=== PATIENT | female | born 1950 | race Caucasian/White ===

== ENCOUNTER 2018-01-28 10:39 | Inpatient (IN) | payer MEDICARE, MEDICAID ==
--- NOTE | 2018-01-28 11:20 | ED ---
Psych HPI - General Chief Complaint: Psychiatric Symptoms Stated Complaint: mental health Time Seen by Provider: 01/28/18 10:51 Source: patient, RN notes reviewed Mode of arrival: ambulatory Limitations: no limitations - History of Present Illness Initial Comments: 67-year-old female presents emergency department with family for psychiatric evaluation. Patient was seen at [facility] last night for some her symptoms. Patient is bipolar, schizoaffective. Patient has seen people, talking to people. Patient is having erratic behavior, uncontrolled fever at home. Family states that she had a change in her medication she used to be on injectable and states that they cannot handle her behavior anymore. Patient has been petition. Patient denies being suicidal or homicidal. Patient states she has no complaints. - Related Data Home Medications Medication Instructions Recorded Confirmed Aspirin EC [Ecotrin Low Dose] 81 mg PO DAILY 01/06/18 01/28/18 Lisinopril [Zestril] 20 mg PO DAILY 01/06/18 01/28/18 Multivitamins, Thera [Multivitamin 1 tab PO DAILY 01/06/18 01/28/18 (formulary)] Benztropine Mesylate [Cogentin] 1 mg PO BID 01/28/18 01/28/18 Temazepam [Restoril] 30 mg PO HS 01/28/18 01/28/18 Previous Rx's Medication Instructions Recorded Benztropine Mesylate [Cogentin] 0.5 mg PO BID #28 tab 01/16/18 Paliperidone IM [Invega Sustenna] 156 mg IM ONCE #1 syr 01/16/18 Paliperidone [Invega] 6 mg PO HS #7 tab.er.24 01/16/18 traZODone HCL 150 mg PO HS #14 tablet 01/16/18 Allergies Allergy/AdvReac Type Severity Reaction Status Date / Time quetiapine fumarate Allergy Unknown Verified 01/28/18 11:24 [From Seroquel] Sulfa (Sulfonamide Allergy Unknown Verified 01/28/18 11:24 Antibiotics) Review of Systems ROS Statement: Those systems with pertinent positive or pertinent negative responses have been documented in the HPI. ROS Other: All systems not noted in ROS Statement are negative. 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 Past Anesthesia/Blood Transfusion Reactions: No Reported Reaction Past Psychological History: Bipolar, Schizophrenia Smoking Status: Current every day smoker Past Alcohol Use History: None Reported Past Drug Use History: None Reported - Past Family History Brother(s) Additional Family Medical History / Comment(s): Patient states she has 5 brothers with no major medical problems. Sister(s) Additional Family Medical History / Comment(s): Patient states she has 7 sisters with no major medical problems. Brother(s) Son(s) Additional Family Medical History / Comment(s): Patient has 2 sons and 1 daughter with no major medical problems. Mother Family Medical History: Cancer, Hypertension Additional Family Medical History / Comment(s): Mother at age 89 from stomach problems Father Family Medical History: CVA/TIA, Hypertension Additional Family Medical History / Comment(s): Father at age 59 from peripheral vascular disease. General Exam Limitations: no limitations General appearance: alert, in no apparent distress Head exam: Present: atraumatic, normocephalic, normal inspection Eye exam: Present: normal appearance, PERRL, EOMI. Absent: scleral icterus, conjunctival injection, periorbital swelling ENT exam: Present: normal exam, normal oropharynx, mucous membranes moist, TM's normal bilaterally, normal external ear exam Neck exam: Present: normal inspection, full ROM. Absent: tenderness, meningismus, lymphadenopathy Respiratory exam: Present: normal lung sounds bilaterally. Absent: respiratory distress, wheezes, rales, rhonchi, stridor Cardiovascular Exam: Present: regular rate, normal rhythm, normal heart sounds. Absent: systolic murmur, diastolic murmur, rubs, gallop, clicks Neurological exam: Present: alert, oriented X3, CN II-XII intact Psychiatric exam: Present: manic, other (Flight of ideas, talking to people that are not in the room) Skin exam: Present: warm, dry, intact, normal color. Absent: rash Course Vital Signs 01/28/18 10:45 Temperature 98.0 F Pulse Rate 102 H Respiratory 20 Rate Blood Pressure 129/76 O2 Sat by Pulse 98 Oximetry Medical Decision Making - Lab Data Result diagrams: 01/28/18 12:02 02/28/18 12:02 Lab Results 01/28/18 01/28/18 01/28/18 Range/Units 12:02 12:02 14:55 WBC 6.0 (3.8-10.6) k/uL RBC 3.96 (3.80-5.40) m/uL Hgb 12.1 (11.4-16.0) gm/dL Hct 36.4 (34.0-46.0) % MCV 92.0 (80.0-100.0) fL MCH 30.6 (25.0-35.0) pg MCHC 33.2 (31.0-37.0) g/dL RDW 13.0 (11.5-15.5) % Plt Count 239 (150-450) k/uL Neutrophils % 71 % Lymphocytes % 21 % Monocytes % 5 % Eosinophils % 2 % Basophils % 1 % Neutrophils # 4.2 (1.3-7.7) k/uL Lymphocytes # 1.2 (1.0-4.8) k/uL Monocytes # 0.3 (0-1.0) k/uL Eosinophils # 0.1 (0-0.7) k/uL Basophils # 0.0 (0-0.2) k/uL Sodium 138 (137-145) mmol/L Potassium 4.4 (3.5-5.1) mmol/L Chloride 103 (98-107) mmol/L Carbon Dioxide 25 (22-30) mmol/L Anion Gap 10 mmol/L BUN 12 (7-17) mg/dL Creatinine 0.56 (0.52-1.04) mg/dL Est GFR (MDRD) Af Amer >60 (>60 ml/min/1.73 sqM) Est GFR (MDRD) Non-Af >60 (>60 ml/min/1.73 sqM) Glucose 94 (74-99) mg/dL Calcium 9.3 (8.4-10.2) mg/dL Total Bilirubin 0.3 (0.2-1.3) mg/dL AST 19 (14-36) U/L ALT 31 (9-52) U/L Alkaline Phosphatase 72 (38-126) U/L Total Protein 6.2 L (6.3-8.2) g/dL Albumin 3.6 (3.5-5.0) g/dL Urine Color Light Yellow Urine Appearance Clear (Clear) Urine pH 6.5 (5.0-8.0) Ur Specific [place] 1.006 (1.001-1.035) Urine Protein Negative (Negative) Urine Glucose (UA) Negative (Negative) Urine Ketones Negative (Negative) Urine Blood Negative (Negative) Urine Nitrite Negative (Negative) Urine Bilirubin Negative (Negative) Urine Urobilinogen <2.0 (<2.0) mg/dL Ur Leukocyte Esterase Trace H (Negative) Urine RBC 1 (0-5) /hpf Urine WBC 1 (0-5) /hpf Ur Squamous Epith Cells 7 H (0-4) /hpf Urine Bacteria Rare H (None) /hpf Urine Opiates Screen (NotDetected) Ur Oxycodone Screen (NotDetected) Urine Methadone Screen (NotDetected) Ur Propoxyphene Screen (NotDetected) Ur Barbiturates Screen (NotDetected) U Tricyclic Antidepress (NotDetected) Ur Phencyclidine Scrn (NotDetected) Ur Amphetamines Screen (NotDetected) U Methamphetamines Scrn (NotDetected) U Benzodiazepines Scrn (NotDetected) Urine Cocaine Screen (NotDetected) U Marijuana (THC) Screen (NotDetected) 01/28/18 Range/Units 14:55 WBC (3.8-10.6) k/uL RBC (3.80-5.40) m/uL Hgb (11.4-16.0) gm/dL Hct (34.0-46.0) % MCV (80.0-100.0) fL MCH (25.0-35.0) pg MCHC (31.0-37.0) g/dL RDW (11.5-15.5) % Plt Count (150-450) k/uL Neutrophils % % Lymphocytes % % Monocytes % % Eosinophils % % Basophils % % Neutrophils # (1.3-7.7) k/uL Lymphocytes # (1.0-4.8) k/uL Monocytes # (0-1.0) k/uL Eosinophils # (0-0.7) k/uL Basophils # (0-0.2) k/uL Sodium (137-145) mmol/L Potassium (3.5-5.1) mmol/L Chloride (98-107) mmol/L Carbon Dioxide (22-30) mmol/L Anion Gap mmol/L BUN (7-17) mg/dL Creatinine (0.52-1.04) mg/dL Est GFR (MDRD) Af Amer (>60 ml/min/1.73 sqM) Est GFR (MDRD) Non-Af (>60 ml/min/1.73 sqM) Glucose (74-99) mg/dL Calcium (8.4-10.2) mg/dL Total Bilirubin (0.2-1.3) mg/dL AST (14-36) U/L ALT (9-52) U/L Alkaline Phosphatase (38-126) U/L Total Protein (6.3-8.2) g/dL Albumin (3.5-5.0) g/dL Urine Color Urine Appearance (Clear) Urine pH (5.0-8.0) Ur Specific [place] (1.001-1.035) Urine Protein (Negative) Urine Glucose (UA) (Negative) Urine Ketones (Negative) Urine Blood (Negative) Urine Nitrite (Negative) Urine Bilirubin (Negative) Urine Urobilinogen (<2.0) mg/dL Ur Leukocyte Esterase (Negative) Urine RBC (0-5) /hpf Urine WBC (0-5) /hpf Ur Squamous Epith Cells (0-4) /hpf Urine Bacteria (None) /hpf Urine Opiates Screen Not Detected (NotDetected) Ur Oxycodone Screen Not Detected (NotDetected) Urine Methadone Screen Not Detected (NotDetected) Ur Propoxyphene Screen Not Detected (NotDetected) Ur Barbiturates Screen Not Detected (NotDetected) U Tricyclic Antidepress Not Detected (NotDetected) Ur Phencyclidine Scrn Not Detected (NotDetected) Ur Amphetamines Screen Not Detected (NotDetected) U Methamphetamines Scrn Not Detected (NotDetected) U Benzodiazepines Scrn Detected H (NotDetected) Urine Cocaine Screen Not Detected (NotDetected) U Marijuana (THC) Screen Not Detected (NotDetected) Disposition Clinical Impression: Bipolar disorder Disposition: ADMITTED IP TO THIS [facility] Condition: Stable Referrals: Germán Armenta MD [Primary Care Provider] - 1-2 days
[2018-01-28 12:14] LABS: Basophils % (A) 1 %; Eosinophils # (A) 0.1 k/uL (0-0.7); Eosinophils % (A) 2 %; HCT 36.4 % (34.0-46.0); HGB 12.1 gm/dL (11.4-16.0); Lymphocytes # (A) 1.2 k/uL (1.0-4.8); Lymphocytes % (A) 21 %; MCH 30.6 pg (25.0-35.0); MCHC 33.2 g/dL (31.0-37.0); Mean Platelet Volume 7.5; Monocytes # (A) 0.3 k/uL (0-1.0); Monocytes % (A) 5 %; Neutrophils # (A) 4.2 k/uL (1.3-7.7); Neutrophils % (A) 71 %; Platelet Count 239 k/uL (150-450); RBC 3.96 m/uL (3.80-5.40)
[2018-01-28 12:19] LABS: Albumin 3.6 g/dL (3.5-5.0); Chloride 103 mmol/L (98-107); Glucose 94 mg/dL (74-99); Total Protein 6.2 g/dL (6.3-8.2)
[2018-01-28 12:20] LABS: ALT 31 U/L (9-52); AST 19 U/L (14-36); Alkaline Phosphatase 72 U/L (38-126); Anion Gap 10 mmol/L; Blood Urea Nitrogen 12 mg/dL (7-17); Calcium 9.3 mg/dL (8.4-10.2); Carbon Dioxide 25 mmol/L (22-30); Potassium 4.4 mmol/L (3.5-5.1); Sodium 138 mmol/L (137-145); Total Bilirubin 0.3 mg/dL (0.2-1.3)
[2018-01-28] MEDS ORDERED: LORazepam 2 MG/ML INJ IM STA (13:32)
[2018-01-28 15:19] LABS: Appearance,Urine Clear (Clear); Bacteria,Urine Rare /hpf; Bilirubin,Urine Negative (Negative); Blood,Urine Negative (Negative); Color,Urine Light Yellow; Glucose,Urine (UA) Negative (Negative); Ketones,Urine Negative (Negative); Leukocyte Esterase,Urine Trace (Negative); Nitrite,Urine Negative (Negative); PH, Urine 6.5 (5.0-8.0); Protein,Urine Negative (Negative); RBC,Urine 1 /hpf (0-5); Specific Gravity,Urine 1.006 (1.001-1.035); Squamous Epithelial Cell,Urine 7 /hpf (0-4); Urobilinogen,Urine <2.0 mg/dL (<2.0); WBC,Urine 1 /hpf (0-5)
[2018-01-28 15:25] LABS: Amphetamine Screen,Urine Not Detected (NotDetected); Barbiturate Screen,Urine Not Detected (NotDetected); Benzodiazepines Screen,Urine Detected (NotDetected); Cocaine Screen,Urine Not Detected (NotDetected); Methadone Screen, Urine Not Detected (NotDetected); Opiate Screen,Urine Not Detected (NotDetected); Oxycodone Screen, Urine Not Detected (NotDetected); Phencyclidine Screen,Urine Not Detected (NotDetected); Tricyclic Antidepressant,Urine Not Detected (NotDetected); Urn Cannabinoid Scrn Not Detected (NotDetected)
[2018-01-28] MEDS ORDERED: ACETAMINOPHEN TAB 325 MG TAB PO PRN (18:28)
[2018-01-28] MEDS ORDERED: MAGNESIUM HYDROXIDE 2,400 MG/10 ML CUP PO PRN (18:28)
[2018-01-28] MEDS ORDERED: MAG HYDROX/AL HYDROX/SIMETH 30 ML CUP PO PRN (18:28)
[2018-01-28] MEDS: BENZTROPINE MESYLATE 0.5 MG TAB PO SCH (20:38)
[2018-01-28] MEDS: traZODone HCL 50 MG TAB PO SCH (20:39)
--- NOTE | 2018-01-29 01:14 | P.MDCNMH ---
History of Present Illness H&P Date: 01/29/18 Chief Complaint: Medical management 67-year-old female with past medical history of hypertension and asthma presented due to reported erratic behavior auditory and visual hallucinations. Patient denies these complaints reports that she had it for a with her family members. However she denies any depression, suicidal or homicidal ideation. And at this point she denies any physical complaints. She is very pleasant and cooperative with the interview. Patient expresses eagerness and going home Review of Systems Constitutional: Patient denies fever, denies chills, denies night sweating, denies significant weight changes Eyes: Patient denies visual changes, denies eye pain ENT: Patient denies ear pain, denies rhinorrhea, denies sore throat Cardiovascular: Patient denies chest pain, denies exertional dyspnea, denies peripheral leg edema, denies orthopnea, denies paroxysmal nocturnal dyspnea Respiratory:Patient denies cough, denies wheezing, denies shortness of breath Gastrointestinal: Patient denies diarrhea, denies constipation, denies nausea , denies vomiting, denies abdominal pain Genitourinary: Patient denies dysuria, denies hematuria, denies changes in urinary habits, denies genital lesions Musculoskeletal: Patient denies muscle pain, denies joint pain Psychiatric: Patient denies changes in mood or memory, denies suicidal ideation, denies anxiety Endocrine: Patient denies heat intolerance, denies cold intolerance, denies excessive thirst, denies polyuria Neurological: Patient denies focal neurologic deficits, denies weakness, denies numbness, denies tingling Hem/Lymphatic: Patient denies bleeding tendency, denies bruising, denies swollen lymph glands Allergic/Immun: Patient denies recent allergic reactions Skin: Patient denies rashes, denies pruritis, denies ulcers Past Medical History Past Medical History: Asthma, GERD/Reflux, Hypertension History of Any Multi-Drug Resistant Organisms: None Reported Past Surgical History: Section, Orthopedic Surgery Additional Past Surgical History / Comment(s): amputated toes on right ft. Past Anesthesia/Blood Transfusion Reactions: No Reported Reaction Past Psychological History: Bipolar, Schizophrenia Smoking Status: Current every day smoker Past Alcohol Use History: None Reported Past Drug Use History: None Reported - Past Family History Brother(s) Additional Family Medical History / Comment(s): Patient states she has 5 brothers with no major medical problems. Sister(s) Additional Family Medical History / Comment(s): Patient states she has 7 sisters with no major medical problems. Brother(s) Son(s) Additional Family Medical History / Comment(s): Patient has 2 sons and 1 daughter with no major medical problems. Mother Family Medical History: Cancer, Hypertension Additional Family Medical History / Comment(s): Mother at age 89 from stomach problems Father Family Medical History: CVA/TIA, Hypertension Additional Family Medical History / Comment(s): Father at age 59 from peripheral vascular disease. Medications and Allergies Home Medications Medication Instructions Recorded Confirmed Type Aspirin EC [Ecotrin Low Dose] 81 mg PO DAILY 01/06/18 01/28/18 History Lisinopril [Zestril] 20 mg PO DAILY 01/06/18 01/28/18 History Multivitamins, Thera [Multivitamin 1 tab PO DAILY 01/06/18 01/28/18 History (formulary)] Benztropine Mesylate [Cogentin] 0.5 mg PO BID #28 tab 01/16/18 01/28/18 Rx Paliperidone IM [Invega Sustenna] 156 mg IM ONCE #1 syr 01/16/18 01/28/18 Rx Paliperidone [Invega] 6 mg PO HS #7 tab.er.24 01/16/18 01/28/18 Rx traZODone HCL 150 mg PO HS #14 tablet 01/16/18 01/28/18 Rx Benztropine Mesylate [Cogentin] 1 mg PO BID 01/28/18 01/28/18 History Temazepam [Restoril] 30 mg PO HS 01/28/18 01/28/18 History Allergies Allergy/AdvReac Type Severity Reaction Status Date / Time quetiapine fumarate Allergy Unknown Verified 01/28/18 11:24 [From Seroquel] Sulfa (Sulfonamide Allergy Unknown Verified 01/28/18 11:24 Antibiotics) Physical Exam Vitals: Vital Signs Temp Pulse Pulse Resp BP BP Pulse Ox 01/28/18 18:19 99.4 F 81 16 113/81 01/28/18 10:45 98.0 F 102 H 20 129/76 98 Intake and Output 01/28/18 01/28/18 01/29/18 14:59 22:59 06:59 Other: Weight 68.039 kg Patient Weight 01/29/18 06:59 Weight 68.039 kg Constitutional: No acute distress, conversant, pleasant Eyes: Anicteric sclerae, moist conjunctiva, no lid-lag Pupils equal round reactive to light ENMT: NC/AT Oropharynx clear, no erythema, exudates Neck: Supple, FROM, no masses, or JVD No carotid bruits No thyromegaly Lungs: Clear to auscultation Clear to percussion Normal respiratory effort, no accessory muscle use Cardiovascular: Heart regular in rate and rhythm, No murmurs, gallops, or rubs No peripheral edema Abdominal: Soft Nontender, no guarding, rebound or rigidity Abdomen moving with respiration Normoactive bowel sounds No hepatomegaly, No splenomegaly No palpable mass No abdominal wall hernia noted Skin: Normal temperature, tone, texture, turgor No induration No subcutaneous nodules No rash, lesions No ulcers Extremities: No digital cyanosis No clubbing Pedal pulses intact and symmetrical Radial pulses intact and symmetrical No calf tenderness Psychiatric: Alert and oriented to person, place and time Appropriate affect fair judgment Neuro Muscles Strength 5/5 in all 4 extremities Sensation to light touch grossly present throughout No focal sensory deficits Lymphatics: no palpable cervical or supraclavicular , or inguinal lymph nodes Cranial Nerve Examination - Cranial Nerves Cranial Nerve II- Optic: Intact Cranial Nerve III- Oculomotor: Intact Cranial Nerve IV- Trochlear: Intact Cranial Nerve V- Trigeminal: Intact Cranial Nerve - Abducens: Intact Cranial Nerve VII- Facial: Intact Cranial Nerve VIII- Auditory: Intact Cranial Nerve IX- Glossopharyngeal: Intact Cranial Nerve X- Vagus: Intact Cranial Nerve XI- Accessory: Intact Cranial Nerve XII- Hypoglossal: Intact Results CBC & Chem 7: 01/28/18 12:02 01/28/18 12:02 Labs: Abnormal Lab Results - Last 24 Hours (Table) 01/28/18 01/28/18 01/28/18 Range/Units 12:02 14:55 14:55 Total Protein 6.2 L (6.3-8.2) g/dL Ur Leukocyte Esterase Trace H (Negative) Ur Squamous Epith Cells 7 H (0-4) /hpf Urine Bacteria Rare H (None) /hpf U Benzodiazepines Scrn Detected H (NotDetected) Assessment and Plan (1) Acute psychosis Narrative/Plan: Management per psych Current Visit: Yes Status: Acute Code(s): F23 - BRIEF PSYCHOTIC DISORDER SNOMED Code(s): 14860240 (2) Bipolar disorder Current Visit: Yes Status: Acute Code(s): F31.9 - BIPOLAR DISORDER, UNSPECIFIED SNOMED Code(s): 92969231 (3) Hypertension Narrative/Plan: Controlled off medications Current Visit: No Status: Acute Code(s): I10 - ESSENTIAL (PRIMARY) HYPERTENSION SNOMED Code(s): 26771708 (4) DVT prophylaxis Narrative/Plan: Low risk and ambulatory Current Visit: Yes Status: Acute Code(s): GCY6939 - SNOMED Code(s): 738883791 Plan: Thank you for allowing us to participate in the care of this patient. We will follow peripherally. Do not hesitate to contact us with questions. Someone can be reached from the [facility] hospitalist group at all hours of the day at [phone].
[2018-01-29] MEDS: ASPIRIN 81 MG PO SCH (08:30)
[2018-01-29] MEDS: BENZTROPINE MESYLATE 0.5 MG TAB PO SCH ×2 (08:31→20:44)
[2018-01-29] MEDS: LORazepam 1 MG TAB PO PRN (08:31)
[2018-01-29 08:40] LABS: Cholesterol 162 mg/dL (<200); HDL Cholesterol 54 mg/dL (40-60); LDL Cholesterol,Calculated 90 mg/dL (0-99); Triglycerides 88 mg/dL (<150)
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
[2018-01-29 16:52] LABS: Hemoglobin A1C 5.6 % (4.0-6.0)
[2018-01-29] MEDS: traZODone HCL 50 MG TAB PO SCH (20:44)
[2018-01-30] MEDS: BENZTROPINE MESYLATE 0.5 MG TAB PO SCH (08:01)
[2018-01-30] MEDS: lamoTRIgine 25 MG TAB PO SCH (08:02)
[2018-01-30] MEDS: ASPIRIN 81 MG PO SCH (08:02)
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
[2018-01-30] MEDS: traZODone HCL 50 MG TAB PO SCH (20:25)
[2018-01-31] MEDS: LORazepam 1 MG TAB PO PRN (06:08)
[2018-01-31] MEDS: BENZTROPINE MESYLATE 0.5 MG TAB PO SCH (08:35)
[2018-01-31] MEDS: ASPIRIN 81 MG PO SCH (08:35)
[2018-01-31] MEDS: lamoTRIgine 25 MG TAB PO SCH (08:35)
--- NOTE | 2018-01-31 13:36 | P.PN ---
Progress Note - Text Progress Note Date: 01/31/18 Interval History: Patient is a 67-year-old female who was seen today and reports that she slept 5-1/2 hours last night. Patient continues to have pressured speech and complain about her today it was about his hearing aids and how much she had to pay for them, she continued to go on about her daughter and the grandson is visiting. Patient then went on to complain about side effects from Lamictal of having a "ballooned head". Patient remains irritable, easily upset. Mental Status: Appearance/Attitude: Patient is appropriately dressed, looking drowsy, makes good eye contact and is cooperative Behavior: Patient does not display any psychomotor agitation or retardation. Speech/Language: Patient's speech is pressured, normal volume and rhythm and she is coherent Thought Process: Patient becomes tangential complaining about her , her daughter, side effects of medication that her sister had Thought Content: patient denies auditory or visual hallucinations, no delusions or paranoid ideation were elicited. Patient slept for 5-1/2 hours last night but continues to look drowsy during the day. Patient remains irritable, complaining about her daughter and . Suicidal/Homicidal Ideation: Patient denies any current suicidal or homicidal ideation Sensorium/Cognition: Patient is alert and oriented to person, place, and time and recent and remote memory are grossly intact Mood/Affect: Patient's mood remains labile and irritable and her affect is appropriate to her mood. Insight/Judgment: [Patient's insight and judgment are limited Assessment: Patient continues to have pressured speech, is tangential and anxious and complains about her , daughter and becomes easily agitated and irritable when discussing them. Patient slept for 5-1/2 hours last night and attend some group and activities. Patient reports no side effects from the medication and states she is eating well. Patient is attending some groups and activities Plan: patient has received the initial loading dose of Invega Sustenna last dose given on January 20. Patient remains pressured and irritable and will add Invega 3 mg at bedtime, patient continues on Lamictal 25 mg and we'll continue to titrate this. Patient continues to present with manic symptoms, pressured speech and irritability and requires hospitalization to further stabilize her mood. We'll use the additional oral in [place] to further stabilize her mood while the Lamictal is being titrated as the Invega injectable has not controlled her mood completely.
[2018-01-31] MEDS: PALIPERIDONE 3 MG TAB.ER.24 PO SCH (20:57)
[2018-01-31] MEDS: traZODone HCL 50 MG TAB PO SCH (20:58)
[2018-02-01] MEDS: BENZTROPINE MESYLATE 0.5 MG TAB PO SCH (08:40)
[2018-02-01] MEDS: ASPIRIN 81 MG PO SCH (08:40)
[2018-02-01] MEDS: lamoTRIgine 25 MG TAB PO SCH (08:41)
--- NOTE | 2018-02-01 12:39 | P.PN ---
Progress Note - Text Progress Note Date: 02/01/18 Interval History: Patient is a 67-year-old female who is being seen today and patient continues to have pressured speech and flight of ideas. Patient is less irritable today and states that she is not feeling as irritable. She states that she slept for about 4 hours last night and then awakened. Patient is requesting to be discharged stating that she feels she is perfectly fine and has always talked a lot. Mental Status: Appearance/Attitude: Patient is appropriately dressed, makes eye contact and is cooperative Behavior: Patient does not exhibit any psychomotor agitation or retardation. Speech/Language: Patient's speech is pressured, normal volume and she is coherent Thought Process: Patient exhibits flight of ideas, jumping from one topic to another about her sisters, but a swimming pool and requires redirection Thought Content: Patient denies auditory and visual hallucinations and no delusions or paranoid ideation were elicited. Patient continues to have racing thoughts, is not sleeping more than 4 hours a night. Suicidal/Homicidal Ideation: Patient denies any suicidal or homicidal ideation at this time Sensorium/Cognition: Patient is alert and oriented to person, place, and time and her recent and remote memory are grossly intact Mood/Affect: Patient's mood remains labile, her affect appropriate to her mood Insight/Judgment: Patient's insight and judgment are fair Assessment: Patient continues to exhibit pressured speech and flight of ideas and is less irritable today than she was yesterday. Patient states that she is ready to go home because she is always talked fast and this much. Patient reported no side effects from her medications and states that she attend some groups and activities. No reported side effects from the medication and none were elicited on exam Plan: Patient will continue on Invega 3 mg at bedtime in addition to her having already received long-acting Invega, and continue on Lamictal 25 mg a day. Patient continues to require hospitalization to stabilize her mood.
[2018-02-01] MEDS: traZODone HCL 50 MG TAB PO SCH (21:00)
[2018-02-01] MEDS: PALIPERIDONE 3 MG TAB.ER.24 PO SCH (21:00)
[2018-02-01] MEDS: LORazepam 1 MG TAB PO PRN (21:02)
[2018-02-02] MEDS: ASPIRIN 81 MG PO SCH (08:58)
[2018-02-02] MEDS: lamoTRIgine 25 MG TAB PO SCH (08:58)
[2018-02-02] MEDS: BENZTROPINE MESYLATE 0.5 MG TAB PO SCH (08:58)
--- NOTE | 2018-02-02 11:41 | P.PN ---
Progress Note - Text Progress Note Date: 02/02/18 Interval History: Patient is a 67-year-old female who was seen today and she reports that she did sleep well last evening. Patient is less irritable but continues to exhibit pressured speech and will begin to discuss issues from the past regarding her siblings, her parents and issues with her . Patient said to me that when she is speaking with her sister and her sister reported that she was talking too fast. Patient denied any suicidal thoughts and did not agree that she was speaking too fast stating this is the way she always speaks. Patient had no complaints of side effects from the medication and has been eating well. Mental Status: Appearance/Attitude: Patient is appropriately dressed, makes eye contact and is cooperative Behavior: Patient does not exhibit any psychomotor agitation or retardation and she is not irritable Speech/Language: Patient's speech is pressured, normal volume and rhythm and she is coherent Thought Process: Patient has flight of ideas, jumping from topic to topic mostly regarding her family, her Thought Content: Patient denies auditory or visual hallucinations and no paranoid or delusional ideation is elicited. Patient states that she is not having racing thoughts and that her sister reported she was speaking too fast the patient states this is the way she always speaks. Patient slept for 6-7 hours last night and has been eating well. Patient mostly complains about issues from the past with relationships with her sister, her parents were current difficulties with her , mostly related to things costing too much. Suicidal/Homicidal Ideation: Patient denied any current suicidal or homicidal ideation Sensorium/Cognition: Patient is alert and oriented to person, place, and time and her recent remote memory are grossly intact. Mood/Affect: Patient's mood is less irritable and her affect remains blunted Insight/Judgment: Patient's insight and judgment are fair Assessment: Patient has been taking her medication without difficulty, continues to exhibit pressured speech with flight of ideas regarding issues from her family and . Patient states that she is always spoken fast and states that her sister recently on the phone complained about this. Patient is able to attend some groups for brief periods of time. Patient is sleeping and is not exhibiting any confused behavior. She is less irritable than she was on admission. She reports no side effects from the medication. Plan: patient will continue on Invega 3 mg at bedtime, Lamictal 25 mg daily and her next long-acting Invega injection is due on February 17. Patient continues to require hospitalization due to her continued manic symptoms.
[2018-02-02] MEDS: LORazepam 0.5 MG TAB PO PRN ×2 (12:33→21:59)
[2018-02-02] MEDS: PALIPERIDONE 3 MG TAB.ER.24 PO SCH (21:57)
[2018-02-02] MEDS: traZODone HCL 50 MG TAB PO SCH (21:57)
[2018-02-03] MEDS: BENZTROPINE MESYLATE 0.5 MG TAB PO SCH (08:23)
[2018-02-03] MEDS: lamoTRIgine 25 MG TAB PO SCH (08:23)
[2018-02-03] MEDS: ASPIRIN 81 MG PO SCH (08:23)
[2018-02-03] MEDS: LORazepam 0.5 MG TAB PO PRN (10:27)
--- NOTE | 2018-02-03 13:57 | P.PN ---
Progress Note - Text Progress Note Date: 02/03/18 Interval History: Patient is a 67-year-old female who was seen today, patient was agitated and upset last night due to not being able to contact her and she states to me today that she thought he was lost. She slept only 2 a half hours last night. She states that she's did sleep after that. Patient continues to ruminate and go over and over incidents from the past, her reasons for not being able to take certain medications. At times today the patient's affect was slightly silly. Patient states that she is ready to go home Mental Status: Appearance/Attitude: Patient is appropriately dressed, makes eye contact and is cooperative Behavior: Patient does not exhibit any psychomotor retardation or agitation, last night she did begin to yell and become agitated when she could not use the phone because she thought her was lost Speech/Language: Patient's speech remains pressured, normal volume and rhythm and she is coherent Thought Process: Patient exhibits flight of ideas, going over incidents from the past, talking about her sister, talking about various events in the past Thought Content: Patient denies auditory or visual hallucinations and no delusions or paranoid ideation or elicited. Patient continues to not sleep well , she is eating well. She has periods of time where she became agitated last evening when she couldn't use the phone. Patient complains that she needs to be at home to take care of the finances because her is not able to do estimates. Suicidal/Homicidal Ideation: Patient denies any current suicidal or homicidal ideation Sensorium/Cognition: Patient is alert and oriented to person, place, and time and her recent and remote memory are grossly intact. Mood/Affect: Patient's mood remains labile, she was acting silly in the office and then began crying about my discussion regarding Depakote, her affect is appropriate to her mood Insight/Judgment: Patient's insight and judgment are limited Assessment: Patient is continued to exhibit manic behavior, especially pressured speech and flight of ideas she continues to not sleep well at night. Patient attends groups occasionally and is only able to tolerate them for brief periods of time. Patient and I discussed her medications and she refused adamantly Depakote although the patient was taking this in the past it is unclear why it was discontinued. Patient has never been on lithium in the past and I reluctant to begin this due to its narrow therapeutic window. Patient has episodes of agitation and yelling, her mood remains labile Plan: Patient will continue on Invega 3 mg at bedtime, trazodone 50 mg at bedtime and I will discontinue her Lamictal and begin Trileptal 150 mg twice a day as a mood stabilizer, patient and I discussed this and she is unsure of whether she has been on this in the past or not. Patient is due for her maintenance injection of Invega long-acting on February 17. Patient continues to require hospitalization to further stabilize her mood.
[2018-02-03] MEDS: PALIPERIDONE 3 MG TAB.ER.24 PO SCH (20:19)
[2018-02-03] MEDS: OXcarbazepine 150 MG TAB PO SCH (20:20)
[2018-02-03] MEDS: traZODone HCL 50 MG TAB PO SCH (20:20)
[2018-02-04] MEDS: LORazepam 0.5 MG TAB PO PRN ×2 (06:12→21:00)
[2018-02-04] MEDS: BENZTROPINE MESYLATE 0.5 MG TAB PO SCH (08:40)
[2018-02-04] MEDS: lamoTRIgine 25 MG TAB PO SCH (08:41)
[2018-02-04] MEDS: OXcarbazepine 150 MG TAB PO SCH ×2 (08:41→20:58)
[2018-02-04] MEDS: ASPIRIN 81 MG PO SCH (08:41)
--- NOTE | 2018-02-04 12:18 | P.PN ---
Progress Note - Text Progress Note Date: 02/04/18 Interval History: Patient is a 67-year-old female who was seen today, patient initially was cooperative during the interview but as the interview progressed she became increasingly irritable, pressured speech and stating that she wants to be discharged. Patient stated that someone came to her house for mental health and told her that she needed to go back to the hospital and she got angry and told him to leave the house. When trying to discuss this with the patient she became increasingly angry and left the office stating that she doesn 't want to be ordered around and feels ready to go back home. Mental Status: Appearance/Attitude: Patient is appropriately dressed, makes good eye contact and is superficially cooperative Behavior: Patient does not exhibit any psychomotor retardation but became increasingly agitated during the interview stating that she was ready to leave, didn't like that mental health told her to come back to the hospital and got up and exited the interview room Speech/Language: Patient's speech is pressured, of normal volume and rhythm and she is coherent Thought Process: Patient continues to exhibit flight of ideas, needing redirection to return to the topic Thought Content: Patient denies auditory or visual hallucinations and no delusions or paranoid ideation were elicited. Patient states that she did not sleep well last night and requests that she be discharged home on Ativan. Patient remains irritable, demanding to leave the hospital and needing redirection to stay on topic. Patient is eating fairly well she says. Suicidal/Homicidal Ideation: Patient denies current suicidal or homicidal ideation Sensorium/Cognition: Patient is alert and oriented to person, place, and time and her recent and remote memory are grossly intact Mood/Affect: Patient's mood remains irritable and manic and her affect is appropriate to her mood Insight/Judgment: Patient's insight and judgment are impaired Assessment: Patient remains manic, easily irritated and she demands to be released and states she is doing well. Her speech remains pressured with flight of ideas, stating that she got upset at home [facility], because her will let her do things and then request Ativan to go home with so that she can sleep. Patient reports that she did not sleep well last night. Patient reports no side effects from the medication and does attend some groups and activities. Plan: Patient will continue on Invega 3 mg at bedtime, Trileptal 150 mg twice a day and her Acting Invega injection is due on February 17. Patient also continues on trazodone 50 mg at bedtime and will decrease her Cogentin further and discontinue as the patient has no evidence of extrapyramidal symptoms. Patient continues to require hospitalization to further stabilize her mood.
[2018-02-04] MEDS: traZODone HCL 50 MG TAB PO SCH (20:58)
[2018-02-04] MEDS: PALIPERIDONE 3 MG TAB.ER.24 PO SCH (20:58)
[2018-02-05] MEDS: ASPIRIN 81 MG PO SCH (08:06)
[2018-02-05] MEDS: OXcarbazepine 150 MG TAB PO SCH (08:06)
--- NOTE | 2018-02-05 13:24 | P.PN ---
Progress Note - Text Progress Note Date: 02/05/18 Interval History: Patient is a 67-year-old female who was seen today who reported that she slept well last evening. Patient states that she is ready for discharge and stated that she wanted to be discharged so that she could find work because she and her are strapped for money she then went on to state that she could go back to school. 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 Patient reported no side effects from the medication. When I asked the patient why her Depakote at been discontinued she again became quite agitated and irritable stating that she wouldn't take it again and left the interview room Mental Status: Appearance/Attitude: Patient is appropriately dressed, walks with a shuffling gait and is cooperative Behavior: Patient does not display any psychomotor agitation or retardation. Speech/Language: Patient's speech is pressured with patient rambling on about finances, her work history, patient's speech is of normal volume and she is coherent Thought Process: patient exhibits flight of ideas, she is tangential and today was focused on money and her need to return to work Thought Content: patient denies any auditory or visual hallucinations and no paranoid or delusional ideation was elicited. Patient slept for greater than 5- 1/2 hours last night and states that her appetite is good. She reports no side effects from the medication. Suicidal/Homicidal Ideation: patient denies any current suicidal or homicidal ideation Sensorium/Cognition: patient is alert and oriented to person, place, and time and her recent and remote memory are grossly intact Mood/Affect: patient's mood remains irritable and her affect is appropriate to her mood Insight/Judgment: patient's insight and judgment are limited Assessment: patient continues to present with pressured speech today ruminating about going back to work because they don't have any money, her past work experience. Patient needs redirection to respond to questions. Patient was asked again about why her Depakote was discontinued in the past and again she became quite irritable stating that she never take it again but could not tell me why he stopped. Patient did sleep well last evening. Patient continues to spend long periods of time on the phone with her . Per social work when he spoke with her today he reported that the patient was back to her baseline. Patient reports no side effects from the medication. Patient stated that she had back pain from Depakote and that is why she stopped the medication. Plan: Patient will continue on Invega 3 mg at bedtime and will increase Trileptal to 300 mg twice a day to further stabilize her mood. Patient continues to present with manic symptoms of pressured speech, irritability. Patient continues to require hospitalization to further stabilize her mood and prevent rehospitalization.
[2018-02-05] MEDS: OXcarbazepine 300 MG TAB PO SCH (20:00)
[2018-02-05] MEDS: PALIPERIDONE 3 MG TAB.ER.24 PO SCH (20:00)
[2018-02-05] MEDS: traZODone HCL 50 MG TAB PO SCH (20:00)
[2018-02-06] MEDS: LORazepam 0.5 MG TAB PO PRN ×3 (00:09→12:42)
[2018-02-06] MEDS: ASPIRIN 81 MG PO SCH ×3 (09:21→12:43)
[2018-02-06] MEDS: OXcarbazepine 300 MG TAB PO SCH ×4 (09:21→20:37)
--- NOTE | 2018-02-06 13:14 | P.PN ---
Progress Note - Text Progress Note Date: 02/06/18 Interval History: Patient is a 67-year-old female who was seen today, she remains irritable, complaining that she does not want to return to [facility] and see Dr. Shaikh. She states that she wants to be discharged , doesn't want to take her medications because she doesn't need them. Patient was irritable earlier in the day on the telephone and could not tell me why. Patient reports that she wants to go to school to prevent a grandson from being bullied who is autistic, she reports that she doesn't need the Trileptal. Mental Status: Appearance/Attitude: Patient is dressed in appropriate clothing, walks with a shuffling gait makes intermittent eye contact and is superficially cooperative Behavior: Patient does not display psychomotor agitation or retardation. The patient is easily irritated when discussing her hospital stay Speech/Language: Patient's speech is pressured, of normal volume and she is coherent Thought Process: Patient is tangential, today complaining about the court order for treatment, not wanting to return to [facility], a grandson who is autistic being bullied in school Thought Content: Patient denies auditory or visual hallucinations and no delusions or paranoid ideation were elicited. Patient sleeps about 4-5 hours a night and her appetite is good. Patient states that she wants to leave the hospital, that she is ready to leave that she does not want to see Dr. Shaikh again that she is being held prisoner here Suicidal/Homicidal Ideation: Patient denies current suicidal or homicidal ideation. Sensorium/Cognition: Patient is alert and oriented to person, place, time and her recent remote memory are grossly intact Mood/Affect: Patient's mood remains labile and irritable and her affect is appropriate to her mood Insight/Judgment: Patient's insight and judgment are impaired Assessment: Patient requests to be discharged stating she is doing well, does not want to follow up at [facility] and feels she is being held prisoner here. When I try to discuss with her that she is on a court order for treatment she becomes increasingly irritable and agitated and states that she is being held captive, we'll move out of the [facility], get her own apartment. Patient was agitated earlier today while she was on the telephone with someone. Patient's been sleeping about 5 hours a night and her speech remains pressured. Patient is attending some groups and activities but is unable to stay for long periods of time. Staff report some confusion this morning when she was in groups. Plan: Patient will continue on Trileptal 300 mg twice a day, Invega 3 mg at bedtime and her next injection of Invega long-acting is due on February 17. I will discontinue the patient's trazodone as I do not know if this is adding to her irritability, agitation and reported some confusion this morning. We'll continue the Ativan 0.5 mg by mouth when necessary for agitation. Will obtain a sodium level secondary to being on Trileptal. Continue to titrate the Trileptal dose should the patient's sodium be within normal limits. Patient continues to require hospitalization to further stabilize her mood.
[2018-02-06] MEDS: PALIPERIDONE 3 MG TAB.ER.24 PO SCH (20:37)
[2018-02-07] MEDS: LORazepam 0.5 MG TAB PO PRN (05:23)
[2018-02-07] MEDS: OXcarbazepine 300 MG TAB PO SCH ×2 (09:12→20:58)
[2018-02-07] MEDS: ASPIRIN 81 MG PO SCH (09:12)
[2018-02-07 09:44] LABS: Anion Gap 8 mmol/L; Blood Urea Nitrogen 14 mg/dL (7-17); Calcium 8.9 mg/dL (8.4-10.2); Carbon Dioxide 28 mmol/L (22-30); Chloride 96 mmol/L (98-107); Glucose 124 mg/dL (74-99); Potassium 4.1 mmol/L (3.5-5.1); Sodium 132 mmol/L (137-145)
--- NOTE | 2018-02-07 15:22 | P.PN ---
Progress Note - Text Interval history: The patient is found in group she follows me to an interview room. In groups the patient was observed reading a paper seated alone. She states that she is looking forward to being discharged. She does not feel she requires continued hospitalization. Her medications were reviewed. Her recent sodium level came back at 132. This could be secondary to the Trileptal. We will reorder a sodium level for tomorrow morning. Mental status exam: The patient is seated calmly in her chair she stressor own clothing. Eye contact is intermittent. Speech is spontaneous she does demonstrate circumstantial and tangential thinking. She demonstrates limited insight and asked to be discharged. She demonstrates no irritability during our interaction this morning. She was directable. She is reporting no suicidal or homicidal ideation. She is endorsing no auditory or visual hallucinations or specific delusions. She would likely underreport symptoms to try to facilitate a discharge however. She demonstrates no abnormal involuntary movements. She demonstrates no verbal or physical aggressiveness. Plan: The patient will continue on her current psychotropic medications. We will repeat the sodium level. Reality orientation will be provided when possible. We will continue to monitor her for safety.
[2018-02-07] MEDS: PALIPERIDONE 3 MG TAB.ER.24 PO SCH (20:58)
[2018-02-08 06:48] VITALS: RESP 16
[2018-02-08] MEDS: ASPIRIN 81 MG PO SCH (08:56)
[2018-02-08] MEDS: OXcarbazepine 300 MG TAB PO SCH ×2 (08:56→20:17)
[2018-02-08] MEDS: LORazepam 0.5 MG TAB PO PRN ×2 (08:57→21:16)
--- NOTE | 2018-02-08 11:12 | P.PN ---
Progress Note - Text Interval history: The patient is found in the hallway she follows me to an interview room. She reports her and his friend visited last evening. It's difficult to ascertain what they talked about as she becomes tangential in describing that visit. Her sodium level was repeated which came back at 133 this is mild improvement from the last reading of 132. We discussed this lab result and she states she does have a history of her sodium being low in the past. She states her doctor his previously told her to use more salt. We discussed that the Trileptal could lower sodium. She feels that she is doing better with her current medication. She reports sleeping 6 hours staff recorded 5. She states she's been participating in meals. So far over the course of the weekend she has demonstrated no agitated behavior and she's been directable. Mental status exam: The patient is alert she's cooperative she seated calmly in the chair. Grooming is appropriate she is dressed in her own clothing. Eye contact is adequate. She does have spontaneous speech that is nonpressured. Thought process does not remain linear. She is able to provide some direct answers but with spontaneous speech she can demonstrate tangential thinking. She demonstrates no verbal or physical aggressiveness she demonstrates no abnormal involuntary movements. Insight and judgment limited however she does appear to be slowly improving. She is reporting no suicidal or homicidal ideation. She is endorsing no auditory or visual hallucinations or any specific delusions. She will at times describes some thoughts that may be paranoid in nature. Plan: The patient will continue on her current medications as they seem to be providing clinical benefit. Continue monitoring sodium level. She endorses a history of hyponatremia and states she's been directed to consume more sodium with her meals. We will consider reducing the Trileptal. We will monitor for safety and encourage her participation in the milieu. Vital signs reviewed.
[2018-02-08] MEDS: PALIPERIDONE 3 MG TAB.ER.24 PO SCH (20:17)
[2018-02-09] MEDS: ASPIRIN 81 MG PO SCH (08:15)
[2018-02-09] MEDS: OXcarbazepine 300 MG TAB PO SCH ×2 (08:15→20:18)
[2018-02-09 11:28] VITALS: BMI 25.7
--- NOTE | 2018-02-09 12:26 | P.PN ---
Progress Note - Text Progress Note Date: 02/09/18 Interval History: Patient is a 67-year-old female who was seen today and she reports that she slept better last evening, states that her thoughts are not racing as much. Patient stated that she feels more rested and states she is ready to return home. Mental Status: Appearance/Attitude: Patient is appropriately dressed, makes good eye contact and was cooperative. Behavior: Patient does not display any psychomotor agitation or retardation and is much less irritable. Speech/Language: Patient's speech is less pressured, of normal volume and she is coherent Thought Process: Patient exhibits less racing thoughts, remains tangential, no loose associations or flight of ideas Thought Content: patient denies any auditory or visual hallucinations and no delusions or paranoid ideation were elicited. Patient states that she slept 8 hours last night and reports that she is sleeping much better. She states that her thoughts are not racing as they were in the past. Patient states that she is eating well and wants to return home. Suicidal/Homicidal Ideation: Patient denies any current suicidal or homicidal ideation. Sensorium/Cognition: Patient is alert and oriented to person, place, and time and her recent and remote memory are grossly intact. Mood/Affect: Patient's mood is less irritable and her affect is slightly blunted ] Insight/Judgment: Patient's insight and judgment are fair Assessment: patient is much less irritable today, her speech is much less pressured although she remains tangential. Patient states that she is sleeping better and is ready to return home to assist her with things and around the house. Patient states that she is not having any side effects from the medication, however the patient's sodium was 132 in repeated 133 and she states that she has had difficulties in the past with a low sodium level. Patient reports that she is eating well, and reported that she has been attending some groups. Plan: patient will continue on Trileptal 3 mg twice a day, Invega 3 mg at bedtime as well as the Invega long-acting injectable do on February 17. I will repeat the patient's electrolytes tomorrow and assess whether Trileptal needs to be decreased or discontinued, patient has shown good response to the medication with a decrease in her pressured speech and irritability. Should patient sodium remained stable will consider discharge tomorrow as patient has shown improvement on the medication. She is no longer on Cogentin or trazodone.
[2018-02-09] MEDS: LORazepam 0.5 MG TAB PO PRN ×2 (13:45→21:56)
[2018-02-09] MEDS: PALIPERIDONE 3 MG TAB.ER.24 PO SCH (20:18)
[2018-02-10 06:53] VITALS: BP 126/65; PULSE 100; TEMP 97.5
[2018-02-10] MEDS: OXcarbazepine 300 MG TAB PO SCH (08:25)
[2018-02-10] MEDS: ASPIRIN 81 MG PO SCH (08:25)
[2018-02-10 09:50] LABS: Anion Gap 9 mmol/L; Blood Urea Nitrogen 16 mg/dL (7-17); Calcium 9.4 mg/dL (8.4-10.2); Carbon Dioxide 29 mmol/L (22-30); Chloride 96 mmol/L (98-107); Glucose 104 mg/dL (74-99); Potassium 4.3 mmol/L (3.5-5.1); Sodium 134 mmol/L (137-145)
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
== END 2018-02-10 13:23 | disposition home or self-care (01) | DRG 885 ==
LOC: EC 10:39 → 3MHU 17:17
PROVIDERS: ADMIT Psychiatry & Neurology Psychiatry; ATTEND Psychiatry & Neurology Psychiatry
DX: F31.9 Bipolar disorder, unspecified (principal); F20.9 Schizophrenia, unspecified; F17.200 Nicotine dependence, unspecified, uncomplicated; I10 Essential (primary) hypertension; J45.909 Unspecified asthma, uncomplicated; K21.9 Gastro-esophageal reflux disease without esophagitis; Z82.49 Family history of ischemic heart disease and other diseases of the circulatory system; Z88.2 Allergy status to sulfonamides; Z79.899 Other long term (current) drug therapy
CPT/HCPCS: 36415; 80048; 80053; 80061; 80306; 81001; 82075; 83036; 84295; 85025; 96372; 99285

== ENCOUNTER 2020-02-13 07:03 | Inpatient (IN) | payer MEDICARE, MEDICAID ==
[2020-02-13] MEDS ORDERED: SODIUM CHLORIDE 0.9% 500 ML 500 ML IV ONE (07:36)
--- NOTE | 2020-02-13 07:45 | ED ---
General Adult HPI - General Chief complaint: Psychiatric Symptoms Stated complaint: mental health Time Seen by Provider: 02/13/20 07:05 Source: family, RN notes reviewed, old records reviewed Mode of arrival: ambulatory Limitations: altered mental status - History of Present Illness Initial comments: This is a 69-year-old female presents to the emergency department with her . states she has some psychiatric problems but doesn't know ex actly what. states she switched her medications back to her old meds on her own about 2 weeks ago and after that she became more more psychotic yelling and screaming not making sense and it got to the point today that he wanted to bring her antibiotic evaluated to get her back on her old meds and get are stable. Patient is unable to give us any history. states there is no physical complaints today. Patient states she's been no fevers chills or cough. There's been no difficulty breathing there's been no vomiting or diarrhea and she has had no episodes pain that she has exhibited. According to the there's been no trauma. states this is how she gets anytime she is not taking her medications. He has seen this multiple times. - Related Data Home Medications Medication Instructions Recorded Confirmed Fluticasone Nasal Lee [Flonase 2 spr EA NOSTRIL DAILY 02/13/20 02/13/20 Nasal Lee] Lisinopril [Zestril] 20 mg PO DAILY 02/13/20 02/13/20 Metoprolol Tartrate [Lopressor] 25 mg PO BID 02/13/20 02/13/20 Naproxen 500 mg PO BID 02/13/20 02/13/20 [place]-3 Acid Ethyl Esters [Lovaza] 1 gm PO BID 02/13/20 02/13/20 Thioridazine HCl [Mellaril] 100 mg PO QID 02/13/20 02/13/20 cloZAPine [Clozaril] 50 mg PO HS 02/13/20 02/13/20 clonazePAM [KlonoPIN] 1 mg PO HS 02/13/20 02/14/20 clonazePAM [KlonoPIN] 1 mg PO DAILY@1200 PRN 02/14/20 02/14/20 Allergies Allergy/AdvReac Type Severity Reaction Status Date / Time quetiapine fumarate Allergy Unknown Verified 02/13/20 10:45 [From Seroquel] Sulfa (Sulfonamide Allergy Unknown Verified 02/13/20 10:45 Antibiotics) Review of Systems ROS Statement: Those systems with pertinent positive or pertinent negative responses have been documented in the HPI. ROS Other: All systems not noted in ROS Statement are negative. 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 Past Anesthesia/Blood Transfusion Reactions: No Reported Reaction Past Psychological History: Bipolar, Schizophrenia Smoking Status: Current every day smoker - Past Family History Brother(s) Additional Family Medical History / Comment(s): Patient states she has 5 brothers with no major medical problems. Sister(s) Additional Family Medical History / Comment(s): Patient states she has 7 sisters with no major medical problems. Brother(s) Son(s) Additional Family Medical History / Comment(s): Patient has 2 sons and 1 daughter with no major medical problems. Mother Family Medical History: Cancer, Hypertension Additional Family Medical History / Comment(s): Mother at age 89 from stomach problems Father Family Medical History: CVA/TIA, Hypertension Additional Family Medical History / Comment(s): Father at age 59 from peripheral vascular disease. General Exam - General Exam Comments Initial Comments: GENERAL: Patient is well-developed and well-nourished. Patient is nontoxic and well- hydrated and is in no acute distress. ENT: Neck is soft and supple. No significant lymphadenopathy is noted. Oropharynx is clear. Moist mucous membranes. Neck has full range of motion without eliciting any pain. EYES: The sclera were anicteric and conjunctiva were pink and moist. Extraocular movements were intact and pupils were equal round and reactive to light. Eyelids were unremarkable. PULMONARY: Unlabored respirations. Good breath sounds bilaterally. No audible rales rhonchi or wheezing was noted. CARDIOVASCULAR: There is a regular rate and rhythm without any murmurs gallops or rubs. ABDOMEN: Soft and nontender with normal bowel sounds. SKIN: Skin is clear with no lesions or rashes and otherwise unremarkable. NEUROLOGIC: Patient is alert and oriented cannot assess orientation. Cranial nerves II through XII are grossly intact. Motor and sensory are also intact. Normal speech, volume and content. Symmetrical smile. MUSCULOSKELETAL: Normal extremities with adequate strength and full range of motion. LYMPHATICS: No significant lymphadenopathy is noted PSYCHIATRIC: Patient is yelling and having multiple outbursts. She is not making any sense she does not answer questions and occasionally she'll say inappropriate things. Limitations: no limitations Course Vital Signs 02/13/20 02/13/20 02/13/20 07:08 12:30 13:52 Temperature 98.1 F Pulse Rate 95 71 Respiratory 20 16 16 Rate Blood Pressure 142/96 136/87 O2 Sat by Pulse 97 98 Oximetry 02/13/20 02/13/20 14:51 16:42 Temperature 97.6 F Pulse Rate 85 Respiratory 16 16 Rate Blood Pressure 148/80 O2 Sat by Pulse 99 Oximetry Procedures - Restraint - Face to Face Restraint Occurrence 1 Patient's Immediate Situation: Endangers self safety, Endangers others' safety Patient's Reaction to the Intervention: Uncooperative, Belligerent, Bizarre, Combative Need to Continue or Terminate Restraint or Seclusion: Continue Face to Face Eval of Restraint Date: 02/13/20 Face to Face Eval of Restraint Time: 15:46 Medical Decision Making - Medical Decision Making EKG shows normal sinus rhythm at 87 bpm DC interval is on a 46 QRS is 80 QT interval 34 QTC is 462. Patient's EKG shows no ST segment elevation or depression. Patient's x-ray showed possible infiltrates however patient has no symptoms of pneumonia. Patient has no white count no fever no cough. Patient says no difficulty breathing. Patient also does not appear to have any congestive heart failure her lungs are clear her BNP is normal. I filled out a clinical search after the psychiatric nurse from [facility] filled out a petition. Patient will be admitted - Lab Data Result diagrams: 02/13/20 08:10 02/13/20 08:10 Lab Results 02/13/20 02/13/20 02/13/20 Range/Units 08:10 08:10 08:10 WBC 9.3 (3.8-10.6) k/uL RBC 4.58 (3.80-5.40) m/uL Hgb 13.9 (11.4-16.0) gm/dL Hct 43.2 (34.0-46.0) % MCV 94.4 (80.0-100.0) fL MCH 30.3 (25.0-35.0) pg MCHC 32.1 (31.0-37.0) g/dL RDW 13.1 (11.5-15.5) % Plt Count 191 (150-450) k/uL Neutrophils % 79 % Lymphocytes % 13 % Monocytes % 4 % Eosinophils % 2 % Basophils % 1 % Neutrophils # 7.3 (1.3-7.7) k/uL Lymphocytes # 1.2 (1.0-4.8) k/uL Monocytes # 0.4 (0-1.0) k/uL Eosinophils # 0.2 (0-0.7) k/uL Basophils # 0.1 (0-0.2) k/uL PT 9.6 (9.0-12.0) sec INR 0.9 (<1.2) APTT 21.7 L (22.0-30.0) sec Sodium 141 (137-145) mmol/L Potassium 4.3 (3.5-5.1) mmol/L Chloride 107 (98-107) mmol/L Carbon Dioxide 24 (22-30) mmol/L Anion Gap 10 mmol/L BUN 42 H (7-17) mg/dL Creatinine 0.77 (0.52-1.04) mg/dL Est GFR (CKD-EPI)AfAm >90 (>60 ml/min/1.73 sqM) Est GFR (CKD-EPI)NonAf 80 (>60 ml/min/1.73 sqM) Glucose 91 (74-99) mg/dL POC Glucose (mg/dL) (75-99) mg/dL POC Glu Reservoir Engineering Manager ID Calcium 9.8 (8.4-10.2) mg/dL Total Bilirubin 0.4 (0.2-1.3) mg/dL AST 28 (14-36) U/L ALT 15 (4-34) U/L Alkaline Phosphatase 65 (38-126) U/L Ammonia (<30) umol/L Troponin I (0.000-0.034) ng/mL NT-Pro-B Natriuret Pep pg/mL Total Protein 7.2 (6.3-8.2) g/dL Albumin 4.6 (3.5-5.0) g/dL Urine Color Urine Appearance (Clear) Urine pH (5.0-8.0) Ur Specific [place] (1.001-1.035) Urine Protein (Negative) Urine Glucose (UA) (Negative) Urine Ketones (Negative) Urine Blood (Negative) Urine Nitrite (Negative) Urine Bilirubin (Negative) Urine Urobilinogen (<2.0) mg/dL Ur Leukocyte Esterase (Negative) Urine Opiates Screen (NotDetected) Ur Oxycodone Screen (NotDetected) Urine Methadone Screen (NotDetected) Ur Propoxyphene Screen (NotDetected) Ur Barbiturates Screen (NotDetected) U Tricyclic Antidepress (NotDetected) Ur Phencyclidine Scrn (NotDetected) Ur Amphetamines Screen (NotDetected) U Methamphetamines Scrn (NotDetected) U Benzodiazepines Scrn (NotDetected) Urine Cocaine Screen (NotDetected) U Marijuana (THC) Screen (NotDetected) 02/13/20 02/13/20 02/13/20 Range/Units 08:10 08:10 08:10 WBC (3.8-10.6) k/uL RBC (3.80-5.40) m/uL Hgb (11.4-16.0) gm/dL Hct (34.0-46.0) % MCV (80.0-100.0) fL MCH (25.0-35.0) pg MCHC (31.0-37.0) g/dL RDW (11.5-15.5) % Plt Count (150-450) k/uL Neutrophils % % Lymphocytes % % Monocytes % % Eosinophils % % Basophils % % Neutrophils # (1.3-7.7) k/uL Lymphocytes # (1.0-4.8) k/uL Monocytes # (0-1.0) k/uL Eosinophils # (0-0.7) k/uL Basophils # (0-0.2) k/uL PT (9.0-12.0) sec INR (<1.2) APTT (22.0-30.0) sec Sodium (137-145) mmol/L Potassium (3.5-5.1) mmol/L Chloride (98-107) mmol/L Carbon Dioxide (22-30) mmol/L Anion Gap mmol/L BUN (7-17) mg/dL Creatinine (0.52-1.04) mg/dL Est GFR (CKD-EPI)AfAm (>60 ml/min/1.73 sqM) Est GFR (CKD-EPI)NonAf (>60 ml/min/1.73 sqM) Glucose (74-99) mg/dL POC Glucose (mg/dL) (75-99) mg/dL POC Glu Reservoir Engineering Manager ID Calcium (8.4-10.2) mg/dL Total Bilirubin (0.2-1.3) mg/dL AST (14-36) U/L ALT (4-34) U/L Alkaline Phosphatase (38-126) U/L Ammonia <9 (<30) umol/L Troponin I <0.012 (0.000-0.034) ng/mL NT-Pro-B Natriuret Pep 123 pg/mL Total Protein (6.3-8.2) g/dL Albumin (3.5-5.0) g/dL Urine Color Urine Appearance (Clear) Urine pH (5.0-8.0) Ur Specific [place] (1.001-1.035) Urine Protein (Negative) Urine Glucose (UA) (Negative) Urine Ketones (Negative) Urine Blood (Negative) Urine Nitrite (Negative) Urine Bilirubin (Negative) Urine Urobilinogen (<2.0) mg/dL Ur Leukocyte Esterase (Negative) Urine Opiates Screen (NotDetected) Ur Oxycodone Screen (NotDetected) Urine Methadone Screen (NotDetected) Ur Propoxyphene Screen (NotDetected) Ur Barbiturates Screen (NotDetected) U Tricyclic Antidepress (NotDetected) Ur Phencyclidine Scrn (NotDetected) Ur Amphetamines Screen (NotDetected) U Methamphetamines Scrn (NotDetected) U Benzodiazepines Scrn (NotDetected) Urine Cocaine Screen (NotDetected) U Marijuana (THC) Screen (NotDetected) 02/13/20 02/13/20 Range/Units 08:23 14:45 WBC (3.8-10.6) k/uL RBC (3.80-5.40) m/uL Hgb (11.4-16.0) gm/dL Hct (34.0-46.0) % MCV (80.0-100.0) fL MCH (25.0-35.0) pg MCHC (31.0-37.0) g/dL RDW (11.5-15.5) % Plt Count (150-450) k/uL Neutrophils % % Lymphocytes % % Monocytes % % Eosinophils % % Basophils % % Neutrophils # (1.3-7.7) k/uL Lymphocytes # (1.0-4.8) k/uL Monocytes # (0-1.0) k/uL Eosinophils # (0-0.7) k/uL Basophils # (0-0.2) k/uL PT (9.0-12.0) sec INR (<1.2) APTT (22.0-30.0) sec Sodium (137-145) mmol/L Potassium (3.5-5.1) mmol/L Chloride (98-107) mmol/L Carbon Dioxide (22-30) mmol/L Anion Gap mmol/L BUN (7-17) mg/dL Creatinine (0.52-1.04) mg/dL Est GFR (CKD-EPI)AfAm (>60 ml/min/1.73 sqM) Est GFR (CKD-EPI)NonAf (>60 ml/min/1.73 sqM) Glucose (74-99) mg/dL POC Glucose (mg/dL) 100 H (75-99) mg/dL POC Glu Reservoir Engineering Manager ID Marilou Mercer Calcium (8.4-10.2) mg/dL Total Bilirubin (0.2-1.3) mg/dL AST (14-36) U/L ALT (4-34) U/L Alkaline Phosphatase (38-126) U/L Ammonia (<30) umol/L Troponin I (0.000-0.034) ng/mL NT-Pro-B Natriuret Pep pg/mL Total Protein (6.3-8.2) g/dL Albumin (3.5-5.0) g/dL Urine Color Yellow Urine Appearance Clear (Clear) Urine pH 5.5 (5.0-8.0) Ur Specific [place] 1.022 (1.001-1.035) Urine Protein Negative (Negative) Urine Glucose (UA) Negative (Negative) Urine Ketones 1+ H (Negative) Urine Blood Negative (Negative) Urine Nitrite Negative (Negative) Urine Bilirubin Negative (Negative) Urine Urobilinogen <2.0 (<2.0) mg/dL Ur Leukocyte Esterase Negative (Negative) Urine Opiates Screen Detected H (NotDetected) Ur Oxycodone Screen Not Detected (NotDetected) Urine Methadone Screen Not Detected (NotDetected) Ur Propoxyphene Screen Not Detected (NotDetected) Ur Barbiturates Screen Not Detected (NotDetected) U Tricyclic Antidepress Not Detected (NotDetected) Ur Phencyclidine Scrn Not Detected (NotDetected) Ur Amphetamines Screen Not Detected (NotDetected) U Methamphetamines Scrn Not Detected (NotDetected) U Benzodiazepines Scrn Detected H (NotDetected) Urine Cocaine Screen Not Detected (NotDetected) U Marijuana (THC) Screen Not Detected (NotDetected) Disposition Clinical Impression: Acute psychosis Disposition: ADMITTED IP TO THIS HOSP Time of Disposition: 10:35
[2020-02-13 08:26] LABS: Glucose,Whole Blood 100 mg/dL (75-99)
--- NOTE | 2020-02-13 08:29 | XR ---
EXAMINATION TYPE: XR chest 1V DATE OF EXAM: 02/13/2020 COMPARISON: NONE HISTORY: Altered mental status TECHNIQUE: Single frontal view of the chest is obtained. FINDINGS: Bilateral infiltrate and pleural effusion. No pneumothorax. Heart size mildly prominent. A therosclerotic change aorta. Arthropathy of the shoulders. IMPRESSION: Bilateral infiltrate and pleural effusion correlate for pneumonia otherwise consider CHF
[2020-02-13 08:31] LABS: Basophils # (A) 0.1 k/uL (0-0.2); Basophils % (A) 1 %; Eosinophils # (A) 0.2 k/uL (0-0.7); Eosinophils % (A) 2 %; HCT 43.2 % (34.0-46.0); HGB 13.9 gm/dL (11.4-16.0); Lymphocytes # (A) 1.2 k/uL (1.0-4.8); Lymphocytes % (A) 13 %; MCH 30.3 pg (25.0-35.0); MCHC 32.1 g/dL (31.0-37.0); MCV 94.4 fL (80.0-100.0); Mean Platelet Volume 8.1; Monocytes # (A) 0.4 k/uL (0-1.0); Monocytes % (A) 4 %; Neutrophils # (A) 7.3 k/uL (1.3-7.7); Neutrophils % (A) 79 %; Platelet Count 191 k/uL (150-450); RBC 4.58 m/uL (3.80-5.40); RDW 13.1 % (11.5-15.5); WBC 9.3 k/uL (3.8-10.6)
[2020-02-13 08:39] LABS: ALT 15 U/L (4-34); AST 28 U/L (14-36); African American GFR (CKD) >90 (>60 ml/min/1.73 sqM); Albumin 4.6 g/dL (3.5-5.0); Alkaline Phosphatase 65 U/L (38-126); Anion Gap 10 mmol/L; Blood Urea Nitrogen 42 mg/dL (7-17); Calcium 9.8 mg/dL (8.4-10.2); Carbon Dioxide 24 mmol/L (22-30); Chloride 107 mmol/L (98-107); Glucose 91 mg/dL (74-99); Non-African American GFR(CKD) 80 (>60 ml/min/1.73 sqM); Potassium 4.3 mmol/L (3.5-5.1); Sodium 141 mmol/L (137-145); Total Bilirubin 0.4 mg/dL (0.2-1.3); Total Protein 7.2 g/dL (6.3-8.2)
[2020-02-13 08:49] LABS: INR 0.9 (<1.2); Prothrombin Time 9.6 sec (9.0-12.0)
[2020-02-13 09:08] LABS: Partial Thromboplastin Time 21.7 sec (22.0-30.0)
[2020-02-13] MEDS ORDERED: SODIUM CHLORIDE 0.9% 1,000 ML IV ONE (09:23)
[2020-02-13] MEDS ORDERED: LORazepam 2 MG/ML INJ IV STA (10:30)
[2020-02-13] MEDS ORDERED: ZIPRASIDONE 20 MG VIAL IM STA (10:39)
[2020-02-13 15:03] LABS: Appearance,Urine Clear (Clear); Bilirubin,Urine Negative (Negative); Blood,Urine Negative (Negative); Color,Urine Yellow; Glucose,Urine (UA) Negative (Negative); Ketones,Urine 1+ (Negative); Leukocyte Esterase,Urine Negative (Negative); Nitrite,Urine Negative (Negative); PH, Urine 5.5 (5.0-8.0); Protein,Urine Negative (Negative); Specific Gravity,Urine 1.022 (1.001-1.035); Urobilinogen,Urine <2.0 mg/dL (<2.0)
[2020-02-13] MEDS ORDERED: LORazepam 2 MG/ML INJ IM STA (15:03)
[2020-02-13 15:16] LABS: Amphetamine Screen,Urine Not Detected (NotDetected); Barbiturate Screen,Urine Not Detected (NotDetected); Benzodiazepines Screen,Urine Detected (NotDetected); Cocaine Screen,Urine Not Detected (NotDetected); Methadone Screen, Urine Not Detected (NotDetected); Opiate Screen,Urine Detected (NotDetected); Oxycodone Screen, Urine Not Detected (NotDetected); Phencyclidine Screen,Urine Not Detected (NotDetected); Tricyclic Antidepressant,Urine Not Detected (NotDetected); Urn Cannabinoid Scrn Not Detected (NotDetected)
[2020-02-13] MEDS ORDERED: diphenhydrAMINE 50 MG/ML 1 ML VIAL IVP STA (16:12)
[2020-02-13] MEDS ORDERED: ALBUTEROL INHALER 60 PUFF/8 GM INHALER INHALATION PRN (17:01)
[2020-02-13] MEDS: HALOPERIDOL LACTATE 5 MG/ML 1 ML VIAL IM PRN ×2 (17:34→23:44)
[2020-02-13] MEDS: METOPROLOL TARTRATE 25 MG TAB PO SCH ×2 (19:44→20:26)
[2020-02-13] MEDS: clonazePAM 0.5 MG TAB PO SCH ×2 (19:45→20:26)
[2020-02-13] MEDS: cloZAPine 25 MG TAB PO SCH ×3 (19:45→22:01)
[2020-02-13] MEDS ORDERED: NON FORMULARY DRUG (Omega-3 Acid Ethyl Esters [Lovaza] 1 GM) PO SCH (21:00)
[2020-02-13] MEDS: NAPROXEN 250 MG TAB PO PRN (21:02)
--- NOTE | 2020-02-14 00:21 | P.PN ---
Progress Note - Text Progress Note Date: 02/13/20 patient was inappropriate to be evaluated at this time. she was screaming and yelling in the hallways. we will reassess in the morning
[2020-02-14] MEDS ORDERED: OLANZapine 10 MG VIAL IM STA (04:02)
--- NOTE | 2020-02-14 04:35 | P.MHFACE ---
Face to Face Restrain/Seclus - Evaluation Patient's Immediate Situation: Endangers others' safety, Violent behavior Patient's Reaction to the Intervention: Angry, Hostile, Belligerent, Bizarre, Suspicious, Restless Patient's Medical & Behavioral Condition: Awake, Alert, Anxious, Agitated, Paranoid, Visual hallucinations Need to Continue or Terminate Restraint or Seclusion: Continue
--- NOTE | 2020-02-14 08:17 | P.MHFACE ---
Face to Face Restrain/Seclus - Evaluation Patient's Immediate Situation: Endangers self safety, Endangers others' safety, Violent behavior Patient's Reaction to the Intervention: Angry, Fearful, Anxious, Bizarre Patient's Medical & Behavioral Condition: Awake, Alert, Confused, Manic Need to Continue or Terminate Restraint or Seclusion: Continue
[2020-02-14] MEDS: LISINOPRIL 20 MG TAB PO SCH (09:55)
[2020-02-14] MEDS: clonazePAM 0.5 MG TAB PO SCH ×2 (09:55→22:04)
[2020-02-14] MEDS: METOPROLOL TARTRATE 25 MG TAB PO SCH ×2 (09:55→22:04)
[2020-02-14] MEDS: NICOTINE 21MG/24HR PATCH TRANSDERM SCH (09:56)
[2020-02-14] MEDS: HALOPERIDOL LACTATE 5 MG/ML 1 ML VIAL IM PRN ×2 (09:56→16:10)
[2020-02-14] MEDS: FLUTICASONE 50MCG/SPRAY NASAL 16GM EA NOSTRIL SCH (09:56)
--- NOTE | 2020-02-14 13:44 | P.HP ---
Psychiatric H&P - . H&P Date: 02/14/20 History & Physical: IDENTIFYING DATA: She is a 69-year-old female who has history of severe and persistent mental illness. She was admitted to the psychiatric unit involuntarily. A nurse from the emergency department and completed the p etition that read "the patient is labile; she laughs and then cries, talking to herself; fragmented, tangential, disorganized, delusional, disoriented, hyperverbal and manic." HISTORY OF PRESENT ILLNESS: Patient was in 4-point restraint when I arrived on the unit. She was screaming and did not respond to questions. She was not struggling against restraints. I was unable to obtain a coherent history. I spoke to her who is also the legal guardian. He stated she was doing well when she was taking clozapine as prescribed by the psychiatrist at [facility]. However, she began to refuse the blood draws and the psychiatrist was forced to discontinue the clozapine. "The doctor" prescribed Mellaril and titrated dose to 400 mg per day in divided doses. Her stated that her condition declined and the psychiatrist restarted clozapine sometime before this admission. She stated that she was talkative but directable. She was restless. He stated that she made allegations that he was having an affair (he noted that she makes these allegations whenever she becomes unwell). I spoke with Dr. Shaikh her psychiatrist at [facility]. He stated that she is probably the most ill patient that he has encountered in his career. She has failed trials of multiple psychotropic medications. She did "extremely well" on clozapine. He started clozapine in March 2019 and her response was "better than he expected". She was taking 50 mg in the morning and 200 mg at night. However she decompensated 1 month ago when she began to refuse the blood draws. Her took her to a local physician who restarted her on the Mellaril. (She had a distant history of a response to Mellaril). Last week, her called the ACT team extremely distressed. Dr. Shaikh stated that her tolerates her aberrant behavior except in the most extreme. He attempted to put her back on clozapine but he does not believe that she restarted the medication. PAST PSYCHIATRIC HISTORY: She's had multiple psychiatric hospitalizations. Her last admission to this unit was in January 2018 and she was discharged with diagnoses of bipolar disorder type I currently manic. Her psychotropic medications at discharge including Trileptal, oral Invega and Invega Sustenna. PAST MEDICAL HISTORY: According to the medical record she has history of asthma, GERD and hypertension ALLERGIES: Quetiapine, sulfa SUBSTANCE USE HISTORY: According to her , she has no history of substance use problems. FAMILY PSYCHIATRIC/SUBSTANCE USE HISTORY: Per the medical record her sister has a history of a psychotic disorder LEGAL HISTORY: She has no history of legal problems. Her has a legal guardian. SOCIAL HISTORY: According to record, she was with her and daughter in [facility]. She is unemployed and receives Social Security disability. MENTAL STATUS EXAM: She presented as a disheveled elderly woman who was in 4- point restraints. She was screaming and yelling. She made eye contact but did not answer questions. Her speech was incoherent. Her thinking was disorganized. STRENGTHS: Supportive family, engagement with [facility] mental health services, relatively good health, stable housing, stable income WEAKNESSES: Chronic and severe mental illness IMPRESSION: She is a 69-year-old female who has a history of chronic and severe mental illness diagnosed as a schizoaffective disorder or bipolar disorder. She presented to unit involuntarily admitted disorganized and manic state. She was agitated and aggressive and required intramuscular medication in 4-point restraint. She should be treated on an inpatient basis with combination of psychopharmacology and multimodal therapy. PRINCIPLE DIAGNOSIS: Bipolar disorder manic severe with psychotic symptoms, poor compliance with outpatient treatment, tobacco use RECOMMENDATION: Admit to the psychiatric unit. Safety precautions. Consult medicine for initial physical exam and medical history. rock worker completed initial psychosocial assessment and coordinate discharge and aftercare. Obtain medical records from [facility]. Continue clozapine 50 mg at bedtime and titrated according to clinical response and tolerance. Weekly CBC with differential. Continue Haldol 6 mg IM every 6 hours when neces mary ann for agitation and/or regression. Continue Klonopin 0.5 mg by mouth twice a day and IM benzodiazepines since it may increase confusion. Nicotine replacement. Continue Ventolin 2 puffs 4 times a day when necessary for shortness of breath, Zestril 20 mg daily for hypertension and Lopressor 25 mg by mouth twice a day for hypertension. Evaluate clinical status response to treatment daily basis. Encourage participation in therapeutic groups and activities as tolerated. Allergies Allergy/AdvReac Type Severity Reaction Status Date / Time quetiapine fumarate Allergy Unknown Verified 02/13/20 10:45 [From Seroquel] Sulfa (Sulfonamide Allergy Unknown Verified 02/13/20 10:45 Antibiotics) Vital Signs Temp 97.9 F 02/14/20 03:53 Pulse 107 H 02/14/20 10:08 Resp 16 02/14/20 10:08 BP 164/80 02/14/20 10:08 Pulse Ox 98 02/14/20 03:53 Intake & Output 02/13/20 02/14/20 02/14/20 18:59 06:59 18:59 Intake Total 1500 Balance 1500 Weight 72.3 kg Intake: Amount of Fluid Infused ( 1500 ml) Laboratory Last Values WBC 9.3 k/uL (3.8-10.6) 02/13/20 08:10 RBC 4.58 m/uL (3.80-5.40) 02/13/20 08:10 Hgb 13.9 gm/dL (11.4-16.0) 02/13/20 08:10 Hct 43.2 % (34.0-46.0) 02/13/20 08:10 MCV 94.4 fL (80.0-100.0) 02/13/20 08:10 MCH 30.3 pg (25.0-35.0) 02/13/20 08:10 MCHC 32.1 g/dL (31.0-37.0) 02/13/20 08:10 RDW 13.1 % (11.5-15.5) 02/13/20 08:10 Plt Count 191 k/uL (150-450) 02/13/20 08:10 Neutrophils % 79 % 02/13/20 08:10 Lymphocytes % 13 % 02/13/20 08:10 Monocytes % 4 % 02/13/20 08:10 Eosinophils % 2 % 02/13/20 08:10 Basophils % 1 % 02/13/20 08:10 Neutrophils # 7.3 k/uL (1.3-7.7) 02/13/20 08:10 Lymphocytes # 1.2 k/uL (1.0-4.8) 02/13/20 08:10 Monocytes # 0.4 k/uL (0-1.0) 02/13/20 08:10 Eosinophils # 0.2 k/uL (0-0.7) 02/13/20 08:10 Basophils # 0.1 k/uL (0-0.2) 02/13/20 08:10 PT 9.6 sec (9.0-12.0) 02/13/20 08:10 INR 0.9 (<1.2) 02/13/20 08:10 APTT 21.7 sec (22.0-30.0) L 02/13/20 08:10 Sodium 141 mmol/L (137-145) 02/13/20 08:10 Potassium 4.3 mmol/L (3.5-5.1) 02/13/20 08:10 Chloride 107 mmol/L (98-107) 02/13/20 08:10 Carbon Dioxide 24 mmol/L (22-30) 02/13/20 08:10 Anion Gap 10 mmol/L 02/13/20 08:10 BUN 42 mg/dL (7-17) H 02/13/20 08:10 Creatinine 0.77 mg/dL (0.52-1.04) 02/13/20 08:10 Est GFR (CKD-EPI)AfAm >90 (>60 ml/min/1.73 sqM) 02/13/20 08:10 Est GFR (CKD-EPI)NonAf 80 (>60 ml/min/1.73 sqM) 02/13/20 08:10 Glucose 91 mg/dL (74-99) 02/13/20 08:10 POC Glucose (mg/dL) 100 mg/dL (75-99) H 02/13/20 08:23 POC Glu Drilling Rig Operator ID Marilou Mercer 02/13/20 08:23 Calcium 9.8 mg/dL (8.4-10.2) 02/13/20 08:10 Total Bilirubin 0.4 mg/dL (0.2-1.3) 02/13/20 08:10 AST 28 U/L (14-36) 02/13/20 08:10 ALT 15 U/L (4-34) 02/13/20 08:10 Alkaline Phosphatase 65 U/L (38-126) 02/13/20 08:10 Ammonia <9 umol/L (<30) 02/13/20 08:10 Troponin I <0.012 ng/mL (0.000-0.034) 02/13/20 08:10 NT-Pro-B Natriuret Pep 123 pg/mL 02/13/20 08:10 Total Protein 7.2 g/dL (6.3-8.2) 02/13/20 08:10 Albumin 4.6 g/dL (3.5-5.0) 02/13/20 08:10 Urine Color Yellow 02/13/20 14:45 Urine Appearance Clear (Clear) 02/13/20 14:45 Urine pH 5.5 (5.0-8.0) 02/13/20 14:45 Ur Specific [place] 1.022 (1.001-1.035) 02/13/20 14:45 Urine Protein Negative (Negative) 02/13/20 14:45 Urine Glucose (UA) Negative (Negative) 02/13/20 14:45 Urine Ketones 1+ (Negative) H 02/13/20 14:45 Urine Blood Negative (Negative) 02/13/20 14:45 Urine Nitrite Negative (Negative) 02/13/20 14:45 Urine Bilirubin Negative (Negative) 02/13/20 14:45 Urine Urobilinogen <2.0 mg/dL (<2.0) 02/13/20 14:45 Ur Leukocyte Esterase Negative (Negative) 02/13/20 14:45 Urine Opiates Screen Detected (NotDetected) H 02/13/20 14:45 Ur Oxycodone Screen Not Detected (NotDetected) 02/13/20 14:45 Urine Methadone Screen Not Detected (NotDetected) 02/13/20 14:45 Ur Propoxyphene Screen Not Detected (NotDetected) 02/13/20 14:45 Ur Barbiturates Screen Not Detected (NotDetected) 02/13/20 14:45 U Tricyclic Antidepress Not Detected (NotDetected) 02/13/20 14:45 Ur Phencyclidine Scrn Not Detected (NotDetected) 02/13/20 14:45 Ur Amphetamines Screen Not Detected (NotDetected) 02/13/20 14:45 U Methamphetamines Scrn Not Detected (NotDetected) 02/13/20 14:45 U Benzodiazepines Scrn Detected (NotDetected) H 02/13/20 14:45 Urine Cocaine Screen Not Detected (NotDetected) 02/13/20 14:45 U Marijuana (THC) Screen Not Detected (NotDetected) 02/13/20 14:45 02/14/20 10:30 02/14/20 12:23 02/14/20 13:41
--- NOTE | 2020-02-14 18:10 | P.MDCNMH ---
History of Present Illness H&P Date: 02/14/20 Chief Complaint: Medical management 69-year-old female with PMH of hypertension, bipolar disorder type I initially presented to the ED with her . Apparently, she has been experiencing some psychiatric problems, yelling and screaming, unable to make sounds to the point her brought her in for evaluation today. [facility] has been consulted for medical management of this patient. Patient was seen and examined. Patient appears disheveled and her speech is incoherent. She has disorganized thoughts. When asked if there is anything bothering her, patient states that "nothing is bothering me". Patient states that "I just want to go home". Patient also made vague references to a baby in a casket. Review of Systems Pertinent positives and negatives as discussed in HPI, a complete review of systems was performed and all other systems are negative. 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 Past Anesthesia/Blood Transfusion Reactions: No Reported Reaction Past Psychological History: Bipolar, Schizophrenia Smoking Status: Current every day smoker - Past Family History Brother(s) Additional Family Medical History / Comment(s): Patient states she has 5 brothers with no major medical problems. Sister(s) Additional Family Medical History / Comment(s): Patient states she has 7 sisters with no major medical problems. Brother(s) Son(s) Additional Family Medical History / Comment(s): Patient has 2 sons and 1 daughter with no major medical problems. Mother Family Medical History: Cancer, Hypertension Additional Family Medical History / Comment(s): Mother at age 89 from stomach problems Father Family Medical History: CVA/TIA, Hypertension Additional Family Medical History / Comment(s): Father at age 59 from peripheral vascular disease. Medications and Allergies Home Medications Medication Instructions Recorded Confirmed Type Fluticasone Nasal [place] [Flonase 2 spr EA NOSTRIL DAILY 02/13/20 02/13/20 History Nasal [place]] Lisinopril [Zestril] 20 mg PO DAILY 02/13/20 02/13/20 History Metoprolol Tartrate [Lopressor] 25 mg PO BID 02/13/20 02/13/20 History Naproxen 500 mg PO BID 02/13/20 02/13/20 History [place]-3 Acid Ethyl Esters [Lovaza] 1 gm PO BID 02/13/20 02/13/20 History Thioridazine HCl [Mellaril] 100 mg PO QID 02/13/20 02/13/20 History cloZAPine [Clozaril] 50 mg PO HS 02/13/20 02/13/20 History clonazePAM [KlonoPIN] 1 mg PO HS 02/13/20 02/14/20 History clonazePAM [KlonoPIN] 1 mg PO DAILY@1200 PRN 02/14/20 02/14/20 History Allergies Allergy/AdvReac Type Severity Reaction Status Date / Time quetiapine fumarate Allergy Unknown Verified 02/13/20 10:45 [From Seroquel] Sulfa (Sulfonamide Allergy Unknown Verified 02/13/20 10:45 Antibiotics) Physical Exam Vitals: Vital Signs Temp Pulse Resp BP Pulse Ox 02/14/20 10:08 107 H 16 164/80 02/14/20 03:53 97.9 F 99 16 143/72 98 02/13/20 21:05 98.7 F 99 18 133/70 02/13/20 19:40 98.7 F 101 H 16 93/56 95 General: [non toxic], [no distress in a wheelchair], [appears at stated age] Derm: [warm], [dry] Head: [atraumatic], [normocephalic], [symmetric] Eyes: [EOMI], [no lid lag], [anicteric sclera] Mouth: [no lip lesion], [mucus membranes moist] Cardiovascular: [S1S2 reg], [tachycardic], [positive DP pulse bilateral], Lungs: [CTA bilateral], [no rhonchi, no rales] , [no accessory muscle use] Abdominal: [soft], [ nontender to palpation], [no guarding], [no appreciable organomegaly] Ext: [no gross muscle atrophy], [no edema], [no contractures] Neuro: [Uncooperative] Psych: [Appears disheveled with disorganized thoughts] Cranial Nerve Examination - Cranial Nerves Cranial Nerve II- Optic: Impaired (Unable to examine) Cranial Nerve III- Oculomotor: Impaired (Unable to examine) Cranial Nerve IV- Trochlear: Impaired (Unable to examine) Cranial Nerve V- Trigeminal: Impaired (Unable to examine) Cranial Nerve - Abducens: Impaired (Unable to examine) Cranial Nerve VII- Facial: Impaired (Unable to examine) Cranial Nerve VIII- Auditory: Impaired (Unable to examine) Cranial Nerve IX- Glossopharyngeal: Impaired (Unable to examine) Cranial Nerve X- Vagus: Impaired (Unable to examine) Cranial Nerve XI- Accessory: Impaired (Unable to examine) Cranial Nerve XII- Hypoglossal: Impaired (unable to examine) Results CBC & Chem 7: 02/13/20 08:10 02/13/20 08:10 Assessment and Plan Assessment: Hypertension Elevated BUN with Ketonuria Acute manic episode with history of bipolar disorder type I Patient's blood pressures 164/80. She will be continued on her home medication of lisinopril and metoprolol. Patient was noted to have an elevated BUN of 42. This likely related to dehydration. She was given a bolus of the ED. Plan is to encourage hydration by mouth. Plans: Management as per psychiatry. Thank you for this consult. Please call with any additional questions or concerns.
[2020-02-14] MEDS: cloZAPine 25 MG TAB PO SCH (20:32)
[2020-02-15] MEDS: clonazePAM 0.5 MG TAB PO SCH ×3 (02:39→21:40)
[2020-02-15] MEDS: FLUTICASONE 50MCG/SPRAY NASAL 16GM EA NOSTRIL SCH (08:24)
[2020-02-15] MEDS: METOPROLOL TARTRATE 25 MG TAB PO SCH ×2 (08:26→21:40)
[2020-02-15] MEDS: NICOTINE 21MG/24HR PATCH TRANSDERM SCH (08:26)
[2020-02-15] MEDS: LISINOPRIL 20 MG TAB PO SCH (08:26)
[2020-02-15 09:18] LABS: Basophils % (A) 1 %; Eosinophils # (A) 0.2 k/uL (0-0.7); Eosinophils % (A) 3 %; HCT 40.6 % (34.0-46.0); HGB 12.9 gm/dL (11.4-16.0); Lymphocytes # (A) 1.2 k/uL (1.0-4.8); Lymphocytes % (A) 21 %; MCHC 31.9 g/dL (31.0-37.0); MCV 94.2 fL (80.0-100.0); Mean Platelet Volume 8.5; Monocytes # (A) 0.3 k/uL (0-1.0); Monocytes % (A) 5 %; Neutrophils % (A) 69 %; Platelet Count 193 k/uL (150-450); RBC 4.31 m/uL (3.80-5.40); RDW 13.1 % (11.5-15.5); WBC 5.9 k/uL (3.8-10.6)
[2020-02-15 09:49] LABS: Clozapine (Clozaril) 43 ng/mL (200-700); Norclozapine 25 ng/mL (200-700)
[2020-02-15 09:56] LABS: Albumin 4.2 g/dL (3.5-5.0); Calcium 9.4 mg/dL (8.4-10.2); Potassium 3.9 mmol/L (3.5-5.1); Total Bilirubin 0.4 mg/dL (0.2-1.3)
[2020-02-15] MEDS: cloZAPine 25 MG TAB PO SCH ×2 (11:37→21:40)
[2020-02-15] MEDS: ACETAMINOPHEN TAB 325 MG TAB PO PRN (14:23)
--- NOTE | 2020-02-15 15:19 | P.PN ---
Subjective Progress Note Date: 02/15/20 Principal diagnosis: Bipolar disorder manic severe with psychotic symptoms, poor compliance with outpatient treatment, tobacco use I reviewed the medical record, interviewed the patient and discuss her treatment and treatment plan during team meeting. She appeared sedated. Her speech was incoherent. When I asked about concerns she pointed to her stomach. I could not understand her explanation about her concern. Medicine consult appreciated. Objective - Vital Signs Vital signs: Vital Signs Temp 98.1 F 02/15/20 11:50 Pulse 72 02/15/20 11:50 Resp 16 02/15/20 11:50 BP 113/87 02/15/20 11:50 Pulse Ox 95 02/14/20 23:00 - Exam She presented as a disheveled appearing elderly female who was sitting comfortably in a wheelchair. Her one-to-one was in attendance. She made eye contact but did not appear to attend or concentrate on the interview. She had a blunted facial expression. She showed psychomotor retardation but no abnormal movements. Speech was not spontaneous. Her affect was flat. She did not express clear ideas reference, paranoid ideation or delusions. Her thinking was concrete. She did not appear to be responding to internal stimuli - Labs CBC & Chem 7: 02/15/20 08:32 02/15/20 08:32 Labs: Abnormal Lab Results - Last 24 Hours (Table) 02/13/20 02/15/20 Range/Units 08:10 08:32 BUN 28 H (7-17) mg/dL AST 41 H (14-36) U/L Clozapine 43 L (200-700) ng/mL Norclozapine 25 L (200-700) ng/mL Assessment and Plan Assessment: She is sedated most likely from the Haldol and lorazepam she received yesterday during the acute episodes of agitation. Plan: Titrate clozapine to her outpatient dose of 50 mg in morning and 200 mg at bedtime. Continue Haldol 6 mg IM every 6 hours when necessary for agitation or aggression. Continue clonazepam 0.5 mg by mouth twice a day. encourage oral fluids. Continue one-to-one. Evaluate clinical status response to treatment daily basis.
[2020-02-15] MEDS: HALOPERIDOL LACTATE 5 MG/ML 1 ML VIAL IM PRN (16:18)
[2020-02-15 18:21] LABS: Hemoglobin A1C 6.2 % (4.0-6.0)
[2020-02-16] MEDS: NICOTINE 21MG/24HR PATCH TRANSDERM SCH (08:54)
[2020-02-16] MEDS: FLUTICASONE 50MCG/SPRAY NASAL 16GM EA NOSTRIL SCH (08:55)
[2020-02-16] MEDS: clonazePAM 0.5 MG TAB PO SCH ×2 (08:55→21:16)
[2020-02-16] MEDS: cloZAPine 25 MG TAB PO SCH ×2 (08:55→21:16)
[2020-02-16] MEDS: METOPROLOL TARTRATE 25 MG TAB PO SCH ×2 (08:55→21:15)
[2020-02-16] MEDS: LISINOPRIL 20 MG TAB PO SCH (08:55)
[2020-02-16 08:59] LABS: Basophils # (A) 0.1 k/uL (0-0.2); Basophils % (A) 1 %; Eosinophils # (A) 0.4 k/uL (0-0.7); Eosinophils % (A) 6 %; HCT 43.1 % (34.0-46.0); HGB 13.7 gm/dL (11.4-16.0); Lymphocytes % (A) 28 %; MCH 30.3 pg (25.0-35.0); MCHC 31.9 g/dL (31.0-37.0); Mean Platelet Volume 8.9; Monocytes # (A) 0.4 k/uL (0-1.0); Monocytes % (A) 6 %; Neutrophils % (A) 57 %; Platelet Count 212 k/uL (150-450); RBC 4.53 m/uL (3.80-5.40); RDW 13.1 % (11.5-15.5); WBC 6.9 k/uL (3.8-10.6)
--- NOTE | 2020-02-16 12:25 | P.PN ---
Subjective Progress Note Date: 02/16/20 Principal diagnosis: Bipolar disorder manic severe with psychotic symptoms, poor compliance with outpatient treatment, tobacco use I reviewed the medical record, interviewed the patient and discuss her treatment and treatment plan during team meeting. She remains on one-to-one due to the severity of her psychiatric illness. She's been compliant with medications. She slept 7 hours last night. Her mood is labile and she has had episodes of unprovoked crying. Her speech is incoherent. Objective - Vital Signs Vital signs: Vital Signs Temp 97.9 F 02/16/20 06:17 Pulse 68 02/16/20 06:17 Resp 14 02/16/20 06:17 BP 149/65 02/16/20 06:17 Pulse Ox 95 02/14/20 23:00 - Exam She presented as a casually groomed elderly female who is in a wheelchair. Her one-to-one his inattentiveness. She appeared sedated. She does not make eye contact. Her response to questions are incoherent. - Labs CBC & Chem 7: 02/16/20 07:13 02/15/20 08:32 Labs: Abnormal Lab Results - Last 24 Hours (Table) 02/15/20 Range/Units 08:32 Hemoglobin A1c 6.2 H (4.0-6.0) % Assessment and Plan Assessment: She is severely mentally ill and minimally improve from admission. Plan: Titrate clozapine to her outpatient dose of 50 mg in morning and 200 mg at bedtime. Continue Haldol 6 mg IM every 6 hours when necessary for agitation or aggression. Continue clonazepam 0.5 mg by mouth twice a day. encourage oral fluids. Continue one-to-one. Evaluate clinical status response to treatment daily basis.
[2020-02-16] MEDS: HALOPERIDOL LACTATE 5 MG/ML 1 ML VIAL IM PRN (17:34)
[2020-02-17] MEDS: HALOPERIDOL LACTATE 5 MG/ML 1 ML VIAL IM PRN (02:51)
[2020-02-17] MEDS: NAPROXEN 250 MG TAB PO PRN ×2 (05:13→13:59)
[2020-02-17] MEDS: NICOTINE 21MG/24HR PATCH TRANSDERM SCH (09:12)
[2020-02-17] MEDS: cloZAPine 25 MG TAB PO SCH ×3 (09:13→21:26)
[2020-02-17] MEDS: LISINOPRIL 20 MG TAB PO SCH (09:14)
[2020-02-17] MEDS: FLUTICASONE 50MCG/SPRAY NASAL 16GM EA NOSTRIL SCH (09:14)
[2020-02-17] MEDS: METOPROLOL TARTRATE 25 MG TAB PO SCH ×2 (09:14→21:27)
[2020-02-17] MEDS: clonazePAM 0.5 MG TAB PO SCH ×2 (09:15→21:26)
--- NOTE | 2020-02-17 15:24 | P.PN ---
Subjective Progress Note Date: 02/17/20 Principal diagnosis: Bipolar disorder manic severe with psychotic symptoms, poor compliance with outpatient treatment, tobacco use I reviewed the medical record, interviewed the patient and discuss her treatment and treatment plan during team meeting. She remains on one-to-one due to the severity of her psychiatric illness. She's been compliant with medications. She needs frequent redirection because she wanders in and out of other patient's rooms. She makes eye contact but her speech is incoherent. She slept 3 hours last night. Objective - Vital Signs Vital signs: Vital Signs Temp 98.5 F 02/17/20 05:14 Pulse 71 02/17/20 05:14 Resp 16 02/17/20 05:14 BP 117/60 02/17/20 05:14 Pulse Ox 96 02/17/20 04:45 - Exam She presented as a casually groomed elderly female was frequently wandering the halls with her one-to-one in attendance. She does not make eye contact. She talks and mumbles to herself. Her speech is incoherent. - Labs CBC & Chem 7: 02/16/20 07:13 02/15/20 08:32 Assessment and Plan Assessment: She is severely mentally ill and minimally improve from admission. She requires continued inpatient treatment due to severity of her psychiatric illness. Plan: Titrate clozapine to her outpatient dose of 50 mg in morning and 200 mg at bedtime. Continue Haldol 6 mg IM every 6 hours when necessary for agitation or aggression. Continue clonazepam 0.5 mg by mouth twice a day. encourage oral fluids. Continue one-to-one. Evaluate clinical status response to treatment daily basis.
[2020-02-17] MEDS: ACETAMINOPHEN TAB 325 MG TAB PO PRN (23:05)
[2020-02-18] MEDS: clonazePAM 0.5 MG TAB PO SCH ×2 (08:34→21:09)
[2020-02-18] MEDS: NICOTINE 21MG/24HR PATCH TRANSDERM SCH (08:34)
[2020-02-18] MEDS: LISINOPRIL 20 MG TAB PO SCH (08:34)
[2020-02-18] MEDS: FLUTICASONE 50MCG/SPRAY NASAL 16GM EA NOSTRIL SCH (08:35)
[2020-02-18] MEDS: METOPROLOL TARTRATE 25 MG TAB PO SCH ×2 (08:35→21:09)
[2020-02-18] MEDS: cloZAPine 25 MG TAB PO SCH ×2 (08:35→21:10)
--- NOTE | 2020-02-18 13:51 | P.PN ---
Subjective Progress Note Date: 02/18/20 Principal diagnosis: Bipolar disorder manic severe with psychotic symptoms, poor compliance with outpatient treatment, tobacco use I reviewed the medical record, interviewed the patient and discuss her treatment and treatment plan during team meeting. She remains on one-to-one due to the severity of her psychiatric illness. She's been compliant with medications. She makes eye contact and appears to want to engage. She has difficulty concentrating and attending. Her speech is very difficult to understand except for occasional words and statements. She slept 7 hours last night. Objective - Vital Signs Vital signs: Vital Signs Temp 98.4 F 02/18/20 06:26 Pulse 80 02/18/20 08:38 Resp 15 02/18/20 06:26 BP 112/59 02/18/20 08:38 Pulse Ox 96 02/17/20 04:45 - Exam She presented as a casually groomed elderly female was frequently wandering the halls with her one-to-one in attendance. She makes eye contact but appears to difficulty concentrating and attending to the interview. She talks and mumbles to herself. Her speech is soft, rambling and difficult to understand. She does not appear to be responding to internal stimuli. - Labs CBC & Chem 7: 02/16/20 07:13 02/15/20 08:32 Assessment and Plan Assessment: She is severely mentally ill and minimally improve from admission. She may be showing some early response to clozapine. She requires continued inpatient treatment due to severity of her psychiatric illness. Plan: Titrate clozapine to her outpatient dose of 50 mg in morning and 200 mg at bedtime; her current dose is 50 mg twice a day. We will increase the dose to 150 mg daily beginning on 02/19/2020. Continue Haldol 6 mg IM every 6 hours when necessary for agitation or aggression. Continue clonazepam 0.5 mg by mouth twice a day. Weekly CBC with differential. Encourage oral fluids. Continue one-to-one. Evaluate clinical status response to treatment daily basis.
[2020-02-18] MEDS: HALOPERIDOL LACTATE 5 MG/ML 1 ML VIAL IM PRN ×2 (14:28→22:29)
[2020-02-18] MEDS: ACETAMINOPHEN TAB 325 MG TAB PO PRN (21:14)
[2020-02-19] MEDS: HALOPERIDOL LACTATE 5 MG/ML 1 ML VIAL IM PRN ×2 (06:39→11:36)
[2020-02-19] MEDS: LISINOPRIL 20 MG TAB PO SCH (07:47)
[2020-02-19] MEDS: FLUTICASONE 50MCG/SPRAY NASAL 16GM EA NOSTRIL SCH (07:47)
[2020-02-19] MEDS: NICOTINE 21MG/24HR PATCH TRANSDERM SCH (07:47)
[2020-02-19] MEDS: cloZAPine 25 MG TAB PO SCH (07:47)
[2020-02-19] MEDS: METOPROLOL TARTRATE 25 MG TAB PO SCH ×2 (07:47→21:29)
[2020-02-19] MEDS: clonazePAM 0.5 MG TAB PO SCH ×2 (07:48→21:29)
[2020-02-19] MEDS ORDERED: BENZTROPINE MESYLATE 0.5 MG TAB PO PRN (12:32)
--- NOTE | 2020-02-19 12:32 | P.PN ---
Progress Note - Text Interval history: The patient is found in her wheelchair. She has one-to-one supervision present. The patient is a poor historian. She was observed throughout the morning demonstrating agitated behavior. Initially she was found in her room sleeping when she awoke she approach the desk and was loud yelling and verbally aggressive. She did receive an injection of Haldol which has calmed her. She makes disorganized statements she describes delusional thoughts. She has required much redirection this morning. Mental status exam: The patient is an overweight female she seated in a wheelchair she demonstrates some psychomotor slowing after receiving the Haldol injection. Eye contact is staring in nature. Speech is spontaneous fluent her thoughts are disorganized she makes a variety of unrelated statements. She describes paranoid and persecutory thinking. She was verbally abusive earlier in the morning this seems to have improved with the injection of Haldol. Insight and judgment are poor. She is in no physical distress. She demonstrates no involuntary repetitive movements. Insight and judgment are poor . Plan: The patient will continue on her current psychotropic medication. The clozapine is being titrated. I will add a Cogentin as needed order since she has been getting the Haldol injections. We will monitor her for safety we will continue one-to-one supervision given the severity of her psychiatric illness. She requires continued psychiatric hospitalization. Vital signs reviewed.
[2020-02-19] MEDS: ACETAMINOPHEN TAB 325 MG TAB PO PRN (13:51)
[2020-02-19] MEDS: MAGNESIUM HYDROXIDE 2,400 MG/10 ML CUP PO PRN (13:52)
[2020-02-19] MEDS: MAG HYDROX/AL HYDROX/SIMETH 30 ML CUP PO PRN (15:22)
[2020-02-19] MEDS: cloZAPine 100 MG TAB PO SCH (21:29)
[2020-02-20] MEDS: FLUTICASONE 50MCG/SPRAY NASAL 16GM EA NOSTRIL SCH (08:36)
[2020-02-20] MEDS: NICOTINE 21MG/24HR PATCH TRANSDERM SCH (08:36)
[2020-02-20] MEDS: clonazePAM 0.5 MG TAB PO SCH ×2 (08:37→20:49)
[2020-02-20] MEDS: LISINOPRIL 20 MG TAB PO SCH (08:37)
[2020-02-20] MEDS: cloZAPine 25 MG TAB PO SCH (08:37)
[2020-02-20] MEDS: METOPROLOL TARTRATE 25 MG TAB PO SCH ×2 (08:37→20:48)
--- NOTE | 2020-02-20 11:43 | P.PN ---
Progress Note - Text Interval history: The patient is found in the hallway he is briefly ambulating with one-to-one staff. She then uses a wheelchair for mobility. She was interviewed in a conference room. She was able to provide some very brief answers such as naming the current month and date she could not name the day of the week or the year. She then began making random statements that were unrelated to the conversation. When trying to refocus her she states that she did eat and that she slept last evening. Staff indicate that she slept 7 hours overnight. She has been observed napping during the morning as well. Mental status exam: The patient is alert overall she was more cooperative with an attempt to speak with her today. She answers a few questions in a direct fashion but very quickly becomes disorganized and begins speaking on unrelated topics. It appears that she continues to experience disorganized delusions. She does not attend to certain questions asked of her such as those regarding suicidal and homicidal ideation. As she sits in the chair she demonstrates an ongoing conversation until interrupted. She demonstrated no verbal or physical aggressiveness during our interaction. Insight and judgment are poor. She appears to be in no physical distress. Plan: The patient will continue on her current medication her clozapine is being titrated. Vital signs reviewed. We will continue one-to-one supervision for her safety as her behavior is still unpredictable. We will look for opportunities to provide reality orientation.
[2020-02-20] MEDS: cloZAPine 100 MG TAB PO SCH (20:48)
[2020-02-21] MEDS: clonazePAM 0.5 MG TAB PO SCH ×2 (08:17→21:20)
[2020-02-21] MEDS: NICOTINE 21MG/24HR PATCH TRANSDERM SCH (08:18)
[2020-02-21] MEDS: FLUTICASONE 50MCG/SPRAY NASAL 16GM EA NOSTRIL SCH (08:18)
[2020-02-21] MEDS: cloZAPine 25 MG TAB PO SCH (08:18)
[2020-02-21] MEDS: LISINOPRIL 20 MG TAB PO SCH (08:18)
[2020-02-21] MEDS: METOPROLOL TARTRATE 25 MG TAB PO SCH ×2 (08:18→21:18)
[2020-02-21 10:19] VITALS: BMI 28.0
[2020-02-21] MEDS: ACETAMINOPHEN TAB 325 MG TAB PO PRN (10:56)
--- NOTE | 2020-02-21 13:10 | P.PN ---
Subjective Progress Note Date: 02/21/20 Principal diagnosis: Bipolar disorder manic severe with psychotic symptoms, poor compliance with outpatient treatment, tobacco use I reviewed the medical record, interviewed the patient and discuss her treatment and treatment plan during team meeting. She remains on one-to-one due to the severity of her psychiatric illness. She's been compliant with medications. She had 1 episodes of agitation resulting in Haldol IM on Friday where she was swearing, tearful, irritable and threatening to spit on staff. She has had no subsequent episodes of behavioral dyscontrol. She is able to make superficial conversation during which remains on topic. Objective - Vital Signs Vital signs: Vital Signs Temp 97.8 F 02/21/20 07:23 Pulse 85 02/21/20 07:23 Resp 18 02/21/20 07:23 BP 145/100 02/21/20 07:23 Pulse Ox 96 02/21/20 07:23 Intake & Output 02/20/20 02/21/20 02/21/20 18:59 06:59 18:59 Weight 71.8 kg 71.8 kg - Exam She was casually groomed elderly woman who was pleasant on approach. She made eye contact and appeared to attend to the interview. She had a blunted but bright facial expression. She was alert and oriented to person only. She was intermittently restless and often pacing the unit. Her speech is spontaneous and difficult to understand. She frequently mumbles and appears to be talking to herself. Her affect is stable and appropriate. She did not express clear ideas reference, paranoid ideation or delusions. Her thinking is very concrete and associations were not fully logical, coherent and goal directed. She denied hallucinations and did not appear to be responding to internal stimuli. - Labs CBC & Chem 7: 02/16/20 07:13 02/15/20 08:32 Assessment and Plan Assessment: She is severely mentally ill and minimally improve from admission. She continued to show signs of initial response to clozapine. Plan: Continue inpatient hospitalization due to severity of her psychiatric illness. Continue sister cautions including one-to-one supervision. Titrate clozapine to her outpatient dose of 50 mg in morning and 200 mg at bedtime; her current dose is 50 mg in morning and 150 mg at night. Continue Haldol 6 mg IM every 6 hours when necessary for agitation or aggression. Continue clonazepam 0.5 mg by mouth twice a day. Weekly CBC with differential. Encourage oral fluids. Continue one-to-one. Evaluate clinical status response to treatment daily basis.
[2020-02-21] MEDS: MAGNESIUM HYDROXIDE 2,400 MG/10 ML CUP PO PRN (19:23)
[2020-02-21] MEDS: cloZAPine 100 MG TAB PO SCH (21:19)
[2020-02-22] MEDS: cloZAPine 25 MG TAB PO SCH (08:23)
[2020-02-22] MEDS: METOPROLOL TARTRATE 25 MG TAB PO SCH ×2 (08:23→20:13)
[2020-02-22] MEDS: LISINOPRIL 20 MG TAB PO SCH (08:23)
[2020-02-22] MEDS: NICOTINE 21MG/24HR PATCH TRANSDERM SCH (08:23)
[2020-02-22] MEDS: clonazePAM 0.5 MG TAB PO SCH ×2 (08:23→20:13)
[2020-02-22] MEDS: FLUTICASONE 50MCG/SPRAY NASAL 16GM EA NOSTRIL SCH (08:23)
--- NOTE | 2020-02-22 13:23 | P.PN ---
Subjective Progress Note Date: 02/22/20 Principal diagnosis: Bipolar disorder manic severe with psychotic symptoms, poor compliance with outpatient treatment, tobacco use I reviewed the medical record, interviewed the patient and discuss her treatment and treatment plan during team meeting. She remains on one-to-one due to severity of her psychiatric illness. She interacts superficially with staff and peers. This morning, she was pleasant on approach. She ruminated about wanting to become . She became distressed when I told her that she may be "too old" to bear children. She then began pointing to her stomach suggesting that she may have the belief that she is . She is had no episodes of agitation or behavioral dyscontrol over the last 24 hours. She slept 6 hours last night. 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 She made eye contact and appeared to engage in interview. She had a bright facial expression. She was alert and oriented to person only. She was not restless or agitated. Her sp eech was slow but steady. Her speech was spontaneous, rambling and difficult to understand. Her mood was stable and appropriate. She did not express suicidal ideation or wishes. She did not express feelings of hopelessness or helplessness. She ruminated about wanting to become . She did not appear to be responding to internal stimuli. Her thinking was concrete, disorganized and illogical. - Labs CBC & Chem 7: 02/16/20 07:13 02/15/20 08:32 Assessment and Plan Assessment: She is severely mentally ill and minimally to moderately improve from admission. She is no apparent side effects from clozapine. Plan: Continue inpatient hospitalization due to severity of her psychiatric illness. Discontinue one-to-one. Continue clozapine and titrate to a total dose of 300 mg daily. Continue her outpatient dose of clonazepam 0.5 mg by mouth twice a day. Haldol 6 mg IM every 6 hours when necessary for agitation or aggression. Weekly CBC with differential. Encourage oral fluids. Continue one-to-one. Evaluate clinical status response to treatment daily basis.
[2020-02-22] MEDS: MAGNESIUM HYDROXIDE 2,400 MG/10 ML CUP PO PRN (15:50)
[2020-02-22] MEDS: MAG HYDROX/AL HYDROX/SIMETH 30 ML CUP PO PRN (17:23)
[2020-02-22] MEDS: cloZAPine 100 MG TAB PO SCH (20:13)
[2020-02-23] MEDS: LISINOPRIL 20 MG TAB PO SCH (08:08)
[2020-02-23] MEDS: NICOTINE 21MG/24HR PATCH TRANSDERM SCH (08:08)
[2020-02-23] MEDS: cloZAPine 25 MG TAB PO SCH (08:08)
[2020-02-23] MEDS: METOPROLOL TARTRATE 25 MG TAB PO SCH ×2 (08:08→20:59)
[2020-02-23] MEDS: FLUTICASONE 50MCG/SPRAY NASAL 16GM EA NOSTRIL SCH (08:08)
[2020-02-23 08:09] LABS: Basophils # (A) 0.1 k/uL (0-0.2); Basophils % (A) 1 %; Eosinophils # (A) 0.5 k/uL (0-0.7); Eosinophils % (A) 7 %; HCT 38.9 % (34.0-46.0); HGB 12.5 gm/dL (11.4-16.0); Lymphocytes # (A) 1.9 k/uL (1.0-4.8); Lymphocytes % (A) 31 %; MCH 30.1 pg (25.0-35.0); MCHC 32.1 g/dL (31.0-37.0); Mean Platelet Volume 8.5; Monocytes # (A) 0.3 k/uL (0-1.0); Monocytes % (A) 5 %; Neutrophils # (A) 3.3 k/uL (1.3-7.7); Neutrophils % (A) 53 %; Platelet Count 216 k/uL (150-450); RBC 4.13 m/uL (3.80-5.40); RDW 12.9 % (11.5-15.5); WBC 6.2 k/uL (3.8-10.6)
[2020-02-23] MEDS: clonazePAM 0.5 MG TAB PO SCH ×2 (08:09→21:00)
[2020-02-23] MEDS: NAPROXEN 250 MG TAB PO PRN (09:04)
--- NOTE | 2020-02-23 11:04 | P.PN ---
Subjective Progress Note Date: 02/23/20 Principal diagnosis: Bipolar disorder manic severe with psychotic symptoms, poor compliance with outpatient treatment, tobacco use I reviewed the medical record, interviewed the patient and discuss her treatment and treatment plan during team meeting. This morning, she asked if she can "go home". Her conversation was difficult to understand but she talked about taking a "taxi" home. She was perseverative but redirectable. She slept 6 hours last night. She has had no episodes of behavioral dyscontrol or agitation over the last 24 hours. She attended one therapeutic group yesterday. The therapist described her as intrusive, restless and disorganized. Her current dose of clozapine is 50 mg a.m. and 150 mg at bedtime. Objective - Vital Signs Vital signs: Vital Signs Temp 98.6 F 02/22/20 20:15 Pulse 99 02/23/20 08:06 Resp 16 02/22/20 20:15 BP 102/62 02/23/20 08:06 Pulse Ox 96 02/21/20 07:23 - Exam She presented as a casually groomed 69-year-old female who was pleasant on approach. She made intermittent eye contact but did not appear to concentrate or attend to the interview. She had a blunted but bright facial expression. She was alert and oriented to person. She was restless and often observed pacing the unit but is not agitated or demonstrating abnormal involuntary movements. Her speech is spontaneous, rambling, disjointed and difficult to understand. Her affect is blunted but stable and appropriate. She did not express suicidal or homicidal ideation. She did not express clear ideas reference or paranoid ideation. Her thinking is concrete and her associations are not coherent, logical or goal directed. She did not appear to be responding to internal stimuli. - Labs CBC & Chem 7: 02/23/20 07:50 02/15/20 08:32 Assessment and Plan Assessment: She is severely mentally ill and moderately improve from admission. She is no apparent side effects from clozapine. Plan: Continue inpatient hospitalization due to severity of her psychiatric condition. Continue safety precautions. Continue clozapine and titrated to a target dose of 250 mg per day in divided doses. Continue weekly CBC with differential. Encourage hydration. Haldol IM when necessary for agitation or aggression. Evaluate clinical status response to treatment daily basis.
[2020-02-23] MEDS: ACETAMINOPHEN TAB 325 MG TAB PO PRN (19:24)
[2020-02-23] MEDS: MAG HYDROX/AL HYDROX/SIMETH 30 ML CUP PO PRN (19:25)
[2020-02-23] MEDS: MAGNESIUM HYDROXIDE 2,400 MG/10 ML CUP PO PRN (19:25)
[2020-02-23] MEDS: cloZAPine 100 MG TAB PO SCH (20:58)
[2020-02-24] MEDS: FLUTICASONE 50MCG/SPRAY NASAL 16GM EA NOSTRIL SCH (07:42)
[2020-02-24] MEDS: NAPROXEN 250 MG TAB PO PRN ×2 (07:43→23:23)
[2020-02-24] MEDS: NICOTINE 21MG/24HR PATCH TRANSDERM SCH (07:44)
[2020-02-24] MEDS: LISINOPRIL 20 MG TAB PO SCH (07:49)
[2020-02-24] MEDS: cloZAPine 25 MG TAB PO SCH (07:49)
[2020-02-24] MEDS: METOPROLOL TARTRATE 25 MG TAB PO SCH ×2 (07:49→21:00)
[2020-02-24] MEDS: clonazePAM 0.5 MG TAB PO SCH ×2 (07:49→21:01)
--- NOTE | 2020-02-24 11:45 | P.PN ---
Subjective Progress Note Date: 02/24/20 Subjective: The patient has been seen today as follow-up, chart reviewed, case discussed with the treatment team. Patient has been going to selected groups and other unit activities. Patient reports better appetite today. She reports good sleep and appetite. She admits to auditory hallucinations described as hearing ''music''. She appears very preoccupied and at times appears to be responding to internal cues. The patient denies any paranoid ideation. The patient denies any suicidal or homicidal ideations. The patient is compliant with his medications and denies any adverse reactions. Objective - Vital Signs Vital signs: Vital Signs Temp 97.7 F 02/24/20 07:22 Pulse 88 02/24/20 07:51 Resp 18 02/24/20 07:22 BP 105/88 02/24/20 07:51 Pulse Ox 96 02/24/20 07:22 - Exam Objective: Vitals has been reviewed. Mental status examination; Appearance: The patient appears stated age, limited grooming. Gait/posture: No abnormal movements. Attitude and behavior: cooperative, good eye contact. Motor activity: Increased psychomotor activity Speech: rapid rate, and rambling. Mood: Anxious. Affect: Expanded Thought form: Hyperverbal and rambling Thought content: Non-delusional, denies suicidal thoughts denies homicidal thoughts, denies intentions or plans. Perception: Denies any visual hallucinations but admits to auditory hallucinations Orientation: oriented to time place person and situation. Insight: Patient has poor insight about his psychiatric disorder. Judgment: Limited - Labs CBC & Chem 7: 02/23/20 07:50 02/15/20 08:32 Assessment and Plan Assessment: Bipolar disorder manic severe with psychotic symptoms Plan: Continue inpatient hospitalization due to severity of her psychiatric condition. Continue safety precautions. Continue clozapine and titrated to a target dose of 250 mg per day in divided doses. Continue weekly CBC with differential. Encourage hydration. Haldol IM when necessary for agitation or aggression. Evaluate clinical status response to treatment daily basis.
[2020-02-24 17:10] LABS: Basophils # (A) 0.1 k/uL (0-0.2); Basophils % (A) 2 %; Eosinophils # (A) 0.4 k/uL (0-0.7); Eosinophils % (A) 6 %; HCT 40.4 % (34.0-46.0); HGB 12.9 gm/dL (11.4-16.0); Lymphocytes % (A) 26 %; MCH 30.2 pg (25.0-35.0); MCV 94.3 fL (80.0-100.0); Mean Platelet Volume 8.3; Monocytes # (A) 0.4 k/uL (0-1.0); Monocytes % (A) 6 %; Neutrophils # (A) 4.5 k/uL (1.3-7.7); Neutrophils % (A) 59 %; Platelet Count 242 k/uL (150-450); RBC 4.28 m/uL (3.80-5.40); RDW 12.8 % (11.5-15.5); WBC 7.6 k/uL (3.8-10.6)
[2020-02-24] MEDS: MAG HYDROX/AL HYDROX/SIMETH 30 ML CUP PO PRN (19:26)
[2020-02-24] MEDS ORDERED: cloZAPine 100 MG TAB PO SCH (21:00)
[2020-02-25 06:59] VITALS: BP 132/75; PULSE 84; RESP 15; TEMP 97.6
[2020-02-25] MEDS: NICOTINE 21MG/24HR PATCH TRANSDERM SCH (08:25)
[2020-02-25] MEDS: LISINOPRIL 20 MG TAB PO SCH (08:26)
[2020-02-25] MEDS: METOPROLOL TARTRATE 25 MG TAB PO SCH (08:26)
[2020-02-25] MEDS: cloZAPine 25 MG TAB PO SCH (08:26)
[2020-02-25] MEDS: FLUTICASONE 50MCG/SPRAY NASAL 16GM EA NOSTRIL SCH (08:26)
[2020-02-25] MEDS: clonazePAM 0.5 MG TAB PO SCH (08:27)
--- NOTE | 2020-02-25 11:45 | P.DS ---
Providers Date of admission: 02/13/20 16:48 Attending physician: Darius Miranda MD Consults: 02/13/20 16:55 Consult Physician Routine Consulting Provider: Kennedy Physician Consult Reason/Comments: H&P medical managment Do you want consulting provider notified?: Yes Primary care physician: Physician Nonstaff Hospital Course: Discharge Diagnosis: Bipolar disorder mixed episode with psychotic features Hospital Course: IDENTIFYING DATA: The patient was a 69-year-old female who has history of severe and persistent mental illness. She was admitted to the psychiatric unit involuntarily. A nurse from the emergency department and completed the petition that read "the patient is labile; she laughs and then cries, talking to herself; fragmented, tangential, disorganized, delusional, disoriented, hyperverbal and manic." HISTORY OF PRESENT ILLNESS: The patient was admitted with agitation and was not able to provide proper history. Some history was obtained from her who was also her legal guardian. He stated she was doing well when she was taking clozapine as prescribed by the psychiatrist at [facility]. However, she began to refuse the blood draws and the psychiatrist was forced to discontinue the clozapine. Her doctor prescribed Mellaril and titrated dose to 400 mg per day in divided doses. Her stated that her condition declined and the psychiatrist restarted clozapine sometime before this admission. She stated that she was talkative but directable. She was restless. He stated that she made allegations that he was having an affair (he noted that she makes these allegations whenever she becomes unwell). She had failed trials of multiple psychotropic medications. She did well on clozapine. She was started on clozapine in March 2019 and her response was good. She was taking 50 mg in the morning and 200 mg at night. However she decompensated 1 month prior to her admission when she began to refuse the blood draws. Her took her to a local physician who restarted her on the Mellaril. (She had a distant history of a response to Mellaril). Her called the ACT team extremely distressed. Dr. Shaikh stated that her tolerates her aberrant behavior except in the most extreme. He attempted to put her back on clozapine but he does not believe that she restarted the medication. PAST PSYCHIATRIC HISTORY: She's had multiple psychiatric hospitalizations. Her last admission to this unit was in January 2018 and she was discharged with diagnoses of bipolar disorder type I currently manic. Her psychotropic medications at discharge including Trileptal, oral Invega and Invega Sustenna. PAST MEDICAL HISTORY: According to the medical record she has history of asthma, GERD and hypertension ALLERGIES: Quetiapine, sulfa SUBSTANCE USE HISTORY: According to her , she has no history of substance use problems. FAMILY PSYCHIATRIC/SUBSTANCE USE HISTORY: Per the medical record her sister has a history of a psychotic disorder LEGAL HISTORY: She has no history of legal problems. Her has a legal guardian. SOCIAL HISTORY: According to record, she was with her and daughter in [facility]. She is unemployed and receives Social Security disability. MENTAL STATUS EXAM: She presented as a disheveled elderly woman who was in 4- point restraints. She was screaming and yelling. She made eye contact but did not answer questions. Her speech was incoherent. Her thinking was disorganized. STRENGTHS: Supportive family, engagement with [facility] mental health services, relatively good health, stable housing, stable income WEAKNESSES: Chronic and severe mental illness IMPRESSION: She is a 69-year-old female who has a history of chronic and severe mental illness diagnosed as a schizoaffective disorder or bipolar disorder. She presented to unit involuntarily admitted disorganized and manic state. She was agitated and aggressive and required intramuscular medication in 4-point restraint. She should be treated on an inpatient basis with combination of psychopharmacology and multimodal therapy. PRINCIPLE DIAGNOSIS: Bipolar disorder manic severe with psychotic symptoms, poor compliance with outpatient treatment, tobacco use Hospital course: The patient was admited to the psychiatric unit. She was placed on safety precautions. Consult medicine for initial physical exam and medical history was ordered. traffic worker completed initial psychosocial assessment and coordinate discharge and aftercare. Medical records from [facility] were requested. She was continued on clozapine 50 mg at bedtime and titrated according to clinical response and tolerance. Weekly CBC with differential. She was placed on Haldol 6 mg IM every 6 hours when necessary for agitation and/or regression. She was continued on Klonopin 0.5 mg by mouth twice a day and IM benzodiazepines since it may increase confusion. Nicotine replacement was ordered. She was continued on: Ventolin 2 puffs 4 times a day when necessary for shortness of breath Zestril 20 mg daily for hypertension Lopressor 25 mg by mouth twice a day for hypertension. Evaluate clinical status response to treatment daily basis. Encourage participation in therapeutic groups and activities as tolerated. The patient was placed on one-to-one supervision for safety. The patient tolerated the medications without any side effects. She was also started on Cogentin 0.5 mg by mouth twice a day. The patient is started showing slow improvement in her mood and functioning. She remained hyperverbal and her speech remained rambling. She showed significant improvement in agitation and became more redirectable. The patient's condition was stabilized and she was discharged home to follow-up as an outpatient on 02/25/2020. Discharge Mental Status: Appearance/Attitude: Patient is neatly and appropriately dressed, makes eye contact and was cooperative. Behavior: Patient did not display any psychomotor agitation or retardation. Speech/Language: Patient's speech was rambling and confused Thought Process: Patient was goal-directed there is no evidence of loose association or flight of ideas Thought Content: Patient denied any auditory or visual hallucinations no delusions or paranoid ideation were elicited. Suicidal/Homicidal Ideation: Patient denies any current suicidal or homicidal ideation Sensorium/Cognition: Patient is alert and oriented to person, place, and time and his recent and remote memory were grossly intact Mood/Affect: Patient's mood is more positive and his affect is appropriate to his mood Insight/Judgment: Patient's insight and judgment are fair Risk Assessment: Patient's risk for readmission is moderate to the patient not be compliant with medications and follow-up care, use alcohol and/or drugs Discharge Plan: the patient was discharged home to her on 02/25/2020. [facility] and will follow up at the [facility] clinic for his medical problems. Patient was encouraged to be compliant with medications and follow-up appointments and to avoid all alcohol and drugs. Patient Condition at Discharge: Stable Patient Condition at Discharge: Stable Plan - Discharge Summary New Discharge Prescriptions: New cloZAPine [Clozaril] 50 mg PO DAILY 30 Days #30 tab cloZAPine [Clozaril] 200 mg PO HS #30 tab Benztropine Mesylate [Cogentin] 0.5 mg PO BID PRN 30 Days #60 tab PRN Reason: Extrapyramidal Effects Fluticasone Nasal [place] [Flonase Nasal [place]] 2 spray EA NOSTRIL DAILY spr Nicotine 21Mg/24Hr Patch [Habitrol] 1 patch TRANSDERM DAILY 14 Days #14 patch clonazePAM [KlonoPIN] 0.5 mg PO BID 30 Days #60 tab Metoprolol Tartrate [Lopressor] 25 mg PO BID tab Magnesium Hydroxide [Milk of Magnesia Concentrate] 2,400 mg PO DAILY PRN ml PRN Reason: Constipation Naproxen [Naprosyn] 500 mg PO BID PRN tab PRN Reason: Moderate Pain Acetaminophen Tab [Tylenol] 650 mg PO Q4HR PRN tab PRN Reason: Mild Pain Albuterol Inhaler [Ventolin Hfa Inhaler] 2 puff INHALATION RT-QID PRN puff PRN Reason: Shortness Of Breath Or Wheezing Lisinopril [Zestril] 20 mg PO DAILY tab Continue [place]-3 Acid Ethyl Esters [Lovaza] 1 gm PO BID 30 Days #60 cap Thioridazine HCl [Mellaril] 100 mg PO QID 30 Days #120 tab Discontinued Naproxen 500 mg PO BID Metoprolol Tartrate [Lopressor] 25 mg PO BID Lisinopril [Zestril] 20 mg PO DAILY Fluticasone Nasal [place] [Flonase Nasal [place]] 2 spr EA NOSTRIL DAILY clonazePAM [KlonoPIN] 1 mg PO HS cloZAPine [Clozaril] 50 mg PO HS clonazePAM [KlonoPIN] 1 mg PO DAILY@1200 PRN PRN Reason: Anxiety Discharge Medication List Acetaminophen Tab [Tylenol] 650 mg PO Q4HR PRN tab 02/25/20 [Rx] Albuterol Inhaler [Ventolin Hfa Inhaler] 2 puff INHALATION RT-QID PRN puff 02/25/20 [Rx] Benztropine Mesylate [Cogentin] 0.5 mg PO BID PRN 30 Days #60 tab 02/25/20 [Rx] Fluticasone Nasal [place] [Flonase Nasal [place]] 2 spray EA NOSTRIL DAILY spr 02/25/20 [Rx] Lisinopril [Zestril] 20 mg PO DAILY tab 02/25/20 [Rx] Magnesium Hydroxide [Milk of Magnesia Concentrate] 2,400 mg PO DAILY PRN ml 02/25/20 [Rx] Metoprolol Tartrate [Lopressor] 25 mg PO BID tab 02/25/20 [Rx] Naproxen [Naprosyn] 500 mg PO BID PRN tab 02/25/20 [Rx] Nicotine 21Mg/24Hr Patch [Habitrol] 1 patch TRANSDERM DAILY 14 Days #14 patch 02/25/20 [Rx] [place]-3 Acid Ethyl Esters [Lovaza] 1 gm PO BID 30 Days #60 cap 02/25/20 [Rx] Thioridazine HCl [Mellaril] 100 mg PO QID 30 Days #120 tab 02/25/20 [Rx] cloZAPine [Clozaril] 50 mg PO DAILY 30 Days #30 tab 02/25/20 [Rx] cloZAPine [Clozaril] 200 mg PO HS #30 tab 02/25/20 [Rx] clonazePAM [KlonoPIN] 0.5 mg PO BID 30 Days #60 tab 02/25/20 [Rx] Follow up Appointment(s)/Referral(s): [facility] [Outside] - 02/25/20 3:00 pm (ACT Team will f/u with pt this afternoon and again on 02/28/20.) Nonstaff,Physician [Primary Care Provider] - 1-2 days Activity/Diet/Wound Care/Special Instructions: Activity and diet as tolerated. Avoid the use of street drugs and alcohol. Take all medications as prescribed. When you are in need of refills on your medications please contact your medical provider and/or outpatient psychiatrist to have this done. Please go to scheduled outpatient appointment for aftercare treatment. If symptoms return or become worse, call the crisis line at and/or go to the nearest emergency room for evaluation. Discharge Disposition: HOME SELF-CARE
--- NOTE | 2020-02-25 11:48 | P.PN ---
Subjective Progress Note Date: 02/25/20 Discharge Note: Patient was seen and chart was reviewed. Case discussed with staff. The patient reports doing better and denies any new problems at this time. She admits to fair sleep and appetite. At this time patient denies any suicidal or homical ideations, intent or plan. Patient denies any auditory, visual hallucinations and denies any paranoia or delusions. Patient denies any side effects from the medications and has been compliant with meds. Objective - Vital Signs Vital signs: Vital Signs Temp 97.6 F 02/25/20 06:58 Pulse 84 02/25/20 06:58 Resp 15 02/25/20 06:58 BP 132/75 02/25/20 06:58 Pulse Ox 97 02/24/20 18:35 - Exam Objective: Vitals has been reviewed. Mental status examination; Appearance: The patient appears stated age, limited grooming. Gait/posture: No abnormal movements. Attitude and behavior: cooperative, good eye contact. Motor activity: Increased psychomotor activity Speech: rapid rate, and rambling. Mood: Anxious. Affect: Expanded Thought form: Hyperverbal and rambling Thought content: Non-delusional, denies suicidal thoughts denies homicidal thoughts, denies intentions or plans. Perception: Denies any visual hallucinations but admits to auditory hallucinations Orientation: oriented to time place person and situation. Insight: Patient has poor insight about his psychiatric disorder. Judgment: Limited - Labs CBC & Chem 7: 02/24/20 16:45 02/15/20 08:32 Assessment and Plan Assessment: Bipolar disorder manic severe with psychotic symptoms Plan: Plan: -Discharge home today to follow-up as an outpatient.
== END 2020-02-25 12:05 | disposition home or self-care (01) | DRG 885 ==
LOC: EEVIPCON 07:03 → EC 07:03 → 3MHU 16:48
PROVIDERS: ADMIT Psychiatry & Neurology Psychiatry; ATTEND Psychiatry & Neurology Psychiatry
DX: F31.60 Bipolar disorder, current episode mixed, unspecified (principal); Z91.19 Patient's noncompliance with other medical treatment and regimen; E86.0 Dehydration; R82.4 Acetonuria; I10 Essential (primary) hypertension; J45.909 Unspecified asthma, uncomplicated; K21.9 Gastro-esophageal reflux disease without esophagitis; Z78.1 Physical restraint status; Z79.1 Long term (current) use of non-steroidal anti-inflammatories (NSAID); Z79.899 Other long term (current) drug therapy; Z98.891 History of uterine scar from previous surgery; Z98.890 Other specified postprocedural states; Z89.421 Acquired absence of other right toe(s); Z89.411 Acquired absence of right great toe; Z88.2 Allergy status to sulfonamides; Z88.8 Allergy status to other drugs, medicaments and biological substances; F17.200 Nicotine dependence, unspecified, uncomplicated; Z82.49 Family history of ischemic heart disease and other diseases of the circulatory system; Z80.9 Family history of malignant neoplasm, unspecified; Z82.3 Family history of stroke; Z83.79 Family history of other diseases of the digestive system
CPT/HCPCS: 36415; 71045; 80053; 80061; 80159; 80306; 81003; 82075; 82140; 83036; 83880; 84443; 84484; 85025; 85610; 85730; 93005; 96361; 96372; 96374; 96375; 99285

== ENCOUNTER 2020-04-02 14:45 | Inpatient (IN) | payer MEDICARE, MEDICAID ==
[2020-04-02] MEDS ORDERED: LORazepam 2 MG/ML INJ IV STA ×2 (15:04→19:03)
[2020-04-02 15:30] LABS: Basophils # (A) 0.1 k/uL (0-0.2); Basophils % (A) 1 %; Eosinophils # (A) 0.2 k/uL (0-0.7); Eosinophils % (A) 3 %; HCT 38.6 % (34.0-46.0); HGB 12.4 gm/dL (11.4-16.0); Lymphocytes # (A) 1.4 k/uL (1.0-4.8); Lymphocytes % (A) 23 %; MCH 30.4 pg (25.0-35.0); MCHC 32.1 g/dL (31.0-37.0); MCV 94.5 fL (80.0-100.0); Mean Platelet Volume 7.8; Monocytes # (A) 0.4 k/uL (0-1.0); Monocytes % (A) 6 %; Neutrophils # (A) 3.6 k/uL (1.3-7.7); Neutrophils % (A) 63 %; Platelet Count 202 k/uL (150-450); RBC 4.09 m/uL (3.80-5.40); RDW 13.2 % (11.5-15.5); WBC 5.8 k/uL (3.8-10.6)
[2020-04-02 15:43] LABS: ALT 17 U/L (4-34); AST 29 U/L (14-36); African American GFR (CKD) >90 (>60 ml/min/1.73 sqM); Albumin 4.4 g/dL (3.5-5.0); Alcohol <10 mg/dL; Alkaline Phosphatase 70 U/L (38-126); Anion Gap 10 mmol/L; Blood Urea Nitrogen 17 mg/dL (7-17); Calcium 9.8 mg/dL (8.4-10.2); Carbon Dioxide 23 mmol/L (22-30); Chloride 105 mmol/L (98-107); Glucose 108 mg/dL (74-99); Non-African American GFR(CKD) >90 (>60 ml/min/1.73 sqM); Potassium 4.4 mmol/L (3.5-5.1); Sodium 138 mmol/L (137-145); Total Bilirubin 0.4 mg/dL (0.2-1.3); Total Protein 6.9 g/dL (6.3-8.2)
--- NOTE | 2020-04-02 15:49 | ED ---
Psych HPI <Michael Larry - Last Filed: 04/02/20 22:22> - General Source: patient Mode of arrival: wheelchair <Rachel Nguyen - Last Filed: 04/04/20 18:35> - General Chief Complaint: Psychiatric Symptoms Stated Complaint: Mental Health Time Seen by Provider: 04/02/20 14:56 - History of Present Illness Initial Comments: Patient is a 69-year-old female here for psychiatric evaluation. She has history of schizophrenia and was dropped off at the front door stating that "they changed her meds and they need to be changed back." She is combative and not responding to questions at this time. She is yelling and hitting at personnel. She has no complaints right now. (Rachel Nguyen) - Related Data Home Medications Medication Instructions Recorded Confirmed Naproxen 500 mg PO BID PRN 04/03/20 04/03/20 Previous Rx's Medication Instructions Recorded Acetaminophen Tab [Tylenol] 650 mg PO Q4HR PRN tab 02/25/20 Albuterol Inhaler (Mhu) [Ventolin 2 puff INHALATION RT-QID PRN puff 02/25/20 Hfa Inhaler (Mhu)] Benztropine Mesylate [Cogentin] 0.5 mg PO BID PRN 30 Days #60 tab 02/25/20 Fluticasone Nasal [place] [Flonase 2 spray EA NOSTRIL DAILY spr 02/25/20 Nasal [place]] Lisinopril [Zestril] 20 mg PO DAILY tab 02/25/20 Magnesium Hydroxide [Milk of 2,400 mg PO DAILY PRN ml 02/25/20 Magnesia Concentrate] Metoprolol Tartrate [Lopressor] 25 mg PO BID tab 02/25/20 Nicotine 21Mg/24Hr Patch [Habitrol] 1 patch TRANSDERM DAILY 14 Days 02/25/20 #14 patch [place]-3 Acid Ethyl Esters [Lovaza] 1 gm PO BID 30 Days #60 cap 02/25/20 Thioridazine HCl [Mellaril] 100 mg PO QID 30 Days #120 tab 02/25/20 cloZAPine [Clozaril] 50 mg PO DAILY 30 Days #30 tab 02/25/20 cloZAPine [Clozaril] 200 mg PO HS #30 tab 02/25/20 clonazePAM [KlonoPIN] 0.5 mg PO BID 30 Days #60 tab 02/25/20 Allergies Allergy/AdvReac Type Severity Reaction Status Date / Time quetiapine fumarate Allergy Unknown Verified 04/02/20 14:48 [From Seroquel] Sulfa (Sulfonamide Allergy Unknown Verified 04/02/20 14:48 Antibiotics) Review of Systems ROS Other: All systems not noted in ROS Statement are negative. <Michael Larry - Last Filed: 04/02/20 22:22> ROS Other: All systems not noted in ROS Statement are negative. <Rachel Nguyen - Last Filed: 04/04/20 18:35> ROS Statement: Those systems with pertinent positive or pertinent negative responses have been documented in the HPI. 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 Past Anesthesia/Blood Transfusion Reactions: No Reported Reaction Past Psychological History: Bipolar, Schizophrenia Smoking Status: Current every day smoker Past Alcohol Use History: None Reported Past Drug Use History: None Reported - Past Family History Brother(s) Additional Family Medical History / Comment(s): Patient states she has 5 brothers with no major medical problems. Sister(s) Additional Family Medical History / Comment(s): Patient states she has 7 sisters with no major medical problems. Brother(s) Son(s) Additional Family Medical History / Comment(s): Patient has 2 sons and 1 daughter with no major medical problems. Mother Family Medical History: Cancer, Hypertension Additional Family Medical History / Comment(s): Mother at age 89 from stomach problems Father Family Medical History: CVA/TIA, Hypertension Additional Family Medical History / Comment(s): Father at age 59 from peripheral vascular disease. <Rachel Nguyen - Last Filed: 04/04/20 18:35> General Exam Limitations: altered mental status <Rachel Nguyen - Last Filed: 04/04/20 18:35> - General Exam Comments Initial Comments: GENERAL: Disheveled, combative, yelling. HEAD: Atraumatic, normocephalic. EYES: Pupils equal round and reactive to light, extraocular movements intact, sclera anicteric, conjunctiva are normal. ENT: Moist mucous membranes. NECK: Normal range of motion, supple without lymphadenopathy or JVD. LUNGS: Breath sounds clear to auscultation bilaterally and equal. No wheezes rales or rhonchi. HEART: Regular rate and rhythm without murmurs, rubs or gallops. ABDOMEN: Soft, nontender, normoactive bowel sounds. No guarding, no rebound. No masses appreciated. : Deferred EXTREMITIES: Normal range of motion, no pitting or edema. No clubbing or cyanosis. Toes amputated on right foot. NEUROLOGICAL: Normal speech, normal gait. PSYCH: Combative, yelling SKIN: Warm, Dry, normal turgor, no rashes or lesions noted. (Rachel Nguyen) Course Vital Signs 04/02/20 04/02/20 04/02/20 14:46 16:57 22:46 Temperature 97.6 F Pulse Rate 118 H 89 Respiratory 20 16 20 Rate Blood Pressure 134/74 142/70 O2 Sat by Pulse 96 97 Oximetry Medical Decision Making - Lab Data Result diagrams: 04/02/20 15:02 04/02/20 15:02 <Michael Larry - Last Filed: 04/02/20 22:22> - Lab Data Result diagrams: 04/02/20 15:02 04/02/20 15:02 <Rachel Nguyen - Last Filed: 04/04/20 18:35> - Medical Decision Making Dr. Burton taking over the care of this patient at 11 PM (Michael Larry) Patient is 69-year-old female here for psychiatric evaluation. She has been combative and yelling since arrival. Her vitals are stable her exam is normal. Patient was evaluated by EPS. They are trying to get into a geriatric psych facility, if unsuccessful, patient will be admitted here. Patient will be admitted here. (Rachel Nguyen) - Lab Data Lab Results 04/02/20 04/02/20 04/02/20 Range/Units 15:02 15:02 18:55 WBC 5.8 (3.8-10.6) k/uL RBC 4.09 (3.80-5.40) m/uL Hgb 12.4 (11.4-16.0) gm/dL Hct 38.6 (34.0-46.0) % MCV 94.5 (80.0-100.0) fL MCH 30.4 (25.0-35.0) pg MCHC 32.1 (31.0-37.0) g/dL RDW 13.2 (11.5-15.5) % Plt Count 202 (150-450) k/uL Neutrophils % 63 % Lymphocytes % 23 % Monocytes % 6 % Eosinophils % 3 % Basophils % 1 % Neutrophils # 3.6 (1.3-7.7) k/uL Lymphocytes # 1.4 (1.0-4.8) k/uL Monocytes # 0.4 (0-1.0) k/uL Eosinophils # 0.2 (0-0.7) k/uL Basophils # 0.1 (0-0.2) k/uL Sodium 138 (137-145) mmol/L Potassium 4.4 (3.5-5.1) mmol/L Chloride 105 (98-107) mmol/L Carbon Dioxide 23 (22-30) mmol/L Anion Gap 10 mmol/L BUN 17 (7-17) mg/dL Creatinine 0.62 (0.52-1.04) mg/dL Est GFR (CKD-EPI)AfAm >90 (>60 ml/min/1.73 sqM) Est GFR (CKD-EPI)NonAf >90 (>60 ml/min/1.73 sqM) Glucose 108 H (74-99) mg/dL Calcium 9.8 (8.4-10.2) mg/dL Total Bilirubin 0.4 (0.2-1.3) mg/dL AST 29 (14-36) U/L ALT 17 (4-34) U/L Alkaline Phosphatase 70 (38-126) U/L Total Protein 6.9 (6.3-8.2) g/dL Albumin 4.4 (3.5-5.0) g/dL Serum Alcohol <10 mg/dL Coronavirus (PCR) Not Detected (Not Detectd) - EKG Data EKG Comments: Sinus tach, no signs of acute ischemia. Ventricular 102, UT interval 142, QTC 458. (Rachel Nguyen) Disposition <Michael Larry - Last Filed: 04/02/20 22:22> Is patient prescribed a controlled substance at d/c from ED?: No <Rachel Nguyen - Last Filed: 04/04/20 18:35> Clinical Impression: Personality disorder Disposition: TRANSFER TO PSYCH HOSP/UNIT Condition: Good
[2020-04-02] MEDS ORDERED: ZIPRASIDONE 20 MG VIAL IM PRN (22:44)
[2020-04-02] MEDS ORDERED: LORazepam 2 MG/ML INJ IV PRN (22:48)
--- NOTE | 2020-04-03 00:46 | P.PN ---
Progress Note - Text Progress Note Date: 04/02/20 I was notified by RN about new consult, however when went to evaluate , patient has behavioral issues at this time, not even knowing her name. patient is inappropriate for evaluation at this time please notify sound physicians, when patient more appropriate for evaluation
[2020-04-03] MEDS: ACETAMINOPHEN TAB 325 MG TAB PO PRN (02:17)
[2020-04-03] MEDS: NICOTINE 14MG/24HR PATCH TRANSDERM SCH (09:08)
[2020-04-03] MEDS: VRAYLAR 1.5 MG PO SCH (09:09)
[2020-04-03] MEDS: LORazepam 1 MG TAB PO PRN ×2 (09:59→20:39)
[2020-04-03] MEDS: SENNOSIDES 8.6 MG TAB PO SCH ×2 (10:52→19:54)
[2020-04-03 11:15] LABS: Hemoglobin A1C 5.7 % (4.0-6.0)
[2020-04-03] MEDS: HALOPERIDOL LACTATE 5 MG/ML 1 ML VIAL IM PRN ×2 (12:19→20:45)
--- NOTE | 2020-04-03 12:31 | P.PN ---
Progress Note - Text Progress Note Date: 04/03/20 Attempted to see patient. Still with increased aggression and psychosis and not appropriate to evaluate at this time.
[2020-04-03] MEDS: HALOPERIDOL 2 MG TAB PO SCH ×2 (13:53→19:54)
[2020-04-03] MEDS: DIVALPROEX ER 250 MG TAB.ER.24H PO SCH ×2 (13:53→19:54)
--- NOTE | 2020-04-03 13:53 | P.HP ---
Psychiatric H&P - . H&P Date: 04/03/20 History & Physical: Allergies Allergy/AdvReac Type Severity Reaction Status Date / Time quetiapine fumarate Allergy Unknown Verified 04/02/20 14:48 From Seroquel Sulfa (Sulfonamide Allergy Unknown Verified 04/02/20 14:48 Antibiotics) Vital Signs Temp 99.4 F 04/03/20 12:00 Pulse 87 04/03/20 06:54 Resp 17 04/03/20 06:54 BP 119/56 04/03/20 06:54 Pulse Ox 97 04/03/20 06:54 Intake & Output 04/02/20 04/03/20 04/03/20 18:59 06:59 18:59 Weight 83.915 kg 70.8 kg Laboratory Last Values WBC 5.8 k/uL (3.8-10.6) 04/02/20 15:02 RBC 4.09 m/uL (3.80-5.40) 04/02/20 15:02 Hgb 12.4 gm/dL (11.4-16.0) 04/02/20 15:02 Hct 38.6 % (34.0-46.0) 04/02/20 15:02 MCV 94.5 fL (80.0-100.0) 04/02/20 15:02 MCH 30.4 pg (25.0-35.0) 04/02/20 15:02 MCHC 32.1 g/dL (31.0-37.0) 04/02/20 15:02 RDW 13.2 % (11.5-15.5) 04/02/20 15:02 Plt Count 202 k/uL (150-450) 04/02/20 15:02 Neutrophils % 63 % 04/02/20 15:02 Lymphocytes % 23 % 04/02/20 15:02 Monocytes % 6 % 04/02/20 15:02 Eosinophils % 3 % 04/02/20 15:02 Basophils % 1 % 04/02/20 15:02 Neutrophils # 3.6 k/uL (1.3-7.7) 04/02/20 15:02 Lymphocytes # 1.4 k/uL (1.0-4.8) 04/02/20 15:02 Monocytes # 0.4 k/uL (0-1.0) 04/02/20 15:02 Eosinophils # 0.2 k/uL (0-0.7) 04/02/20 15:02 Basophils # 0.1 k/uL (0-0.2) 04/02/20 15:02 Sodium 138 mmol/L (137-145) 04/02/20 15:02 Potassium 4.4 mmol/L (3.5-5.1) 04/02/20 15:02 Chloride 105 mmol/L (98-107) 04/02/20 15:02 Carbon Dioxide 23 mmol/L (22-30) 04/02/20 15:02 Anion Gap 10 mmol/L 04/02/20 15:02 BUN 17 mg/dL (7-17) 04/02/20 15:02 Creatinine 0.62 mg/dL (0.52-1.04) 04/02/20 15:02 Est GFR (CKD-EPI)AfAm >90 (>60 ml/min/1.73 sqM) 04/02/20 15:02 Est GFR (CKD-EPI)NonAf >90 (>60 ml/min/1.73 sqM) 04/02/20 15:02 Glucose 108 mg/dL (74-99) H 04/02/20 15:[address] Glu mg/dL 117 04/03/20 06:35 Hemoglobin A1c 5.7 % (4.0-6.0) 04/03/20 06:35 Calcium 9.8 mg/dL (8.4-10.2) 04/02/20 15:02 Total Bilirubin 0.4 mg/dL (0.2-1.3) 04/02/20 15:02 AST 29 U/L (14-36) 04/02/20 15:02 ALT 17 U/L (4-34) 04/02/20 15:02 Alkaline Phosphatase 70 U/L (38-126) 04/02/20 15:02 Total Protein 6.9 g/dL (6.3-8.2) 04/02/20 15:02 Albumin 4.4 g/dL (3.5-5.0) 04/02/20 15:02 Triglycerides 104 mg/dL (<150) 04/03/20 06:37 Cholesterol 169 mg/dL (<200) 04/03/20 06:37 LDL Cholesterol, Calc 93 mg/dL (0-99) 04/03/20 06:37 HDL Cholesterol 55 mg/dL (40-60) 04/03/20 06:37 TSH 1.590 mIU/L (0.465-4.680) 04/03/20 06:37 Serum Alcohol <10 mg/dL 04/02/20 15:02 Coronavirus (PCR) Not Detected (Not Detectd) 04/02/20 18:55 04/03/20 13:35 IDENTIFYING DATA: The patient was a 69-year-old female who has history of severe and persistent mental illness who currently lives with her in a house in [facility]. HISTORY OF PRESENT ILLNESS: The patient was dropped off at the emergency room yesterday and patient was noted to be agitated combative and uncooperative and frequently yelling with staff members. As per ER note stated that patient mentioned "they changed my meds and I want them changed back". Patient was evaluated and admitted to the adult unit as patient is currently on a deferral for treatment. Patient was noted to be agitated this morning and threw water at a staff member and received a PRN injection. Patient was recently discharged 1 month ago from the mental health unit on Clozaril and Klonopin however patient was noted to be non compliant and not going for blood draws. Mechanical Meter Tester spoke with Dr. Shaikh at [facility] over the phone who stated that he has known patient for a long period of time and that patient has severe mental illness and has been on many different antipsychotics in the past and has failed them. Dr. Shaikh claims that patient may need to be on 2 antipsychotics at this point and should not go back on clozapine due to noncompliance and possible sedation/side effects. Patient was seen wandering the hallways and was directable and agreeable to speak in her room. Patient was disorganized and rambled was tangential/illogical during conversation. Patient also had poor eye contact and a monotone voice. She appeared to have poor hygiene and grooming. She spoke about her father being killed and her mother being "inhabitant". She endorsed racing thoughts however states that she has been sleeping "good". She denies any changes in her mood or depression. Patient demonstrated poor impulsivity and frustration tolerance. At this time patient denies any auditory or visual hallucinations and denies any suicidal or homicidal ideations intent or plan. Patient denied any substance use. PAST PSYCHIATRIC HISTORY: She's had multiple psychiatric hospitalizations. Her last admission to this unit was in January 2020 and she was discharged on Klonopin and Clozaril. Patient has been on several different antipsychotics and psychiatric medications in the past. She is currently following up with Dr. Shaikh at [facility]. PAST MEDICAL HISTORY: Asthma, GERD and hypertension ALLERGIES: As per EMR SUBSTANCE USE HISTORY: She has no history of substance use problems. FAMILY PSYCHIATRIC/SUBSTANCE USE HISTORY: Per the medical record her sister has a history of a psychotic disorder LEGAL HISTORY: She has no history of legal problems. Her has a legal guardian. SOCIAL HISTORY: According to record, she was with her and daughter in [facility]. She is unemployed and receives Social Security disability. MENTAL STATUS EXAM: General Appearance: Patient appears to be stated age is alert, directable, and impulsive. Patient appears to have poor hygiene and grooming. Behavior: Patient is seated without any agitated behavior. Impulsive. Speech: Patient's speech is fluent and nonpressured. Monotone. Mood/Affect: Patient reports their mood is "fine", affect is congruent and constricted. Suicidality/Homicidality: Patient denies having any homicidal ideation intent or plan. Denies any suicidal ideations intent or plan Perceptions: Patient denies any visual hallucinations and denies any auditory hallucinations Though content/process: Patient was rambling, racing thoughts illogical and tangential. Disorganized thought process. Memory and concentration: AOX2, and believes that she is at "goodwill", fair attention span and memory recall. Cannot spell "WORLD" backwards Judgment and insight: poor/impulsive STRENGTHS/WEAKNESSES: strength is that patient is resilient. Weakness is that patient has poor judgment and is impulsive INTELLECT: average IMPRESSIONS: Schizoaffective disorder, bipolar type Nicotine dependence PLAN: -Patient is admitted under involuntary status to [facility]HU for stabilization of psychiatric symptoms and safety. Patient refused to sign for medication consent and is placed in patient's chart. Patient is currently on deferral and will pr oceed with filing for court date -Medications : Will start patient on haloperidol by mouth 2.5 mg twice a day for psychosis. We will start Depakote 250 mg twice a day for mood stabilization. Will likely need to transition patient onto long-acting injection haloperidol to ensure compliance. -Ativan and Haldol PRN for agitation/aggression -Patient was informed of the risks, benefits and side effects of the medication, patient did not want to sign medication consent form. -Internal Medicine consult to perform medical evaluation and physical. -NRT - nicotine patch -SW on board for discharge planning. Encourage patient to participate in groups to work on coping skills. Will await full court hearing date. 04/03/20 13:44 04/03/20 13:51
[2020-04-03] MEDS ORDERED: ZIPRASIDONE 20 MG VIAL IM STA (22:34)
[2020-04-04] MEDS: HALOPERIDOL LACTATE 5 MG/ML 1 ML VIAL IM PRN (06:03)
[2020-04-04] MEDS: LORazepam 2 MG/ML INJ IM PRN (06:04)
[2020-04-04] MEDS: VRAYLAR 1.5 MG PO SCH (09:30)
[2020-04-04] MEDS: HALOPERIDOL 2 MG TAB PO SCH (09:41)
[2020-04-04] MEDS: NICOTINE 14MG/24HR PATCH TRANSDERM SCH (09:41)
[2020-04-04] MEDS: SENNOSIDES 8.6 MG TAB PO SCH ×2 (09:41→20:44)
[2020-04-04] MEDS: DIVALPROEX ER 250 MG TAB.ER.24H PO SCH (09:41)
--- NOTE | 2020-04-04 10:17 | P.PN ---
Progress Note - Text Progress Note Date: 04/04/20 Interval History: Patient was seen laying down on the mattress beside her bed in her room and had a one-to-one sitter at her side. Patient was noted to be speaking to herself and yelling intermittently. Patient answered the minimal questions from staff writer however continues to be impulsive and disorganized and was rambling illogically. She states that she "have no noses" and when asked about why she does not have a nose patient went on to speak about "scratching it off". Patient received a Haldol and Ativan PRN for agitation last night as patient was being combative and aggressive with staff members and pulled the mask off one of the nurses. At this time patient denies any suicidal or homical ideations, intent or plan. Patient denies any visual hallucinations however did state that she is hearing voices. Patient is responding to internal stimuli. Patient denies any side effects from the medications and has been compliant with meds. Mental Status Exam: General Appearance: Patient appears to be stated age is alert, disorganized bizarre, and impulsive. Patient appears to have poor hygiene and grooming. Behavior: Patient is seated without any agitated behavior. Impulsive and aggressive. Speech: Patient's speech is fluent and nonpressured. Rambles. Mood/Affect: Patient reports their mood is "good", affect is incongruent and constricted. Suicidality/Homicidality: Patient denies having any homicidal ideation intent or plan. Denies any suicidal ideations intent or plan Perceptions: Patient denies any visual hallucinations and denies any auditory hallucinations Though content/process: Patient was seen ambling, racing thoughts illogical and tangential. Disorganized thought process. Memory and concentration: AOX2, and does not know her current location, poor attention span. Judgment and insight: poor/impulsive Assessment Schizoaffective disorder, bipolar type Nicotine dependence Plan: -Patient continues to meet criteria for inpatient psychiatric admission for symptom stabilization and safety. Patient had refused to sign for medication consent and is placed in patient's chart. Patient is currently on deferral and has demand for hearing on at 9am -Medications: Increased Haldol to 3 mg twice a day for psychosis, Depakote increased to 750 mg daily at bedtime for mood stabilization/aggression. We'll likely need to transition patient onto long-acting injection of haloperidol to ensure compliance. -When necessary Ativan and Haldol for agitation/aggression. -NRT - nicotine patch -SW on board for discharge planning. Encouraged the patient to participate in milieu. Awaiting demand for hearing on at 9am
[2020-04-04] MEDS: HALOPERIDOL 1 MG TAB PO SCH (20:44)
[2020-04-04] MEDS ORDERED: DIVALPROEX ER 250 MG TAB.ER.24H PO SCH (21:00)
[2020-04-05] MEDS: LORazepam 2 MG/ML INJ IM PRN ×2 (01:27→22:03)
[2020-04-05] MEDS: HALOPERIDOL LACTATE 5 MG/ML 1 ML VIAL IM PRN ×2 (01:28→22:03)
[2020-04-05] MEDS ORDERED: DIVALPROEX ER 500 MG TAB.ER.24H PO SCH (09:00)
[2020-04-05] MEDS: HALOPERIDOL 1 MG TAB PO SCH ×2 (10:59→21:19)
[2020-04-05] MEDS: SENNOSIDES 8.6 MG TAB PO SCH ×2 (10:59→21:19)
[2020-04-05] MEDS: NICOTINE 14MG/24HR PATCH TRANSDERM SCH (10:59)
--- NOTE | 2020-04-05 12:33 | P.PN ---
Progress Note - Text Progress Note Date: 04/05/20 Interval History: Patient was seen laying down on the mattress beside her bed in her room and had a one-to-one sitter at her side once again today. Patient appeared to be calmer this morning and rambling less however did appear to be somewhat sedated as patient did receive a Haldol and Ativan PRN early this morning for agitation and aggression towards a staff member. Patient was noted to be sleeping afterwards and calmer. She continues to be illogical and have racing thoughts rambling at times. She answered minimal questions however has been improving in terms of following commands. Patient continues to be somewhat impulsive at times and had a poor sleep last night. At this time patient denies any suicidal or homical ideations, intent or plan. Patient denies any visual hallucinations or auditory hallucinations. Patient is responding to internal stimuli. Patient denies any side effects from the medications and has been compliant with meds. Mental Status Exam: General Appearance: Patient appears to be stated age is alert, disorganized bizarre, and impulsive, mildly improving. Patient appears to have poor hygiene and grooming. Behavior: Patient is seated without any agitated behavior. Impulsive and aggressive. Speech: Patient's speech is nonpressured. Rambles. Incoherent at times. Mood/Affect: Patient reports their mood is "ok", affect is incongruent and constricted. Suicidality/Homicidality: Patient denies having any homicidal ideation intent or plan. Denies any suicidal ideations intent or plan Perceptions: Patient denies any visual hallucinations and denies any auditory hallucinations Though content/process: Patient was seen rambling, racing thoughts illogical and tangential, mildly improving. Disorganized thought process. Memory and concentration: AOX2, and does not know her current location, poor attention span. Judgment and insight: poor/impulsive Assessment Schizoaffective disorder, bipolar type Nicotine dependence Plan: -Patient continues to meet criteria for inpatient psychiatric admission for symptom stabilization and safety. Patient had refused to sign for medication consent and is placed in patient's chart. Patient is currently on deferral and has demand for hearing on at 9am -Medications: Continue with Haldol to 3 mg twice a day for psychosis, Depakote increased to 1000 mg daily at bedtime for mood stabilization/aggression. We'll likely need to transition patient onto long-acting injection of haloperidol to ensure compliance. -When necessary Ativan and Haldol for agitation/aggression. -NRT - nicotine patch -SW on board for discharge planning. Encouraged the patient to participate in milieu. Awaiting demand for hearing on at 9am
[2020-04-05] MEDS: LORazepam 1 MG TAB PO PRN (19:11)
[2020-04-05] MEDS: DIVALPROEX ER 500 MG TAB.ER.24H PO SCH (21:19)
[2020-04-05] MEDS ORDERED: ZIPRASIDONE 20 MG VIAL IM STA (22:32)
--- NOTE | 2020-04-06 10:03 | P.PN ---
Progress Note - Text Progress Note Date: 04/06/20 Interval History: Patient was seen laying down on the mattress beside her bed in her room and had a one-to-one sitter at her side once again today. Patient appeared to be calm this morning and also was not rambling or talking to herself. Patient had mild improvement in the clarity of her speech and was mildly more coherent today. Patient again did receive a Haldol and Ativan PRN late last night for agitation and aggression towards a staff member. Patient was noted to be sleeping afterwards and calmer throughout the rest of the night. She followed most directions from group underwriter and claims that she is feeling "okay". She spoke about her night and states that "it went well" and claims that she could not remember any incidents. She states that she was able to sleep throughout the night. At this time patient denies any suicidal or homical ideations, intent or plan. Patient denies any visual hallucinations or auditory hallucinations. Patient denies any side effects from the medications and has been compliant with meds. Mental Status Exam: General Appearance: Patient appears to be stated age is alert, disorganized, and impulsive, mildly improving. Patient appears to have improving hygiene and grooming. Behavior: Patient is seated without any agitated behavior. Impulsive and aggressive. Speech: Patient's speech is nonpressured. Rambles. Incoherent at times. Mood/Affect: Patient reports their mood is "fine", affect is incongruent and constricted. Suicidality/Homicidality: Patient denies having any homicidal ideation intent or plan. Denies any suicidal ideations intent or plan Perceptions: Patient denies any visual hallucinations and denies any auditory hallucinations Though content/process: Patient was seen rambling less, illogical and tangential, mildly improving. More organized thought process today. Memory and concentration: AOX2, and does not know her current location, poor attention span. Judgment and insight: poor/impulsive, improving mildly Assessment Schizoaffective disorder, bipolar type Nicotine dependence Plan: -Patient continues to meet criteria for inpatient psychiatric admission for symptom stabilization and safety. Patient had refused to sign for medication consent and is placed in patient's chart. Patient is currently on deferral and has demand for hearing on at 9am -Medications: Increased Haldol to 3 mg daily + 5mg nightly for psychosis, Depakote continued at 1000 mg daily at bedtime for mood stabilization/aggression. We'll likely need to transition patient onto long- acting injection of haloperidol to ensure compliance. We'll consider adding Zyprexa at nighttime to help with sedation and agitation. -When necessary Ativan and Haldol for agitation/aggression. -NRT - nicotine patch -SW on board for discharge planning. Encouraged the patient to participate in milieu. Awaiting demand for hearing on at 9am
[2020-04-06] MEDS: SENNOSIDES 8.6 MG TAB PO SCH ×2 (10:25→21:35)
[2020-04-06] MEDS: NICOTINE 14MG/24HR PATCH TRANSDERM SCH (10:25)
[2020-04-06] MEDS: HALOPERIDOL 1 MG TAB PO SCH ×2 (10:27→10:33)
[2020-04-06] MEDS: LORazepam 1 MG TAB PO PRN (10:55)
[2020-04-06] MEDS: HALOPERIDOL LACTATE 5 MG/ML 1 ML VIAL IM PRN (14:09)
[2020-04-06] MEDS: LORazepam 2 MG/ML INJ IM PRN (19:04)
[2020-04-06] MEDS ORDERED: ZIPRASIDONE 20 MG VIAL IM STA (20:29)
[2020-04-06] MEDS ORDERED: HALOPERIDOL 1 MG TAB PO SCH (21:00)
[2020-04-06] MEDS: HALOPERIDOL 5 MG TAB PO SCH (21:35)
[2020-04-06] MEDS: DIVALPROEX ER 500 MG TAB.ER.24H PO SCH (21:35)
[2020-04-06] MEDS ORDERED: LORazepam 2 MG/ML INJ IM STA (23:30)
--- NOTE | 2020-04-07 00:25 | P.MHFACE ---
Face to Face Restrain/Seclus - Evaluation Patient's Immediate Situation: Endangers self safety, Endangers staff safety Patient's Reaction to the Intervention: Calm Patient's Medical & Behavioral Condition: Awake, Alert, Manic Patient's Medical & Behavioral Condition - Comment: The mental health unit staff reported the patient was actively psychotic and was tossing her personal belongings and had kicked and spit on the staff. Evaluated the patient at the bedside while in 4. restraints. Upon attempting to reason with the patient, she stated that she will continue to take the staff and spit at them. Need to Continue or Terminate Restraint or Seclusion: Continue Need to Continue or Terminate Restraint/Seclusion - Comment: Continue the restraints at this time due to the patient endangering self and the staffs safety. Please attempt to remove them as soon as possible.
[2020-04-07] MEDS: HALOPERIDOL 1 MG TAB PO SCH (09:49)
[2020-04-07] MEDS: SENNOSIDES 8.6 MG TAB PO SCH ×3 (09:49→22:22)
[2020-04-07] MEDS: NICOTINE 14MG/24HR PATCH TRANSDERM SCH (09:49)
[2020-04-07] MEDS: LORazepam 1 MG TAB PO PRN (09:49)
--- NOTE | 2020-04-07 11:06 | P.PN ---
Progress Note - Text Progress Note Date: 04/07/20 Interval History: Patient was seen in her wheelchair this morning in the hallways with her one-to- one sitter at her side once again today. Patient apparently became agitated last night and required a Haldol and Ativan when necessary along with restraints/seclusion. Patient appeared to be calm this morning and engaged with engineering technical writer briefly. Patient had mild improvement in her speech and was somewhat directable. Most of patient's sentences were incoherent. Patient did appear to be mildly lethargic this morning however was still able to move her wheelchair by herself. She states that she is feeling "okay" today and claims that her mood is "fine". She was not able to answer questions as to why she was agitated and aggressive last night. She states that she was able to sleep throughout the night. At this time patient denies any suicidal or homical ideations, intent or plan. Patient denies any visual hallucinations or auditory hallucinations. Patient denies any side effects from the medications and has been compliant with meds. Mental Status Exam: General Appearance: Patient appears to be stated age is lethargic, disorganized, and impulsive, mildly improving. Patient appears to have improving hygiene and grooming. Behavior: Patient is seated without any agitated behavior. Calmer today. Speech: Patient's speech is nonpressured. Rambles. Incoherent at times, mildly improving. Mood/Affect: Patient reports their mood is "ok", affect is incongruent and constricted. Suicidality/Homicidality: Patient denies having any homicidal ideation intent or plan. Denies any suicidal ideations intent or plan Perceptions: Patient denies any visual hallucinations and denies any auditory hallucinations Though content/process: Patient was seen rambling less, illogical and tangential, mildly improving. Memory and concentration: AOX2, and does not know her current location, poor attention span. Judgment and insight: poor/impulsive, improving mildly Assessment Schizoaffective disorder, bipolar type Nicotine dependence Plan: -Patient continues to meet criteria for inpatient psychiatric admission for symptom stabilization and safety. Patient had refused to sign for medication consent and is placed in patient's chart. Patient is currently on deferral and has demand for hearing on at 9am -Medications: Continue with Haldol to 3 mg daily + 5mg nightly for psychosis, Depakote changed to 500 mg BID for mood stabilization/aggression. We'll likely need to transition patient onto long-acting injection of haloperidol to ensure compliance. Will add Zyprexa 5mg qDINNER for mood stabilization/psychosis. -When necessary Ativan and Haldol for agitation/aggression. -NRT - nicotine patch -SW on board for discharge planning. Encouraged the patient to participate in milieu. Awaiting demand for hearing on at 9am
[2020-04-07] MEDS: DIVALPROEX ER 500 MG TAB.ER.24H PO SCH ×3 (11:51→22:23)
[2020-04-07] MEDS ORDERED: OLANZapine 5 MG TAB PO SCH (18:00)
[2020-04-07] MEDS: HALOPERIDOL 5 MG TAB PO SCH ×2 (22:05→22:23)
[2020-04-08] MEDS: LORazepam 2 MG/ML INJ IM PRN ×2 (03:15→17:28)
[2020-04-08] MEDS: HALOPERIDOL LACTATE 5 MG/ML 1 ML VIAL IM PRN ×3 (03:15→23:55)
[2020-04-08] MEDS: DIVALPROEX ER 500 MG TAB.ER.24H PO SCH ×2 (10:21→20:52)
[2020-04-08] MEDS: NICOTINE 14MG/24HR PATCH TRANSDERM SCH (10:21)
[2020-04-08] MEDS: SENNOSIDES 8.6 MG TAB PO SCH ×2 (10:22→20:53)
[2020-04-08] MEDS: HALOPERIDOL 1 MG TAB PO SCH (10:22)
[2020-04-08] MEDS ORDERED: OLANZapine 2.5 MG TAB PO PRN (10:50)
--- NOTE | 2020-04-08 10:56 | P.PN ---
Progress Note - Text Progress Note Date: 04/08/20 Interval History: Patient was seen lying in her bed this morning with a one-to-one sitter at her side once again today. Patient apparently became agitated last night once again after awaking in the middle the night. She required Haldol and Ativan PRN. Patient apparently fell asleep after taking her Zyprexa at nighttime however awoke a few hours later. Patient continues to ramble and appeared to be bizarre and held her hands up with her eyes closed speaking in an incoherent way while telegraphic typewriter mechanic was attempting to speak with her. Answered some questions appropriately however continues to be delusional and responding to internal stimuli. She claims that her mood is "fine ok". At this time patient denies any suicidal or homical ideations, intent or plan. Patient denies any visual hallucinations or auditory hallucinations. Patient denies any side effects from the medications and has been compliant with meds. Mental Status Exam: General Appearance: Patient appears to be stated age is lethargic, laying on the floor, disorganized, and bizarre. Patient appears to have improving hygiene and grooming. Behavior: Patient is seated without any agitated behavior. Bizarre with her hands out in front of her. Speech: Patient's speech is nonpressured. Rambles. Incoherent at times Mood/Affect: Patient reports their mood is "ok fine", affect is incongruent and constricted. Suicidality/Homicidality: Patient denies having any homicidal ideation intent or plan. Denies any suicidal ideations intent or plan Perceptions: Patient denies any visual hallucinations and denies any auditory hallucinations Though content/process: Patient was seen rambling less, illogical and tangential Memory and concentration: AOX2, and does not know her current location, poor attention span. Judgment and insight: poor/impulsive Assessment Schizoaffective disorder, bipolar type Nicotine dependence Plan: -Patient continues to meet criteria for inpatient psychiatric admission for symptom stabilization and safety. Patient had refused to sign for medication consent and is placed in patient's chart. Patient is currently on deferral and has demand for hearing on at 9am -Medications: Increased Haldol to 5 mg daily + 5mg at 13:00 for psychosis, Depakote 500 mg BID for mood stabilization/aggression. We'll likely need to transition patient onto long-acting injection of haloperidol to ensure compliance. Changed Zyprexa 2.5mg daily at bedtime for mood stabilization/psychosis + 2.5mg HS PRN for insomnia. -When necessary Ativan and Haldol for agitation/aggression. -NRT - nicotine patch -SW on board for discharge planning. Encouraged the patient to participate in milieu. Awaiting demand for hearing on at 9am
[2020-04-08] MEDS: LORazepam 1 MG TAB PO PRN (11:25)
[2020-04-08] MEDS: HALOPERIDOL 5 MG TAB PO SCH (12:32)
[2020-04-08] MEDS ORDERED: OLANZapine 2.5 MG TAB PO SCH (21:00)
[2020-04-09] MEDS: LORazepam 2 MG/ML INJ IM PRN ×3 (01:36→23:43)
[2020-04-09] MEDS: DIVALPROEX ER 500 MG TAB.ER.24H PO SCH ×2 (09:04→20:34)
[2020-04-09] MEDS: HALOPERIDOL 5 MG TAB PO SCH ×2 (09:04→14:17)
[2020-04-09] MEDS: SENNOSIDES 8.6 MG TAB PO SCH ×2 (09:04→20:34)
[2020-04-09] MEDS: NICOTINE 14MG/24HR PATCH TRANSDERM SCH (09:04)
--- NOTE | 2020-04-09 09:06 | P.PN ---
Progress Note - Text Progress Note Date: 04/09/20 Interval History: Patient was seen in a wheelchair with a blanket over her head and being wheeled around the unit by her one-to-one sitter. Patient was agreeable to speak with jingle writer briefly. Patient was tearful and crying about not being able to go into the hallway. She was somewhat directable and attempting to cooperate with jingle writer today. She was able to follow some commands. She required Haldol and Ativan PRN last night. Patient apparently fell asleep after taking her Zyprexa at nighttime however awoke a few hours later. Patient continues to ramble and at times speak incoherently. She claims that her mood is "good". At this time patient denies any suicidal or homical ideations, intent or plan. Patient denies any visual hallucinations or auditory hallucinations. Patient denies any side effects from the medications and has been compliant with meds. Mental Status Exam: General Appearance: Patient appears to be stated age is alert, disorganized, and bizarre. Patient appears to have improving hygiene and grooming. Behavior: Patient is seated without any agitated behavior. \\Attempting to cooperate Speech: Patient's speech is nonpressured. Rambles. Incoherent at times Mood/Affect: Patient reports their mood is "good", affect is incongruent and labile. Suicidality/Homicidality: Patient denies having any homicidal ideation intent or plan. Denies any suicidal ideations intent or plan Perceptions: Patient denies any visual hallucinations and denies any auditory garcia llucinations Though content/process: Patient was seen rambling less, illogical and tangential, mildly improving. Memory and concentration: AOX2, and does not know her current location, poor attention span. Judgment and insight: poor/impulsive, highly improving. Assessment Schizoaffective disorder, bipolar type Nicotine dependence Plan: -Patient continues to meet criteria for inpatient psychiatric admission for symptom stabilization and safety. Patient had refused to sign for medication consent and is placed in patient's chart. Patient is currently on deferral and has demand for hearing on at 9am -Medications: Continue with Haldol to 5 mg daily + 5mg at 13:00 for psychosis, Depakote 500 mg BID for mood stabilization/aggression. We'll likely need to transition patient onto long-acting injection of haloperidol to ensure compliance. Continue with Zyprexa 2.5mg daily at bedtime for mood stabilization/psychosis + 2.5mg HS PRN for insomnia. -Ordered Depakene level for tomorrow morning and we'll likely increase Depakote thereafter. -When necessary Ativan and Haldol for agitation/aggression. -NRT - nicotine patch -SW on board for discharge planning. Encouraged the patient to participate in milieu. Awaiting demand for hearing on at 9am
[2020-04-09] MEDS: HALOPERIDOL LACTATE 5 MG/ML 1 ML VIAL IM PRN ×2 (11:25→23:43)
[2020-04-09] MEDS: cloZAPine 25 MG TAB PO SCH (20:34)
[2020-04-09] MEDS: MELATONIN 5 MG TABLET PO SCH (20:34)
[2020-04-10] MEDS: SENNOSIDES 8.6 MG TAB PO SCH ×2 (09:33→19:24)
[2020-04-10] MEDS: DIVALPROEX ER 500 MG TAB.ER.24H PO SCH ×2 (09:33→19:25)
[2020-04-10] MEDS: NICOTINE 14MG/24HR PATCH TRANSDERM SCH (09:33)
[2020-04-10] MEDS: HALOPERIDOL 5 MG TAB PO SCH ×2 (09:33→12:38)
--- NOTE | 2020-04-10 10:06 | P.PN ---
Progress Note - Text Progress Note Date: 04/10/20 Interval History: Patient was seen in a wheelchair this morning being wheeled around the unit by her one-to-one sitter. Patient was initially hesitant/resistant to speak with conventional underwriter in her room and began putting on the brakes to her wheelchair and began yelling loudly. She was later on more willing to speak with conventional underwriter however continues to appear to be disheveled in appearance and was acting bizarre. She continues to be impulsive and unpredictable in her behavior. She was able to follow some commands and answer only some questions appropriately and the rest of the questions were answered in an incoherent manner. She required Haldol and Ativan PRN last night once again for agitation. Patient was started on Clozaril last night and continues to be taking her medications every day. Patient continues to ramble and at times speak incoherently. She claims that her mood is "bad". At this time patient denies any suicidal or homical ideations, intent or plan. Patient denies any visual hallucinations or auditory hallucinations. Patient denies any side effects from the medications and has been compliant with meds. Mental Status Exam: General Appearance: Patient appears to be stated age is alert, disorganized, and bizarre. Patient appears to have poor hygiene and grooming. Behavior: Patient is seated without any agitated behavior. \\Attempting to cooperate however is bizarre. Speech: Patient's speech is nonpressured. Rambles, Incoherent at times Mood/Affect: Patient reports their mood is "bad", affect is incongruent and labile and unpredictable. Suicidality/Homicidality: Patient denies having any homicidal ideation intent or plan. Denies any suicidal ideations intent or plan Perceptions: Patient denies any visual hallucinations and denies any auditory hallucinations Though content/process: Patient was seen rambling, illogical and tangential, mildly improving. Memory and concentration: AOX2, and does not know her current location, poor attention span. Judgment and insight: poor/impulsive Assessment Schizoaffective disorder, bipolar type Nicotine dependence Plan: -Patient continues to meet criteria for inpatient psychiatric admission for symptom stabilization and safety. Patient had refused to sign for medication consent and is placed in patient's chart. Patient is currently on deferral and has demand for hearing on at 9am -Cartoon Designer spoke with patient's Pal over the phone yesterday who claims that patient has not responded well to any other medications in the past except for Clozaril. He states that he would be willing to help patient take her medications and also going for blood draws. 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 Clozapine 25 mg daily at bedtime +25 mg daily starting tomorrow for psychosis. Decreased Haldol to 5mg at 13:00 for psychosis, Depakote 500 mg BID for mood stabilization/aggression. Discontinued Zyprexa. -Depakene level on 04/10/2020 - 110.7 -When necessary Ativan and Haldol for agitation/aggression. -NRT - nicotine patch -SW on board for discharge planning. Encouraged the patient to participate in milieu. Awaiting demand for hearing on at 9am
[2020-04-10] MEDS: LORazepam 2 MG/ML INJ IM PRN (15:47)
[2020-04-10] MEDS: HALOPERIDOL LACTATE 5 MG/ML 1 ML VIAL IM PRN (17:06)
[2020-04-10] MEDS: MELATONIN 5 MG TABLET PO SCH (19:24)
[2020-04-10] MEDS: cloZAPine 25 MG TAB PO SCH (19:25)
[2020-04-11] MEDS: ACETAMINOPHEN TAB 325 MG TAB PO PRN (03:01)
[2020-04-11] MEDS: DIVALPROEX ER 500 MG TAB.ER.24H PO SCH ×2 (09:11→20:37)
[2020-04-11] MEDS: cloZAPine 25 MG TAB PO SCH ×2 (09:11→20:37)
[2020-04-11] MEDS: NICOTINE 14MG/24HR PATCH TRANSDERM SCH (09:11)
[2020-04-11] MEDS: SENNOSIDES 8.6 MG TAB PO SCH ×2 (09:11→20:37)
[2020-04-11] MEDS: LORazepam 2 MG/ML INJ IM PRN ×2 (09:53→18:45)
[2020-04-11] MEDS: HALOPERIDOL LACTATE 5 MG/ML 1 ML VIAL IM PRN ×2 (09:53→18:45)
--- NOTE | 2020-04-11 10:57 | P.PN ---
Progress Note - Text Progress Note Date: 04/11/20 Interval History: Patient was seen in a wheelchair this morning being wheeled around the unit by her one-to-one sitter. Patient was yelling intermittently and wanted to continue on in the hallway however was directable into her room. Patient was restless at times and trying to reach for another chair in different objects and also was trying to wheel herself out of the room at times during the interview. Patient continues to be bizarre and illogical with loose associations. She continues to have disorganized speech and only followed some commands. Patient answered only some questions appropriately. She continues to have a disheveled appearance. She continues to be impulsive and unpredictable in her behavior. She required another Haldol and Ativan PRN this morning for increased agitation. Patient continues to be taking her medications every day. Patient continues to ramble and at times speak incoherently. At this time patient denies any suicidal or homical ideations, intent or plan. Patient denies any visual hallucinations or auditory hallucinations. Patient denies any side effects from the medications and has been compliant with meds. Mental Status Exam: General Appearance: Patient appears to be stated age is alert, disorganized, and bizarre. Patient appears to have poor hygiene and grooming. Behavior: Patient is seated without any agitated behavior. Intrusive and bizarre. Low frustration tolerance. Speech: Patient's speech is nonpressured. Disorganized, Rambles, Incoherent at times Mood/Affect: Patient reports their mood is "not good", affect is incongruent and labile and unpredictable. Suicidality/Homicidality: Patient denies having any homicidal ideation intent or plan. Denies any suicidal ideations intent or plan Perceptions: Patient denies any visual hallucinations and denies any auditory hallucinations Though content/process: Patient was seen rambling, illogical and tangential, mildly improving. Memory and concentration: AOX2, and does not know her current location, poor attention span. Judgment and insight: poor/impulsive Assessment Schizoaffective disorder, bipolar type Nicotine dependence Plan: -Patient continues to meet criteria for inpatient psychiatric admission for symptom stabilization and safety. Patient had refused to sign for medication consent and is placed in patient's chart. 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 Clozapine increased to 50 mg nightly +25 mg daily starting for psychosis. We will discontinue Haldol tomorrow. Depakote 500 mg BID for mood stabilization/aggression -Depakene level on 04/10/2020 - 110.7 -When necessary Ativan and Haldol for agitation/aggression. -NRT - nicotine patch -SW on board for discharge planning. Encouraged the patient to participate in milieu. Awaiting demand for hearing on at 9am. 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
[2020-04-11] MEDS: HALOPERIDOL 5 MG TAB PO SCH (13:56)
[2020-04-11 17:31] LABS: Glucose,Whole Blood 110 mg/dL (75-99)
[2020-04-11] MEDS: MELATONIN 5 MG TABLET PO SCH (20:37)
[2020-04-12 07:17] LABS: Basophils % (A) 1 %; Eosinophils # (A) 0.3 k/uL (0-0.7); Eosinophils % (A) 10 %; HCT 41.3 % (34.0-46.0); HGB 12.9 gm/dL (11.4-16.0); Lymphocytes # (A) 1.2 k/uL (1.0-4.8); Lymphocytes % (A) 35 %; MCHC 31.3 g/dL (31.0-37.0); MCV 95.9 fL (80.0-100.0); Mean Platelet Volume 7.8; Monocytes # (A) 0.3 k/uL (0-1.0); Monocytes % (A) 8 %; Neutrophils # (A) 1.5 k/uL (1.3-7.7); Neutrophils % (A) 43 %; Platelet Count 181 k/uL (150-450); RBC 4.31 m/uL (3.80-5.40); RDW 13.4 % (11.5-15.5); WBC 3.4 k/uL (3.8-10.6)
[2020-04-12] MEDS: DIVALPROEX ER 500 MG TAB.ER.24H PO SCH ×4 (09:57→20:33)
[2020-04-12] MEDS: cloZAPine 25 MG TAB PO SCH ×2 (09:57→20:33)
[2020-04-12] MEDS: SENNOSIDES 8.6 MG TAB PO SCH ×4 (09:57→20:33)
[2020-04-12] MEDS: NICOTINE 14MG/24HR PATCH TRANSDERM SCH ×3 (09:57→10:42)
[2020-04-12] MEDS: LORazepam 2 MG/ML INJ IM PRN ×2 (10:09→16:35)
[2020-04-12] MEDS: HALOPERIDOL LACTATE 5 MG/ML 1 ML VIAL IM PRN ×2 (10:11→16:34)
--- NOTE | 2020-04-12 11:22 | P.PN ---
Progress Note - Text Progress Note Date: 04/12/20 Interval History: Patient was laying down on the floor this morning and was speaking incoherently with her eyes closed and moving her legs back and forth. Patient was again yelling intermittently. Patient continues to have a sitter at her side who stated that patient was agitated earlier and kicking and attempting to spit. Patient continues to be bizarre and illogical with loose associations and has disorganized and difficult to comprehend speech. She only followed some commands today. She continues to have a disheveled appearance. She continues to be impulsive and unpredictable in her behavior. She required another Haldol and Ativan PRN this morning and last night for increased agitation. Patient continues to be taking her medications every day. At this time patient denies any suicidal or homical ideations, intent or plan. Patient denies any visual hallucinations or auditory hallucinations. Patient denies any side effects from the medications and has been compliant with meds. Mental Status Exam: General Appearance: Patient appears to be stated age is alert, disorganized, and bizarre. Patient appears to have poor hygiene and grooming. Behavior: Patient is lying on the floor without any agitated behavior. bizarre, eyes are closed and moving her legs back and forth. Speech: Patient's speech is nonpressured. Disorganized, Rambles, Incoherent at times Mood/Affect: Patient reports their mood is "fine", affect is incongruent and labile and unpredictable. Suicidality/Homicidality: Patient denies having any homicidal ideation intent or plan. Denies any suicidal ideations intent or plan Perceptions: Patient denies any visual hallucinations and denies any auditory hallucinations Though content/process: Patient was seen rambling, illogical and tangential, disorganized. Memory and concentration: AOX2, and does not know her current location, poor attention span. Judgment and insight: poor/impulsive Assessment Schizoaffective disorder, bipolar type Nicotine dependence Plan: -Patient continues to meet criteria for inpatient psychiatric admission for symptom stabilization and safety. Patient had refused to sign for medication consent and is placed in patient's chart. Patient is currently on deferral and has demand for hearing on at 9am -Medications: Discontinued Haldol today. Clozapine increased to 50 mg nightly + 37.5 mg daily starting for psychosis. Depakote 500 mg BID for mood stabilization/aggression -Depakene level on 04/10/2020 - 110.7 -CBC on 04/12/2020 ANC is 1.5, CBC will be checked on 04/19. -When necessary Ativan and Haldol for agitation/aggression. -NRT - nicotine patch -SW on board for discharge planning. Encouraged the patient to participate in milieu. Awaiting for results of demand for hearing this morning. 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
[2020-04-12] MEDS: MELATONIN 5 MG TABLET PO SCH (20:33)
--- NOTE | 2020-04-13 09:52 | CT ---
EXAMINATION TYPE: CT brain wo con DATE OF EXAM: 04/13/2020 COMPARISON: CT brain 10/02/2014 HISTORY: Fall today with Left frontal injury, trauma and pain. CT DLP: 1147 mGycm Automated exposure control for dose reduction was used. CT performed using departmental protocol. FINDINGS: Periventricular white matter shows patchy low attenuation. There is no hemorrhage or hydrocephalus. C alvarium is intact. In the left frontal scalp there is a small cephalohematoma. Calvarium is intact. Inflammatory changes are present within the ethmoid air cells. IMPRESSION: NO ACUTE BRAIN ABNORMALITY. SMALL LEFT FRONTAL CEPHALOHEMATOMA.
[2020-04-13] MEDS: SENNOSIDES 8.6 MG TAB PO SCH ×2 (09:57→21:47)
[2020-04-13] MEDS: DIVALPROEX ER 500 MG TAB.ER.24H PO SCH ×2 (09:57→21:47)
[2020-04-13] MEDS: cloZAPine 25 MG TAB PO SCH (09:57)
[2020-04-13] MEDS: NICOTINE 14MG/24HR PATCH TRANSDERM SCH (09:57)
[2020-04-13] MEDS: ACETAMINOPHEN TAB 325 MG TAB PO PRN (10:00)
[2020-04-13] MEDS ORDERED: SERTRALINE 25 MG TAB PO SCH (11:45)
--- NOTE | 2020-04-13 11:58 | P.PN ---
Subjective Progress Note Date: 04/13/20 Principal diagnosis: fall Paged this morning by nursing patient fell out of bed and developed a knot on her left sikh. At that point in time she was crying and unable to be comf orted. She is psychotic and confused at baseline. Her blood pressure was 139/106. A team was activated and patient went out for a head CT. Head CT reviewed which showed no acute intracranial process but did show a large hematoma on the left frontal scalp. Patient seen and examined with nursing present. She is again psychotic and not speaking something quickly. She is able to follow commands. She is able to lay down when I asked her to and squeeze both my hands. She was crying and rocking back and forth. She does shake her head no headache. Other than that does not actively communicate. Per staff is is about her baseline. Objective - Vital Signs Vital signs: Vital Signs Temp 98.3 F 04/12/20 21:56 Pulse 93 04/13/20 08:58 Resp 20 04/13/20 08:58 BP 139/105 04/13/20 08:58 Pulse Ox 97 04/13/20 08:58 - Exam General: non toxic, no distress, appears at stated age Derm: warm, dry Head: atraumatic, normocephalic, symmetric Eyes: EOMI, no lid lag, anicteric sclera Mouth: no lip lesion, mucus membranes moist Cardiovascular: S1S2 reg, no murmur, positive posterior tibial pulse bilateral, Lungs: CTA bilateral, no rhonchi, no rales , no accessory muscle use Ext: no gross muscle atrophy, no edema, no contractures Neuro: credit review analyst strength is equal bilateral. She is able to move both her legs. Pupils are equal round reactive to light. She is able to verbalize fountain. Face is symmetrical bilateral. Extraocular motion is intact. Psych: Alert, crying and holding herself. Able to follow simple commands. - Labs CBC & Chem 7: 04/12/20 07:00 04/02/20 15:02 Assessment and Plan Assessment: left frontal hematomawith fall -Agree with patient's management is being taken down to ground level -Patient is unable to have complete neuro assessments donedue to her pre-ex isting psychosis. At asked the nurses to monitor her pupils, credit review analyst strength, lower extremity movements, and level of alertness every 4 hours for the next 24 hours and then every 8 hours for 24 hours. If there is any changes they are to notify us. -No laceration noted but I do expect bruising to increase over the next 24 hours. -Tylenol as needed for pain - Head CT without intracranial abnormality Psychosis - Your psych management.
--- NOTE | 2020-04-13 12:16 | P.PN ---
Progress Note - Text Progress Note Date: 04/13/20 Interval History: Patient was seen laying down on the floor this morning beside her bed on the m attress and speaking incoherently with her eyes closed. Patient apparently according to staff rolled out of bed this morning and hit her head on the floor and the A-team was called immediately and patient was sent for a computed tomography scan of her head. No acute intracranial changes were noted or hemorrhages however patient did have a large left cephalohematoma which was noted. Neuro checks have commenced and patient was seen by [facility] and Will Be Continue to Be Followed. Patient continues to speak incoherently and was following some commands by narrative writer. Patient was yelling intermittently and touching her forehead where she sustained the injury. She did state that she slept last night ok and denies any depressive symptoms today. She required another Haldol and Ativan PRN yesterday for increased agitation. Patient continues to be taking her medications every day. At this time patient denies any suicidal or homical ideations, intent or plan. Patient denies any visual hallucinations or auditory hallucinations Mental Status Exam: General Appearance: Patient appears to be stated age is alert, disorganized, and bizarre/impulsive. Patient appears to have poor hygiene and grooming. Large left cephalohematoma on patient's forehead. Behavior: Patient is lying on the floor without any agitated behavior. bizarre, eyes are closed Speech: Patient's speech is nonpressured. Disorganized, Rambles, Incoherent at times. Yelling intermittently. Mood/Affect: Patient reports their mood is "ok", affect is incongruent and labile/unpredictable. Suicidality/Homicidality: Patient denies having any homicidal ideation intent or plan. Denies any suicidal ideations intent or plan Perceptions: Patient denies any visual hallucinations and denies any auditory hallucinations Though content/process: Patient was seen rambling, illogical and tangential. Memory and concentration: AOX2, and does not know her current location, poor attention span. Judgment and insight: poor/impulsive Assessment Schizoaffective disorder, bipolar type Nicotine dependence Plan: -Patient continues to meet criteria for inpatient psychiatric admission for symptom stabilization and safety. Patient had refused to sign for medication consent and is placed in patient's chart. Patient had court hearing yesterday and received a court order on 04/12/2020. -Medications: Clozapine increased to 62.5 mg nightly + 37.5 mg daily starting for psychosis. Depakote 500 mg BID for mood stabilization/aggression -Depakene level on 04/10/2020 - 110.7 -CBC on 04/12/2020 ANC is 1.5, CBC will be checked on 04/19. -When necessary Ativan and Haldol for agitation/aggression. -NRT - nicotine patch -SW on board for discharge planning. Encouraged the patient to participate in milieu. Patient is currently on a court order which commenced on 04/12/2020. We'll continue to work on stabilizing patient's symptoms and working on disposition.
[2020-04-13] MEDS ORDERED: traZODone HCL 50 MG TAB PO SCH (21:00)
[2020-04-13] MEDS ORDERED: cloZAPine 25 MG TAB PO SCH (21:00)
[2020-04-13] MEDS: MELATONIN 5 MG TABLET PO SCH (21:48)
[2020-04-13] MEDS: LORazepam 2 MG/ML INJ IM PRN (23:54)
[2020-04-13] MEDS: HALOPERIDOL LACTATE 5 MG/ML 1 ML VIAL IM PRN (23:55)
[2020-04-14] MEDS: cloZAPine 25 MG TAB PO SCH ×2 (09:30→21:56)
[2020-04-14] MEDS: NICOTINE 14MG/24HR PATCH TRANSDERM SCH (09:31)
[2020-04-14] MEDS: DIVALPROEX ER 500 MG TAB.ER.24H PO SCH ×2 (09:31→21:56)
[2020-04-14] MEDS: SENNOSIDES 8.6 MG TAB PO SCH ×2 (09:32→21:56)
--- NOTE | 2020-04-14 11:19 | P.PN ---
Progress Note - Text Progress Note Date: 04/14/20 Interval History: Patient was seen sitting on her wheelchair with her head slouched over this mo rning with her one-to-one sitter pushing her. Patient continues to speak in a disorganized manner with mainly incoherent speech. Patient did appear to be less impulsive this morning and was not yelling intermittently compared to yesterday. She continues to have a significant cephalohematoma over her left forehead and writer technical publications ensured that staff will be placing ice on this regularly throughout the day. Neuro checks also are ongoing. Patient was following some commands by writer technical publications. She did state that she slept last night fine last night and patient did receive more Haldol and Ativan PRN yesterday for increased agitation. Patient continues to be taking her medications every day. At this time patient denies any suicidal or homical ideations, intent or plan. Patient denies any visual hallucinations or auditory hallucinations Mental Status Exam: General Appearance: Patient appears to be stated age is alert, disorganized, head slouched over in her wheelchair. Patient appears to have poor hygiene and grooming. Large left cephalohematoma on patient's forehead. Behavior: Patient is lying on the floor without any agitated behavior. bizarre Speech: Patient's speech is nonpressured. Disorganized, Rambles, Incoherent at times. Mood/Affect: Patient reports their mood is "alright", affect is incongruent and labile/unpredictable. Suicidality/Homicidality: Patient denies having any homicidal ideation intent or plan. Denies any suicidal ideations intent or plan Perceptions: Patient denies any visual hallucinations and denies any auditory hallucinations Though content/process: Patient was seen rambling, illogical and tangential. Memory and concentration: AOX2, and does not know her current location, poor attention span. Judgment and insight: poor/impulsive Assessment Schizoaffective disorder, bipolar type Nicotine dependence Plan: -Patient continues to meet criteria for inpatient psychiatric admission for symptom stabilization and safety. Patient had refused to sign for medication consent and is placed in patient's chart. Patient had court hearing yesterday and received a court order on 04/12/2020. -Medications: Clozapine increased to 75 mg nightly + 37.5 mg daily starting for psychosis. Depakote will be decreased to 250 mg daily plus 500 mg nightly for mood stabilization/aggression. -Depakene level on 04/10/2020 - 110.7 -CBC on 04/12/2020 ANC is 1.5, CBC will be checked on 04/19. -CT brain/head on 04/13/2020 showed a left frontal cephalohematoma with no intracranial acute hemorrhages or changes. Tylenol when necessary for the pain along with frequent neuro checks. Ice packs 3 times a day for the cephalohematoma -When necessary Ativan and Haldol for agitation/aggression. -NRT - nicotine patch -SW on board for discharge planning. Encouraged the patient to participate in milieu. Patient is currently on a court order which commenced on 04/12/2020. We'll continue to work on stabilizing patient's symptoms and working on disposition.
[2020-04-14 14:31] LABS: Appearance,Urine Clear (Clear); Bacteria,Urine Rare /hpf; Bilirubin,Urine Negative (Negative); Blood,Urine Negative (Negative); Color,Urine Yellow; Glucose,Urine (UA) Negative (Negative); Ketones,Urine 1+ (Negative); Leukocyte Esterase,Urine Moderate (Negative); Mucus,Urine Moderate /hpf; Nitrite,Urine Negative (Negative); Protein,Urine Trace (Negative); RBC,Urine 2 /hpf (0-5); Squamous Epithelial Cell,Urine 11 /hpf (0-4); WBC,Urine 5 /hpf (0-5)
[2020-04-14 17:55] LABS: Urine Alcohol Negative (Negative); Urine Barbiturate Negative (Negative); Urine Cocaine Negative (Negative); Urine Methadone Negative (Negative); Urine Opiates Negative (Negative); Urine Phencyclidine Negative (Negative)
[2020-04-14] MEDS: HALOPERIDOL LACTATE 5 MG/ML 1 ML VIAL IM PRN (17:55)
[2020-04-14] MEDS: MAG HYDROX/AL HYDROX/SIMETH 30 ML CUP PO PRN (18:21)
[2020-04-14] MEDS: MELATONIN 5 MG TABLET PO SCH (21:56)
[2020-04-15] MEDS: HALOPERIDOL LACTATE 5 MG/ML 1 ML VIAL IM PRN ×2 (01:06→11:24)
[2020-04-15] MEDS ORDERED: cloZAPine 25 MG TAB PO SCH (09:00)
[2020-04-15] MEDS: DIVALPROEX ER 250 MG TAB.ER.24H PO SCH (10:14)
[2020-04-15] MEDS: SENNOSIDES 8.6 MG TAB PO SCH ×2 (10:14→21:56)
[2020-04-15] MEDS: NICOTINE 14MG/24HR PATCH TRANSDERM SCH (10:14)
--- NOTE | 2020-04-15 12:32 | P.PN ---
Progress Note - Text Interval history: The patient is found in the hallway. She remains on one-to-one supervision. She is observed being pushed in a wheelchair in the hallway throughout the morning. The patient remains easily agitated she does not provide any coherent responses to questions asked during our brief interaction. She is known to yell out loud throughout the day but that has been minimal today with only 1-2 instances. She is currently being transitioned back onto clozapine. Depakote was recently reduced. Mental status exam: The patient is alert she seated upright in a wheelchair she has a disheveled appearance. She does not participate in a coherent fashion this morning with my interaction. She is observed throughout the morning interacting with one-to-one staff and other staff. At times she makes demands uses profanity and less frequently is yelling. She has poor insight and judgment into her current situation need for treatment. She is demonstrating no physical aggressiveness. She demonstrates no involuntary repetitive movements. She demonstrates some psychomotor slowing this morning. Plan: The patient will continue on her current psychotropic medications. We will monitor for safety. We will continue the one-to-one supervision. We will monitor her food intake. She requires continued psychiatric hospitalization until further stabilized.
[2020-04-15] MEDS: MELATONIN 5 MG TABLET PO SCH (21:56)
[2020-04-15] MEDS: cloZAPine 25 MG TAB PO SCH (21:56)
[2020-04-15] MEDS: DIVALPROEX ER 500 MG TAB.ER.24H PO SCH (21:56)
[2020-04-16] MEDS: cloZAPine 25 MG TAB PO SCH ×2 (07:29→20:13)
[2020-04-16] MEDS: DIVALPROEX ER 250 MG TAB.ER.24H PO SCH (07:29)
[2020-04-16] MEDS: ACETAMINOPHEN TAB 325 MG TAB PO PRN ×2 (07:29→15:01)
[2020-04-16] MEDS: NICOTINE 14MG/24HR PATCH TRANSDERM SCH (07:29)
[2020-04-16] MEDS: SENNOSIDES 8.6 MG TAB PO SCH ×2 (07:29→20:13)
[2020-04-16] MEDS: MAG HYDROX/AL HYDROX/SIMETH 30 ML CUP PO PRN ×3 (11:19→22:33)
--- NOTE | 2020-04-16 13:33 | P.PN ---
Progress Note - Text Interval history: The patient is found in her wheelchair in the [facility]. Staff report that her behavior has been more controlled today. There has been less yelling. She was observed eating lunch without difficulty. She remains compliant with medication. She did sleep to the night. Appetite appears stable. Mental status exam: The patient is alert she is observed throughout the morning eating interacting with staff and a limited capacity and now watching TV. Again conversation appears incoherent she does appear to mumble at times. She does appear less agitated. She is alert but tired appearing. She is demonstrating no verbal or physical aggressiveness currently. She demonstrates impaired insight and judgment still. He appears to be in no acute distress. Plan: The patient will continue on her current medications. No vital signs reviewed as they are not listed. It appears her beginning to see some improveme nt in behavior. We will continue one-to-one supervision for safety.
[2020-04-16] MEDS: DIVALPROEX ER 500 MG TAB.ER.24H PO SCH (20:13)
[2020-04-16] MEDS: MELATONIN 5 MG TABLET PO SCH (20:13)
[2020-04-17] MEDS: LORazepam 2 MG/ML INJ IM PRN (02:13)
[2020-04-17] MEDS: NICOTINE 14MG/24HR PATCH TRANSDERM SCH ×2 (08:11→11:13)
[2020-04-17] MEDS: DIVALPROEX ER 250 MG TAB.ER.24H PO SCH ×3 (08:12→21:35)
[2020-04-17] MEDS: SENNOSIDES 8.6 MG TAB PO SCH ×3 (08:12→21:34)
[2020-04-17] MEDS: cloZAPine 25 MG TAB PO SCH ×2 (08:12→11:13)
[2020-04-17 10:48] VITALS: BMI 23.5
[2020-04-17] MEDS: MELATONIN 5 MG TABLET PO SCH (21:34)
[2020-04-17] MEDS: cloZAPine 100 MG TAB PO SCH (21:35)
--- NOTE | 2020-04-17 21:40 | P.PN ---
Progress Note - Text Progress Note Date: 04/17/20 Interval History: Patient was seen sitting on her wheelchair in the hallways with her one-to-one sitter pushing her. Patient was agreeable to be seen in her room today. PAtient continued to speak mainly in an incoherent manner however did show some mild improvement in the clarity of her speech. She was less impulsive today and was not reaching out at objects and also was noticed to be yelling less. She continues to have a significant cephalohematoma and did not answer questions related to her pain in the area but did pull her hair back to show sports writer the bruised area. Patient was following some commands by sports writer. She did state that she slept last night ok last night. Patient continues to be taking her medications every day. At this time patient denies any suicidal or homical ideations, intent or plan. Patient denies any visual hallucinations or auditory hallucinations Mental Status Exam: General Appearance: Patient appears to be stated age is alert, disorganized, head slouched over in her wheelchair. Patient appears to have poor hygiene and grooming. improving left cephalohematoma on patient's forehead. Behavior: Patient is lying on the floor without any agitated behavior. less impulsive today. Speech: Patient's speech is nonpressured. Disorganized, Rambles, Incoherent at times which is improving mildly. Mood/Affect: Patient reports their mood is "ok", affect is incongruent Suicidality/Homicidality: Patient denies having any homicidal ideation intent or plan. Denies any suicidal ideations intent or plan Perceptions: Patient denies any visual hallucinations and denies any auditory hallucinations Though content/process: Patient was seen rambling, illogical and tangential. mildly improving Memory and concentration: AOX2, and does not know her current location, poor attention span. Judgment and insight: poor/impulsive Assessment Schizoaffective disorder, bipolar type Nicotine dependence Plan: -Patient continues to meet criteria for inpatient psychiatric admission for symptom stabilization and safety. Patient had refused to sign for medication consent and is placed in patient's chart. Patient had court hearing yesterday and received a court order on 04/12/2020. -Medications: Clozapine increased to 100 mg nightly + 50 mg daily starting for psychosis. Depakote will be decreased to 250 mg BID for mood stabilization/aggression. -Depakene level on 04/10/2020 - 110.7 -CBC on 04/12/2020 ANC is 1.5, CBC will be checked on 04/19. -CT brain/head on 04/13/2020 showed a left frontal cephalohematoma with no intracranial acute hemorrhages or changes. Tylenol when necessary for the pain along with neuro checks. Ice packs 3 times a day for the cephalohematoma -When necessary Ativan and Haldol for agitation/aggression. -NRT - nicotine patch -SW on board for discharge planning. Encouraged the patient to participate in milieu. Patient is currently on a court order which commenced on 04/12/2020. We'll continue to work on stabilizing patient's symptoms and working on disposition.
[2020-04-18] MEDS: HALOPERIDOL LACTATE 5 MG/ML 1 ML VIAL IM PRN ×2 (00:13→15:16)
[2020-04-18] MEDS: LORazepam 2 MG/ML INJ IM PRN ×2 (00:13→15:17)
[2020-04-18] MEDS: SENNOSIDES 8.6 MG TAB PO SCH ×2 (08:31→20:08)
[2020-04-18] MEDS: NICOTINE 14MG/24HR PATCH TRANSDERM SCH (08:31)
[2020-04-18] MEDS: cloZAPine 25 MG TAB PO SCH (08:32)
[2020-04-18] MEDS: DIVALPROEX ER 250 MG TAB.ER.24H PO SCH ×2 (08:32→20:08)
--- NOTE | 2020-04-18 11:27 | P.PN ---
Progress Note - Text Progress Note Date: 04/18/20 Interval History: Patient was seen sitting on her wheelchair in the hallways with her one-to-one sitter pushing her. Patient was agreeable to be seen in her room today once again. Ptient continued to speak mainly in an incoherently during the conversation however had an showed improvement in her impulsivity. She did have some mild improvement in her clarity of speech at times during conversation however for the most part patient's speech rambling. Patient was also to be noted by staff and one-to-one sitter to be yelling less. She continues to have a significant cephalohematoma and showed report writer once again by pulling her hair back. Patient was following most commands by report writer. She did state that she slept last night fine last night. Patient continues to be taking her medications every day. At this time patient denies any suicidal or homical ideations, intent or plan. Patient denies any visual hallucinations or auditory hallucinations Mental Status Exam: General Appearance: Patient appears to be stated age is alert, disorganized, head slouched over in her wheelchair. Patient appears to have poor hygiene and grooming. Improving left cephalohematoma on forehead. Behavior: Patient is lying on the floor without any agitated behavior. less impulsive today. Speech: Patient's speech is nonpressured. Disorganized, Rambles, Incoherent at times which is improving mildly. Mood/Affect: Patient reports their mood is "ok", affect is incongruent Suicidality/Homicidality: Patient denies having any homicidal ideation intent or plan. Denies any suicidal ideations intent or plan Perceptions: Patient denies any visual hallucinations and denies any auditory hallucinations Though content/process: Patient was seen rambling, illogical and tangential. mildly improving Memory and concentration: AOX2, and does not know her current location, poor attention span. Judgment and insight: poor/impulsive, mild improvement. Assessment Schizoaffective disorder, bipolar type Nicotine dependence Plan: -Patient continues to meet criteria for inpatient psychiatric admission for symptom stabilization and safety. Patient had refused to sign for medication consent and is placed in patient's chart. Patient had court hearing yesterday and received a court order on 04/12/2020. -Medications: Continue with Clozapine 100 mg nightly + 50 mg daily starting for psychosis. Depakote will be decreased to 250 mg HS for mood stabilization/aggression. -Depakene level on 04/10/2020 - 110.7 -CBC on 04/12/2020 ANC is 1.5, CBC will be checked on 04/19. -CT brain/head on 04/13/2020 showed a left frontal cephalohematoma with no intracranial acute hemorrhages or changes. Tylenol when necessary for the pain along with neuro checks. Ice packs 3 times a day for the cephalohematoma -When necessary Ativan and Haldol for agitation/aggression. -NRT - nicotine patch -SW on board for discharge planning. Encouraged the patient to participate in milieu. Patient is currently on a court order which commenced on 04/12/2020. We'll continue to work on stabilizing patient's symptoms and working on disposition.
[2020-04-18] MEDS: MAG HYDROX/AL HYDROX/SIMETH 30 ML CUP PO PRN (19:12)
[2020-04-18] MEDS: MELATONIN 5 MG TABLET PO SCH (20:08)
[2020-04-18] MEDS: cloZAPine 100 MG TAB PO SCH (20:09)
[2020-04-19] MEDS: HALOPERIDOL LACTATE 5 MG/ML 1 ML VIAL IM PRN (03:31)
[2020-04-19] MEDS: LORazepam 2 MG/ML INJ IM PRN (03:34)
[2020-04-19 07:34] LABS: Basophils # (A) 0.1 k/uL (0-0.2); Basophils % (A) 1 %; Eosinophils # (A) 0.4 k/uL (0-0.7); Eosinophils % (A) 8 %; HCT 37.4 % (34.0-46.0); HGB 11.5 gm/dL (11.4-16.0); Lymphocytes # (A) 1.4 k/uL (1.0-4.8); Lymphocytes % (A) 33 %; MCH 29.2 pg (25.0-35.0); MCHC 30.8 g/dL (31.0-37.0); MCV 94.8 fL (80.0-100.0); Mean Platelet Volume 8.3; Monocytes # (A) 0.4 k/uL (0-1.0); Monocytes % (A) 8 %; Neutrophils % (A) 48 %; Platelet Count 197 k/uL (150-450); RBC 3.94 m/uL (3.80-5.40); RDW 13.3 % (11.5-15.5); WBC 4.3 k/uL (3.8-10.6)
[2020-04-19] MEDS: cloZAPine 25 MG TAB PO SCH ×2 (07:38→19:52)
[2020-04-19] MEDS: SENNOSIDES 8.6 MG TAB PO SCH ×2 (07:38→19:52)
[2020-04-19] MEDS: ACETAMINOPHEN TAB 325 MG TAB PO PRN ×2 (07:39→16:54)
[2020-04-19] MEDS: NICOTINE 14MG/24HR PATCH TRANSDERM SCH (07:39)
--- NOTE | 2020-04-19 12:24 | P.PN ---
Progress Note - Text Progress Note Date: 04/19/20 Interval History: Patient was seen sitting on her chair in her room with her one-to-one sitter at her side. The patient was initially sleeping however was awoken by ticket writer and was agreeable to speak to him. Patient has mild improvement in her speech and is more coherent today. She asked several times about when she can go home to see her . She states that she has been taking her medications. Patient rambled at times and asked incoherent questions to ticket writer however showed improvement in her impulsivity and lability. She followed most commands and showed ticket writer her hematoma over her forehead which he states that "it's good" and denied any pain. She did state that she slept last night fine last night. Patient continues to be taking her medications every day. At this time patient denies any suicidal or homical ideations, intent or plan. Patient denies any visual hallucinations or auditory hallucinations Mental Status Exam: General Appearance: Patient appears to be stated age is alert, disorganized, head slouched over in her wheelchair. Patient appears to have improving hygiene and grooming. Improving left cephalohematoma on forehead. Behavior: Patient is lying on the floor without any agitated behavior. less impulsive today. Speech: Patient's speech is nonpressured. Disorganized, Rambles, Incoherent at times which is improving mildly. Mood/Affect: Patient reports their mood is "fine", affect is incongruent Suicidality/Homicidality: Patient denies having any homicidal ideation intent or plan. Denies any suicidal ideations intent or plan Perceptions: Patient denies any visual hallucinations and denies any auditory hallucinations Though content/process: Patient was seen rambling, illogical and tangential. mildly improving Memory and concentration: AOX3, improving attention span. Judgment and insight: poor/impulsive, mild improvement. Assessment Schizoaffective disorder, bipolar type Nicotine dependence Plan: -Patient continues to meet criteria for inpatient psychiatric admission for symptom stabilization and safety. Patient had refused to sign for medication consent and is placed in patient's chart. Patient had court hearing yesterday and received a court order on 04/12/2020. -Medications: Increased Clozapine 125 mg nightly + 50 mg daily starting for psychosis. Depakote will be discontinued at this time. -CBC on 04/19 - WBC within normal limit, ANC 2.0 -CT brain/head on 04/13/2020 showed a left frontal cephalohematoma with no intracranial acute hemorrhages or changes. Tylenol when necessary for the pain along with neuro checks. Ice packs 3 times a day for the cephalohematoma -When necessary Ativan and Haldol for agitation/aggression. -NRT - nicotine patch -SW on board for discharge planning. Encouraged the patient to participate in milieu. Patient is currently on a court order which commenced on 04/12/2020. We'll continue to work on stabilizing patient's symptoms and working on disposition.
[2020-04-19] MEDS: MELATONIN 5 MG TABLET PO SCH (19:51)
[2020-04-20] MEDS: HALOPERIDOL LACTATE 5 MG/ML 1 ML VIAL IM PRN ×3 (00:18→23:47)
[2020-04-20] MEDS: LORazepam 2 MG/ML INJ IM PRN ×3 (00:20→23:47)
[2020-04-20] MEDS: NICOTINE 14MG/24HR PATCH TRANSDERM SCH (08:35)
[2020-04-20] MEDS: SENNOSIDES 8.6 MG TAB PO SCH ×2 (08:35→20:47)
[2020-04-20] MEDS: ACETAMINOPHEN TAB 325 MG TAB PO PRN (08:35)
[2020-04-20] MEDS: cloZAPine 25 MG TAB PO SCH ×2 (08:35→20:47)
--- NOTE | 2020-04-20 09:53 | P.PN ---
Progress Note - Text Progress Note Date: 04/20/20 Interval History: Patient was seen up near the nurse's desk with her one-to-one sitter at her si de. Patient appeared to be walking today and not in a wheelchair. She was less impulsive and directable to be spoken to in the typewriter tester's office. Patient was more appropriate with typewriter tester today and showed mild improvement in her speech. She appeared to be less sedated today. She continues to ramble at times and speak incoherently. She again asked several times about when she can go home to see her and states that "he can't see at night" and also "he needs help". She states that she has been taking her medications. She continues to show improvement in her impulsivity and lability. She followed most commands. She states the she feels mildly constipated today and last bowel movement was 2 days ago. She did state that she slept last night fine last night. Patient did receive a when necessary last night of Haldol and Ativan. At this time patient denies any suicidal or homical ideations, intent or plan. Patient denies any visual hallucinations or auditory hallucinations Mental Status Exam: General Appearance: Patient appears to be stated age is alert, more directable today, attempting to cooperate. Patient appears to have improving hygiene and grooming. Improving left cephalohematoma on forehead. Behavior: Patient is sitting on the chair, no agitation. Attempts to cooperate. Speech: Patient's speech is nonpressured. Disorganized, Rambles, Incoherent at times which is improving Mood/Affect: Patient reports their mood is "good", affect is incongruent Suicidality/Homicidality: Patient denies having any homicidal ideation intent or plan. Denies any suicidal ideations intent or plan Perceptions: Patient denies any visual hallucinations and denies any auditory hallucinations Though content/process: Patient was seen rambling, illogical and tangential. mildly improving and more organized today. Memory and concentration: AOX3, improving attention span. Judgment and insight: poor, mild improvement. Assessment Schizoaffective disorder, bipolar type Nicotine dependence Plan: -Patient continues to meet criteria for inpatient psychiatric admission for symptom stabilization and safety. Patient had refused to sign for medication consent and is placed in patient's chart. Patient had court hearing yesterday and received a court order on 04/12/2020. -Medications: Continue with Clozapine 125 mg nightly + 50 mg daily starting for psychosis. -Prune juice and Senokot daily for constipation. -CBC on 04/19 - WBC within normal limit, ANC 2.0 -CT brain/head on 04/13/2020 showed a left frontal cephalohematoma with no intracranial acute hemorrhages or changes. Tylenol when necessary for the pain along with neuro checks. Ice packs 3 times a day for the cephalohematoma -When necessary Ativan and Haldol for agitation/aggression. -NRT - nicotine patch -SW on board for discharge planning. Encouraged the patient to participate in milieu. Patient is currently on a court order which commenced on 04/12/2020. We'll continue to work on stabilizing patient's symptoms and working on disposition. Patient has been gradually improving and approaching her baseline and was encouraged to speak with her today over the phone to prepare for possible discharge planning next week.
[2020-04-20] MEDS: MAGNESIUM HYDROXIDE 2,400 MG/10 ML CUP PO PRN (19:22)
[2020-04-20] MEDS: MELATONIN 5 MG TABLET PO SCH (20:47)
[2020-04-21] MEDS: NICOTINE 14MG/24HR PATCH TRANSDERM SCH (11:13)
[2020-04-21] MEDS: cloZAPine 25 MG TAB PO SCH (11:14)
[2020-04-21] MEDS: SENNOSIDES 8.6 MG TAB PO SCH ×2 (11:14→21:20)
--- NOTE | 2020-04-21 12:09 | P.PN ---
Progress Note - Text Progress Note Date: 04/21/20 Interval History: Patient was seen up near the nurse's desk with her one-to-one sitter at her si de. Patient appeared to be walking today and not in a wheelchair. She appeared to be more directable today and was noticed to be somewhat labile and tearful when talking about her . She continues to perseverate on discharge. Patient was able to answer questions more appropriately today and there was mild improvement in her speech clarity and content. She appeared to be less sedated today. She continues to ramble at times and speak incoherently. She continues to take her medications and denied any side effects from the medication and states that she has been having improvement in her constipation and having bowel movements. She followed most commands. She states that she is sleeping "on and off and required another Haldol and Ativan injection yesterday. At this time patient denies any suicidal or homical ideations, intent or plan. Patient denies any visual hallucinations or auditory hallucinations Mental Status Exam: General Appearance: Patient appears to be stated age is alert, more directable today, attempting to cooperate. Patient appears to have improving hygiene and grooming. Improving left cephalohematoma on forehead. Behavior: Patient is sitting on the chair, no agitation. Attempts to cooperate. Speech: Patient's speech is nonpressured. Disorganized, Rambles, Incoherent at times which is improving Mood/Affect: Patient reports their mood is "ok", affect is incongruent, tearful at times. Suicidality/Homicidality: Patient denies having any homicidal ideation intent or plan. Denies any suicidal ideations intent or plan Perceptions: Patient denies any visual hallucinations and denies any auditory hallucinations Though content/process: Patient was seen rambling, illogical and tangential, mildly improving and more organized today. Perseverate on discharge. Memory and concentration: AOX3, improving attention span. Judgment and insight: poor, mild improvement. Assessment Schizoaffective disorder, bipolar type Nicotine dependence Plan: -Patient continues to meet criteria for inpatient psychiatric admission for symptom stabilization and safety. Patient had refused to sign for medication consent and is placed in patient's chart. Patient had court hearing yesterday and received a court order on 04/12/2020. -Medications: Increased Clozapine 150 mg nightly + 50 mg daily starting for psychosis. -Prune juice and Senokot daily for constipation. -CBC on 04/19 - WBC within normal limit, ANC 2.0 -CT brain/head on 04/13/2020 showed a left frontal cephalohematoma with no intracranial acute hemorrhages or changes. Tylenol when necessary for the pain a long with neuro checks. Ice packs 3 times a day for the cephalohematoma -When necessary Ativan and Haldol for agitation/aggression. -NRT - nicotine patch -SW on board for discharge planning. Encouraged the patient to participate in milieu. Patient is currently on a court order which commenced on 04/12/2020. We'll continue to work on stabilizing patient's symptoms and working on disposition. Patient has been gradually improving and approaching her baseline and was encouraged to speak with her today over the phone to prepare for possible discharge planning next week.
[2020-04-21] MEDS: ACETAMINOPHEN TAB 325 MG TAB PO PRN (13:43)
[2020-04-21] MEDS: MAGNESIUM HYDROXIDE 2,400 MG/10 ML CUP PO PRN (13:45)
[2020-04-21] MEDS: cloZAPine 100 MG TAB PO SCH (21:20)
[2020-04-21] MEDS: MELATONIN 5 MG TABLET PO SCH (21:20)
[2020-04-22] MEDS: ACETAMINOPHEN TAB 325 MG TAB PO PRN (00:35)
[2020-04-22] MEDS: MAGNESIUM HYDROXIDE 2,400 MG/10 ML CUP PO PRN (01:35)
[2020-04-22] MEDS: SENNOSIDES 8.6 MG TAB PO SCH ×2 (09:53→20:22)
[2020-04-22] MEDS: NICOTINE 14MG/24HR PATCH TRANSDERM SCH (09:53)
[2020-04-22] MEDS: cloZAPine 25 MG TAB PO SCH (09:53)
--- NOTE | 2020-04-22 16:06 | P.PN ---
Progress Note - Text Progress Note Date: 04/22/20 Clinical Problems: Schizoaffective disorder bipolar type Interim history: I reviewed the medical record and interviewed the patient. She remains on one-to-one due to the severity and persistence of her chronic mental illness. She was difficult to understand but was complaining of sialorrhea and threatened to stop clozapine. She became increasingly distressed and more disorganized when I tried to explain that if she stops clozapine she will have to stay in the hospital longer. So far, she's been compliant with his prescribed dose of clozapine. Her last WBC was 04/19/2020. She has a nontender mass under her jaw on the left side. Mental status exam: She presented as a disheveled appearing elderly female who was pleasant on approach. She was intermittently agitated and confused. She made eye contact but I wasn't certain if she attended interview. Her speech was dysarthric and barely understandable. She was markedly labile and easily agitated. Assessment: Overall clinical status has improved since she restarted clozapine but she remains confused, labile and she agitated. Plan: Continue inpatient treatment. Continue safety precautions. Continue one-to-one supervision. Continue clozapine 200 mg per day in divided doses and titrated according to clinical response and tolerance. Begin a trial of Benadryl 25 mg at bedtime for sleep and treatment off the sialorrhea. Evaluate clinical status response to treatment daily basis.
[2020-04-22] MEDS: MELATONIN 5 MG TABLET PO SCH (20:21)
[2020-04-22] MEDS: diphenhydrAMINE 25 MG CAP PO SCH (20:21)
[2020-04-22] MEDS: cloZAPine 100 MG TAB PO SCH (20:22)
[2020-04-22] MEDS: METOPROLOL TARTRATE 25 MG TAB PO SCH (20:22)
[2020-04-23] MEDS: MAG HYDROX/AL HYDROX/SIMETH 30 ML CUP PO PRN ×2 (01:04→14:37)
[2020-04-23] MEDS: cloZAPine 25 MG TAB PO SCH ×4 (09:27→11:08)
[2020-04-23] MEDS: NICOTINE 14MG/24HR PATCH TRANSDERM SCH (09:27)
[2020-04-23] MEDS: POLYETHYLENE GLYCOL 3350 17 GM POWD.PACK PO PRN (09:28)
[2020-04-23] MEDS: SENNOSIDES 8.6 MG TAB PO SCH ×2 (09:28→21:54)
[2020-04-23] MEDS: METOPROLOL TARTRATE 25 MG TAB PO SCH ×2 (09:28→21:54)
[2020-04-23] MEDS: LISINOPRIL 5 MG TAB PO SCH (09:28)
[2020-04-23 10:57] LABS: Basophils # (A) 0.1 k/uL (0-0.2); Basophils % (A) 1 %; Eosinophils # (A) 0.3 k/uL (0-0.7); Eosinophils % (A) 6 %; HCT 38.6 % (34.0-46.0); Hypochromasia Slight; Lymphocytes # (A) 0.8 k/uL (1.0-4.8); Lymphocytes % (A) 17 %; MCH 29.6 pg (25.0-35.0); MCHC 31.1 g/dL (31.0-37.0); MCV 95.3 fL (80.0-100.0); Mean Platelet Volume 8.1; Monocytes # (A) 0.4 k/uL (0-1.0); Monocytes % (A) 8 %; Neutrophils % (A) 66 %; Platelet Count 250 k/uL (150-450); RBC 4.05 m/uL (3.80-5.40); RDW 13.5 % (11.5-15.5); WBC 4.6 k/uL (3.8-10.6)
--- NOTE | 2020-04-23 11:02 | P.PN ---
Progress Note - Text Progress Note Date: 04/23/20 Clinical Problems: Schizoaffective disorder bipolar type Interim history: I reviewed the medical record and interviewed the patient. The one-to-one sitter was in attendance. I could not understand much of what she said She reported she slept well last night. She remains preoccupied about disc harge. She did not perseverate about sialorrhea or threatened to discontinue clozapine. Mental status exam: She presented as a casually groomed elderly woman who is sitting comfortably on her bed. She made eye contact and appeared to attend to the interview. She had a bright facial expression. Her speech was so garbled that I could not understand much of what she said. She was not restless or agitated. She is no longer requiring the wheelchair and is ambulating independently on the unit. Her affect is stable. I could not fully evaluate her thought content because I could not understand her speech. She did not appear to be responding to internal stimuli. Assessment: She is seriously mentally ill and much improved from admission. She has been compliant with clozapine the only medication that appears affective in controlling her illness. Plan: Continue inpatient treatment. Continue one-to-one. Continue current medications. Social work to coordinate discharge and aftercare services. Evaluate clinical status response to treatment daily basis.
[2020-04-23 11:08] LABS: ALT 18 U/L (4-34); AST 24 U/L (14-36); African American GFR (CKD) >90 (>60 ml/min/1.73 sqM); Albumin 3.6 g/dL (3.5-5.0); Alkaline Phosphatase 67 U/L (38-126); Anion Gap 6 mmol/L; Blood Urea Nitrogen 17 mg/dL (7-17); Calcium 8.9 mg/dL (8.4-10.2); Carbon Dioxide 27 mmol/L (22-30); Chloride 107 mmol/L (98-107); Glucose 110 mg/dL (74-99); Non-African American GFR(CKD) >90 (>60 ml/min/1.73 sqM); Potassium 4.4 mmol/L (3.5-5.1); Sodium 140 mmol/L (137-145); Total Bilirubin 0.1 mg/dL (0.2-1.3); Total Protein 6.2 g/dL (6.3-8.2)
--- NOTE | 2020-04-23 16:53 | P.PN ---
Subjective Progress Note Date: 04/23/20 Principal diagnosis: Neck swelling I was called by nursing regarding swelling in her neck. Of note, patient had fall and left frontal hematoma on 04/13/2020. CT brain showed no acute abnormality and small left frontal cephalhematoma. Patient does have a flight of ideas and is difficult to have a conversation with her regarding a specific topic. Patient was seen and examined. Patient reports that the swelling in the left side of her neck has been ongoing for months and years. According to the nurse, she noted the swelling even prior to the patient's fall and hematoma on 04/13/2020. Patient reports no pain in her neck. She denies any dysphagia. She denies any difficulty swallowing or speaking. She reports that she had a mammogram 1 year ago which was normal. Objective - Vital Signs Vital signs: Vital Signs Temp 98.8 F 04/23/20 13:14 Pulse 89 04/23/20 04:52 Resp 16 04/23/20 04:52 BP 141/85 04/23/20 04:52 Pulse Ox 95 04/22/20 05:24 - Exam General: [non toxic], [no distress], [appears at stated age] Derm: [warm], [dry] Head: [atraumatic], [normocephalic], [symmetric], [left-sided hematoma noted healing well], [left-sided submandibular lymph node palpable, nontender] Eyes: [EOMI], [no lid lag], [anicteric sclera] Mouth: [no lip lesion], [mucus membranes moist] Cardiovascular: [S1S2 reg], [no murmur], [positive DP pulse bilateral], Lungs: [CTA bilateral], [no rhonchi, no rales] , [no accessory muscle use] Abdominal: [soft], [ nontender to palpation with positive bowel sounds], [no guarding], [no appreciable organomegaly] Ext: [no gross muscle atrophy], [no edema], [no contractures] Psych: [Unable to determine] - Labs CBC & Chem 7: 04/23/20 10:38 04/23/20 10:38 Labs: Abnormal Lab Results - Last 24 Hours (Table) 04/23/20 04/23/20 Range/Units 10:38 10:38 Lymphocytes # 0.8 L (1.0-4.8) k/uL Glucose 110 H (74-99) mg/dL Total Bilirubin 0.1 L (0.2-1.3) mg/dL Total Protein 6.2 L (6.3-8.2) g/dL Assessment and Plan Assessment: Submandibular swelling in the left side Hypertension Constipation Abnormal urinalysis History of frontal hematoma with fall Patient is nontender submandibular lymphadenopathy. This could be related to the frontal hematoma she suffered on April 13. According to nursing, the swelling in her neck was present even prior to the fall. Plans: Discussed with nursing. I do not believe that the swelling in her left neck is infectious. She is afebrile and has no leukocytosis. I would recommend that patient obtain an ultr asound or CT of her neck to confirm lymphadenopathy. If confirmed, patient would need an ENT consult along with biopsy of this lymph node. Patient will also need to be up-to-date with her preventative screening, mammogram, colonoscopy and PAP smear. All of this can be done in the outpatient setting. We will restart lisinopril and metoprolol for her history of hypertension. Her last bowel movement was 3 days ago. She is on clozapine which is known for his anticholinergic side effects. Plans: Milk of magnesia, MiraLAX and Dulcolax as needed. If needed, can do Dulcolax suppository or Fleet enema. Urinalysis shows moderate leukocyte esterase and rare bacteria but with 11 squamous epithelial cells. Patient is asymptomatic and is not complaining of any urinary symptoms. Plans: We will continue to monitor this. Her frontal hematoma is resolving and there is nothing further to do. Thank you for this consult. Please call with any additional questions or concerns.
[2020-04-23] MEDS: cloZAPine 100 MG TAB PO SCH (21:54)
[2020-04-23] MEDS: diphenhydrAMINE 25 MG CAP PO SCH (21:54)
[2020-04-23] MEDS: MELATONIN 5 MG TABLET PO SCH (21:54)
[2020-04-24] MEDS: METOPROLOL TARTRATE 25 MG TAB PO SCH ×2 (09:25→20:48)
[2020-04-24] MEDS: LISINOPRIL 5 MG TAB PO SCH (09:25)
[2020-04-24] MEDS: NICOTINE 14MG/24HR PATCH TRANSDERM SCH (09:25)
[2020-04-24] MEDS: SENNOSIDES 8.6 MG TAB PO SCH ×2 (09:25→20:48)
[2020-04-24] MEDS: cloZAPine 25 MG TAB PO SCH ×2 (09:26→20:48)
--- NOTE | 2020-04-24 12:16 | P.PN ---
Progress Note - Text Progress Note Date: 04/24/20 Interval History: Patient was seen sleeping on her bed with her one-to-one sitter at her side this morning and patient was easily awoken and agreeable and directable to speak to typewriter operator automatic in the office. Patient appeared to have improvement in her speech clarity however continues to ramble at times and was illogical/tangential at times. She continues to perseverate on discharge and spoke about her needing help at home. Patient was able to answer questions more appropriately today. She appeared to be less sedated today. She continues to take her medications and denied any side effects from the medication. She states that her last bowel movement was 2 days ago and she is continuing to drink prune juice every day. She followed most commands during the interview. She states that she is sleeping better on the current medications. At this time patient denies any suicidal or homical ideations, intent or plan. Patient denies any visual hallucinations or auditory hallucinations Mental Status Exam: General Appearance: Patient appears to be stated age is alert, more directable today, attempting to cooperate. Patient appears to have improving hygiene and grooming. Improving left cephalohematoma on forehead. Behavior: Patient is sitting on the chair, no agitation. Attempts to cooperate. Speech: Patient's speech is nonpressured. Talkative, improvement in speech clarity. Mood/Affect: Patient reports their mood is "good", affect is incongruent, less labile today. Suicidality/Homicidality: Patient denies having any homicidal ideation intent or plan. Denies any suicidal ideations intent or plan Perceptions: Patient denies any visual hallucinations and denies any auditory hallucinations Though content/process: Patient was seen rambling, illogical/tangential, mildly improving and more organized today. Perseverates on discharge. Memory and concentration: AOX3, improving attention span. Judgment and insight: mild improvement. Assessment Schizoaffective disorder, bipolar type Nicotine dependence Plan: -Patient continues to meet criteria for inpatient psychiatric admission for symptom stabilization and safety. Patient had refused to sign for medication consent and is placed in patient's chart. Patient had court hearing yesterday and received a court order on 04/12/2020. -Medications: Increased Clozapine 175 mg nightly + 50 mg daily starting for psychosis. -Prune juice and Senokot daily for constipation. -CBC on 04/23 - WBC - 4.6, ANC 3.0 -CT brain/head on 04/13/2020 showed a left frontal cephalohematoma with no intracranial acute hemorrhages or changes. Tylenol when necessary for the pain along with neuro checks. Ice packs 3 times a day for the cephalohematoma -When necessary Ativan and Haldol for agitation/aggression. -NRT - nicotine patch -SW on board for discharge planning. Encouraged the patient to participate in milieu. Patient is currently on a court order which commenced on 04/12/2020. We'll continue to work on stabilizing patient's symptoms and working on disposition. Patient has been gradually improving and approaching her baseline. We'll likely discharge patient in 2-3 days.
[2020-04-24] MEDS: diphenhydrAMINE 25 MG CAP PO SCH (20:48)
[2020-04-24] MEDS: MELATONIN 5 MG TABLET PO SCH (20:48)
[2020-04-24] MEDS: cloZAPine 100 MG TAB PO SCH (20:48)
[2020-04-24] MEDS: ACETAMINOPHEN TAB 325 MG TAB PO PRN (22:35)
[2020-04-24] MEDS: MAG HYDROX/AL HYDROX/SIMETH 30 ML CUP PO PRN (22:36)
[2020-04-25] MEDS: LISINOPRIL 5 MG TAB PO SCH (08:40)
[2020-04-25] MEDS: METOPROLOL TARTRATE 25 MG TAB PO SCH (08:40)
[2020-04-25] MEDS: NICOTINE 14MG/24HR PATCH TRANSDERM SCH (08:40)
[2020-04-25] MEDS: cloZAPine 25 MG TAB PO SCH (08:41)
[2020-04-25] MEDS: SENNOSIDES 8.6 MG TAB PO SCH (08:43)
--- NOTE | 2020-04-25 10:02 | P.PN ---
Progress Note - Text Progress Note Date: 04/25/20 Interval History: Patient was seen sleeping on her bed with her one-to-one sitter at her side this morning. Patient was awoken by abstract writer and patient appeared to be much more cooperative today. She was also less impulsive and remote coherent in her speech. Patient was rambling less today. She states that she spoke with her over the phone and continues to be preoccupied with discharge. She states that she has not been going to any groups however claims that she will be trying to do so today. Patient continues to be illogical/tangential at times in conversation. Patient apparently had a difficult time sleeping last night however claims that she cannot recall what happened. Patient did not receive any PRN medications last night. She continues to take her medications and denied any side effects from the medication. She states that her last bowel movement was 3 days ago and she is continuing to drink prune juice every day. She followed most commands during the interview. At this time patient denies any suicidal or homical ideations, intent or plan. Patient denies any visual hallucinations or auditory hallucinations Mental Status Exam: General Appearance: Patient appears to be stated age is alert, more directable today, attempting to cooperate. Patient appears to have improving hygiene and grooming. Behavior: Patient is sitting on the chair, no agitation. Attempts to cooperate. Speech: Patient's speech is nonpressured. Improvement in speech clarity. Mood/Affect: Patient reports their mood is "ok", affect is incongruent, less labile today. Suicidality/Homicidality: Patient denies having any homicidal ideation intent or plan. Denies any suicidal ideations intent or plan Perceptions: Patient denies any visual hallucinations and denies any auditory hallucinations Though content/process: Patient was seen rambling, more organized and goal oriented. Perseverates on discharge. Memory and concentration: AOX3, improving attention span. Judgment and insight: mild improvement. Assessment Schizoaffective disorder, bipolar type Nicotine dependence Plan: -Patient continues to meet criteria for inpatient psychiatric admission for symptom stabilization and safety. Patient had refused to sign for medication consent and is placed in patient's chart. Patient had court hearing yesterday and received a court order on 04/12/2020. -Medications: Continue with Clozapine 175 mg nightly + 50 mg daily starting for psychosis. -Prune juice and Senokot daily for constipation. Will ask nursing staff to give patient milk of magnesia today. -CBC on 04/23 - WBC - 4.6, ANC 3.0 -CT brain/head on 04/13/2020 showed a left frontal cephalohematoma with no intracranial acute hemorrhages or changes. Tylenol when necessary for the pain. -When necessary Ativan and Haldol for agitation/aggression. -NRT - nicotine patch -Patient had evaluation by internal medicine for a possible lymph node swelling on the left side of her neck. Medicine recommendations for ultrasound or CT of neck to confirm lymphadenopathy and also the patient should have a ENT consult with biopsy of the lymph node and also to continue with preventative screening, mammogram colonoscopy and Pap smear in an outpatient setting upon discharge. -SW on board for discharge planning. Encouraged the patient to participate in milieu. Patient is currently on a court order which commenced on 04/12/2020. We'll continue to work on stabilizing patient's symptoms and working on disposition. Patient has been gradually improving and approaching her baseline. We'll likely discharge patient in 1-2 days.
[2020-04-25] MEDS ORDERED: BISACODYL 10 MG SUPP RECTAL STA (10:05)
[2020-04-26] MEDS: cloZAPine 100 MG TAB PO SCH (01:35)
[2020-04-26] MEDS: SENNOSIDES 8.6 MG TAB PO SCH ×3 (01:35→20:50)
[2020-04-26] MEDS: ACETAMINOPHEN TAB 325 MG TAB PO PRN (01:36)
[2020-04-26] MEDS: MELATONIN 5 MG TABLET PO SCH ×2 (01:36→20:49)
[2020-04-26] MEDS: METOPROLOL TARTRATE 25 MG TAB PO SCH ×3 (01:36→20:49)
[2020-04-26] MEDS: diphenhydrAMINE 25 MG CAP PO SCH ×2 (01:36→20:49)
[2020-04-26] MEDS: cloZAPine 25 MG TAB PO SCH ×2 (01:36→09:35)
[2020-04-26] MEDS: NICOTINE 14MG/24HR PATCH TRANSDERM SCH (09:35)
[2020-04-26] MEDS: LISINOPRIL 5 MG TAB PO SCH (09:36)
[2020-04-26 09:55] LABS: Basophils # (A) 0.1 k/uL (0-0.2); Basophils % (A) 2 %; Eosinophils # (A) 0.4 k/uL (0-0.7); Eosinophils % (A) 9 %; HCT 37.3 % (34.0-46.0); HGB 11.7 gm/dL (11.4-16.0); Lymphocytes # (A) 1.2 k/uL (1.0-4.8); Lymphocytes % (A) 29 %; MCH 29.7 pg (25.0-35.0); MCHC 31.4 g/dL (31.0-37.0); MCV 94.6 fL (80.0-100.0); Monocytes # (A) 0.3 k/uL (0-1.0); Monocytes % (A) 7 %; Neutrophils # (A) 2.2 k/uL (1.3-7.7); Neutrophils % (A) 52 %; Platelet Count 228 k/uL (150-450); RBC 3.95 m/uL (3.80-5.40); RDW 13.5 % (11.5-15.5); WBC 4.3 k/uL (3.8-10.6)
--- NOTE | 2020-04-26 10:57 | P.PN ---
Progress Note - Text Progress Note Date: 04/26/20 Interval History: Patient was seen sleeping on her bed this morning and appeared to be calmer and more directable during conversation. She appeared to have improvement in her speech clarity and appeared to be less impulsive today. Patient was rambling less today and had more of a goal oriented thought process. She continues to speak about discharge and is agreeable to be discharged tomorrow. He states that she is continuing to improve with regrets her mood and has been going to some groups. She has been spotted on the unit walking. She claims that she slept fairly last night however did have some awakenings. Patient did not receive any PRN medications last night. She continues to take her medications and denied any side effects from the medication. She continues to endorse constipation. She followed most commands during the interview. At this time patient denies any suicidal or homical ideations, intent or plan. Patient denies any visual hallucinations or auditory hallucinations Mental Status Exam: General Appearance: Patient appears to be stated age is alert, more directable today, attempting to cooperate. Patient appears to have improving hygiene and grooming. Behavior: Patient is sitting on the chair, no agitation. Attempts to cooperate. Speech: Patient's speech is nonpressured. Improvement in speech clarity. Mood/Affect: Patient reports their mood is "good", affect is incongruent, less labile today. Suicidality/Homicidality: Patient denies having any homicidal ideation intent or plan. Denies any suicidal ideations intent or plan Perceptions: Patient denies any visual hallucinations and denies any auditory hallucinations Though content/process: Patient was seen more organized and goal oriented. Perseverates on discharge. Memory and concentration: AOX3, improving attention span. Judgment and insight: mild improvement. Assessment Schizoaffective disorder, bipolar type Nicotine dependence Plan: -Patient continues to meet criteria for inpatient psychiatric admission for symptom stabilization and safety. Patient had refused to sign for medication consent and is placed in patient's chart. Patient had court hearing yesterday and received a court order on 04/12/2020. -Medications: Increased Clozapine 200 mg nightly + 50 mg daily starting for psychosis. -Prune juice and Senokot daily for constipation. Will ask nursing staff to give enema today to help with constipation. -CBC on 04/23 - WBC - 4.6, ANC 3.0 -CT brain/head on 04/13/2020 showed a left frontal cephalohematoma with no intracranial acute hemorrhages or changes. Tylenol when necessary for the pain. -When necessary Ativan and Haldol for agitation/aggression. -NRT - nicotine patch -Patient had evaluation by internal medicine for a possible lymph node swelling on the left side of her neck. Medicine recommendations for ultrasound or CT of neck to confirm lymphadenopathy and also the patient should have a ENT consult with biopsy of the lymph node and also to continue with preventative screening, mammogram colonoscopy and Pap smear in an outpatient setting upon discharge. -BAUTISTA on board for discharge planning. Encouraged the patient to participate in milieu. Patient is currently on a court order which commenced on 04/12/2020. We'll continue to work on stabilizing patient's symptoms and working on disposition. We'll likely discharge patient tomorrow.
[2020-04-26] MEDS: MAG HYDROX/AL HYDROX/SIMETH 30 ML CUP PO PRN (13:30)
[2020-04-26] MEDS: POLYETHYLENE GLYCOL 3350 17 GM POWD.PACK PO PRN (15:39)
[2020-04-26] MEDS ORDERED: cloZAPine 100 MG TAB PO SCH (21:00)
[2020-04-27 06:43] VITALS: RESP 18; TEMP 98.8
[2020-04-27] MEDS: NICOTINE 14MG/24HR PATCH TRANSDERM SCH (08:21)
[2020-04-27] MEDS: LISINOPRIL 5 MG TAB PO SCH (08:22)
[2020-04-27] MEDS: METOPROLOL TARTRATE 25 MG TAB PO SCH (08:22)
[2020-04-27] MEDS: SENNOSIDES 8.6 MG TAB PO SCH (08:22)
[2020-04-27] MEDS: cloZAPine 25 MG TAB PO SCH (09:07)
[2020-04-27 09:19] VITALS: BP 112/56; PULSE 87
--- NOTE | 2020-04-27 11:16 | P.DS ---
Providers Date of admission: 04/02/20 22:20 Expected date of discharge: 04/27/20 Attending physician: Arsenio Aranda MD Consults: 04/02/20 22:44 Consult Physician Routine Consulting Provider: Kennedy Garcia Consult Reason/Comments: h&p FOR MENTAL HEALTH ADMISSION. Do you want consulting provider notified?: Yes Primary care physician: Venkata Acevedo - Discharge Diagnosis(es) (1) Schizoaffective disorder, bipolar type Current Visit: Yes Status: Acute Priority: High (2) Nicotine dependence Current Visit: Yes Status: Acute Priority: Low Hospital Course: Admission HPI: The patient was a 69-year-old female who has history of severe and persistent mental illness who currently lives with her in a house in [facility]. The patient was dropped off at the emergency room yesterday and patient was noted to be agitated combative and uncooperative and frequently yelling with staff members. As per ER note stated that patient mentioned "they changed my meds and I want them changed back". Patient was evaluated and admitted to the adult unit as patient is currently on a deferral for treatment. Patient was noted to be agitated this morning and threw water at a staff member and received a PRN injection. Patient was recently discharged 1 month ago from the mental health unit on Clozaril and Klonopin however patient was noted to be noncompliant and not going for blood draws. Statement Processor spoke with Dr. Shaikh at [facility] over the phone who stated that he has known patient for a long period of time and that patient has severe mental illness and has been on many different antipsychotics in the past and has failed them. Dr. Shaikh claims that patient may need to be on 2 antipsychotics at this point and should not go back on clozapine due to noncompliance and possible sedation/side effects. Patient was seen wandering the hallways and was directable and agreeable to speak in her room. Patient was disorganized and rambled was tangential/illogical during conversation. Patient also had poor eye contact and a monotone voice. She appeared to have poor hygiene and grooming. She spoke about her father being killed and her mother being "inhabitant". She endorsed racing thoughts however states that she has been sleeping "good". She denies any changes in her mood or depression. Patient demonstrated poor impulsivity and frustration tolerance. At this time patient denies any auditory or visual hallucinations and denies any suicidal or homicidal ideations intent or plan. Patient denied any substance use. Hospital course: Upon admission to the unit patient was initially floridly psychotic, agitated and bizarre. Patient . Patient had initially refused treatment and medications and certifications and petition were filed to court and patient received a court order for treatment on 04/12/2020. Patient gradually started taking her medications. Patient was known to be loud, yelling intermittently, agitated mainly at night and was also known to be spitting kicking and swinging at staff members and required a one-to-one for safety. Patient required several emergency PRN medications for agitation and also required restraints/seclusion. As patient progressed through treatment and she gradually got along well with other patients on the unit and followed unit protocol. Patient was compliant with the medications and denied any side effects throughout hospital course except for mild constipation which was treated with medications. Patient was started on initially Zyprexa which she failed, Depakote and Haldol which also had failed to control her severe symptoms. Patient's outpatient psychiatrist and claimed that patient had done well on clozapine however was having difficulties going to get her blood drawn. The decision was made to restart patient back on clozapine and her dose was titrated back up to 200 mg daily at bedtime + 50 mg daily for psychosis. Patient was also started on Benadryl 25 mg daily at bedtime for insomnia along with 5 mg of melatonin at night for sleep. Patient gradually started to engage more in group therapy toward the end of her hospitalization. Patient was also seen by medical team for history and physical exam. Patient did sustain a fall off of her bed and injured her for head on the ground and was treated with ice packs and Tylenol when necessary. Patient also had a computed tomography scan done on 04/13/2020 which showed a left frontal cephalohematoma with no intracranial acute hemorrhages or changes. Patient's CBC was monitored regularly and her last CBC was drawn on 04/26/2020 which showed to be BCs of 4.3 and absolute neutrophil count of 2.2. Throughout the course of the hospitalization patient gradually improved with regards to mood, agitation, psychosis, sleep and became future oriented with improved insight and judgment and approached back to her baseline of functioning. On the day of discharge patient denied any suicidal or homicidal ideations intent or plan denied any auditory or visual hallucinations. Patient endorsed wanting to live for her and her health. Patient denied any paranoia and did not endorse any delusions. Patient does not have a significant history of substance abuse however was counseled on abstaining from all substances including alcohol and marijuana. Patient was also counseled on the medications and need for regular compliance and was encouraged to follow-up with their outpatient appointment for mental health and also for primary care. Prior to discharge a family meeting will be arranged by health and social care teacher to answer any questions and ensure safety upon discharge. Mental status exam: General Appearance: Patient appears to be elderly, stated age is alert, directable and attempts to be cooperative. Patient is in no acute distress and has fair hygiene and grooming Behavior: Patient is calmly seated without any agitated behavior. Attempts to be cooperative. Speech: Patient's speech is fluent and nonpressured. Mood/Affect: Patient reports their mood is "good", affect is congruent and constricted. Suicidality/Homicidality: Patient denies having any suicidal or homicidal ideation intent or plan. Perceptions: Patient denies any auditory or visual hallucinations. Though content/process: Rambles at times, was goal oriented and logical. more future oriented Memory and concentration: AOX3, grossly intact for the purposes of this session. Can spell "WORLD" backwards correctly. Judgment and insight: Improved with guarded prognosis Impression: Schizoaffective disorder, bipolar type Nicotine dependence Plan: -Continue with discharge today as patient has improved and stabilized psychiatrically and is not currently an imminent threat to herself and/or others. -Continue medications: Clozapine 200 mg daily at bedtime +50 mg daily for psychosis/mood stabilization. Continue with Benadryl 25 mg daily at bedtime for insomnia and 5 mg of melatonin nightly for sleep. -Patient was counseled on the need for medication compliance and appropriate follow-up at mental health and also primary care for medical issues. Patient verbalized understanding and agreed. -Social work to arrange for and conduct family meeting to ensure safety upon discharge and answer any questions/concerns. Social work also to arrange for patients follow up appointments with [facility] for psychiatric care with Dr. Shaikh along with follow up with primary care provider. Patient is to receive weekly CBCs labs for monitoring of patient's white count. -Patient was also seen by internal medicine for a suspected lymph node swelling on the left side of her neck and the medicine recommendations were for ultrasound or CT of her neck to confirm lymphadenopathy and also patient should have an ENT consultation with possible biopsy of the lymph node. Also recommendation for preventative screening, mammogram colonoscopy and Pap smear as an outpatient. -Patient counseled on abstaining from recreational drugs and marijuana and alcohol. Was informed/educated on the adverse effects on their physical and mental health. Patient verbally agreed and understood. -Patient was instructed to return to the hospital or seek immediate medical care if their psychiatric or medical symptoms do worsen or reoccur. Allergies Allergy/AdvReac Type Severity Reaction Status Date / Time quetiapine fumarate Allergy Unknown Verified 04/02/20 14:48 [From Seroquel] Sulfa (Sulfonamide Allergy Unknown Verified 04/02/20 14:48 Antibiotics) Laboratory Results WBC 4.3 k/uL (3.8-10.6) 04/26/20 09:18 RBC 3.95 m/uL (3.80-5.40) 04/26/20 09:18 Hgb 11.7 gm/dL (11.4-16.0) 04/26/20 09:18 Hct 37.3 % (34.0-46.0) 04/26/20 09:18 MCV 94.6 fL (80.0-100.0) 04/26/20 09:18 MCH 29.7 pg (25.0-35.0) 04/26/20 09:18 MCHC 31.4 g/dL (31.0-37.0) 04/26/20 09:18 RDW 13.5 % (11.5-15.5) 04/26/20 09:18 Plt Count 228 k/uL (150-450) 04/26/20 09:18 Neutrophils % 52 % 04/26/20 09:18 Lymphocytes % 29 % 04/26/20 09:18 Monocytes % 7 % 04/26/20 09:18 Eosinophils % 9 % 04/26/20 09:18 Basophils % 2 % 04/26/20 09:18 Neutrophils # 2.2 k/uL (1.3-7.7) 04/26/20 09:18 Lymphocytes # 1.2 k/uL (1.0-4.8) 04/26/20 09:18 Monocytes # 0.3 k/uL (0-1.0) 04/26/20 09:18 Eosinophils # 0.4 k/uL (0-0.7) 04/26/20 09:18 Basophils # 0.1 k/uL (0-0.2) 04/26/20 09:18 Hypochromasia Slight 04/23/20 10:38 Sodium 140 mmol/L (137-145) 04/23/20 10:38 Potassium 4.4 mmol/L (3.5-5.1) 04/23/20 10:38 Chloride 107 mmol/L (98-107) 04/23/20 10:38 Carbon Dioxide 27 mmol/L (22-30) 04/23/20 10:38 Anion Gap 6 mmol/L 04/23/20 10:38 BUN 17 mg/dL (7-17) 04/23/20 10:38 Creatinine 0.65 mg/dL (0.52-1.04) 04/23/20 10:38 Est GFR (CKD-EPI)AfAm >90 (>60 ml/min/1.73 sqM) 04/23/20 10:38 Est GFR (CKD-EPI)NonAf >90 (>60 ml/min/1.73 sqM) 04/23/20 10:38 Glucose 110 mg/dL (74-99) H 04/23/20 10:38 POC Glucose (mg/dL) 110 mg/dL (75-99) H 04/11/20 17:29 POC Glu Vacuum Cooker Operator Ivy Bo 04/11/20 17:[address] Glu mg/dL 117 04/03/20 06:35 Hemoglobin A1c 5.7 % (4.0-6.0) 04/03/20 06:35 Calcium 8.9 mg/dL (8.4-10.2) 04/23/20 10:38 Total Bilirubin 0.1 mg/dL (0.2-1.3) L 04/23/20 10:38 AST 24 U/L (14-36) 04/23/20 10:38 ALT 18 U/L (4-34) 04/23/20 10:38 Alkaline Phosphatase 67 U/L (38-126) 04/23/20 10:38 Total Protein 6.2 g/dL (6.3-8.2) L 04/23/20 10:38 Albumin 3.6 g/dL (3.5-5.0) 04/23/20 10:38 Triglycerides 104 mg/dL (<150) 04/03/20 06:37 Cholesterol 169 mg/dL (<200) 04/03/20 06:37 LDL Cholesterol, Calc 93 mg/dL (0-99) 04/03/20 06:37 HDL Cholesterol 55 mg/dL (40-60) 04/03/20 06:37 TSH 1.590 mIU/L (0.465-4.680) 04/03/20 06:37 Urine Color Yellow 04/14/20 14:00 Urine Appearance Clear (Clear) 04/14/20 14:00 Urine pH 6.0 (5.0-8.0) 04/14/20 14:00 Ur Specific [place] 1.030 (1.001-1.035) 04/14/20 14:00 Urine Protein Trace (Negative) H 04/14/20 14:00 Urine Glucose (UA) Negative (Negative) 04/14/20 14:00 Urine Ketones 1+ (Negative) H 04/14/20 14:00 Urine Blood Negative (Negative) 04/14/20 14:00 Urine Nitrite Negative (Negative) 04/14/20 14:00 Urine Bilirubin Negative (Negative) 04/14/20 14:00 Urine Urobilinogen 2.0 mg/dL (<2.0) 04/14/20 14:00 Ur Leukocyte Esterase Moderate (Negative) H 04/14/20 14:00 Urine RBC 2 /hpf (0-5) 04/14/20 14:00 Urine WBC 5 /hpf (0-5) 04/14/20 14:00 Ur Squamous Epith Cells 11 /hpf (0-4) H 04/14/20 14:00 Urine Bacteria Rare /hpf (None) H 04/14/20 14:00 Urine Mucus Moderate /hpf (None) H 04/14/20 14:00 Urine Opiates Screen Negative ng/mL (Negative) 04/14/20 14:00 Urine Methadone Screen Negative ng/mL (Negative) 04/14/20 14:00 Ur Propoxyphene Screen Negative ng/mL (Negative) 04/14/20 14:00 Urine Barbiturates Negative ng/mL (Negative) 04/14/20 14:00 Valproic Acid 110.7 ug/mL 04/10/20 08:12 Ur Phencyclidine Scrn Negative ng/mL (Negative) 04/14/20 14:00 Ur Amphetamine Screen Negative ng/mL (Negative) 04/14/20 14:00 U Benzodiazepines Scrn Negative ng/mL (Negative) 04/14/20 14:00 Urine Cocaine Screen Negative ng/mL (Negative) 04/14/20 14:00 U Cannabinoids Screen Negative ng/mL (Negative) 04/14/20 14:00 Urine Alcohol Negative mg/dL (Negative) 04/14/20 14:00 Serum Alcohol <10 mg/dL 04/02/20 15:02 Coronavirus (PCR) Not Detected (Not Detectd) 04/02/20 18:55 Vital Signs Temp 98.8 F 04/27/20 06:42 Pulse 87 04/27/20 08:21 Resp 18 04/27/20 06:42 BP 112/56 04/27/20 08:21 Pulse Ox 99 04/27/20 06:42 Patient Condition at Discharge: Stable Plan - Discharge Summary New Discharge Prescriptions: New diphenhydrAMINE [Benadryl] 25 mg PO HS 30 Days cap cloZAPine [Clozaril] 50 mg PO DAILY 30 Days tab cloZAPine [Clozaril] 200 mg PO HS 30 Days tab Nicotine 14Mg/24Hr Patch [Habitrol] 1 patch TRANSDERM DAILY 14 Days patch Metoprolol Tartrate [Lopressor] 25 mg PO BID 30 Days tab Melatonin 5 mg PO HS 30 Days tablet Polyethylene Glycol 3350 [Miralax] 17 gm PO DAILY PRN 30 Days powd.pack PRN Reason: Constipation Sennosides [Senokot] 8.6 mg PO BID 30 Days tab Acetaminophen Tab [Tylenol] 650 mg PO Q4HR PRN tab PRN Reason: Pain/Discomfort Lisinopril [Zestril] 5 mg PO DAILY 30 Days tab Continue Albuterol Inhaler (Mhu) [Ventolin Hfa Inhaler (Mhu)] 2 puff INHALATION RT-QID PRN puff PRN Reason: Shortness Of Breath Or Wheezing [place]-3 Acid Ethyl Esters [Lovaza] 1 gm PO BID 30 Days #60 cap Discontinued cloZAPine [Clozaril] 50 mg PO DAILY 30 Days #30 tab cloZAPine [Clozaril] 200 mg PO HS #30 tab Benztropine Mesylate [Cogentin] 0.5 mg PO BID PRN 30 Days #60 tab PRN Reason: Extrapyramidal Effects Fluticasone Nasal [place] [Flonase Nasal [place]] 2 spray EA NOSTRIL DAILY spr Nicotine 21Mg/24Hr Patch [Habitrol] 1 patch TRANSDERM DAILY 14 Days #14 patch clonazePAM [KlonoPIN] 0.5 mg PO BID 30 Days #60 tab Metoprolol Tartrate [Lopressor] 25 mg PO BID tab Magnesium Hydroxide [Milk of Magnesia Concentrate] 2,400 mg PO DAILY PRN ml PRN Reason: Constipation Acetaminophen Tab [Tylenol] 650 mg PO Q4HR PRN tab PRN Reason: Mild Pain Lisinopril [Zestril] 20 mg PO DAILY tab Thioridazine HCl [Mellaril] 100 mg PO QID 30 Days #120 tab Naproxen 500 mg PO BID PRN PRN Reason: Moderate Pain Discharge Medication List Albuterol Inhaler (u) [Ventolin Hfa Inhaler (u)] 2 puff INHALATION RT-QID PRN puff 02/25/20 [Rx] [place]-3 Acid Ethyl Esters [Lovaza] 1 gm PO BID 30 Days #60 cap 02/25/20 [Rx] Acetaminophen Tab [Tylenol] 650 mg PO Q4HR PRN tab 04/27/20 [Rx] Lisinopril [Zestril] 5 mg PO DAILY 30 Days tab 04/27/20 [Rx] Melatonin 5 mg PO HS 30 Days tablet 04/27/20 [Rx] Metoprolol Tartrate [Lopressor] 25 mg PO BID 30 Days tab 04/27/20 [Rx] Nicotine 14Mg/24Hr Patch [Habitrol] 1 patch TRANSDERM DAILY 14 Days patch 04/27/20 [Rx] Polyethylene Glycol 3350 [Miralax] 17 gm PO DAILY PRN 30 Days powd.pack 04/27/20 [Rx] Sennosides [Senokot] 8.6 mg PO BID 30 Days tab 04/27/20 [Rx] cloZAPine [Clozaril] 50 mg PO DAILY 30 Days tab 04/27/20 [Rx] cloZAPine [Clozaril] 200 mg PO HS 30 Days tab 04/27/20 [Rx] diphenhydrAMINE [Benadryl] 25 mg PO HS 30 Days cap 04/27/20 [Rx] Follow up Appointment(s)/Referral(s): [facility] [Outside] - 05/02/20 2:00 pm (ACT will home visit within [address] Shaikh 05/02/2020 at 2pm) [facility] - 1 Week Patient Instructions/Handouts: Bipolar Disorder (DC), Narcissistic Personality Disorder (DC) Activity/Diet/Wound Care/Special Instructions: Activity and diet as tolerated. Avoid the use of street drugs and alcohol. Take all medications as prescribed. When you are in need of refills on your medications please contact your medical provider and/or outpatient psychiatrist to have this done. Please go to scheduled outpatient appointment for aftercare treatment. If symptoms return or become worse, call the crisis line at and/or go to the nearest emergency room for evaluation. Patient to follow up outpatient with ENT for lymphadenopathy to left side of neck. Outpatient recommendation of Ultrsound or CT though ENT, possible biopsy. Discharge Disposition: HOME SELF-CARE
== END 2020-04-27 12:55 | disposition home or self-care (01) | DRG 885 ==
LOC: EC 14:45 → 3MHU 22:20
PROVIDERS: ADMIT Psychiatry & Neurology Psychiatry; ATTEND Psychiatry & Neurology Psychiatry
DX: F25.0 Schizoaffective disorder, bipolar type (principal); F17.200 Nicotine dependence, unspecified, uncomplicated; G47.00 Insomnia, unspecified; F60.9 Personality disorder, unspecified; K21.9 Gastro-esophageal reflux disease without esophagitis; I10 Essential (primary) hypertension; J45.909 Unspecified asthma, uncomplicated; K59.00 Constipation, unspecified; K11.7 Disturbances of salivary secretion; S00.03XA Contusion of scalp, initial encounter; W06.XXXA Fall from bed, initial encounter; Y93.9 Activity, unspecified; Y92.230 Patient room in hospital as the place of occurrence of the external cause; R59.1 Generalized enlarged lymph nodes; Z11.59 Encounter for screening for other viral diseases; Z79.899 Other long term (current) drug therapy; Z88.2 Allergy status to sulfonamides; Z88.8 Allergy status to other drugs, medicaments and biological substances; Z98.891 History of uterine scar from previous surgery; Z98.890 Other specified postprocedural states; Z82.49 Family history of ischemic heart disease and other diseases of the circulatory system; Z82.3 Family history of stroke; Z91.19 Patient's noncompliance with other medical treatment and regimen
CPT/HCPCS: 36415; 70450; 80053; 80061; 80164; 80306; 80320; 81001; 83036; 84443; 85025; 87635; 93005; 96374; 96376; 99285

== ENCOUNTER 2021-03-28 17:26 | Emergency (ER) | payer MEDICARE, OTHER ==
[2021-03-28 17:32] VITALS: TEMP 97.4
--- NOTE | 2021-03-28 17:50 | ED ---
General Adult HPI - General Source: patient, police, RN notes reviewed, old records reviewed Mode of arrival: ambulatory Limitations: no limitations <Venkata Hester - Last Filed: 03/28/21 20:37> <Michael Ludwig - Last Filed: 03/29/21 07:01> - General Chief complaint: Psychiatric Symptoms Stated complaint: Mental Health Time Seen by Provider: 03/28/21 17:34 - History of Present Illness Initial comments: 70-year-old female presenting for psychiatric evaluation. Patient has been brought in by police under medication noncompliance and needing psychiatric evaluation. Apparently she had been seen by her primary care physician yesterday and was agitated, and was unwilling to take her prescribed medication. She states that she has adverse reaction to these medications including whole- body pain. She does have a history of schizophrenia. She has no physical complaints the time my evaluation. No suicidal or homicidal thoughts. (Venkata Hester) - Related Data Home Medications Medication Instructions Recorded Confirmed Haloperidol Decanoate [Haldol D] 150 mg IM QMONTHLY 03/28/21 03/28/21 [place] Carbonate [[place] 300 mg PO BID 03/28/21 03/28/21 Carbonate ER] Lumateperone Tosylate [Caplyta] 42 mg PO DAILY 03/28/21 03/28/21 diazePAM [Valium] 5 mg PO BID 03/28/21 03/28/21 haloperidoL [Haldol] 2.5 mg PO BID 03/28/21 03/28/21 Allergies Allergy/AdvReac Type Severity Reaction Status Date / Time quetiapine fumarate Allergy Unknown Verified 03/28/21 19:30 [From Seroquel] Sulfa (Sulfonamide Allergy Unknown Verified 03/28/21 19:30 Antibiotics) Review of Systems ROS Other: All systems not noted in ROS Statement are negative. <Venkata Hester - Last Filed: 03/28/21 20:37> ROS Other: All systems not noted in ROS Statement are negative. <Michael Ludwig - Last Filed: 03/29/21 07:01> ROS Statement: Those systems with pertinent positive or pertinent negative responses have been documented in the HPI. 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 Past Anesthesia/Blood Transfusion Reactions: No Reported Reaction Past Psychological History: Bipolar, Schizophrenia Smoking Status: Current every day smoker Past Alcohol Use History: None Reported Past Drug Use History: None Reported - Past Family History Brother(s) Additional Family Medical History / Comment(s): Patient states she has 5 brothers with no major medical problems. Sister(s) Additional Family Medical History / Comment(s): Patient states she has 7 sisters with no major medical problems. Brother(s) Son(s) Additional Family Medical History / Comment(s): Patient has 2 sons and 1 daught er with no major medical problems. Mother Family Medical History: Cancer, Hypertension Additional Family Medical History / Comment(s): Mother at age 89 from stomach problems Father Family Medical History: CVA/TIA, Hypertension Additional Family Medical History / Comment(s): Father at age 59 from peripheral vascular disease. <Venkata Hester N - Last Filed: 03/28/21 20:37> General Exam Limitations: no limitations General appearance: alert, in no apparent distress Head exam: Present: atraumatic, normocephalic Eye exam: Present: normal appearance, PERRL ENT exam: Present: normal exam Neck exam: Present: normal inspection. Absent: tenderness, meningismus Respiratory exam: Present: normal lung sounds bilaterally. Absent: respiratory distress, wheezes Cardiovascular Exam: Present: regular rate, normal rhythm GI/Abdominal exam: Present: soft. Absent: distended, tenderness, guarding Extremities exam: Present: normal inspection, normal capillary refill Neurological exam: Present: alert, normal gait Psychiatric exam: Present: agitated, manic, other (Hyperverbal) Skin exam: Present: warm, dry, intact. Absent: cyanosis, diaphoretic <Venkata Hester N - Last Filed: 03/28/21 20:37> Course <Venkata Hester - Last Filed: 03/28/21 20:37> Vital Signs 03/28/21 03/28/21 03/28/21 17:27 21:00 22:00 Temperature 97.4 F L Pulse Rate 82 Respiratory 17 17 17 Rate Blood Pressure 169/73 O2 Sat by Pulse 98 Oximetry 03/28/21 03/29/21 23:00 03:06 Temperature Pulse Rate 67 Respiratory 18 16 Rate Blood Pressure 111/59 O2 Sat by Pulse 97 Oximetry - Reevaluation(s) Reevaluation #1: 03/28/21 2100 Patient care signed out to Dr. Ludwig at shift change awaiting EPS evaluation. (Venkata Hester) Medical Decision Making - Lab Data Result diagrams: 03/29/21 03:05 03/29/21 03:05 <Michael Ludwig - Last Filed: 03/29/21 07:01> - Medical Decision Making 62 female DF for evaluation. I did do certain see patient, patient will be transferred for geriatric psychiatric evaluation and patient and patient's placement (Michael Ludwig) - Lab Data Lab Results 03/28/21 03/29/21 03/29/21 Range/Units 17:30 03:05 03:05 WBC 5.5 (3.8-10.6) k/uL RBC 3.77 L (3.80-5.40) m/uL Hgb 11.5 (11.4-16.0) gm/dL Hct 34.9 (34.0-46.0) % MCV 92.5 (80.0-100.0) fL MCH 30.6 (25.0-35.0) pg MCHC 33.1 (31.0-37.0) g/dL RDW 13.2 (11.5-15.5) % Plt Count 225 (150-450) k/uL MPV 7.0 Sodium 135 L (137-145) mmol/L Potassium 4.4 (3.5-5.1) mmol/L Chloride 105 (98-107) mmol/L Carbon Dioxide 25 (22-30) mmol/L Anion Gap 5 mmol/L BUN 18 H (7-17) mg/dL Creatinine 0.60 (0.52-1.04) mg/dL Est GFR (CKD-EPI)AfAm >90 (>60 ml/min/1.73 sqM) Est GFR (CKD-EPI)NonAf >90 (>60 ml/min/1.73 sqM) Glucose 108 H (74-99) mg/dL Calcium 8.7 (8.4-10.2) mg/dL Total Bilirubin 0.2 (0.2-1.3) mg/dL AST 20 (14-36) U/L ALT 13 (4-34) U/L Alkaline Phosphatase 65 (38-126) U/L Total Protein 5.8 L (6.3-8.2) g/dL Albumin 3.3 L (3.5-5.0) g/dL Urine Color Urine Appearance (Clear) Urine pH (5.0-8.0) Ur Specific [place] (1.001-1.035) Urine Protein (Negative) Urine Glucose (UA) (Negative) Urine Ketones (Negative) Urine Blood (Negative) Urine Nitrite (Negative) Urine Bilirubin (Negative) Urine Urobilinogen (<2.0) mg/dL Ur Leukocyte Esterase (Negative) Urine RBC (0-5) /hpf Urine WBC (0-5) /hpf Ur Squamous Epith Cells (0-4) /hpf Amorphous Sediment (None) /hpf Urine Bacteria (None) /hpf Urine Opiates Screen Not Detected (NotDetected) Ur Oxycodone Screen Not Detected (NotDetected) Urine Methadone Screen Not Detected (NotDetected) Ur Propoxyphene Screen Not Detected (NotDetected) Ur Barbiturates Screen Not Detected (NotDetected) U Tricyclic Antidepress Not Detected (NotDetected) Ur Phencyclidine Scrn Not Detected (NotDetected) Ur Amphetamines Screen Not Detected (NotDetected) U Methamphetamines Scrn Not Detected (NotDetected) U Benzodiazepines Scrn Detected H (NotDetected) Urine Cocaine Screen Not Detected (NotDetected) U Marijuana (THC) Screen Not Detected (NotDetected) Influenza Type A (PCR) (Not Detectd) Influenza Type B (PCR) (Not Detectd) RSV (PCR) (Not Detectd) SARS-CoV-2 (PCR) (Not Detectd) 03/29/21 03/29/21 Range/Units 03:05 03:05 WBC (3.8-10.6) k/uL RBC (3.80-5.40) m/uL Hgb (11.4-16.0) gm/dL Hct (34.0-46.0) % MCV (80.0-100.0) fL MCH (25.0-35.0) pg MCHC (31.0-37.0) g/dL RDW (11.5-15.5) % Plt Count (150-450) k/uL MPV Sodium (137-145) mmol/L Potassium (3.5-5.1) mmol/L Chloride (98-107) mmol/L Carbon Dioxide (22-30) mmol/L Anion Gap mmol/L BUN (7-17) mg/dL Creatinine (0.52-1.04) mg/dL Est GFR (CKD-EPI)AfAm (>60 ml/min/1.73 sqM) Est GFR (CKD-EPI)NonAf (>60 ml/min/1.73 sqM) Glucose (74-99) mg/dL Calcium (8.4-10.2) mg/dL Total Bilirubin (0.2-1.3) mg/dL AST (14-36) U/L ALT (4-34) U/L Alkaline Phosphatase (38-126) U/L Total Protein (6.3-8.2) g/dL Albumin (3.5-5.0) g/dL Urine Color Light Yellow Urine Appearance Cloudy H (Clear) Urine pH 6.5 (5.0-8.0) Ur Specific [place] 1.014 (1.001-1.035) Urine Protein Negative (Negative) Urine Glucose (UA) Trace H (Negative) Urine Ketones Negative (Negative) Urine Blood Negative (Negative) Urine Nitrite Negative (Negative) Urine Bilirubin Negative (Negative) Urine Urobilinogen <2.0 (<2.0) mg/dL Ur Leukocyte Esterase Negative (Negative) Urine RBC <1 (0-5) /hpf Urine WBC 2 (0-5) /hpf Ur Squamous Epith Cells 1 (0-4) /hpf Amorphous Sediment Rare H (None) /hpf Urine Bacteria Rare H (None) /hpf Urine Opiates Screen (NotDetected) Ur Oxycodone Screen (NotDetected) Urine Methadone Screen (NotDetected) Ur Propoxyphene Screen (NotDetected) Ur Barbiturates Screen (NotDetected) U Tricyclic Antidepress (NotDetected) Ur Phencyclidine Scrn (NotDetected) Ur Amphetamines Screen (NotDetected) U Methamphetamines Scrn (NotDetected) U Benzodiazepines Scrn (NotDetected) Urine Cocaine Screen (NotDetected) U Marijuana (THC) Screen (NotDetected) Influenza Type A (PCR) Not Detected (Not Detectd) Influenza Type B (PCR) Not Detected (Not Detectd) RSV (PCR) Not Detected (Not Detectd) SARS-CoV-2 (PCR) Not Detected (Not Detectd) Disposition <Venkata Hester N - Last Filed: 03/28/21 20:37> Is patient prescribed a controlled substance at d/c from ED?: No <Michael Ludwig - Last Filed: 03/29/21 07:01> Clinical Impression: Acute psychosis, Schizoaffective disorder, bipolar type, Bipolar disorder Disposition: TRANSFER TO PSYCH HOSP/UNIT Condition: Fair Referrals: Germán Armenta [facility] [REFERRING] - 1-2 days
[2021-03-28 18:08] LABS: Amphetamine Screen,Urine Not Detected (NotDetected); Barbiturate Screen,Urine Not Detected (NotDetected); Benzodiazepines Screen,Urine Detected (NotDetected); Cocaine Screen,Urine Not Detected (NotDetected); Methadone Screen, Urine Not Detected (NotDetected); Opiate Screen,Urine Not Detected (NotDetected); Oxycodone Screen, Urine Not Detected (NotDetected); Phencyclidine Screen,Urine Not Detected (NotDetected); Tricyclic Antidepressant,Urine Not Detected (NotDetected); Urn Cannabinoid Scrn Not Detected (NotDetected)
[2021-03-28] MEDS ORDERED: HALOPERIDOL DECANOATE 100 MG/ML 1 ML VIAL IM SCH (23:30)
[2021-03-29 03:06] VITALS: RESP 16
[2021-03-29 03:19] LABS: HCT 34.9 % (34.0-46.0); HGB 11.5 gm/dL (11.4-16.0); MCH 30.6 pg (25.0-35.0); MCHC 33.1 g/dL (31.0-37.0); MCV 92.5 fL (80.0-100.0); Platelet Count 225 k/uL (150-450); RBC 3.77 m/uL (3.80-5.40); RDW 13.2 % (11.5-15.5); WBC 5.5 k/uL (3.8-10.6)
[2021-03-29 03:23] LABS: Amorphous Sediment,Urine Rare /hpf; Appearance,Urine Cloudy (Clear); Bacteria,Urine Rare /hpf; Bilirubin,Urine Negative (Negative); Blood,Urine Negative (Negative); Color,Urine Light Yellow; Glucose,Urine (UA) Trace (Negative); Ketones,Urine Negative (Negative); Leukocyte Esterase,Urine Negative (Negative); Nitrite,Urine Negative (Negative); PH, Urine 6.5 (5.0-8.0); Protein,Urine Negative (Negative); RBC,Urine <1 /hpf (0-5); Specific Gravity,Urine 1.014 (1.001-1.035); Squamous Epithelial Cell,Urine 1 /hpf (0-4); Urobilinogen,Urine <2.0 mg/dL (<2.0); WBC,Urine 2 /hpf (0-5)
[2021-03-29 03:37] LABS: ALT 13 U/L (4-34); AST 20 U/L (14-36); African American GFR (CKD) >90 (>60 ml/min/1.73 sqM); Albumin 3.3 g/dL (3.5-5.0); Alkaline Phosphatase 65 U/L (38-126); Anion Gap 5 mmol/L; Blood Urea Nitrogen 18 mg/dL (7-17); Calcium 8.7 mg/dL (8.4-10.2); Carbon Dioxide 25 mmol/L (22-30); Chloride 105 mmol/L (98-107); Glucose 108 mg/dL (74-99); Non-African American GFR(CKD) >90 (>60 ml/min/1.73 sqM); Potassium 4.4 mmol/L (3.5-5.1); Sodium 135 mmol/L (137-145); Total Bilirubin 0.2 mg/dL (0.2-1.3); Total Protein 5.8 g/dL (6.3-8.2)
[2021-03-29] MEDS ORDERED: haloperidoL 5 MG TAB PO SCH (09:00)
[2021-03-29] MEDS ORDERED: LITHIUM CARBONATE 300 MG CAP PO SCH (09:00)
[2021-03-29] MEDS ORDERED: diazePAM 5 MG TAB PO SCH (09:00)
[2021-03-29 10:01] VITALS: BP 122/71; PULSE 78
== END 2021-03-29 09:59 ==
LOC: EEVIPCON 17:26 → EC 17:26
DX: F25.9 Schizoaffective disorder, unspecified (principal); F23 Brief psychotic disorder; F31.9 Bipolar disorder, unspecified; J45.909 Unspecified asthma, uncomplicated; I10 Essential (primary) hypertension; F17.200 Nicotine dependence, unspecified, uncomplicated
CPT/HCPCS: 36415; 80053; 80306; 81001; 82075; 85027; 87636; 99285

== ENCOUNTER 2021-11-03 10:08 | Inpatient (IN) | payer MEDICARE, MEDICAID ==
[2021-11-03] MEDS ORDERED: MAG HYDROX/AL HYDROX/SIMETH 30 ML CUP PO PRN (11:42)
[2021-11-03] MEDS ORDERED: LORazepam 2 MG/ML INJ IM PRN (11:56)
[2021-11-03] MEDS ORDERED: HALOPERIDOL LACTATE 5 MG/ML 1 ML VIAL IM PRN (11:58)
[2021-11-03] MEDS ORDERED: traZODone HCL 50 MG TAB PO PRN (16:01)
[2021-11-03] MEDS ORDERED: clonazePAM 0.5 MG TAB PO PRN (16:04)
--- NOTE | 2021-11-03 17:51 | HP ---
HISTORY AND PHYSICAL IDENTIFYING DATA: The patient is a 71-year-old female. She lives with her . She presented to her local ED for evaluation. CHIEF COMPLAINT: The patient was agitated. She was not sleeping. She had delusional thinking. HISTORY OF PRESENTING ILLNESS: The patient was not able to provide reliable information about her current issues. I got all of the information from the patient's via telephone. He indicates that she had been doing well for a number of months after some medication changes, though he could not recall specifics. He said just in the last 2 days things started to get more difficult for her. He noted that she had been taking her medicines out of bottles instead of out of the pill container. He wonders if she may have not been taking the right medications consistently. He said that she started getting irritable and distressed over things like bills, then that seemed to just continue to escalate. She has been barely sleeping for days. He stated that she was escalating in her distress and difficulties just in the last few days to the point where he called the ambulance for fear that she would continue to regress. She has made odd statements and apparently has had some delusional thinking. She has not been able to function around home in terms of managing basic issues. He states that going back even a week ago, the patient was able to do things like take care of the checkbook and other things around home without any difficulties. The states that there had been some medication changes going back a few months ago, though he was uncertain about the specifics. He did say that with the medication changes that had occurred, the patient seemed to be doing fairly well. He feels that the patient has been showing signs of depression. He was unable to be too clear in regard to hallucinations or delusional thinking. He was not able to give any indication that the patient might be showing signs of hypomania or mari. He suggested she may be having some delusional thinking. Current medications which have been prescribed include Trilafon 4mg daily, Klonopin 0.5-1mg BID PRN, Lunesta 3mg HS and Haldol Decanoate 150mg IM monthly. Apparently she has not received the Haldol for the last 2 months. The patient is admitted for further evaluation. SUBSTANCE USE HISTORY: None reported. PAST MEDICAL HISTORY: The patient has hypertension, asthma, GERD/reflux. FAMILY AND SOCIAL HISTORY: No relevant information is available other than that she resides with her . I refer the reader to previous admission notes for details. MENTAL STATUS EXAMINATION: The patient walked in the office and immediately began talking in a very loud voice, ranting about how she will not take psychiatry medications. She just repeated herself over and over. She would not be interrupted. She did not respond to any questions. She was restless and in an agitated state. She eventually just walked out of the office abruptly. PHYSICAL EXAMINATION: As per medical consultation. ASSESSMENT: This 71-year-old female is diagnosed with schizoaffective disorder based on history. She has only had recent decline in function and symptoms with unclear precipitating factors other than her possibly not taking medications as prescribed. Strengths include her having a stable period of function. Weakness includes her recent regression to high level of distress. DIAGNOSIS: 1. Schizoaffective disorder by history. 2. Hypertension. 3. Asthma. RECOMMENDATIONS: Patient will be admitted for comprehensive medical, psychiatric and psychosocial evaluation. We will engage the patient in individual and group therapeutic activities. We will focus on stabilization and discharge planning. LAURA / JOVANNY: [id number] / MINAL
[2021-11-03] MEDS: METOPROLOL TARTRATE 25 MG TAB PO SCH (20:31)
[2021-11-03] MEDS: clonazePAM 0.5 MG TAB PO SCH (20:31)
--- NOTE | 2021-11-03 22:32 | P.CONS ---
History of Present Illness - Reason for Consult Consult date: 11/03/21 - History of Present Illness Patient is 71-year-old female with a PMH of schizophrenia and hypertension who was brought into the emergency room due to psychosis. The patient reportedly been acting strangely, with delusional and disorganized thought pattern. She was admitted to the mental health unit where she was seen and evaluated. The patient had a severely disorganized thought process at the time of interview, and no meaningful history could be obtained. The patient was not answering any questions appropriately. Review of systems: Unable to assess, patient not answering questions appropriately Physical examination: General: non toxic, no distress, appears at stated age, obese Derm: no unusual rashes/lesions no unusual ecchymoses, warm, dry Head: atraumatic, normocephalic, symmetric Eyes: EOMI, no lid lag, anicteric sclera, pupils equal round reactive to light ENT: Nose and ears atraumatic Mouth: no lip lesion Cardiovascular: S1S2 reg, no murmur, positive posterior tibial pulse bilateral, no edema, capillary refill less than 2 seconds Lungs: CTA bilateral, no rhonchi, no rales , no accessory muscle use Abdominal: soft, nontender to palpation, no guarding, no appreciable organomegaly, normal bowel sounds Ext: no gross muscle atrophy, no contractures, Neuro: Moving all extremities, no gross focal deficits noted, gait unremarkable Psych: Not directable, very disorganized thought process Assessment/plan HTN -Continue with home meds Psychosis -As per psychiatry Thank you for allowing us to participate in the care of this patient. We will follow peripherally. Do not hesitate to contact us with questions. Someone can be reached from the [facility] hospitalist group at all hours of the day at [phone]. 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 Past Anesthesia/Blood Transfusion Reactions: No Reported Reaction Past Psychological History: Bipolar, Schizophrenia Smoking Status: Current every day smoker Past Alcohol Use History: None Reported Additional Past Alcohol Use History / Comment(s): Patient smokes half a pack per day on and off for the past 30 years. She denies any medical marijuana, marij uana or street drug use. She states she does drink wine occasionally. Past Drug Use History: None Reported - Past Family History Brother(s) Additional Family Medical History / Comment(s): Patient states she has 5 brothers with no major medical problems. Sister(s) Additional Family Medical History / Comment(s): Patient states she has 7 sisters with no major medical problems. Brother(s) Son(s) Additional Family Medical History / Comment(s): Patient has 2 sons and 1 daughter with no major medical problems. Mother Family Medical History: Cancer, Hypertension Additional Family Medical History / Comment(s): Mother at age 89 from stomach problems Father Family Medical History: CVA/TIA, Hypertension Additional Family Medical History / Comment(s): Father at age 59 from peripheral vascular disease. Medications and Allergies Home Medications Medication Instructions Recorded Confirmed Type Haloperidol Decanoate [Haldol D] 150 mg IM QMONTHLY 03/28/21 11/03/21 History Eszopiclone [Lunesta] 3 mg PO HS PRN 11/03/21 11/03/21 History Ezetimibe [Zetia] 10 mg PO DAILY 11/03/21 11/03/21 History Magnesium Oxide [Magox 400] 400 mg PO HS 11/03/21 11/03/21 History Meclizine HCl 25 mg PO BID 11/03/21 11/03/21 History Metoprolol Tartrate [Lopressor] 25 mg PO BID 11/03/21 11/03/21 History [place]-3 Acid Ethyl Esters [Lovaza] 1 gm PO BID 11/03/21 11/03/21 History Perphenazine [Trilafon] 4 mg PO HS 11/03/21 11/03/21 History clonazePAM [KlonoPIN] 0.5 - 1 mg PO BID PRN 11/03/21 11/03/21 History lisinopriL [Prinivil] 20 mg PO DAILY 11/03/21 11/03/21 History Allergies Allergy/AdvReac Type Severity Reaction Status Date / Time quetiapine fumarate Allergy Unknown Verified 11/03/21 15:23 [From Seroquel] Sulfa (Sulfonamide Allergy Unknown Verified 11/03/21 15:23 Antibiotics) Physical Exam Vitals: Vital Signs Temp Pulse Resp BP BP 11/03/21 20:29 174/76 11/03/21 12:39 98.8 F 107 H 16 140/110 11/03/21 12:27 98.9 F 107 H 16 140/110 Intake and Output 11/03/21 11/03/21 11/03/21 06:59 14:59 22:59 Other: Weight 97.5 kg
[2021-11-04] MEDS: LORazepam 1 MG TAB PO PRN ×2 (04:52→20:20)
[2021-11-04] MEDS: EZETIMIBE 10 MG TAB PO SCH (08:53)
[2021-11-04] MEDS: METOPROLOL TARTRATE 25 MG TAB PO SCH ×2 (08:54→20:18)
[2021-11-04] MEDS: CYANOCOBALAMIN 500 MCG TAB PO SCH (08:54)
[2021-11-04] MEDS: NICOTINE 14MG/24HR PATCH TRANSDERM SCH (08:57)
[2021-11-04] MEDS ORDERED: clonazePAM 1 MG TAB PO SCH (09:00)
[2021-11-04] MEDS ORDERED: lisinopriL 20 MG TAB PO SCH (09:00)
--- NOTE | 2021-11-04 11:05 | PN ---
PROGRESS NOTE DATE OF SERVICE: 11/04/2021. CHIEF COMPLAINT: The patient was agitated. She was not sleeping. She had delusional thinking. INTERVAL HISTORY: Patient has been very disorganized in her thoughts and function. She wandered the unit quite a bit yesterday. Mostly she would be talking to herself, though her thoughts were quite disorganized. She needed a fair amount of assistance. Nursing spent quite a bit of time giving her some guidance and direction. Nursing documented at 0434 hours this morning the following: "Attempted to offer Haldol, as patient has been up most of the night tangential and delusional, thinks her is the devil and only wants a dummy to talk to, 'Where is the babies,' 'I like to swear.' Patient pacing. Directable at times." At 0500 hours she received Ativan 1 mg p.o. p.r.n. She was quite restless. She was refusing Haldol. She was not able to accept lab work at 0722 hours. The following was documented: "Patient agitated, yelling, banging on doors, attempted elopement, not redirectable. Haldol 4 mg IM given." The patient was placed on one-to- one. After a while she seemed to be getting into a quieter state. She wandered the unit with her one-to-one staff. She continued to talk and make various statements, most of which were disconnected. She has only been able to follow basic directions. MENTAL STATUS EXAM: Patient was restless. She did not make an effort to respond to any questions I asked. She was somewhat quiet in her manner. She continued to talk in a rambling way throughout the time I saw her. She was somewhat distressed. She did not voice any thoughts of harm. ASSESSMENT: I will continue the current diagnosis and treatment plan. I will continue orders the same. We will encourage her towards taking Haldol as she may accept it. A question is whether her decline of late is related to the fact that she is now 3 months from her last Haldol Decanoate injection. We will focus on stabilization and discharge planning. MMKRISSYL / IJN: [id number] /
[2021-11-04] MEDS: clonazePAM 0.5 MG TAB PO SCH (20:18)
[2021-11-04] MEDS ORDERED: NON FORMULARY DRUG (Omega-3 Acid Ethyl Esters [Lovaza] 1 GM Capsule) PO SCH (21:00)
[2021-11-05] MEDS: lisinopriL 20 MG TAB PO SCH (08:06)
[2021-11-05] MEDS: EZETIMIBE 10 MG TAB PO SCH (08:06)
[2021-11-05] MEDS: METOPROLOL TARTRATE 25 MG TAB PO SCH ×2 (08:07→20:04)
[2021-11-05] MEDS: NICOTINE 14MG/24HR PATCH TRANSDERM SCH (08:08)
--- NOTE | 2021-11-05 10:25 | P.PN ---
Progress Note - Text Progress Note Date: 11/05/21 Interval History: Patient was seen wandering the hallways and was directable and agreeable to speak with telegraphic typewriter operator in the office. The patient appears to be preoccupied internally. She is fixated on her and how he has been unfaithful to her. The patient suspects that worker from [facility] has been attempting to steal her from her. The patient reports that she plans to khushboo this individual from [facility] for trespassing and for mental distress. Otherwise, the patient is not reporting any auditory or visual hallucinations. She denies any suicidal or homicidal ideation, intention, and/or plan. The patient states that she was previously on Haldol Decanoate but states that most of been at least 3 months since she last received a dose. She states that the medication made her feel sick and tired and therefore she stopped taking medication.. Mental Status Exam: General Appearance: Patient appears to be stated age is alert, directable, and cooperative. Behavior: Patient is calmly seated without any agitated behavior. Speech: Patient's speech is hyperverbal, pressured, rambling. At times very difficult to understand. Mood/Affect: Mood is angry, affect is blunted. Suicidality/Homicidality: Patient denies having any suicidal or homicidal ideation intent or plan. Perceptions: Patient denies any visual hallucinations and denies any auditory hallucinations Though content/process: Paranoid and bizarre delusions are endorsed. Memory and concentration: AOX3, grossly intact for the purposes of this session Judgment and insight: Very poor. Vital Signs Temp 97.5 F L 11/05/21 06:19 Pulse 98 11/05/21 06:19 Resp 16 11/05/21 06:19 BP 194/91 11/05/21 06:19 Pulse Ox 95 11/04/21 04:56 Assessment Schizoaffective disorder Plan: -Patient continues to meet criteria for inpatient psychiatric admission for symptom stabilization and safety. Patient will be petitioned and certified due to the patient's overt psychosis and uncontrolled symptoms. The patient also appears to be unwilling to participate in treatment (taking medications). -Medications: I will start Haldol 2 mg by mouth twice a day for management of psychosis. Goal is to transition the patient back to a long-acting injectable medication due to history of nonadherence with medications. -When necessary Ativan and Haldol for agitation/aggression. -SW on board for discharge planning. Encouraged the patient to participate in milieu.
[2021-11-05] MEDS: CYANOCOBALAMIN 500 MCG TAB PO SCH (10:46)
[2021-11-05] MEDS ORDERED: chlorproMAZINE 25 MG/ML 2 ML AMP IM PRN (12:29)
[2021-11-05] MEDS: clonazePAM 0.5 MG TAB PO SCH (20:04)
[2021-11-06] MEDS: clonazePAM 0.5 MG TAB PO PRN (00:35)
[2021-11-06] MEDS: ACETAMINOPHEN TAB 325 MG TAB PO PRN ×2 (00:35→22:48)
[2021-11-06] MEDS: CYANOCOBALAMIN 500 MCG TAB PO SCH (08:50)
[2021-11-06] MEDS: EZETIMIBE 10 MG TAB PO SCH (08:50)
[2021-11-06] MEDS: lisinopriL 20 MG TAB PO SCH (08:51)
[2021-11-06] MEDS: METOPROLOL TARTRATE 25 MG TAB PO SCH ×2 (08:51→20:08)
[2021-11-06] MEDS: NICOTINE 14MG/24HR PATCH TRANSDERM SCH (08:52)
[2021-11-06 09:55] LABS: HCT 37.7 % (34.0-46.0); HGB 12.9 gm/dL (11.4-16.0); MCH 31.9 pg (25.0-35.0); MCHC 34.2 g/dL (31.0-37.0); MCV 93.5 fL (80.0-100.0); Mean Platelet Volume 7.8; Platelet Count 240 k/uL (150-450); RBC 4.04 m/uL (3.80-5.40); RDW 13.2 % (11.5-15.5); WBC 6.5 k/uL (3.8-10.6)
[2021-11-06 10:09] LABS: ALT 25 U/L (4-34); AST 43 U/L (14-36); African American GFR (CKD) >90 (>60 ml/min/1.73 sqM); Albumin 3.8 g/dL (3.5-5.0); Alkaline Phosphatase 66 U/L (38-126); Anion Gap 6 mmol/L; Blood Urea Nitrogen 12 mg/dL (7-17); Calcium 9.3 mg/dL (8.4-10.2); Carbon Dioxide 26 mmol/L (22-30); Chloride 107 mmol/L (98-107); Glucose 120 mg/dL (74-99); Non-African American GFR(CKD) >90 (>60 ml/min/1.73 sqM); Potassium 4.1 mmol/L (3.5-5.1); Sodium 139 mmol/L (137-145); Total Bilirubin 0.5 mg/dL (0.2-1.3); Total Protein 6.6 g/dL (6.3-8.2)
--- NOTE | 2021-11-06 12:24 | P.PN ---
Progress Note - Text Progress Note Date: 11/06/21 Interval History: Patient was seen wandering the hallways and was directable and agreeable to speak with screenplay writer in her room. Currently, the patient reports that she "worked things out with my ." She states that he has since apologized and that they're working on getting back together. At times, her speech continues to be nonsensical but is much more coherent today than yesterday. She has been adherent with her medications and is not reporting any significant side effects at this time. She is currently not reporting any suicidal or homicidal ideation, intention,/or plan. She is not reporting any auditory or visual hallucinations. She continues to be somewhat disorganized about where she is and why she is here. She is otherwise not reporting any issues regarding her sleep or her appetite. Mental Status Exam: General Appearance: Patient appears to be stated age is alert, directable, and cooperative. Behavior: Patient is calmly seated without any agitated behavior. Speech: Patient's speech is hyperverbal, pressured, and nonsensical at times. Mood/Affect: Mood is angry, affect is blunted. Suicidality/Homicidality: Patient denies having any suicidal or homicidal ideation intent or plan. Perceptions: Patient denies any visual hallucinations and denies any auditory hallucinations Though content/process: No bizarre delusional thought content is endorse today. I process appears to be grossly disorganized. Memory/Concentration: Memory appears to be somewhat intact. Concentration appears to be grossly poor. Judgment and insight: Very poor. Vital Signs Temp 96.9 F L 11/06/21 00:40 Pulse 93 11/06/21 08:52 Resp 14 11/06/21 00:40 BP 149/78 11/06/21 08:52 Pulse Ox 95 11/04/21 04:56 Laboratory Results - Last 24 Hours 11/06/21 11/06/21 08:48 08:48 WBC 6.5 RBC 4.04 Hgb 12.9 Hct 37.7 MCV 93.5 MCH 31.9 MCHC 34.2 RDW 13.2 Plt Count 240 MPV 7.8 Sodium 139 Potassium 4.1 Chloride 107 Carbon Dioxide 26 Anion Gap 6 BUN 12 Creatinine 0.64 Est GFR (CKD-EPI)AfAm >90 Est GFR (CKD-EPI)NonAf >90 Glucose 120 H Calcium 9.3 Total Bilirubin 0.5 AST 43 H ALT 25 Alkaline Phosphatase 66 Total Protein 6.6 Albumin 3.8 TSH 3.230 Assessment Schizoaffective disorder Plan: -Patient continues to meet criteria for inpatient psychiatric admission for symptom stabilization and safety. -Demand for court hearing is scheduled for tomorrow. -Medications: Increase Prolixin to 3 mg by mouth twice a day for psychosis. -When necessary Ativan and Thorazine for agitation/aggression. -SW on board for discharge planning. Encouraged the patient to participate in milieu.
[2021-11-06] MEDS: clonazePAM 0.5 MG TAB PO SCH (20:08)
[2021-11-06] MEDS: LORazepam 1 MG TAB PO PRN (22:01)
[2021-11-07] MEDS ORDERED: ACETAMINOPHEN TAB 325 MG TAB ONE (02:45)
[2021-11-07] MEDS: LORazepam 1 MG TAB PO PRN (05:18)
[2021-11-07] MEDS: EZETIMIBE 10 MG TAB PO SCH (08:07)
[2021-11-07] MEDS: CYANOCOBALAMIN 500 MCG TAB PO SCH (08:07)
[2021-11-07] MEDS: METOPROLOL TARTRATE 25 MG TAB PO SCH ×2 (08:08→20:40)
[2021-11-07] MEDS: lisinopriL 20 MG TAB PO SCH (08:08)
[2021-11-07] MEDS: NICOTINE 14MG/24HR PATCH TRANSDERM SCH (08:10)
[2021-11-07] MEDS: ACETAMINOPHEN TAB 325 MG TAB PO PRN (09:18)
[2021-11-07] MEDS ORDERED: TEMAZEPAM 7.5 MG CAP PO PRN (10:46)
--- NOTE | 2021-11-07 10:51 | P.PN ---
Progress Note - Text Progress Note Date: 11/07/21 Interval History: Patient was seen wandering the hallways and was directable and agreeable to speak with board writer in the office. The patient reports she is feeling better. She states she had some difficulty sleeping last night as "I cannot take trazodone." The patient acknowledges that there are many medications she feels she cannot take. She reports no suicidal or homcidal ideation, intention, and/or plan today. She reports no auditory or visual hallucinations. She does not endorse any overt paranoia or delusions. She has been adherent with her prolixin and is not reporting any significant side effects. The patient is scheduled for court today. She does express that she does not want the long-acting injectible medication and is requesting this provider to keep her on orals only. Mental Status Exam: General Appearance: Patient appears to be stated age is alert, directable, and cooperative. Behavior: Patient is calmly seated without any agitated behavior. Speech: Patient's speech is less hyperverbal and more linear and easier to follow. Less pressured. Mood/Affect: Mood is "good!" Affect is blunted but otherwise bright. Suicidality/Homicidality: Patient denies having any suicidal or homicidal ideation intent or plan. Perceptions: Patient denies any visual hallucinations and denies any auditory hallucinations Though content/process: No bizarre delusional thought content is endorse today. Linear and logical in short conversation. Memory/Concentration: Memory appears to be somewhat intact. Improved concentration. Judgment and insight: Mildly improving. Vital Signs Temp 97.3 F L 11/07/21 01:00 Pulse 75 11/07/21 09:17 Resp 14 11/07/21 01:00 BP 122/65 11/07/21 09:17 Pulse Ox 95 11/04/21 04:56 Laboratory Results - Last 24 Hours 11/06/21 08:[address] Glu mg/dL 120 Hemoglobin A1c 5.8 Assessment Schizoaffective disorder Plan: -Patient continues to meet criteria for inpatient psychiatric admission for symptom stabilization and safety. -Demand for court hearing is scheduled for tomorrow. -Medications: Continue prolixin 3 mg by mouth twice a day for psychosis. Restoril 7.5 mg at bedtime as needed for insomnia. -When necessary Ativan and Thorazine for agitation/aggression. -SW on board for discharge planning. Encouraged the patient to participate in milieu.
[2021-11-07] MEDS: clonazePAM 0.5 MG TAB PO PRN (16:59)
[2021-11-07] MEDS: MAGNESIUM HYDROXIDE 2,400 MG/10 ML CUP PO PRN (18:38)
[2021-11-07] MEDS: clonazePAM 0.5 MG TAB PO SCH (20:43)
[2021-11-08] MEDS: ACETAMINOPHEN TAB 325 MG TAB PO PRN ×2 (00:42→14:50)
[2021-11-08] MEDS: LORazepam 1 MG TAB PO PRN (00:43)
[2021-11-08 00:49] VITALS: TEMP 96.3
[2021-11-08] MEDS: MAGNESIUM HYDROXIDE 2,400 MG/10 ML CUP PO PRN (02:37)
[2021-11-08] MEDS: lisinopriL 20 MG TAB PO SCH (08:09)
[2021-11-08] MEDS: CYANOCOBALAMIN 500 MCG TAB PO SCH (08:10)
[2021-11-08] MEDS: EZETIMIBE 10 MG TAB PO SCH (08:12)
[2021-11-08] MEDS: METOPROLOL TARTRATE 25 MG TAB PO SCH ×2 (08:13→21:13)
[2021-11-08] MEDS: NICOTINE 14MG/24HR PATCH TRANSDERM SCH (08:13)
[2021-11-08 09:07] VITALS: RESP 16
--- NOTE | 2021-11-08 11:08 | P.PN ---
Progress Note - Text Progress Note Date: 11/08/21 Interval history: Patient was seen wandering the hallways and was directable and agreeable to s peak with financial writer. Patient appears to be more appropriate and directable during conversation. She is not responding to internal stimuli today. She spoke about her having troubles with his vision and driving. She was asking about potential discharge. She claims that she does not want to take the long-acting injection however is on a differential at this time. She is agreeable to contin ue on with the oral medications. She claims that she is having no depression or anxiety today. She states that she is going to some groups. She was very concrete and superficial in her answers. She claims that she was able to sleep better last night. At this time patient denies any suicidal or homicidal ideations intent or plan. Denies any Auditory or visual hallucinations. Patient denies any side effects from the medications and has been compliant with meds. Mental status exam: General Appearance: Patient appears to be stated age is alert, directable, and cooperative. Behavior: No agitated behavior. Patient is calm and directable constricted Speech: Patient's speech is fluent and nonpressured. [place] Mood/Affect: Mood is improving mildly, affect is congruent and constricted. Suicidality/Homicidality: Patient denies having any suicidal or homicidal ideation intent or plan. Perceptions: Patient denies any auditory or visual hallucinations. Though content/process: There is no evidence of any delusional thought content. Logical. [place]. Memory and concentration: AOX3, grossly intact for the purposes of this session Judgment and insight: Chronically limited, improving mildly Assessment/Plan: Continue with current diagnosis. Patient continues to meet criteria for inpatient psychiatric admission for symptom stabilization and safety.Patient will be maintained on current psychotropic medication regimen. Patient is currently on a deferral however is refusing [facility] at this time. Monitor for medication compliance and for any psychotropic medication side effects. Will continue to monitor ongoing response to treatment. Encouraged participation in milieu. liekly discharge back home tomorrow.
[2021-11-08] MEDS: clonazePAM 0.5 MG TAB PO PRN (14:50)
[2021-11-08] MEDS: clonazePAM 0.5 MG TAB PO SCH (21:13)
[2021-11-09] MEDS: lisinopriL 20 MG TAB PO SCH (08:05)
[2021-11-09] MEDS: EZETIMIBE 10 MG TAB PO SCH (08:05)
[2021-11-09] MEDS: CYANOCOBALAMIN 500 MCG TAB PO SCH (08:05)
[2021-11-09] MEDS: METOPROLOL TARTRATE 25 MG TAB PO SCH (08:05)
[2021-11-09 08:30] VITALS: BP 118/72; PULSE 92
--- NOTE | 2021-11-09 12:06 | P.DS ---
Providers Date of admission: 11/03/21 11:17 Expected date of discharge: 11/09/21 Attending physician: James Nolasco MD Consults: 11/03/21 11:42 Consult Physician Routine Consulting Provider: Kennedy Garcia Consult Reason/Comments: medical management Do you want consulting provider notified?: Yes Primary care physician: Stated None - Discharge Diagnosis(es) (1) Schizoaffective disorder, bipolar type Current Visit: Yes Status: Acute Priority: High Hospital Course: Admission HPI: Initial psychiatric evaluation was completed by Dr. Jasso on 11/03/2021 who wrote: "The patient is a 71-year-old female. She lives with her . She p resented to the local emergency department for evaluation. The patient was agitated. She was not sleeping. Check delusional thinking. The patient was not able to provide reliable information about her current issues. I got all of the information from the patient's via telephone. He indicates that she had been doing well for a number of months after some medication changes, though he could not recall specifics. He said just in the last 2 days things started to get more difficult for her. He noted that she had been taking her medicines out of bottles instead of out of the pill container. He wonders if she may have not been taking the night medications consistently. He said that she has been getting irritable and distressed over things like bills, and that just seem to escalate. She has been barely sleeping for days. He stated that she has been escalating her distress and difficulties just in the last 3 days to the point where he called Reggie for fear that she would continue to regress. She has made odd statements and some delusional thinking. She has not been able to function around home in terms of managing basic issues. He states that going back even a week ago, the patient was able to do things like taking care of her checkbook and other things on the home without any difficulties. The states that there have been some medication changes going back a few months ago, though was uncertain about the specifics. He did say that the patient seemed to be doing fairly well with the medication changes initially. He feels that the patient has been showing signs of depression. He was unable to be too clear in regard to hallucinations or delusional thinking. He is not able to give any indication that the patient might be showing signs of hypomania or mari. He suggested that she may be having some delusional thinking. Current medications which have been prescribed include Trilafon, Klonopin, Lunesta, and Haldol Decanoate 150 mg IM monthly. Currently she has not received the Haldol in the last 2 months. The patient is admitted for further evaluation. Hospital course: Upon admission to the unit patient was initially unable to be a reliable historian due to the extent of her psychotic symptoms. The patient was admitted for complex medical, psychiatric, psychosocial evaluation. Medications were held initially. When evaluated by this provider, the decision was made to restart the patient on antipsychotic medications and to hopefully transition her back to Haldol Decanoate. Initially she was restarted on Haldol oral medication to which her and the patient expressed concern as she had a negative reaction to Haldol Decanoate in the past. The patient was then transition to Prolixin which she tolerated well. The patient's Prolixin was gradually titrated and the patient displayed significant response to the medication. Her psychotic symptoms began to be controlled and the patient was more alert and oriented in all spheres. The patient was able to sleep and reported no significant delusional thought content to this provider. The patient does express concern about transitioning back to long-acting injectable medication. She states that she would like to continue with the oral medication. We discussed at length that this is likely a decision to be made with her CM. On the day of discharge, the patient is not reporting any suicidal or homicidal ideation, intention, and/or plan. She is having any auditory or visual hallucinations. She is denying any paranoia or delusions. Patient does express that she has difficulty with sleep and she takes Lunesta sleep at night. The patient was taking Restoril on the psychiatric unit but she will continue with her home medications for insomnia to be followed closely by [facility]. The patient was counseled at length on the importance of medication adherence and to follow up appropriately with her outpatient providers. She denied any access to firearms or other weapons. Patient remains future and goal oriented. She was subsequently discharged. Mental status exam: General Appearance: Patient appears to be stated age is alert, pleasant, and cooperative. Patient is in no acute distress and has fair hygiene and grooming Behavior: Patient is calmly seated without any agitated behavior. Speech: Patient's speech is fluent and nonpressured. Mood/Affect: Patient reports their mood is "feeling good", affect is congruent and euthymic. Constricted in range.. Suicidality/Homicidality: Patient denies having any suicidal or homicidal ideation intent or plan. Perceptions: Patient denies any auditory or visual hallucinations. Though content/process: There is no evidence of any delusional thought content and thought process is linear and goal-directed. More future oriented. Memory and concentration: AOX3, grossly intact for the purposes of this session. Can spell "WORLD" backwards correctly. Judgment and insight: Improved with guarded prognosis Vital Signs Temp 96.3 F L 11/08/21 00:47 Pulse 92 11/09/21 08:05 Resp 16 11/08/21 14:52 BP 118/72 11/09/21 08:05 Pulse Ox 96 11/07/21 17:06 Impression: Schizoaffective disorder, bipolar type Plan: -Continue with discharge today as patient has improved and stabilized psychiatrically and is not currently an imminent threat to self and/or others. Patient will remain at chronically elevated risk for harm to self and/or others due to her severe mental illness. -Continue medications: Prolixin 3 mg by mouth twice a day for psychosis and mood stabilization -Patient was counseled on the need for medication compliance and appropriate follow-up at mental health and also primary care for medical issues. Patient verbalized understanding and agreed. -Social work to arrange for and conduct family meeting to ensure safety upon discharge and answer any questions/concerns. Social work also to arrange for patients follow up appointments with [facility] for psychiatric care along with follow up with primary care provider. -Patient counseled on abstaining from recreational drugs and marijuana and alcohol. Was informed/educated on the adverse effects on their physical and mental health. Patient verbally agreed and understood. Patient was offered substance abuse treatment however declined at this time. -Patient was instructed to return to the hospital or seek immediate medical care if their psychiatric or medical symptoms do worsen or reoccur. -Psychoeducation and supportive therapy provided to patient. Risks and benefits of pharmacological treatment versus the risks and benefits of nontreatment weight and discussed. Informed consent discussion held. Common side effects of psychotropics discussed such as, but not limited to headache, GI disturbance, sexual dysfunction, movement disorders, sedation, and orthostatic hypotension. Life threatening and blackbox warnings of prescribed medications also discussed. Potential risks of operating a vehicle or heavy machinery discussed with patient at length. Advised on importance of compliance and a reliable and responsible manner. Patient advised to review FDA consumer labeling of all medications prior to taking. Patient verbalized understanding of potential risks, and agrees with current treatment plan. Patient advised to medically contact physician/emergency personnel if any acute changes in condition occur. Laboratory Results WBC 6.5 k/uL (3.8-10.6) 11/06/21 08:48 RBC 4.04 m/uL (3.80-5.40) 11/06/21 08:48 Hgb 12.9 gm/dL (11.4-16.0) 11/06/21 08:48 Hct 37.7 % (34.0-46.0) 11/06/21 08:48 MCV 93.5 fL (80.0-100.0) 11/06/21 08:48 MCH 31.9 pg (25.0-35.0) 11/06/21 08:48 MCHC 34.2 g/dL (31.0-37.0) 11/06/21 08:48 RDW 13.2 % (11.5-15.5) 11/06/21 08:48 Plt Count 240 k/uL (150-450) 11/06/21 08:48 MPV 7.8 11/06/21 08:48 Sodium 139 mmol/L (137-145) 11/06/21 08:48 Potassium 4.1 mmol/L (3.5-5.1) 11/06/21 08:48 Chloride 107 mmol/L (98-107) 11/06/21 08:48 Carbon Dioxide 26 mmol/L (22-30) 11/06/21 08:48 Anion Gap 6 mmol/L 11/06/21 08:48 BUN 12 mg/dL (7-17) 11/06/21 08:48 Creatinine 0.64 mg/dL (0.52-1.04) 11/06/21 08:48 Est GFR (CKD-EPI)AfAm >90 (>60 ml/min/1.73 sqM) 11/06/21 08:48 Est GFR (CKD-EPI)NonAf >90 (>60 ml/min/1.73 sqM) 11/06/21 08:48 Glucose 120 mg/dL (74-99) H 11/06/21 08:[address] Glu mg/dL 120 11/06/21 08:48 Hemoglobin A1c 5.8 % (4.0-6.0) 11/06/21 08:48 Calcium 9.3 mg/dL (8.4-10.2) 11/06/21 08:48 Total Bilirubin 0.5 mg/dL (0.2-1.3) 11/06/21 08:48 AST 43 U/L (14-36) H 11/06/21 08:48 ALT 25 U/L (4-34) 11/06/21 08:48 Alkaline Phosphatase 66 U/L (38-126) 11/06/21 08:48 Total Protein 6.6 g/dL (6.3-8.2) 11/06/21 08:48 Albumin 3.8 g/dL (3.5-5.0) 11/06/21 08:48 TSH 3.230 mIU/L (0.465-4.680) 11/06/21 08:48 Allergies Allergy/AdvReac Type Severity Reaction Status Date / Time haloperidol [From Haldol] Allergy injection Verified 11/05/21 11:14 site reaction per [facility] quetiapine fumarate Allergy Unknown Verified 11/03/21 15:23 [From Seroquel] Sulfa (Sulfonamide Allergy Unknown Verified 11/03/21 15:23 Antibiotics) Patient Condition at Discharge: Stable Plan - Discharge Summary Discharge Rx Participant: No New Discharge Prescriptions: New fluPHENAZine [Prolixin] 3 mg PO BID 30 Days tab Continue Eszopiclone [Lunesta] 3 mg PO HS PRN PRN Reason: Insomnia Magnesium Oxide [Magox 400] 400 mg PO HS Metoprolol Tartrate [Lopressor] 25 mg PO BID [place]-3 Acid Ethyl Esters [Lovaza] 1 gm PO BID Cholecalciferol [Vitamin D3 (25 Mcg = 1000 Iu)] 50 mcg PO DAILY Aspirin EC [Ecotrin Low Dose] 81 mg PO DAILY Ezetimibe [Zetia] 10 mg PO DAILY lisinopriL [Prinivil] 20 mg PO DAILY Meclizine HCl 25 mg PO BID Vitamin B-12(Unknown) 1 tab PO DAILY Sennosides [Senna] 8.6 mg PO BID PRN PRN Reason: Constipation Multivitamin with Iron [Multivitamins with Iron] 1 tab PO DAILY Famotidine [Pepcid] 20 mg PO BID Melatonin 30 mg PO HS Discontinued Perphenazine [Trilafon] 4 mg PO HS clonazePAM [KlonoPIN] 0.5 - 1 mg PO BID Sleep Aid Otc(Unknown) 1 tab PO HS Discharge Medication List Eszopiclone [Lunesta] 3 mg PO HS PRN 11/03/21 [History] Ezetimibe [Zetia] 10 mg PO DAILY 11/03/21 [History] Magnesium Oxide [Magox 400] 400 mg PO HS 11/03/21 [History] Meclizine HCl 25 mg PO BID 11/03/21 [History] Metoprolol Tartrate [Lopressor] 25 mg PO BID 11/03/21 [History] [place]-3 Acid Ethyl Esters [Lovaza] 1 gm PO BID 11/03/21 [History] lisinopriL [Prinivil] 20 mg PO DAILY 11/03/21 [History] Aspirin EC [Ecotrin Low Dose] 81 mg PO DAILY 11/05/21 [History] Cholecalciferol [Vitamin D3 (25 Mcg = 1000 Iu)] 50 mcg PO DAILY 11/05/21 [History] Famotidine [Pepcid] 20 mg PO BID 11/05/21 [History] Melatonin 30 mg PO HS 11/05/21 [History] Multivitamin with Iron [Multivitamins with Iron] 1 tab PO DAILY 11/05/21 [History] Sennosides [Senna] 8.6 mg PO BID PRN 11/05/21 [History] Vitamin B-12(Unknown) 1 tab PO DAILY 11/05/21 [History] fluPHENAZine [Prolixin] 3 mg PO BID 30 Days tab 11/09/21 [Rx] Follow up Appointment(s)/Referral(s): [facility] [Outside] - 11/12/21 12:00 pm (Act Team 11/12/2021 @ 12:00 Dr Shaikh 11/13 @ 09:00 ) [facility] - [facility] Week Patient Instructions/Handouts: Low Fat Diet (DC), Bipolar Disorder (DC), Deep Vein Thrombosis (DC), Hyperlipidemia (DC), Psychotic Disorder (DC) Activity/Diet/Wound Care/Special Instructions: Activity and diet as tolerated. Avoid the use of street drugs and alcohol. Take all medications as prescribed. When you are in need of refills on your medications please contact your medical provider and/or outpatient psychiatrist to have this done. Please go to scheduled outpatient appointment for aftercare treatment. If symptoms return or become worse, call the crisis line at [phone] and/or go to the nearest emergency room for evaluation
== END 2021-11-09 12:45 | disposition home or self-care (01) | DRG 885 ==
LOC: 3MHU 11:17
PROVIDERS: ADMIT Psychiatry & Neurology Psychiatry; ATTEND Psychiatry & Neurology Psychiatry
DX: F25.0 Schizoaffective disorder, bipolar type (principal); Z91.128 Patient's intentional underdosing of medication regimen for other reason; F17.210 Nicotine dependence, cigarettes, uncomplicated; Z89.421 Acquired absence of other right toe(s); K21.9 Gastro-esophageal reflux disease without esophagitis; Z71.6 Tobacco abuse counseling; I10 Essential (primary) hypertension; J45.909 Unspecified asthma, uncomplicated; G47.00 Insomnia, unspecified; T50.906A Underdosing of unspecified drugs, medicaments and biological substances, initial encounter; Z79.82 Long term (current) use of aspirin; Z79.899 Other long term (current) drug therapy; Z71.41 Alcohol abuse counseling and surveillance of alcoholic; Z71.51 Drug abuse counseling and surveillance of drug abuser; Z88.2 Allergy status to sulfonamides; Z88.8 Allergy status to other drugs, medicaments and biological substances; Z82.49 Family history of ischemic heart disease and other diseases of the circulatory system; Z82.3 Family history of stroke; Z80.9 Family history of malignant neoplasm, unspecified
CPT/HCPCS: 80053; 83036; 84443; 85027

== ENCOUNTER 2021-11-12 07:40 | Inpatient (IN) | payer MEDICARE, MEDICAID ==
--- NOTE | 2021-11-12 08:32 | ED ---
General Adult HPI - General Chief complaint: Psychiatric Symptoms Stated complaint: NAGA Time Seen by Provider: 11/12/21 07:40 Source: patient, EMS, RN notes reviewed, old records reviewed Mode of arrival: EMS - History of Present Illness Initial comments: This is a 71-year-old female presents emergency Department via EMS. According to EMS he will call to the hospital because the patient was very agitated and angry. Patient has a history of psychiatric issues and bipolar according to EMS. Patient's is her guardian and he is the one called EMS. EMS stated they need to give her some Versed on the way in because of her agitation. Patient states she's been having bad dreams about her son having a skull cough and though she realizes it's a dream she is very upset about. Patient's very difficult to understand because she was crying throughout the interview. Patient has no physical complaints. Patient denies any suicidal or homicidal ideations. - Related Data Home Medications Medication Instructions Recorded Confirmed Eszopiclone [Lunesta] 3 mg PO HS PRN 11/03/21 11/12/21 Ezetimibe [Zetia] 10 mg PO DAILY 11/03/21 11/12/21 Magnesium Oxide [Magox 400] 400 mg PO HS 11/03/21 11/12/21 Meclizine HCl 25 mg PO BID 11/03/21 11/12/21 Metoprolol Tartrate [Lopressor] 25 mg PO BID 11/03/21 11/12/21 [place]-3 Acid Ethyl Esters [Lovaza] 1 gm PO BID 11/03/21 11/12/21 lisinopriL [Prinivil] 20 mg PO DAILY 11/03/21 11/12/21 Aspirin EC [Ecotrin Low Dose] 81 mg PO DAILY 11/05/21 11/12/21 Cholecalciferol [Vitamin D3 (25 50 mcg PO DAILY 11/05/21 11/12/21 Mcg = 1000 Iu)] Famotidine [Pepcid] 20 mg PO BID 11/05/21 11/12/21 Melatonin 30 mg PO HS 11/05/21 11/12/21 Multivitamin with Iron 1 tab PO DAILY 11/05/21 11/12/21 [Multivitamins with Iron] Sennosides [Senna] 8.6 mg PO BID PRN 11/05/21 11/12/21 Vitamin B-12(Unknown) 1 tab PO DAILY 11/05/21 11/12/21 Previous Rx's Medication Instructions Recorded fluPHENAZine [Prolixin] 3 mg PO BID 30 Days tab 11/09/21 Allergies Allergy/AdvReac Type Severity Reaction Status Date / Time haloperidol [From Haldol] Allergy injection Verified 11/12/21 09:09 site reaction per [facility] quetiapine fumarate Allergy Unknown Verified 11/12/21 09:09 [From Seroquel] Sulfa (Sulfonamide Allergy Unknown Verified 11/12/21 09:09 Antibiotics) Review of Systems ROS Statement: Those systems with pertinent positive or pertinent negative responses have been documented in the HPI. ROS Other: All systems not noted in ROS Statement are negative. 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 Past Anesthesia/Blood Transfusion Reactions: No Reported Reaction Past Psychological History: Bipolar, Schizophrenia Smoking Status: Current every day smoker Past Alcohol Use History: None Reported Past Drug Use History: None Reported - Past Family History Brother(s) Additional Family Medical History / Comment(s): Patient states she has 5 brothers with no major medical problems. Sister(s) Additional Family Medical History / Comment(s): Patient states she has 7 sisters with no major medical problems. Brother(s) Son(s) Additional Family Medical History / Comment(s): Patient has 2 sons and 1 daughter with no major medical problems. Mother Family Medical History: Cancer, Hypertension Additional Family Medical History / Comment(s): Mother at age 89 from stomach problems Father Family Medical History: CVA/TIA, Hypertension Additional Family Medical History / Comment(s): Father at age 59 from peripheral vascular disease. General Exam - General Exam Comments Initial Comments: GENERAL: Patient is well-developed and well-nourished. Patient is nontoxic and well- hydrated and is in mild distress. ENT: Neck is soft and supple. No significant lymphadenopathy is noted. Oropharynx is clear. Moist mucous membranes. Neck has full range of motion without eliciting any pain. EYES: The sclera were anicteric and conjunctiva were pink and moist. Extraocular movements were intact and pupils were equal round and reactive to light. Eyelids were unremarkable. PULMONARY: Unlabored respirations. Good breath sounds bilaterally. No audible rales rhonchi or wheezing was noted. CARDIOVASCULAR: There is a regular rate and rhythm without any murmurs gallops or rubs. ABDOMEN: Soft and nontender with normal bowel sounds. SKIN: Skin is clear with no lesions or rashes and otherwise unremarkable. NEUROLOGIC: Patient is alert and oriented x3. Cranial nerves II through XII are grossly intact. Motor and sensory are also intact. Normal speech, volume and content. Symmetrical smile. MUSCULOSKELETAL: Normal extremities with adequate strength and full range of motion. No lower extremity swelling or edema. No calf tenderness. LYMPHATICS: No significant lymphadenopathy is noted PSYCHIATRIC: Patient is crying throughout the interview. Patient is telling us she is having bad dreams that seem real to her and one of them is that her son was having his skull cut off. Course Vital Signs 11/12/21 07:42 Temperature 97.4 F L Pulse Rate 79 Respiratory 16 Rate Blood Pressure 121/59 O2 Sat by Pulse 97 Oximetry Medical Decision Making - Medical Decision Making EPS evaluated the patient I filled out a clinical certification after a petition the patient to be admitted. - Lab Data Lab Results 11/12/21 11/12/21 11/12/21 Range/Units 09:18 09:33 09:33 Urine Color Yellow Urine Appearance Clear (Clear) Urine pH 5.0 (5.0-8.0) Ur Specific [place] 1.014 (1.001-1.035) Urine Protein Negative (Negative) Urine Glucose (UA) Negative (Negative) Urine Ketones 1+ H (Negative) Urine Blood Negative (Negative) Urine Nitrite Negative (Negative) Urine Bilirubin Negative (Negative) Urine Urobilinogen <2.0 (<2.0) mg/dL Ur Leukocyte Esterase Negative (Negative) Urine Opiates Screen Not Detected (NotDetected) Ur Oxycodone Screen Not Detected (NotDetected) Urine Methadone Screen Not Detected (NotDetected) Ur Propoxyphene Screen Not Detected (NotDetected) Ur Barbiturates Screen Not Detected (NotDetected) U Tricyclic Antidepress Not Detected (NotDetected) Ur Phencyclidine Scrn Not Detected (NotDetected) Ur Amphetamines Screen Not Detected (NotDetected) U Methamphetamines Scrn Not Detected (NotDetected) U Benzodiazepines Scrn Detected H (NotDetected) Urine Cocaine Screen Not Detected (NotDetected) U Marijuana (THC) Screen Not Detected (NotDetected) Coronavirus (PCR) Not Detected (Not Detectd) Disposition Clinical Impression: Acute psychosis Disposition: ADMITTED IP TO THIS HOSP Referrals: John Camara MD [Primary Care Provider] - 1-2 days Time of Disposition: 10:31
[2021-11-12 09:59] LABS: Appearance,Urine Clear (Clear); Bilirubin,Urine Negative (Negative); Blood,Urine Negative (Negative); Color,Urine Yellow; Glucose,Urine (UA) Negative (Negative); Ketones,Urine 1+ (Negative); Leukocyte Esterase,Urine Negative (Negative); Nitrite,Urine Negative (Negative); Protein,Urine Negative (Negative); Specific Gravity,Urine 1.014 (1.001-1.035); Urobilinogen,Urine <2.0 mg/dL (<2.0)
[2021-11-12 10:07] LABS: Amphetamine Screen,Urine Not Detected (NotDetected); Barbiturate Screen,Urine Not Detected (NotDetected); Benzodiazepines Screen,Urine Detected (NotDetected); Cocaine Screen,Urine Not Detected (NotDetected); Methadone Screen, Urine Not Detected (NotDetected); Opiate Screen,Urine Not Detected (NotDetected); Oxycodone Screen, Urine Not Detected (NotDetected); Phencyclidine Screen,Urine Not Detected (NotDetected); Tricyclic Antidepressant,Urine Not Detected (NotDetected); Urn Cannabinoid Scrn Not Detected (NotDetected)
[2021-11-12 11:31] LABS: Basophils # (A) 0.1 k/uL (0-0.2); Basophils % (A) 1 %; Eosinophils # (A) 0.3 k/uL (0-0.7); Eosinophils % (A) 6 %; HCT 39.5 % (34.0-46.0); HGB 13.1 gm/dL (11.4-16.0); Lymphocytes # (A) 1.2 k/uL (1.0-4.8); Lymphocytes % (A) 23 %; MCH 31.5 pg (25.0-35.0); MCHC 33.1 g/dL (31.0-37.0); MCV 95.3 fL (80.0-100.0); Mean Platelet Volume 7.9; Monocytes # (A) 0.4 k/uL (0-1.0); Monocytes % (A) 7 %; Neutrophils # (A) 3.2 k/uL (1.3-7.7); Neutrophils % (A) 62 %; Platelet Count 247 k/uL (150-450); RBC 4.14 m/uL (3.80-5.40); RDW 12.4 % (11.5-15.5); WBC 5.2 k/uL (3.8-10.6)
[2021-11-12 11:45] LABS: ALT 28 U/L (4-34); AST 39 U/L (14-36); African American GFR (CKD) 82 (>60 ml/min/1.73 sqM); Albumin 3.8 g/dL (3.5-5.0); Alkaline Phosphatase 64 U/L (38-126); Anion Gap 8 mmol/L; Blood Urea Nitrogen 26 mg/dL (7-17); Calcium 9.4 mg/dL (8.4-10.2); Carbon Dioxide 24 mmol/L (22-30); Chloride 106 mmol/L (98-107); Glucose 100 mg/dL (74-99); Non-African American GFR(CKD) 71 (>60 ml/min/1.73 sqM); Potassium 4.8 mmol/L (3.5-5.1); Sodium 138 mmol/L (137-145); Total Bilirubin 0.5 mg/dL (0.2-1.3); Total Protein 6.5 g/dL (6.3-8.2)
[2021-11-12] MEDS ORDERED: TEMAZEPAM 15 MG CAP PO PRN (13:51)
[2021-11-12] MEDS ORDERED: SENNOSIDES 8.6 MG TAB PO PRN (13:51)
[2021-11-12] MEDS ORDERED: MAG HYDROX/AL HYDROX/SIMETH 30 ML CUP PO PRN (13:52)
[2021-11-12] MEDS ORDERED: MAGNESIUM HYDROXIDE 2,400 MG/10 ML CUP PO PRN (13:52)
[2021-11-12] MEDS ORDERED: LORazepam 2 MG/ML INJ IM PRN (13:53)
[2021-11-12] MEDS: FAMOTIDINE 20 MG TAB PO SCH (15:44)
[2021-11-12] MEDS: LORazepam 1 MG TAB PO PRN ×2 (16:11→22:27)
[2021-11-12] MEDS: MELATONIN 5 MG TABLET PO SCH (20:58)
[2021-11-12] MEDS: METOPROLOL TARTRATE 25 MG TAB PO SCH (20:58)
[2021-11-12] MEDS ORDERED: NON FORMULARY DRUG (Omega-3 Acid Ethyl Esters [Lovaza] 1 GM Capsule) PO SCH (21:00)
--- NOTE | 2021-11-12 21:28 | P.CONS ---
History of Present Illness - Reason for Consult Consult date: 11/12/21 - History of Present Illness The patient is a 71 yo F with a PMH of psychiatric illnesses, HTN, and HLD who presents to the ED brought in by EMS due to agitation. The patient has an extensive psychiatric history and had been acting erratically. The patient was admitted to the mental health unit where she was seen and evaluated. The patient continued to be internally preoccupied with very disorganized thought process and was not answering questions appropriately. She did deny having any active pain at the time of interview. She denied experiencing chest discomfort, shortness of breath him a fever, cough, nausea, vomiting. Review of systems: Pertinent positives and negatives as discussed in HPI, a complete review of systems was performed and all other systems are negative. Physical examination: General: non toxic, no distress, appears at stated age, obese Derm: no unusual rashes/lesions no unusual ecchymoses, warm, dry Head: atraumatic, normocephalic, symmetric Eyes: EOMI, no lid lag, anicteric sclera, pupils equal round reactive to light ENT: Nose and ears atraumatic, no thrush, no pharyngeal erythema Neck: No thyromegaly, left anterior cervical enlarged lymph node palpated, trachea midline, supple Mouth: no lip lesion, mucus membranes moist Cardiovascular: S1S2 reg, no murmur, positive posterior tibial pulse bilateral, no edema, capillary refill less than 2 seconds Lungs: CTA bilateral, no rhonchi, no rales , no accessory muscle use Abdominal: soft, nontender to palpation, no guarding, no appreciable organomegaly, normal bowel sounds Ext: no gross muscle atrophy, muscle strength 5 out of 5 in all 4 extremities grossly, no contractures, Neuro: CN II-XI grossly intact, light touch intact all 4 extremities, finger to nose within normal limits, Psych: Awake, very disorganized thought process Assessment/plan Left cervical lymphadenopathy -Patient states that she has had this enlarged node for the past 10-15 years but was unable to say if it was ever evaluated -Obtain CT scan Chronic conditions: Hypertension, hyperlipidemia -Continue home meds Psychosis -As per psychiatry Thank you for allowing us to participate in the care of this patient. We will follow peripherally. Do not hesitate to contact us with questions. Someone can be reached from the [facility] hospitalist group at all hours of the day at [phone]. 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 Past Anesthesia/Blood Transfusion Reactions: No Reported Reaction Past Psychological History: Bipolar, Schizophrenia Smoking Status: Current every day smoker Past Alcohol Use History: None Reported Past Drug Use History: None Reported - Past Family History Brother(s) Additional Family Medical History / Comment(s): Patient states she has 5 brothers with no major medical problems. Sister(s) Additional Family Medical History / Comment(s): Patient states she has 7 sisters with no major medical problems. Brother(s) Son(s) Additional Family Medical History / Comment(s): Patient has 2 sons and 1 daughter with no major medical problems. Mother Family Medical History: Cancer, Hypertension Additional Family Medical History / Comment(s): Mother at age 89 from stomach problems Father Family Medical History: CVA/TIA, Hypertension Additional Family Medical History / Comment(s): Father at age 59 from peripheral vascular disease. Medications and Allergies Home Medications Medication Instructions Recorded Confirmed Type Eszopiclone [Lunesta] 3 mg PO HS PRN 11/03/21 11/12/21 History Ezetimibe [Zetia] 10 mg PO DAILY 11/03/21 11/12/21 History Magnesium Oxide [Magox 400] 400 mg PO HS 11/03/21 11/12/21 History Meclizine HCl 25 mg PO BID 11/03/21 11/12/21 History Metoprolol Tartrate [Lopressor] 25 mg PO BID 11/03/21 11/12/21 History [place]-3 Acid Ethyl Esters [Lovaza] 1 gm PO BID 11/03/21 11/12/21 History lisinopriL [Prinivil] 20 mg PO DAILY 11/03/21 11/12/21 History Aspirin EC [Ecotrin Low Dose] 81 mg PO DAILY 11/05/21 11/12/21 History Cholecalciferol [Vitamin D3 (25 50 mcg PO DAILY 11/05/21 11/12/21 History Mcg = 1000 Iu)] Famotidine [Pepcid] 20 mg PO BID 11/05/21 11/12/21 History Melatonin 30 mg PO HS 11/05/21 11/12/21 History Multivitamin with Iron 1 tab PO DAILY 11/05/21 11/12/21 History [Multivitamins with Iron] Sennosides [Senna] 8.6 mg PO BID PRN 11/05/21 11/12/21 History Vitamin B-12(Unknown) 1 tab PO DAILY 11/05/21 11/12/21 History fluPHENAZine [Prolixin] 3 mg PO BID 30 Days tab 11/09/21 11/12/21 Rx Allergies Allergy/AdvReac Type Severity Reaction Status Date / Time haloperidol [From Haldol] Allergy injection Verified 11/12/21 09:09 site reaction per [facility] quetiapine fumarate Allergy Unknown Verified 11/12/21 09:09 [From Seroquel] Sulfa (Sulfonamide Allergy Unknown Verified 11/12/21 09:09 Antibiotics) Physical Exam Vitals: Vital Signs Temp Pulse Pulse Resp BP BP Pulse Ox 11/12/21 20:59 96 142/74 94 L 11/12/21 14:58 98.0 F 100 20 132/82 96 11/12/21 07:42 97.4 F L 79 16 121/59 97 Intake and Output 11/12/21 11/12/21 11/12/21 06:59 14:59 22:59 Other: Weight 97.5 kg Results CBC & Chem 7: 11/12/21 11:09 11/12/21 11:09 Labs: Abnormal Lab Results - Last 24 Hours (Table) 11/12/21 11/12/21 11/12/21 Range/Units 09:33 09:33 11:09 BUN 26 H (7-17) mg/dL Glucose 100 H (74-99) mg/dL AST 39 H (14-36) U/L Urine Ketones 1+ H (Negative) U Benzodiazepines Scrn Detected H (NotDetected)
[2021-11-12] MEDS: MAGNESIUM OXIDE 400 MG TAB PO SCH (21:53)
[2021-11-12] MEDS: MECLIZINE 25 MG TAB PO SCH (21:53)
[2021-11-13] MEDS: LORazepam 1 MG TAB PO PRN (05:18)
[2021-11-13 06:06] LABS: Chol/HDL Ratio 3.21 Ratio; LDL Cholesterol,Calculated 84.9 mg/dL (0.0-131.0); VLDL Calculation 19.14 mg/dL (5.00-40.00)
[2021-11-13] MEDS: ACETAMINOPHEN TAB 325 MG TAB PO PRN (06:11)
[2021-11-13] MEDS: lisinopriL 20 MG TAB PO SCH (08:02)
[2021-11-13] MEDS: ASPIRIN 81 MG PO SCH (08:02)
[2021-11-13] MEDS: METOPROLOL TARTRATE 25 MG TAB PO SCH ×2 (08:02→21:07)
[2021-11-13] MEDS: FAMOTIDINE 20 MG TAB PO SCH (08:03)
[2021-11-13] MEDS: CHOLECALCIFEROL 25 MCG (1000 IU) TABLET PO SCH (08:03)
[2021-11-13] MEDS: MULTIVITAMINS, THERA 1 EACH TAB PO SCH (08:42)
[2021-11-13] MEDS: MECLIZINE 25 MG TAB PO SCH ×2 (08:42→21:08)
[2021-11-13] MEDS: EZETIMIBE 10 MG TAB PO SCH (08:43)
[2021-11-13] MEDS ORDERED: VITAMIN B12 PO SCH (09:00)
--- NOTE | 2021-11-13 11:29 | P.HP ---
Psychiatric H&P - . H&P Date: 11/13/21 History & Physical: Allergies Allergy/AdvReac Type Severity Reaction Status Date / Time haloperidol [From Haldol] Allergy injection Verified 11/12/21 09:09 [facility] f[facility] Allergy Unknown Verified 11/12/21 09:09 [From Seroquel] Sulfa (Sulfonamide Allergy Unknown Verified 11/12/21 09:09 Antibiotics) Vital Signs Temp 97.2 F L 11/13/21 05:20 Pulse 97 11/13/21 10:18 Resp 18 11/13/21 10:18 BP 134/75 11/13/21 10:18 Pulse Ox 97 11/13/21 10:18 Intake & Output 11/12/21 11/13/21 11/13/21 18:59 06:59 18:59 Weight 97.5 kg Laboratory Last Values WBC 5.2 k/uL (3.8-10.6) 11/12/21 11:09 RBC 4.14 m/uL (3.80-5.40) 11/12/21 11:09 Hgb 13.1 gm/dL (11.4-16.0) 11/12/21 11:09 Hct 39.5 % (34.0-46.0) 11/12/21 11:09 MCV 95.3 fL (80.0-100.0) 11/12/21 11:09 MCH 31.5 pg (25.0-35.0) 11/12/21 11:09 MCHC 33.1 g/dL (31.0-37.0) 11/12/21 11:09 RDW 12.4 % (11.5-15.5) 11/12/21 11:09 Plt Count 247 k/uL (150-450) 11/12/21 11:09 MPV 7.9 11/12/21 11:09 Neutrophils % 62 % 11/12/21 11:09 Lymphocytes % 23 % 11/12/21 11:09 Monocytes % 7 % 11/12/21 11:09 Eosinophils % 6 % 11/12/21 11:09 Basophils % 1 % 11/12/21 11:09 Neutrophils # 3.2 k/uL (1.3-7.7) 11/12/21 11:09 Lymphocytes # 1.2 k/uL (1.0-4.8) 11/12/21 11:09 Monocytes # 0.4 k/uL (0-1.0) 11/12/21 11:09 Eosinophils # 0.3 k/uL (0-0.7) 11/12/21 11:09 Basophils # 0.1 k/uL (0-0.2) 11/12/21 11:09 Sodium 138 mmol/L (137-145) 11/12/21 11:09 Potassium 4.8 mmol/L (3.5-5.1) 11/12/21 11:09 Chloride 106 mmol/L (98-107) 11/12/21 11:09 Carbon Dioxide 24 mmol/L (22-30) 11/12/21 11:09 Anion Gap 8 mmol/L 11/12/21 11:09 BUN 26 mg/dL (7-17) H 11/12/21 11:09 Creatinine 0.84 mg/dL (0.52-1.04) 11/12/21 11:09 Est GFR (CKD-EPI)AfAm 82 (>60 ml/min/1.73 sqM) 11/12/21 11:09 Est GFR (CKD-EPI)NonAf 71 (>60 ml/min/1.73 sqM) 11/12/21 11:09 Glucose 100 mg/dL (74-99) H 11/12/21 11:[address] Glu mg/dL 117 11/12/21 11:09 Hemoglobin A1c 5.7 % (4.0-6.0) 11/12/21 11:09 Calcium 9.4 mg/dL (8.4-10.2) 11/12/21 11:09 Total Bilirubin 0.5 mg/dL (0.2-1.3) 11/12/21 11:09 AST 39 U/L (14-36) H 11/12/21 11:09 ALT 28 U/L (4-34) 11/12/21 11:09 Alkaline Phosphatase 64 U/L (38-126) 11/12/21 11:09 Total Protein 6.5 g/dL (6.3-8.2) 11/12/21 11:09 Albumin 3.8 g/dL (3.5-5.0) 11/12/21 11:09 Triglycerides 95.70 mg/dL (0.00-149.00) 11/12/21 11:09 Cholesterol 151.00 mg/dL (0.00-200.00) 11/12/21 11:09 LDL Cholesterol, Calc 84.9 mg/dL (0.0-131.0) 11/12/21 11:09 VLDL Cholesterol, Calc 19.14 mg/dL (5.00-40.00) 11/12/21 11:09 HDL Cholesterol 47.00 mg/dL (40.00-60.00) 11/12/21 11:09 Cholesterol/HDL Ratio 3.21 Ratio 11/12/21 11:09 TSH 1.530 mIU/L (0.465-4.680) 11/12/21 11:09 Urine Color Yellow 11/12/21 09:33 Urine Appearance Clear (Clear) 11/12/21 09:33 Urine pH 5.0 (5.0-8.0) 11/12/21 09:33 Ur Specific [place] 1.014 (1.001-1.035) 11/12/21 09:33 Urine Protein Negative (Negative) 11/12/21 09:33 Urine Glucose (UA) Negative (Negative) 11/12/21 09:33 Urine Ketones 1+ (Negative) H 11/12/21 09:33 Urine Blood Negative (Negative) 11/12/21 09:33 Urine Nitrite Negative (Negative) 11/12/21 09:33 Urine Bilirubin Negative (Negative) 11/12/21 09:33 Urine Urobilinogen <2.0 mg/dL (<2.0) 11/12/21 09:33 Ur Leukocyte Esterase Negative (Negative) 11/12/21 09:33 Urine Opiates Screen Not Detected (NotDetected) 11/12/21 09:33 Ur Oxycodone Screen Not Detected (NotDetected) 11/12/21 09:33 Urine Methadone Screen Not Detected (NotDetected) 11/12/21 09:33 Ur Propoxyphene Screen Not Detected (NotDetected) 11/12/21 09:33 Ur Barbiturates Screen Not Detected (NotDetected) 11/12/21 09:33 U Tricyclic Antidepress Not Detected (NotDetected) 11/12/21 09:33 Ur Phencyclidine Scrn Not Detected (NotDetected) 11/12/21 09:33 Ur Amphetamines Screen Not Detected (NotDetected) 11/12/21 09:33 U Methamphetamines Scrn Not Detected (NotDetected) 11/12/21 09:33 U Benzodiazepines Scrn Detected (NotDetected) H 11/12/21 09:33 Urine Cocaine Screen Not Detected (NotDetected) 11/12/21 09:33 U Marijuana (THC) Screen Not Detected (NotDetected) 11/12/21 09:33 Coronavirus (PCR) Not Detected (Not Detectd) 11/12/21 09:18 11/13/21 11:28 IDENTIFYING DATA: Patient is a , retired, 71-year-old female with significant history of schizophrenia who presented to the emergency department with a chief complaint of psychosis. HPI: Patient presented to the hospital on 11/12/21, brought into the emergency department on her who is her legal guardian for psychotic behavior. As for EPS note, the reported that the patient has not been taking her medications and not sleeping since she was last discharged week ago. Furthermore, when evaluated by the EPS nurse, the patient appeared to be very labile in mood, fatigue, and nonsensical speech. The patient was given 5 mg of versed by EMS. Upon evaluation on the unit, the patient was noted to have a fall. Furthermore, the patient did receive Ativan this morning. The patient is a poor historian at this time and is nonsensical and at times slurred in her speech. There is concern that the benzodiazepine to control drinking to her current presentation. The patient was most recently admitted on the psychiatric unit from 11/03/21 and discharged on 11/09/21. She was discharged on a regimen of Prolixin and at the time was well controlled on this medication. History continues to be limited at this time due to the patient's nonsensical and garbled speech however it is noted that the patient has been nonadherent to treatment. PAST PSYCHIATRIC HISTORY: The patient has previously process of schizophrenia/schizoaffective disorder. She has been on numerous psychiatric medications including Haldol Decanoate, Trilafon, Klonopin, Lunesta, and most recently Prolixin and Restoril. The patient was most recently admitted on to the psychiatric unit approximately a week ago and she has had numerous psychiatric admissions. She is currently open with [facility]. Unable to determine past suicide attempts at this time. PMH: Past Medical History: Asthma, GERD/Reflux, Hypertension History of Any Multi-Drug Resistant Organisms: None Reported Past Surgical History: Section, Orthopedic Surgery Additional Past Surgical History / Comment(s): amputated toes on right ft. Past Anesthesia/Blood Transfusion Reactions: No Reported Reaction Past Psychological History: Bipolar, Schizophrenia Smoking Status: Current every day smoker Past Alcohol Use History: None Reported Past Drug Use History: None Reported ALLERGIES: Haldol, Seroquel, sulfa CHEMICAL DEPENDENCY HISTORY: No reported substance abuse history FAMILY PSYCHIATRIC/SUBSTANCE USE HISTORY: Unable to identify any family psychiatric or substance abuse history at this time. SOCIAL HISTORY: Patient was born [place] raised in the patient is currently and lives with her who is her guardian. MENTAL STATUS EXAM: General Appearance: Patient appears to be stated age is alert, directable, and attempts to cooperate. Patient appears to have slightly disheveled hygiene and grooming. Behavior: Patient is his directable and is able to sit down and follow commands. Psychomotor activity appears normal at this time. Eye contact is appropriate Speech: Patient's speech is nonsensical, Slurred at times, rapid in rate. Mood/Affect: Unable to appropriately assessment mood. Affect appears to be expansive. Suicidality/Homicidality: Unable to get a clear answer from the patient. Perceptions: Unable to get a clear answer from the patient. Though content/process: The patient does appear to be responding to internal stimuli, has a flight of ideas, and makes loose associations. Memory and concentration: Grossly poor at this time. Judgment and insight: Very poor STRENGTHS/WEAKNESSES: Strengths is that the patient has significant support from her and is currently open with [facility]. Weakness is that patient is nonadherent to treatment and has severe mental illness. INTELLECT: average IMPRESSIONS: Schizoaffective disorder, bipolar type versus schizophrenia PLAN: -Patient is admitted under a demand status to MHU for stabilization of psychiatric symptoms and safety. -Medications : Will start patient on Prolixin 3 mg by mouth twice a day and we will titrate this medication pending patient's response. We will transition the patient's Prolixin decanoate. Continue Restoril but decrease it to 7.5 mg by mouth at bedtime when necessary for insomnia -Discontinue Ativan due to concern that the benzodiazepines are having paradoxical effect from the patient and worsening her altered mental status. -Patient was informed of the risks, benefits and side effects of the medication and patient verbally consented to taking the medications. Patient signed med consent form and was placed in chart. -Internal Medicine consult to perform medical evaluation and physical. -SW on board for discharge planning. Encourage patient to participate in groups to work on coping skills. 11/13/21 11:28
[2021-11-13] MEDS: chlorproMAZINE 25 MG/ML 2 ML AMP IM PRN (19:52)
[2021-11-13] MEDS: MELATONIN 5 MG TABLET PO SCH (21:07)
[2021-11-13] MEDS: MAGNESIUM OXIDE 400 MG TAB PO SCH (21:17)
[2021-11-14] MEDS: lisinopriL 20 MG TAB PO SCH (08:43)
[2021-11-14] MEDS: METOPROLOL TARTRATE 25 MG TAB PO SCH ×2 (08:43→20:26)
[2021-11-14] MEDS: CHOLECALCIFEROL 25 MCG (1000 IU) TABLET PO SCH (08:43)
[2021-11-14] MEDS: FAMOTIDINE 20 MG TAB PO SCH (08:43)
[2021-11-14] MEDS: ASPIRIN 81 MG PO SCH (08:43)
[2021-11-14] MEDS: EZETIMIBE 10 MG TAB PO SCH (08:43)
[2021-11-14] MEDS: MECLIZINE 25 MG TAB PO SCH ×2 (08:43→20:26)
[2021-11-14] MEDS: MULTIVITAMINS, THERA 1 EACH TAB PO SCH (08:44)
--- NOTE | 2021-11-14 10:56 | P.PN ---
Progress Note - Text Progress Note Date: 11/14/21 Interval History: Patient was seen wandering the hallways and was directable and agreeable to speak with race and sports book writer in the office. At this time, the patient appears to be a poor historian and is responding to internal stimuli. She is nonsensical and disorganized in her speech. The patient was noted to be agitated last night and required IM Thorazine to calm down. The patient at this time appears to be fixated on a blonde staff member, believing that the staff member has been attempting to steal from her. Collateral information was provided by the patient's [facility] provider Dr. Shaikh who informed this provider that the patient has tried and failed numerous antipsychotic medications including Clozaril. He is requesting at this time that the patient try a trial of Abilify with a plan to transition her to Aristada as she has had numerous trials with prolixin. The patient was difficult to direct out of the office. Mental Status Exam: General Appearance: Patient appears to be stated age is alert, difficult to direct but was cooperative. Behavior: Patient appears to be responding to internal stimuli, often making grand gestures with her arms and hands. Speech: Patient's speech is pressured, nonsensical, disorganized. Mood/Affect: Mood cannot be appropriate to assess. Affect appears to be labile. Suicidality/Homicidality: Unable to assess. Perceptions: Unable to assess. Though content/process: Grossly disorganized. Thought process with flight of ideas and loose associations as well as significant lesion or thought content. Memory and concentration: Grossly poor. Judgment and insight: Very poor Vital Signs Temp 97 F L 11/14/21 06:48 Pulse 76 11/14/21 06:48 Resp 16 11/14/21 06:48 BP 132/66 11/14/21 06:48 Pulse Ox 97 11/13/21 10:18 Assessment Schizoaffective disorder, bipolar type versus schizophrenia Plan: -Patient continues to meet criteria for inpatient psychiatric admission for symptom stabilization and safety. Patient is scheduled for court tomorrow. -Medications: After discussion with the patient's outpatient [facility] provider, we will discontinue Prolixin start patient on Abilify 10 mg daily for management of schizophrenia with plans to transition the patient to Abilify maintena or aristada. -When necessary Thorazine for agitation/aggression. -SW on board for discharge planning. Encouraged the patient to participate in milieu.
[2021-11-14] MEDS: chlorproMAZINE 25 MG/ML 2 ML AMP IM PRN ×2 (11:45→21:42)
[2021-11-14] MEDS: MAGNESIUM OXIDE 400 MG TAB PO SCH (20:26)
[2021-11-14] MEDS: MELATONIN 5 MG TABLET PO SCH (20:26)
[2021-11-14] MEDS: TEMAZEPAM 7.5 MG CAP PO PRN (21:16)
[2021-11-15] MEDS ORDERED: hydrOXYzine pamoate 25 MG CAP PO PRN (02:04)
[2021-11-15] MEDS ORDERED: hydrOXYzine HCL 50 MG/ML 1 ML VIAL IM PRN ×2 (02:04→13:21)
[2021-11-15] MEDS ORDERED: chlorproMAZINE 25 MG/ML 2 ML AMP IM ONE (03:02)
[2021-11-15] MEDS ORDERED: LORazepam 2 MG/ML INJ IM STA (03:02)
[2021-11-15] MEDS: ACETAMINOPHEN TAB 325 MG TAB PO PRN (04:32)
[2021-11-15] MEDS ORDERED: ARIPiprazole 10 MG TAB PO SCH (09:00)
[2021-11-15] MEDS ORDERED: chlorproMAZINE 25 MG/ML 2 ML AMP IM PRN ×2 (09:06→11:05)
[2021-11-15] MEDS: lisinopriL 20 MG TAB PO SCH (09:56)
[2021-11-15] MEDS: CHOLECALCIFEROL 25 MCG (1000 IU) TABLET PO SCH (09:56)
[2021-11-15] MEDS: ASPIRIN 81 MG PO SCH (09:56)
[2021-11-15] MEDS: FAMOTIDINE 20 MG TAB PO SCH (09:56)
[2021-11-15] MEDS: MULTIVITAMINS, THERA 1 EACH TAB PO SCH (09:56)
[2021-11-15] MEDS: METOPROLOL TARTRATE 25 MG TAB PO SCH ×2 (09:56→19:53)
[2021-11-15] MEDS: EZETIMIBE 10 MG TAB PO SCH (10:16)
[2021-11-15] MEDS: MECLIZINE 25 MG TAB PO SCH ×2 (10:17→19:53)
--- NOTE | 2021-11-15 11:13 | P.PN ---
Progress Note - Text Progress Note Date: 11/15/21 Interval History: Patient was seen wandering the hallways and was difficult to direct to speak with this provider. The patient appears to be grossly disorganized at this time and is nonsensical in her speech. She did attend court this morning and is receiving a mental health court order. The patient continues to endorse bizarre delusional thoughts and paranoia. She displays mood lability on the psychiatric unit and has been crying out tearfully randomly throughout the day. She has been adherent with her medications but is unable to provide much history to this provider. Mental Status Exam: General Appearance: Patient appears to be stated age is alert but not directable or cooperative. Behavior: Patient appears to be responding to internal stimuli, psychomotor agitation is evident. Speech: Patient's speech is pressured, nonsensical, disorganized. Mood/Affect: Mood - unable to assess. Affect appears to be labile. Suicidality/Homicidality: Unable to assess. Perceptions: Unable to assess. Though content/process: Grossly disorganized. Thought process with flight of ideas and loose associations as well as significant lesion or thought content. Memory and concentration: Grossly poor. Judgment and insight: Very poor Vital Signs Temp 97 F L 11/14/21 06:48 Pulse 108 H 11/15/21 10:01 Resp 17 11/14/21 20:25 BP 127/78 11/15/21 10:01 Pulse Ox 94 L 11/14/21 20:25 Assessment Schizoaffective disorder, bipolar type versus schizophrenia Plan: -Patient continues to meet criteria for inpatient psychiatric admission for symptom stabilization and safety. -Patient attended court today and will be receiving a mental health court order. -Medications: Increase Abilify to 15 mg by mouth daily for psychosis. Once to receive the court order paperwork, if the patient refuses the Abilify, we will administer Thorazine 25 mg IM. -When necessary Thorazine for agitation/aggression. -SW on board for discharge planning. Encouraged the patient to participate in milieu.
[2021-11-15] MEDS ORDERED: hydrOXYzine pamoate 25 MG CAP PO SCH (13:00)
[2021-11-15] MEDS ORDERED: chlorproMAZINE 25 MG/ML 2 ML AMP IM SCH (13:00)
[2021-11-15] MEDS ORDERED: hydrOXYzine HCL 50 MG/ML 1 ML VIAL IM SCH (13:00)
[2021-11-15] MEDS: TEMAZEPAM 7.5 MG CAP PO PRN (19:44)
[2021-11-15] MEDS: MELATONIN 5 MG TABLET PO SCH (19:44)
[2021-11-15] MEDS: chlorproMAZINE 25 MG TAB PO PRN (19:44)
[2021-11-15] MEDS: MAGNESIUM OXIDE 400 MG TAB PO SCH (19:45)
[2021-11-16] MEDS: hydrOXYzine pamoate 25 MG CAP PO PRN ×3 (01:34→10:32)
[2021-11-16] MEDS: chlorproMAZINE 25 MG TAB PO PRN (01:34)
[2021-11-16] MEDS: chlorproMAZINE 25 MG/ML 2 ML AMP IM PRN (08:48)
[2021-11-16] MEDS ORDERED: ARIPiprazole 15 MG TAB PO SCH (09:00)
[2021-11-16] MEDS: MULTIVITAMINS, THERA 1 EACH TAB PO SCH (09:51)
[2021-11-16] MEDS: METOPROLOL TARTRATE 25 MG TAB PO SCH ×2 (09:51→20:41)
[2021-11-16] MEDS: EZETIMIBE 10 MG TAB PO SCH (09:51)
[2021-11-16] MEDS: ASPIRIN 81 MG PO SCH (09:51)
[2021-11-16] MEDS: MECLIZINE 25 MG TAB PO SCH ×2 (09:51→20:41)
[2021-11-16] MEDS: CHOLECALCIFEROL 25 MCG (1000 IU) TABLET PO SCH (09:51)
[2021-11-16] MEDS: lisinopriL 20 MG TAB PO SCH (09:52)
[2021-11-16] MEDS: FAMOTIDINE 20 MG TAB PO SCH (09:52)
--- NOTE | 2021-11-16 11:36 | P.PN ---
Progress Note - Text Progress Note Date: 11/16/21 Interval History: Patient was seen wandering the hallways and was difficult to direct to speak with this provider. The patient continues to be disorganized in her speech and behavior. She is often noted to be very labile in the milieu. She has been noted to be on the phone with her multiple times crying and yelling. Furthermore, she continues to endorse significant paranoia and delusional thoughts. She appears to be responding to internal stimuli. She is intermittently adherent with her medications and has been receiving IM medication as needed. Mental Status Exam: General Appearance: Patient appears to be stated age is alert but not directable or cooperative. Behavior: Patient appears to be responding to internal stimuli, psychomotor agitation is evident. Speech: Patient's speech is pressured, nonsensical, disorganized. Mood/Affect: Mood - unable to assess. Affect appears to be labile. Suicidality/Homicidality: Unable to assess. Perceptions: Unable to assess. Though content/process: Grossly disorganized. Thought process with flight of ideas and loose associations as well as significant lesion or thought content. Memory and concentration: Grossly poor. Judgment and insight: Very poor Vital Signs Temp 97.7 F 11/16/21 01:30 Pulse 118 H 11/16/21 01:30 Resp 18 11/16/21 01:30 BP 171/70 11/16/21 01:30 Pulse Ox 95 11/16/21 01:30 Assessment Schizoaffective disorder, bipolar type versus schizophrenia Plan: -Patient continues to meet criteria for inpatient psychiatric admission for symptom stabilization and safety. -Patient attended court today and will be receiving a mental health court order. -Medications: Increase Abilify to 20 mg by mouth daily for psychosis. As the patient is currently court ordered, if the patient refuses the Abilify, we will administer Thorazine 25 mg IM. We will also start Clozaril 12.5 mg by mouth at bedtime for treatment resistant schizophrenia -When necessary Thorazine for agitation/aggression. -SW on board for discharge planning. Encouraged the patient to participate in milieu.
[2021-11-16] MEDS ORDERED: chlorproMAZINE 25 MG/ML 2 ML AMP IM ONE (12:05)
[2021-11-16] MEDS: cloZAPine 25 MG TAB PO SCH (20:40)
[2021-11-16] MEDS: MELATONIN 5 MG TABLET PO SCH (20:41)
[2021-11-16] MEDS: MAGNESIUM OXIDE 400 MG TAB PO SCH (20:41)
[2021-11-17] MEDS: chlorproMAZINE 25 MG TAB PO PRN (01:56)
[2021-11-17] MEDS: MULTIVITAMINS, THERA 1 EACH TAB PO SCH (08:32)
[2021-11-17] MEDS: METOPROLOL TARTRATE 25 MG TAB PO SCH ×2 (08:32→20:54)
[2021-11-17] MEDS: EZETIMIBE 10 MG TAB PO SCH (08:32)
[2021-11-17] MEDS: MECLIZINE 25 MG TAB PO SCH ×2 (08:32→20:55)
[2021-11-17] MEDS: ASPIRIN 81 MG PO SCH (08:33)
[2021-11-17] MEDS: FAMOTIDINE 20 MG TAB PO SCH (08:33)
[2021-11-17] MEDS: CHOLECALCIFEROL 25 MCG (1000 IU) TABLET PO SCH (08:33)
[2021-11-17] MEDS: lisinopriL 20 MG TAB PO SCH (08:33)
--- NOTE | 2021-11-17 11:21 | P.PN ---
Subjective Progress Note Date: 11/17/21 Principal diagnosis: Assessment: Schizoaffective disorder bipolar type Subjective/data: I do remember why I was brought here but I was just minding my own business Sometimes their jokes were difficult to laugh at The people or going out for a walk ' Objective data: The patient is neatly dressed and groomed Patient however exhibits flight of ideas and tangentiality and circumstantiality as well as looseness of associations Her affect seems to be labile with inappropriate laughter and euphoria Patient's formal and operational judgment and insight are poor Problem-solving abilities impaired Assessment: Schizoaffective disorder Psychotic disorder with bipolar features Plan: Patient is court ordered for treatment Patient is currently on Abilify which has been increased to 20 mg daily which is court ordered patient also has been started on Clozaril 12.5 mg at bedtime Winston SU 11/17/2021 Objective - Vital Signs Vital signs: Vital Signs Temp 97.6 F 11/17/21 01:58 Pulse 95 11/17/21 08:39 Resp 16 11/17/21 08:39 BP 118/70 11/17/21 08:39 Pulse Ox 95 11/16/21 01:30 - Labs CBC & Chem 7: 11/12/21 11:09 11/12/21 11:09
[2021-11-17] MEDS: MAGNESIUM OXIDE 400 MG TAB PO SCH (20:54)
[2021-11-17] MEDS: cloZAPine 25 MG TAB PO SCH (20:54)
[2021-11-17] MEDS: MELATONIN 5 MG TABLET PO SCH (20:54)
[2021-11-18] MEDS: chlorproMAZINE 25 MG TAB PO PRN (01:14)
[2021-11-18] MEDS: TEMAZEPAM 7.5 MG CAP PO PRN ×2 (01:14→21:03)
[2021-11-18] MEDS: MULTIVITAMINS, THERA 1 EACH TAB PO SCH (08:07)
[2021-11-18] MEDS: EZETIMIBE 10 MG TAB PO SCH (08:07)
[2021-11-18] MEDS: ASPIRIN 81 MG PO SCH (08:07)
[2021-11-18] MEDS: lisinopriL 20 MG TAB PO SCH (08:07)
[2021-11-18] MEDS: MECLIZINE 25 MG TAB PO SCH ×2 (08:07→20:39)
[2021-11-18] MEDS: FAMOTIDINE 20 MG TAB PO SCH (08:07)
[2021-11-18] MEDS: CHOLECALCIFEROL 25 MCG (1000 IU) TABLET PO SCH (08:07)
[2021-11-18] MEDS: METOPROLOL TARTRATE 25 MG TAB PO SCH ×2 (08:08→20:40)
[2021-11-18] MEDS: hydrOXYzine pamoate 25 MG CAP PO PRN (09:06)
--- NOTE | 2021-11-18 11:55 | P.PN ---
Subjective Progress Note Date: 11/18/21 Principal diagnosis: Assessment: Schizoaffective disorder bipolar type Subjective/data: What the heck is going on here' There is supposed to be at cargo coming in The pattern of the Railroad is somewhere on the horizon' Objective data: Patient continues to have flight of ideas with rambling speech The patient is neatly dressed and groomed Patient however exhibits flight of ideas and tangentiality and circumstantiality as well as looseness of associations Her affect seems to be labile with inappropriate laughter and euphoria Patient's formal and operational judgment and insight are poor Problem-solving abilities impaired Assessment: Schizoaffective disorder Psychotic disorder with bipolar features Plan: Patient is court ordered for treatment Patient is currently on Abilify which has been increased to 20 mg daily which is court ordered patient also has been started on Clozaril 12.5 mg at bedtime We will further increase the clozapine to 25 mg daily as patient is not experiencing any side effects and limited clinical response Winston SU 11/17/2021 Objective - Vital Signs Vital signs: Vital Signs Temp 97.7 F 11/18/21 08:00 Pulse 98 11/18/21 08:00 Resp 16 11/18/21 08:00 BP 144/84 11/18/21 08:00 Pulse Ox 96 11/18/21 08:00 Intake & Output 11/17/21 11/18/21 11/18/21 18:59 06:59 18:59 Weight 79 kg - Labs CBC & Chem 7: 11/12/21 11:09 11/12/21 11:09
[2021-11-18] MEDS ORDERED: cloZAPine 25 MG TAB PO SCH ×2 (12:00→21:00)
[2021-11-18] MEDS: MAGNESIUM OXIDE 400 MG TAB PO SCH (20:39)
[2021-11-18] MEDS: MELATONIN 5 MG TABLET PO SCH (20:40)
[2021-11-19] MEDS: lisinopriL 20 MG TAB PO SCH (08:57)
[2021-11-19] MEDS: MECLIZINE 25 MG TAB PO SCH ×2 (08:57→20:54)
[2021-11-19] MEDS: FAMOTIDINE 20 MG TAB PO SCH (08:58)
[2021-11-19] MEDS: CHOLECALCIFEROL 25 MCG (1000 IU) TABLET PO SCH (08:58)
[2021-11-19] MEDS: MULTIVITAMINS, THERA 1 EACH TAB PO SCH (08:58)
[2021-11-19] MEDS: METOPROLOL TARTRATE 25 MG TAB PO SCH ×2 (08:58→20:54)
[2021-11-19] MEDS: ASPIRIN 81 MG PO SCH (08:58)
[2021-11-19] MEDS: EZETIMIBE 10 MG TAB PO SCH (08:58)
[2021-11-19] MEDS: hydrOXYzine pamoate 25 MG CAP PO PRN ×2 (11:41→17:19)
[2021-11-19] MEDS: chlorproMAZINE 25 MG TAB PO PRN ×2 (11:41→17:19)
--- NOTE | 2021-11-19 11:47 | P.PN ---
Progress Note - Text Progress Note Date: 11/19/21 Interval History: Patient was seen wandering the hallways and was difficult to direct. The patient continues nonsensically raise her voice on the unit and has been verbally aggressive with staff and peers. She appears to be very difficult to redirect. Patient is requesting that she received some Ativan but was informed that she had a fall on Ativan and it causes her to be very disorganized with slurred her words. The patient became very angry when not agreed with. She continues to yell expletives towards the staff. The patient has otherwise been taking her oral medications as directed. Mental Status Exam: General Appearance: Patient appears to be stated age is alert but not directable or cooperative. Behavior: Patient appears to be responding to internal stimuli, psychomotor agitation is evident. Speech: Patient's speech is pressured, nonsensical, disorganized. Loud in volume. Mood/Affect: Mood is angry. Affect appears to be labile. Suicidality/Homicidality: Unable to assess. Perceptions: Unable to assess. Though content/process: Grossly disorganized. Thought process with flight of ideas and loose associations as well as significant delusional thought content. Memory and concentration: Grossly poor. Judgment and insight: Very poor Vital Signs Temp 97.5 F L 11/19/21 06:33 Pulse 85 11/19/21 09:12 Resp 18 11/19/21 09:12 BP 135/69 11/19/21 09:12 Pulse Ox 96 11/18/21 08:00 Intake & Output 11/18/21 11/19/21 11/19/21 18:59 06:59 18:59 Weight 79 kg Assessment Schizoaffective disorder, bipolar type versus schizophrenia Plan: -Patient continues to meet criteria for inpatient psychiatric admission for symptom stabilization and safety. -Patient attended court today and will be receiving a mental health court order. -Medications: Increase Abilify to 20 mg by mouth daily for psychosis. As the patient is currently court ordered, if the patient refuses the Abilify, we will administer Thorazine 25 mg IM. We'll increase Clozaril to 50 mg by mouth at bedtime for treatment resistant schizophrenia. -We will administer Abilify Maintena 400 mg IM tomorrow. -When necessary Thorazine for agitation/aggression. -SW on board for discharge planning. Encouraged the patient to participate in milieu.
[2021-11-19] MEDS: chlorproMAZINE 25 MG/ML 2 ML AMP IM PRN (11:53)
[2021-11-19] MEDS: cloZAPine 25 MG TAB PO SCH (20:52)
[2021-11-19] MEDS: MELATONIN 5 MG TABLET PO SCH (20:53)
[2021-11-19] MEDS: MAGNESIUM OXIDE 400 MG TAB PO SCH (20:54)
[2021-11-19] MEDS: TEMAZEPAM 7.5 MG CAP PO PRN (20:54)
[2021-11-20] MEDS: EZETIMIBE 10 MG TAB PO SCH (08:51)
[2021-11-20] MEDS: CHOLECALCIFEROL 25 MCG (1000 IU) TABLET PO SCH (08:52)
[2021-11-20] MEDS: MECLIZINE 25 MG TAB PO SCH ×2 (08:53→21:22)
[2021-11-20] MEDS: ASPIRIN 81 MG PO SCH (08:53)
[2021-11-20] MEDS: METOPROLOL TARTRATE 25 MG TAB PO SCH ×2 (08:53→21:21)
[2021-11-20] MEDS: FAMOTIDINE 20 MG TAB PO SCH (08:53)
[2021-11-20] MEDS: lisinopriL 20 MG TAB PO SCH (08:54)
[2021-11-20] MEDS: MULTIVITAMINS, THERA 1 EACH TAB PO SCH (08:56)
[2021-11-20] MEDS ORDERED: ARIPiprazole IM SYRINGE 400 MG (NO CHARGE) PHARMACY STOCK IM ONE (10:30)
--- NOTE | 2021-11-20 11:13 | P.PN ---
Progress Note - Text Progress Note Date: 11/20/21 Interval History: Patient was seen wandering the hallways and was difficult to direct. The patient continues to nonsensically raise her voice on the unit and has been verbally aggressive with staff and peers. She continues to be paranoid that her is having an affair with others. She does express apprehension towards receiving injectible medication. She states the medications are causing her "brain to ashley." She continues to be grossly disorganized and unpredictable. Mental Status Exam: General Appearance: Patient appears to be stated age is alert but not directable or cooperative. Behavior: Patient appears to be responding to internal stimuli, psychomotor agitation is evident. Speech: Patient's speech is pressured, nonsensical, disorganized. Loud in volume. Mood/Affect: Mood is angry. Affect appears to be labile. Suicidality/Homicidality: Unable to assess. Perceptions: Unable to assess. Though content/process: Grossly disorganized. Thought process with flight of ideas and loose associations as well as significant delusional thought content. Memory and concentration: Grossly poor. Judgment and insight: Very poor Vital Signs Temp 97.1 F L 11/20/21 06:37 Pulse 78 11/20/21 06:37 Resp 14 11/20/21 06:37 BP 106/53 11/20/21 06:37 Pulse Ox 96 11/18/21 08:00 Assessment Schizoaffective disorder, bipolar type versus schizophrenia Plan: -Patient continues to meet criteria for inpatient psychiatric admission for symptom stabilization and safety. -Patient attended court today and will be receiving a mental health court order. -Medications: Continue Abilify 20 mg by mouth daily for psychosis. As the patient is currently court ordered, if the patient refuses the Abilify, we will administer Thorazine 25 mg IM. We will administer Abilify maintena 400 mg IM today. Continue Clozaril 50 mg by mouth at bedtime for treatment resistant schizophrenia. -When necessary Thorazine for agitation/aggression. -SW on board for discharge planning. Encouraged the patient to participate in milieu.
[2021-11-20] MEDS: chlorproMAZINE 25 MG/ML 2 ML AMP IM PRN (11:31)
[2021-11-20] MEDS: cloZAPine 25 MG TAB PO SCH (21:21)
[2021-11-20] MEDS: MELATONIN 5 MG TABLET PO SCH (21:21)
[2021-11-20] MEDS: MAGNESIUM OXIDE 400 MG TAB PO SCH (21:21)
[2021-11-21] MEDS: TEMAZEPAM 7.5 MG CAP PO PRN (01:42)
[2021-11-21 08:40] LABS: Basophils # (A) 0.1 k/uL (0-0.2); Basophils % (A) 1 %; Eosinophils # (A) 0.4 k/uL (0-0.7); Eosinophils % (A) 5 %; HCT 42.2 % (34.0-46.0); HGB 13.4 gm/dL (11.4-16.0); Lymphocytes % (A) 29 %; MCH 30.8 pg (25.0-35.0); MCHC 31.9 g/dL (31.0-37.0); MCV 96.7 fL (80.0-100.0); Mean Platelet Volume 7.7; Monocytes # (A) 0.3 k/uL (0-1.0); Monocytes % (A) 5 %; Neutrophils # (A) 3.9 k/uL (1.3-7.7); Neutrophils % (A) 57 %; Platelet Count 264 k/uL (150-450); RBC 4.37 m/uL (3.80-5.40); WBC 6.8 k/uL (3.8-10.6)
[2021-11-21] MEDS: MECLIZINE 25 MG TAB PO SCH ×2 (09:38→20:33)
[2021-11-21] MEDS: FAMOTIDINE 20 MG TAB PO SCH (09:38)
[2021-11-21] MEDS: ASPIRIN 81 MG PO SCH (09:38)
[2021-11-21] MEDS: MULTIVITAMINS, THERA 1 EACH TAB PO SCH (09:38)
[2021-11-21] MEDS: CHOLECALCIFEROL 25 MCG (1000 IU) TABLET PO SCH (09:38)
[2021-11-21] MEDS: EZETIMIBE 10 MG TAB PO SCH (09:38)
[2021-11-21] MEDS: lisinopriL 20 MG TAB PO SCH (09:39)
[2021-11-21] MEDS: METOPROLOL TARTRATE 25 MG TAB PO SCH ×2 (09:39→20:33)
--- NOTE | 2021-11-21 13:49 | P.PN ---
Progress Note - Text Progress Note Date: 11/21/21 Interval History: Patient was seen wandering the hallways and was difficult to direct. The patient continues to be mostly nonsensical in her speech over does state that she is upset receiving both Abilify and Clozaril. The patient expresses this provider that "you are melting my brain!" She is upset that she has to receive both medications and efforts to educate patient on her behaviors and her paranoia are met with fertility at this time. The patient continues to be very labile and very intrusive with this provider. Often entering personal space and yelling nonsensically. The patient is eventually able to be redirected but after much effort. She continues to be paranoid towards staff, often accusing them of having an affair with her . Psychotic symptoms do not appear to be controlled at this time. Mental Status Exam: General Appearance: Patient appears to be stated age is alert but not directable or cooperative. Behavior: Patient appears to be responding to internal stimuli, psychomotor agitation is evident. Speech: Patient's speech is pressured, nonsensical, disorganized. Loud in volume. Mood/Affect: Mood is angry. Affect appears to be labile. Suicidality/Homicidality: Unable to assess. Perceptions: Unable to assess. Though content/process: Grossly disorganized. Thought process with flight of ideas and loose associations as well as significant delusional thought content. Memory and concentration: Grossly poor. Judgment and insight: Very poor Vital Signs Temp 97.7 F 11/21/21 09:44 Pulse 86 11/21/21 09:44 Resp 16 11/21/21 09:44 BP 145/69 11/21/21 09:44 Pulse Ox 96 11/21/21 09:44 Laboratory Results - Last 24 Hours 11/21/21 07:36 WBC 6.8 RBC 4.37 Hgb 13.4 Hct 42.2 MCV 96.7 MCH 30.8 MCHC 31.9 RDW 13.0 Plt Count 264 MPV 7.7 Neutrophils % 57 Lymphocytes % 29 Monocytes % 5 Eosinophils % 5 Basophils % 1 Neutrophils # 3.9 Lymphocytes # 2.0 Monocytes # 0.3 Eosinophils # 0.4 Basophils # 0.1 Assessment Schizoaffective disorder, bipolar type versus schizophrenia Plan: -Patient continues to meet criteria for inpatient psychiatric admission for symptom stabilization and safety. -Patient attended court today and will be receiving a mental health court order. -Medications: Continue Abilify 20 mg by mouth daily for psychosis. As the patient is currently court ordered, if the patient refuses the Abilify, we will administer Thorazine 25 mg IM. -Abilify maintena 400 mg IM was administered yesterday. Continue Clozaril 50 mg by mouth at bedtime for treatment resistant schizophrenia. -When necessary Thorazine for agitation/aggression. -SW on board for discharge planning. Encouraged the patient to participate in milieu.
[2021-11-21] MEDS: cloZAPine 25 MG TAB PO SCH (20:32)
[2021-11-21] MEDS: MELATONIN 5 MG TABLET PO SCH (20:32)
[2021-11-21] MEDS: MAGNESIUM OXIDE 400 MG TAB PO SCH (20:33)
[2021-11-21] MEDS: chlorproMAZINE 25 MG TAB PO PRN (20:34)
[2021-11-21] MEDS: hydrOXYzine pamoate 25 MG CAP PO PRN (22:09)
[2021-11-22] MEDS: ACETAMINOPHEN TAB 325 MG TAB PO PRN ×2 (00:14→10:32)
[2021-11-22] MEDS: hydrOXYzine pamoate 25 MG CAP PO PRN (08:56)
[2021-11-22] MEDS: CHOLECALCIFEROL 25 MCG (1000 IU) TABLET PO SCH (08:56)
[2021-11-22] MEDS: METOPROLOL TARTRATE 25 MG TAB PO SCH ×2 (08:56→21:07)
[2021-11-22] MEDS: lisinopriL 20 MG TAB PO SCH (08:57)
[2021-11-22] MEDS: MULTIVITAMINS, THERA 1 EACH TAB PO SCH (08:57)
[2021-11-22] MEDS: EZETIMIBE 10 MG TAB PO SCH (08:57)
[2021-11-22] MEDS: FAMOTIDINE 20 MG TAB PO SCH (08:57)
[2021-11-22] MEDS: MECLIZINE 25 MG TAB PO SCH ×2 (09:00→21:04)
[2021-11-22] MEDS: ASPIRIN 81 MG PO SCH (09:00)
[2021-11-22] MEDS: chlorproMAZINE 25 MG TAB PO PRN (10:32)
[2021-11-22 11:14] VITALS: BMI 31.8
--- NOTE | 2021-11-22 11:36 | P.PN ---
Progress Note - Text Progress Note Date: 11/22/21 Interval History: Patient was seen wandering the hallways and is cooperative to interview today. The patient is very intrusive with this provider, entering his personal space and asking the provider to discharge her. The patient wishes to be discharged for [place]. She has been adherent with her medications and is not reporting any significant side effects at this time. She did express that the medicine window that she wanted to take some calcium to help her with "some cancer in my stomach." The patient continues to display some labile and bizarre behaviors on the unit and is often intrusive with staff and peers. She'll continue to cry or yell nonsensically at others. Mental Status Exam: General Appearance: Patient appears to be stated age is alert and cooperative but not directable. Behavior: Patient appears to be responding to internal stimuli, psychomotor agitation is evident. Speech: Patient's speech is pressured, nonsensical, disorganized. Loud in volume. Mood/Affect: Mood is angry. Affect appears to be labile. Suicidality/Homicidality: Unable to assess. Perceptions: Unable to assess. Though content/process: Grossly disorganized. Thought process with flight of ideas and loose associations as well as significant delusional thought content. Memory and concentration: Grossly poor. Judgment and insight: Very poor Vital Signs Temp 97.7 F 11/22/21 10:43 Pulse 74 11/22/21 10:43 Resp 16 11/22/21 10:43 BP 184/81 11/22/21 10:43 Pulse Ox 96 11/22/21 10:43 Intake & Output 11/21/21 11/22/21 11/22/21 18:59 06:59 18:59 Weight 79 kg Assessment Schizoaffective disorder, bipolar type versus schizophrenia Plan: -Patient continues to meet criteria for inpatient psychiatric admission for symptom stabilization and safety. Due to the holiday season, we are unable to c oordinate with the patient's [facility] and her to determine a safe discharge plan. He'll likely hold and monitored the patient over the holiday until [facility] returns their offices. -Medications: Continue Abilify 20 mg by mouth daily for psychosis. As the patient is currently court ordered, if the patient refuses the Abilify, we will administer Thorazine 25 mg IM. -Abilify maintena 400 mg IM was administered on 11/20/21 Continue Clozaril 50 mg by mouth at bedtime for treatment resistant schizophrenia. We will gradually titrate medication and responsive patient's presentation and tolerance of the medication. -When necessary Thorazine for agitation/aggression. -SW on board for discharge planning. Encouraged the patient to participate in milieu.
[2021-11-22] MEDS: cloZAPine 25 MG TAB PO SCH (21:06)
[2021-11-22] MEDS: MELATONIN 5 MG TABLET PO SCH (21:07)
[2021-11-22] MEDS: MAGNESIUM OXIDE 400 MG TAB PO SCH (21:11)
[2021-11-23] MEDS: FAMOTIDINE 20 MG TAB PO SCH (08:12)
[2021-11-23] MEDS: lisinopriL 20 MG TAB PO SCH (08:12)
[2021-11-23] MEDS: MECLIZINE 25 MG TAB PO SCH ×2 (08:12→20:56)
[2021-11-23] MEDS: METOPROLOL TARTRATE 25 MG TAB PO SCH ×2 (08:12→20:56)
[2021-11-23] MEDS: EZETIMIBE 10 MG TAB PO SCH (08:12)
[2021-11-23] MEDS: MULTIVITAMINS, THERA 1 EACH TAB PO SCH (08:12)
[2021-11-23] MEDS: ASPIRIN 81 MG PO SCH (08:12)
[2021-11-23] MEDS: CHOLECALCIFEROL 25 MCG (1000 IU) TABLET PO SCH (08:12)
--- NOTE | 2021-11-23 10:33 | P.PN ---
Progress Note - Text Progress Note Date: 11/23/21 Interval History: Patient was seen wandering the hallways and is cooperative to interview today. The patient is much more linear and logical conversation today. The patient is expressing desire for discharge because it is [place]. However, the patient was informed that she would not be discharged today as per unable to coordinate aftercare planning with her ACT team. The patient does express a desire for discharge for New Year's and was informed that this is a possibility, the patient expresses isidro. She is currently not reporting any suicidal or homicidal ideation, intention, and/or plan. She is not reporting any auditory or visual hallucinations. She does not mention any paranoid delusions at this time. Furthermore, the patient is not reporting any significant side effects of medications. Mental Status Exam: General Appearance: Patient appears to be stated age is alert, cooperative, but continues to be somewhat difficult to direct. Behavior: Patient appears to be sitting appropriately without any agitated behavior. Speech: Patient's speech is at times dysarthric and loud in volume but much more coherent today. Mood/Affect: Mood is "okay." Affect is eager and excited. Expansive. Suicidality/Homicidality: Patient denies any suicidal or homicidal ideation, intention, and/or plan. Perceptions: Patient denies any auditory or visual hallucinations. Though content/process: The patient is more linear and logical today. The patient appears to be future oriented and does not make any loose associations today. Memory and concentration: Grossly intact for the purposes of this session. Patient appears to be alert and oriented in all spheres today. Judgment and insight: Guarded Vital Signs Temp 97.6 F 11/23/21 06:44 Pulse 88 11/23/21 08:12 Resp 16 11/23/21 06:44 BP 124/60 11/23/21 09:52 Pulse Ox 96 11/22/21 10:43 Intake & Output 11/22/21 11/23/21 11/23/21 18:59 06:59 18:59 Weight 79 kg Assessment Schizoaffective disorder, bipolar type versus schizophrenia Plan: -Patient continues to meet criteria for inpatient psychiatric admission for symptom stabilization and safety. Due to the holiday season, we are unable to coordinate with the patient's [facility] and her to determine a safe discharge plan. We will likely hold and monitor the patient over the holiday until [facility] returns their offices. -Medications: Continue Abilify 20 mg by mouth daily for psychosis. As the patient is currently court ordered, if the patient refuses the Abilify, we will administer Thorazine 25 mg IM. -Abilify maintena 400 mg IM was administered on 11/20/21 Continue Clozaril 50 mg by mouth at bedtime for treatment resistant schizophrenia. We will gradually titrate medication and responsive patient's presentation and tolerance of the medication. -When necessary Thorazine for agitation/aggression. -SW on board for discharge planning. Encouraged the patient to participate in milieu.
[2021-11-23] MEDS: hydrOXYzine pamoate 25 MG CAP PO PRN (12:51)
[2021-11-23] MEDS: cloZAPine 25 MG TAB PO SCH (20:55)
[2021-11-23] MEDS: MELATONIN 5 MG TABLET PO SCH (20:56)
[2021-11-23] MEDS: MAGNESIUM OXIDE 400 MG TAB PO SCH (20:56)
[2021-11-23] MEDS: TEMAZEPAM 7.5 MG CAP PO PRN (20:57)
[2021-11-24] MEDS: CHOLECALCIFEROL 25 MCG (1000 IU) TABLET PO SCH (09:42)
[2021-11-24] MEDS: MECLIZINE 25 MG TAB PO SCH ×2 (09:42→20:59)
[2021-11-24] MEDS: EZETIMIBE 10 MG TAB PO SCH (09:42)
[2021-11-24] MEDS: ASPIRIN 81 MG PO SCH (09:42)
[2021-11-24] MEDS: FAMOTIDINE 20 MG TAB PO SCH (09:42)
[2021-11-24] MEDS: lisinopriL 20 MG TAB PO SCH (09:43)
[2021-11-24] MEDS: MULTIVITAMINS, THERA 1 EACH TAB PO SCH (09:43)
[2021-11-24] MEDS: METOPROLOL TARTRATE 25 MG TAB PO SCH ×2 (09:43→20:59)
[2021-11-24] MEDS: hydrOXYzine pamoate 25 MG CAP PO PRN ×2 (12:01→20:59)
--- NOTE | 2021-11-24 17:45 | PN ---
PROGRESS NOTE DATE OF SERVICE: 11/24/2021. CHIEF COMPLAINT: The patient was agitated, disorganized in thoughts, unable to communicate and had stopped taking medications. INTERVAL HISTORY: The patient continues to have significant ups and downs in her functioning and behavior. Yesterday she was out on the unit. She attended one group, though it was noted she was not able to communicate. Her speech was described as garbled, rapid and animated. She wondered about. She will interact with others. She often is on the phone, apparently talking to family. She was documented as sleeping about 5 hours last night after receiving temazepam at 9 p.m. Today she has been up and doing the same. At one point she was on the telephone for a very long period of time, possibly half an hour or more. She attended groups today and seemed to do a little better in group. When I saw her in the afternoon, she was completely disorganized in her thoughts and unable to communicate anything intelligible or productive. She had pressured speech and rambled. It was difficult to be clear what she was talking about, though she made frequent references to different people who apparently are in her life. She did receive Abilify Maintena 400 mg IM on 11/20. She continues on oral Abilify and has started a titration of clozapine. She appears to tolerate her psychotropic medications. MENTAL STATUS: Patient was very restless. She walked about and was not able to stand still at all during the interview. When I walked out of the office, she followed me and continued to talk in a rambling way. The patient did not communicate anything that I was able to understand. Mostly she talked with some pressured speech and flight of ideas and made references apparently to things outside of the hospital. Her affect was intense, her mood somewhat elevated. It was difficult to say how distressed she might be feeling. She had disorganized thinking. She voiced no indication of thoughts of harm. She was oriented to her immediate environment and circumstances. ASSESSMENT: I will continue the current diagnosis and treatment plan. The patient continues to show significant mood swings and apparent manic symptoms. I will increase her clozapine. She has been on 50 mg a day. We will go up to 100 mg tonight and tomorrow I would like to go up to 50 mg in the morning, 100 mg at night. The medical record indicates that at various times over the last several years she has been prescribed benzodiazepines. A concern would be that she perhaps has been on long-term benzodiazepines, which could aggravate her mood disorder and potentially put her at risk for substance withdrawal. In this regard, I will discontinue temazepam and would defer further consideration to Dr. Nolasco. We will need to monitor for withdrawal symptoms which may aggravate her mood disorder further. I did not make an effort to discuss medication issues with the patient, given her state of disorganization. We will focus on stabilization and discharge planning. [id number] / AKINN: [id number] /
[2021-11-24] MEDS: MELATONIN 5 MG TABLET PO SCH (20:59)
[2021-11-24] MEDS: MAGNESIUM OXIDE 400 MG TAB PO SCH (20:59)
[2021-11-24] MEDS: cloZAPine 100 MG TAB PO SCH (20:59)
[2021-11-25 02:54] VITALS: RESP 15; TEMP 97.6
[2021-11-25] MEDS: ASPIRIN 81 MG PO SCH (08:35)
[2021-11-25] MEDS: CHOLECALCIFEROL 25 MCG (1000 IU) TABLET PO SCH ×2 (08:35→08:37)
[2021-11-25 08:36] VITALS: BP 135/69; PULSE 89
[2021-11-25] MEDS: cloZAPine 25 MG TAB PO SCH (08:36)
[2021-11-25] MEDS: MECLIZINE 25 MG TAB PO SCH ×2 (08:36→21:15)
[2021-11-25] MEDS: MULTIVITAMINS, THERA 1 EACH TAB PO SCH (08:36)
[2021-11-25] MEDS: FAMOTIDINE 20 MG TAB PO SCH (08:36)
[2021-11-25] MEDS: EZETIMIBE 10 MG TAB PO SCH (08:37)
[2021-11-25] MEDS: METOPROLOL TARTRATE 25 MG TAB PO SCH ×2 (08:37→21:15)
[2021-11-25] MEDS: lisinopriL 20 MG TAB PO SCH (08:37)
[2021-11-25 09:57] LABS: Calcium 9.5 mg/dL (8.4-10.2); Potassium 4.7 mmol/L (3.5-5.1)
--- NOTE | 2021-11-25 12:55 | PN ---
PROGRESS NOTE DATE OF SERVICE: 11/25/2021. CHIEF COMPLAINT: The patient was agitated, disorganized in thoughts, unable to communicate and had stopped taking medications. INTERVAL HISTORY: Patient has been doing about the same. She has some ups and downs in how she functions. Sometimes she can interact with staff and be fairly clear in her thoughts. At other times she gets more disorganized. She attended both groups yesterday. At one of the groups she was noted to be hyperverbal and restless, whereas in the other group she was noted to be appropriate and compliant. She slept fair last night. Today she has been up. She spent a fair amount in the morning in her room. She said she needs to catch up on her sleep. She voiced no specific complaints or concerns when I talked to her. It is noted that she did not say a lot, though she did not have the pressured speech and disorganized thoughts that were prevalent yesterday when I talked with her. She tolerates her psychotropic medications. MENTAL STATUS: Patient was a little restless. She gave fair eye contact. She answered questions with brief responses. She did not say much. Her affect was somewhat intense, her mood reserved. She did not appear to be significantly distressed. She continues to have some disorganized thinking. She voiced no thoughts of harm. She was oriented to circumstances and surroundings. ASSESSMENT: I will continue the current diagnosis and treatment plan. I will continue psychotropic medications the same. The patient appears to be making progress. She continues to have some ups and downs in her mood and function. I will continue to titrate up on her clozapine. I briefly reviewed medication issues with the patient, though she was not too inclined to engage in the conversation. We will focus on stabilization and discharge planning. LAURA / JOVANNY: [id number] /
[2021-11-25] MEDS: cloZAPine 100 MG TAB PO SCH (21:14)
[2021-11-25] MEDS: MELATONIN 5 MG TABLET PO SCH (21:15)
[2021-11-25] MEDS: MAGNESIUM OXIDE 400 MG TAB PO SCH (21:15)
[2021-11-26] MEDS: EZETIMIBE 10 MG TAB PO SCH (08:45)
[2021-11-26] MEDS: cloZAPine 25 MG TAB PO SCH (08:45)
[2021-11-26] MEDS: lisinopriL 20 MG TAB PO SCH (08:45)
[2021-11-26] MEDS: FAMOTIDINE 20 MG TAB PO SCH (08:45)
[2021-11-26] MEDS: MECLIZINE 25 MG TAB PO SCH (08:45)
[2021-11-26] MEDS: ASPIRIN 81 MG PO SCH (08:45)
[2021-11-26] MEDS: METOPROLOL TARTRATE 25 MG TAB PO SCH (08:46)
[2021-11-26] MEDS: MULTIVITAMINS, THERA 1 EACH TAB PO SCH (08:46)
[2021-11-26] MEDS: hydrOXYzine pamoate 25 MG CAP PO PRN (08:50)
--- NOTE | 2021-11-26 11:59 | DS ---
DISCHARGE SUMMARY DATE OF SERVICE: 11/26/2021 DATE OF ADMISSION: 11/12/2021 DATE OF DISCHARGE: 11/26/2021 ADMISSION AND DISCHARGE DIAGNOSIS: 1. Schizoaffective disorder, bipolar type. 2. Rule out schizophrenia. 3. Asthma. 4. Gastroesophageal reflux disease. 5. Hypertension. HISTORY OF PRESENTING ILLNESS: The patient is a 71-year-old female. She resides with her , who is her legal guardian. Her brought her to the ED, noting that she had not been taking her medication, she had not been sleeping. She had just been discharged from the unit 11/09 with followup through [facility]. Discharge medication included Prolixin 3 mg twice a day as her only psychotropic medication. She was noted to be completely disorganized in her thoughts. She had slurred speech. It is noted that she has had multiple psychiatric hospitalizations for similar circumstances. She was admitted for further evaluation. MENTAL STATUS EXAM: The patient attempted to cooperate, but she had difficulty providing any information. She had rapid speech. Her thoughts were nonsensical. Her affect was expansive. She was unable to provide any information about thoughts of harm. She was responding to internal stimuli. She was disoriented. COURSE OF HOSPITALIZATION: The patient was admitted for comprehensive medical, psychiatric and psychosocial evaluation. We engaged the patient in individual and therapeutic activity. Her Prolixin was discontinued and she was started on Abilify. The dose was titrated up to 20 mg a day. Early on in her hospital stay, the patient was quite active, at times agitated. She had pressured speech. She continued to be disorganized in her thoughts, where she could barely communicate anything that was comprehensible. She was initiated on Abilify Maintena 400 mg, which was started on 11/20, with the plan for her to receive injections every 28 days. In addition, she was started on clozapine. As her hospitalization progressed, the patient had ups and downs in her mood and function. She would have periods where she seemed to be in a fairly reasonable mood and had clear thoughts; she could communicate appropriately and interact reasonably well with others. Then there would be times where she would get into a situation where she had pressured thoughts, flight of ideas, loose association and tangential thinking. She fluctuated back and forth between these mood states, though as her hospitalization progressed, she gradually was able to stabilize. Her clozapine dose was titrated to 50 mg in the morning, 100 mg at bedtime. There were periods during her stay where she required p.r.n. Thorazine. Toward the end of her stay, her mood was improving. She was able to cooperate at least to a basic degree in regard to discharge planning. CONDITION AT DISCHARGE: Patient was stable. Her mood had stabilized, with her showing less in terms of manic or hypomanic behavior. Her thoughts were clear. She voiced no thoughts of harm. She was functioning appropriately. She tolerated her psychotropic medications. The patient is referred to [facility] for continued followup. Please see discharge packet for details. DISCHARGE MEDICATIONS: 1. Abilify 20 mg a day. 2. Clozapine 50 mg in the morning and 100 mg at bedtime. 3. In addition, she would receive Abilify Maintena 400 mg on 12/18/2021. MMKRISSYL / IJN: [id number] /
== END 2021-11-26 13:20 | disposition home or self-care (01) | DRG 885 ==
LOC: EEVIPCON 07:40 → EC 07:40 → 3MHU 13:48
PROVIDERS: ADMIT Psychiatry & Neurology Psychiatry; ATTEND Psychiatry & Neurology Psychiatry
DX: F25.0 Schizoaffective disorder, bipolar type (principal); E78.5 Hyperlipidemia, unspecified; F17.200 Nicotine dependence, unspecified, uncomplicated; I10 Essential (primary) hypertension; J45.909 Unspecified asthma, uncomplicated; K21.9 Gastro-esophageal reflux disease without esophagitis; Z79.82 Long term (current) use of aspirin; Z79.899 Other long term (current) drug therapy; Z82.3 Family history of stroke; Z82.49 Family history of ischemic heart disease and other diseases of the circulatory system; Z91.14 Patient's other noncompliance with medication regimen; Z20.822 Contact with and (suspected) exposure to COVID-19
CPT/HCPCS: 36415; 80048; 80053; 80061; 80306; 81003; 82075; 83036; 84443; 85025; 87635; 99285

== ENCOUNTER 2021-12-11 12:04 | Inpatient (IN) | payer MEDICARE, MEDICAID ==
--- NOTE | 2021-12-11 13:01 | ED ---
General Adult HPI - General Chief complaint: Psychiatric Symptoms Stated complaint: pickup order Time Seen by Provider: 12/11/21 12:15 Source: patient, police, EMS, RN notes reviewed, old records reviewed Mode of arrival: ambulatory Limitations: altered mental status - History of Present Illness Initial comments: This is a 71-year-old female presents emergency Department with [place] police. Patient has been noncompliant with her psychiatric care and a court order was put on to have her brought in and evaluated. Patient is unable to give any hist ory she just continues to babble about how she wants to go to the [facility] and does not want to see her ever again. Patient denies any suicidal homicidal ideations. Patient denies any physical complaint per patient denies headache patient denies chest pain patient denies any difficulty breathing patient denies abdominal pain patient has nausea vomiting diarrhea. Patient denies any fever chills or cough. - Related Data Home Medications Medication Instructions Recorded Confirmed Eszopiclone [Lunesta] 3 mg PO HS PRN 11/03/21 12/11/21 Ezetimibe [Zetia] 10 mg PO DAILY 11/03/21 12/11/21 Magnesium Oxide [Magox 400] 400 mg PO HS 11/03/21 12/11/21 Meclizine HCl 25 mg PO BID 11/03/21 12/11/21 Metoprolol Tartrate [Lopressor] 25 mg PO BID 11/03/21 12/11/21 [place]-3 Acid Ethyl Esters [Lovaza] 1 gm PO BID 11/03/21 12/11/21 lisinopriL [Prinivil] 20 mg PO DAILY 11/03/21 12/11/21 Aspirin EC [Ecotrin Low Dose] 81 mg PO DAILY 11/05/21 12/11/21 Cholecalciferol [Vitamin D3 (25 50 mcg PO DAILY 11/05/21 12/11/21 Mcg = 1000 Iu)] Famotidine [Pepcid] 20 mg PO BID 11/05/21 12/11/21 Melatonin 30 mg PO HS 11/05/21 12/11/21 Multivitamin with Iron 1 tab PO DAILY 11/05/21 12/11/21 [Multivitamins with Iron] Sennosides [Senna] 8.6 mg PO BID PRN 11/05/21 12/11/21 ARIPiprazole [Abilify Maintena] 400 mg IM DIRECTED 12/11/21 12/11/21 ARIPiprazole [Abilify] 20 mg PO DIRECTED 12/11/21 12/11/21 LORazepam [Ativan] 1 mg PO Q6H PRN 12/11/21 12/11/21 Perphenazine [Trilafon] 4 mg PO HS 12/11/21 12/11/21 cloZAPine [Clozaril] 100 mg PO HS 12/11/21 12/11/21 Previous Rx's Medication Instructions Recorded cloZAPine [Clozaril] 100 mg PO HS #7 tab 11/26/21 Allergies Allergy/AdvReac Type Severity Reaction Status Date / Time haloperidol [From Haldol] Allergy injection Verified 12/11/21 13:38 site reaction per [facility] quetiapine fumarate Allergy Unknown Verified 12/11/21 13:38 [From Seroquel] Sulfa (Sulfonamide Allergy Unknown Verified 12/11/21 13:38 Antibiotics) Review of Systems ROS Statement: Those systems with pertinent positive or pertinent negative responses have been documented in the HPI. ROS Other: All systems not noted in ROS Statement are negative. 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 Past Anesthesia/Blood Transfusion Reactions: No Reported Reaction Past Psychological History: Bipolar, Schizophrenia Smoking Status: Current every day smoker Past Alcohol Use History: None Reported Past Drug Use History: None Reported - Past Family History Brother(s) Additional Family Medical History / Comment(s): Patient states she has 5 brothers with no major medical problems. Sister(s) Additional Family Medical History / Comment(s): Patient states she has 7 sisters with no major medical problems. Brother(s) Son(s) Additional Family Medical History / Comment(s): Patient has 2 sons and 1 daughter with no major medical problems. Mother Family Medical History: Cancer, Hypertension Additional Family Medical History / Comment(s): Mother at age 89 from stomach problems Father Family Medical History: CVA/TIA, Hypertension Additional Family Medical History / Comment(s): Father at age 59 from peripheral vascular disease. General Exam - General Exam Comments Initial Comments: GENERAL: Patient is well-developed and well-nourished. Patient is nontoxic and well- hydrated and is in no acute distress. ENT: Neck is soft and supple. No significant lymphadenopathy is noted. Oropharynx is clear. Moist mucous membranes. Neck has full range of motion without eliciting any pain. EYES: The sclera were anicteric and conjunctiva were pink and moist. Extraocular movements were intact and pupils were equal round and reactive to light. Eyelids were unremarkable. PULMONARY: Unlabored respirations. Good breath sounds bilaterally. No audible rales rhonchi or wheezing was noted. CARDIOVASCULAR: There is a regular rate and rhythm without any murmurs gallops or rubs. ABDOMEN: Soft and nontender with normal bowel sounds. SKIN: Skin is clear with no lesions or rashes and otherwise unremarkable. NEUROLOGIC: Patient is alert and oriented x3. Cranial nerves II through XII are grossly intact. Motor and sensory are also intact. Normal speech, volume and content. Symmetrical smile. MUSCULOSKELETAL: Normal extremities with adequate strength and full range of motion. LYMPHATICS: No significant lymphadenopathy is noted PSYCHIATRIC: Patient is babbling and very tangential thinking. She does make it clear that she does not want to ever go back to live with her . She denies suicidal homicidal ideations. Limitations: no limitations Course Vital Signs 12/11/21 12:10 Temperature 98.2 F Pulse Rate 87 Respiratory 19 Rate Blood Pressure 153/96 O2 Sat by Pulse 97 Oximetry Medical Decision Making - Medical Decision Making EPS evaluated the patient and determined the patient needed to be admitted. Disposition Clinical Impression: Psychosis Disposition: ADMITTED IP TO THIS [facility] Referrals: Nonstaff,Physician [Primary Care Provider] - 1-2 days Time of Disposition: 15:17
[2021-12-11] MEDS ORDERED: ZIPRASIDONE 20 MG VIAL IM STA (16:38)
[2021-12-11] MEDS ORDERED: ZIPRASIDONE 40 MG CAP PO STA (16:51)
[2021-12-11 17:26] LABS: Benzodiazepines Screen,Urine Detected (NotDetected)
[2021-12-11 17:27] LABS: Amphetamine Screen,Urine Not Detected (NotDetected); Barbiturate Screen,Urine Not Detected (NotDetected); Cocaine Screen,Urine Not Detected (NotDetected); Methadone Screen, Urine Not Detected (NotDetected); Opiate Screen,Urine Not Detected (NotDetected); Oxycodone Screen, Urine Not Detected (NotDetected); Phencyclidine Screen,Urine Not Detected (NotDetected); Tricyclic Antidepressant,Urine Not Detected (NotDetected); Urn Cannabinoid Scrn Not Detected (NotDetected)
[2021-12-11] MEDS ORDERED: SENNOSIDES 8.6 MG TAB PO PRN (19:52)
[2021-12-11] MEDS ORDERED: ACETAMINOPHEN TAB 325 MG TAB PO PRN (20:19)
[2021-12-11] MEDS ORDERED: MAG HYDROX/AL HYDROX/SIMETH 30 ML CUP PO PRN (20:19)
[2021-12-11] MEDS ORDERED: MAGNESIUM HYDROXIDE 2,400 MG/10 ML CUP PO PRN (20:19)
[2021-12-11] MEDS ORDERED: LORazepam 2 MG/ML INJ IM PRN (20:22)
[2021-12-11] MEDS ORDERED: flUPHENAZine 2.5 MG/ML (MDV) 10 ML VIAL IM PRN (20:22)
[2021-12-11] MEDS ORDERED: cloZAPine 100 MG TAB PO SCH (21:00)
[2021-12-11] MEDS ORDERED: cloZAPine 100 MG TAB PO ONE (21:15)
[2021-12-11] MEDS: MELATONIN 5 MG TABLET PO SCH (21:28)
[2021-12-11] MEDS: FAMOTIDINE 20 MG TAB PO SCH (21:29)
[2021-12-11] MEDS: METOPROLOL TARTRATE 25 MG TAB PO SCH (21:29)
[2021-12-11] MEDS: MECLIZINE 25 MG TAB PO SCH (21:29)
[2021-12-11] MEDS: MAGNESIUM OXIDE 400 MG TAB PO SCH (21:29)
[2021-12-11] MEDS ORDERED: clonazePAM 1 MG TAB PO ONE (21:30)
[2021-12-11] MEDS: PATIENT'S OWN (Omega-3 Acid Ethyl Esters [Lovaza] 1 GM Capsule) PO SCH (21:33)
[2021-12-11] MEDS: IBUPROFEN 600 MG TAB PO PRN (21:36)
--- NOTE | 2021-12-12 03:15 | P.PN ---
Progress Note - Text Progress Note Date: 12/12/21 new admit , patient heavily sedated
[2021-12-12] MEDS: ASPIRIN 81 MG PO SCH (09:47)
[2021-12-12] MEDS: CHOLECALCIFEROL 25 MCG (1000 IU) TABLET PO SCH (09:47)
[2021-12-12] MEDS: MULTIVITAMINS, THERA 1 EACH TAB PO SCH (09:47)
[2021-12-12] MEDS: FAMOTIDINE 20 MG TAB PO SCH ×2 (09:47→21:00)
[2021-12-12] MEDS: NICOTINE 14MG/24HR PATCH TRANSDERM SCH (09:47)
[2021-12-12] MEDS: EZETIMIBE 10 MG TAB PO SCH (09:47)
[2021-12-12] MEDS: METOPROLOL TARTRATE 25 MG TAB PO SCH ×2 (09:48→21:00)
[2021-12-12] MEDS: lisinopriL 20 MG TAB PO SCH (09:48)
[2021-12-12] MEDS: MECLIZINE 25 MG TAB PO SCH ×2 (09:48→21:00)
[2021-12-12] MEDS: PATIENT'S OWN (Omega-3 Acid Ethyl Esters [Lovaza] 1 GM Capsule) PO SCH ×2 (09:49→21:05)
[2021-12-12] MEDS: IBUPROFEN 600 MG TAB PO PRN (10:12)
--- NOTE | 2021-12-12 11:20 | P.HP ---
Psychiatric H&P - . H&P Date: 12/12/21 History & Physical: Allergies Allergy/AdvReac Type Severity Reaction Status Date / Time haloperidol [From Haldol] Allergy injection Verified 12/11/21 13:38 site reaction per [facility] quetiapine fumarate Allergy Unknown Verified 12/11/21 13:38 [From Seroquel] Sulfa (Sulfonamide Allergy Unknown Verified 12/11/21 13:38 Antibiotics) Vital Signs Temp 97.4 F L 12/12/21 09:50 Pulse 80 12/12/21 10:16 Resp 20 12/12/21 10:16 BP 118/59 12/12/21 10:16 Pulse Ox 95 12/11/21 21:28 Intake & Output 12/11/21 12/12/21 12/12/21 18:59 06:59 18:59 Weight 77.111 kg Laboratory Last Values Urine Opiates Screen Not Detected (NotDetected) 12/11/21 16:51 Ur Oxycodone Screen Not Detected (NotDetected) 12/11/21 16:51 Urine Methadone Screen Not Detected (NotDetected) 12/11/21 16:51 Ur Propoxyphene Screen Not Detected (NotDetected) 12/11/21 16:51 Ur Barbiturates Screen Not Detected (NotDetected) 12/11/21 16:51 U Tricyclic Antidepress Not Detected (NotDetected) 12/11/21 16:51 Ur Phencyclidine Scrn Not Detected (NotDetected) 12/11/21 16:51 Ur Amphetamines Screen Not Detected (NotDetected) 12/11/21 16:51 U Methamphetamines Scrn Not Detected (NotDetected) 12/11/21 16:51 U Benzodiazepines Scrn Detected (NotDetected) H 12/11/21 16:51 Urine Cocaine Screen Not Detected (NotDetected) 12/11/21 16:51 U Marijuana (THC) Screen Not Detected (NotDetected) 12/11/21 16:51 Coronavirus (PCR) Not Detected (Not Detectd) 12/11/21 16:42 12/12/21 11:19 IDENTIFYING DATA: Patient is a , retired, 71-year-old female with a significant history of schizophrenia who presented to the emergency department, referred by her outpatient mental health provider for uncontrolled psychotic symptoms. HPI: Patient presented to the hospital on 12/11/21, brought into the hospital as recommended by her outpatient provider for uncontrolled psychotic symptoms. As per EPS report, the patient endorsed significant paranoid delusions believing that there is "government fraud in my house! He took my credit card! He's getting food stamps when he shouldn't be getting them! He is with the town who! He doesn't believe in [place]!" The patient was recently admitted to the psychiatric unit this past November 03 and again on November 12 both for similar presentations. The patient has a significant history of schizoaffective disorder but is inconsistent in taking her outpatient medications. The patient is currently on a significant regimen of Clozaril and Abilify however has been nonadherent with her Clozaril. The patient is presenting as grossly disorganized, paranoid, and appears to be responding to internal stimuli. She is often accusing her of being unfaithful and possibly fulling around with staff on the unit or with staff at [facility]. The patient was notably agitated last night required administration of when necessary medications in order to calm down. After administration of Clozaril, the patient eventually fell asleep. The patient is chronically mentally ill with a severe treatment resistant schizoaffective disorder. As per discussion with the patient's outpatient psychiatric provider, the patient has trialed numerous medications in the past medication issue tends to be the consistency as to which the patient is adherent with the medication. She currently resides at home with her however her is the one who manages the medication administration. Significant discussion took place of the patient's psychiatrist recommending [facility] home placement. PAST PSYCHIATRIC HISTORY: The patient has a previous diagnosis of schizophrenia/schizoaffective disorder. She has been on numerous psychotropic medications including Haldol Decanoate, Trilafon, Klonopin, Lunesta, Prolixin, Restoril, and most recently Abilify and Clozaril. The patient was recently admitted on to the psychiatric unit last month twice. She is currently open with [facility] in [place] with their ACT team. PMH: Past Medical History: Asthma, GERD/Reflux, Hypertension History of Any Multi-Drug Resistant Organisms: None Reported Past Surgical History: Section, Orthopedic Surgery Additional Past Surgical History / Comment(s): amputated toes on right ft. Past Anesthesia/Blood Transfusion Reactions: No Reported Reaction Past Psychological History: Bipolar, Schizophrenia Smoking Status: Current every day smoker Past Alcohol Use History: None Reported Past Drug Use History: None Reported ALLERGIES: Haloperidol, Seroquel, sulfa CHEMICAL DEPENDENCY HISTORY: And reported substance abuse history FAMILY PSYCHIATRIC/SUBSTANCE USE HISTORY: Unable to identify family psychiatric history or substance abuse history. SOCIAL HISTORY: Patient is currently and lives with her who is her guardian.. MENTAL STATUS EXAM: General Appearance: Patient appears to be stated age is alert, directable, and attempts to cooperate. Patient appears to be slightly disheveled. She is currently ambulating with a wheelchair due to unsteadiness of gait. Behavior: Patient is presenting with disorganized and intrusive behavior. Speech: Patient's speech is fluent and nonpressured. Loud in volume and currently dysarthric. Mood/Affect: Patient reports their mood is angry, affect is congruent and labile Suicidality/Homicidality: Unable to properly assess. Perceptions: Unable to properly assess. Though content/process: The patient is endorsing paranoid delusional thought content. Memory and concentration: AOX3, grossly intact for the purposes of this session. Can spell "WORLD" backwards Judgment and insight: Very poor STRENGTHS/WEAKNESSES: Strength is that the patient has Comprehensive Care and coverage with the ACT team. Weakness is that the patient is nonadherent with medications and has treatment resistant severe mental illness. INTELLECT: average IMPRESSIONS: Schizoaffective disorder, bipolar type PLAN: -Patient is currently under a court order for psychiatric treatment. -Medications : We will continue Clozaril 200 mg by mouth at bedtime for stabilization/psychosis We will have to confirm whether the patient received Abilify maintena and when it is due. -Will hold all benzodiazepines at this time. -When necessary, administer Prolixin for agitation -Patient was informed of the risks, benefits and side effects of the medication and currently is unable to provide any informed consent. -Internal Medicine consult to perform medical evaluation and physical. -SW on board for discharge planning. Encourage patient to participate in groups to work on coping skills. 12/12/21 11:19
[2021-12-12 16:11] LABS: Basophils # (A) 0.1 k/uL (0-0.2); Basophils % (A) 1 %; Eosinophils % (A) 1 %; HCT 41.1 % (34.0-46.0); HGB 13.3 gm/dL (11.4-16.0); Lymphocytes # (A) 0.9 k/uL (1.0-4.8); Lymphocytes % (A) 15 %; MCH 31.3 pg (25.0-35.0); MCHC 32.4 g/dL (31.0-37.0); MCV 96.5 fL (80.0-100.0); Mean Platelet Volume 7.8; Monocytes # (A) 0.3 k/uL (0-1.0); Monocytes % (A) 5 %; Neutrophils # (A) 4.9 k/uL (1.3-7.7); Neutrophils % (A) 77 %; Platelet Count 234 k/uL (150-450); RBC 4.26 m/uL (3.80-5.40); RDW 12.9 % (11.5-15.5); WBC 6.3 k/uL (3.8-10.6)
[2021-12-12 16:20] LABS: ALT 18 U/L (4-34); AST 23 U/L (14-36); African American GFR (CKD) 61 (>60 ml/min/1.73 sqM); Alkaline Phosphatase 77 U/L (38-126); Anion Gap 9 mmol/L; Blood Urea Nitrogen 25 mg/dL (7-17); Calcium 9.3 mg/dL (8.4-10.2); Carbon Dioxide 24 mmol/L (22-30); Chloride 102 mmol/L (98-107); Glucose 131 mg/dL (74-99); Non-African American GFR(CKD) 53 (>60 ml/min/1.73 sqM); Potassium 4.2 mmol/L (3.5-5.1); Sodium 135 mmol/L (137-145); Total Bilirubin 0.3 mg/dL (0.2-1.3); Total Protein 6.7 g/dL (6.3-8.2)
[2021-12-12] MEDS: MELATONIN 5 MG TABLET PO SCH (21:00)
[2021-12-12] MEDS: MAGNESIUM OXIDE 400 MG TAB PO SCH (21:00)
[2021-12-12] MEDS: cloZAPine 100 MG TAB PO SCH (21:01)
[2021-12-12] MEDS ORDERED: flUPHENAZine 2.5 MG/ML (MDV) 10 ML VIAL IM PRN (21:02)
[2021-12-12] MEDS: LORazepam 1 MG TAB PO PRN (21:36)
[2021-12-12 23:50] LABS: Chol/HDL Ratio 3.66 Ratio; LDL Cholesterol,Calculated 77.9 mg/dL (0.0-131.0)
[2021-12-13] MEDS: NICOTINE 14MG/24HR PATCH TRANSDERM SCH (07:52)
[2021-12-13] MEDS: MULTIVITAMINS, THERA 1 EACH TAB PO SCH (07:55)
[2021-12-13] MEDS: ASPIRIN 81 MG PO SCH (07:55)
[2021-12-13] MEDS: METOPROLOL TARTRATE 25 MG TAB PO SCH ×2 (07:55→20:45)
[2021-12-13] MEDS: FAMOTIDINE 20 MG TAB PO SCH (07:55)
[2021-12-13] MEDS: CHOLECALCIFEROL 25 MCG (1000 IU) TABLET PO SCH ×2 (07:55→07:56)
[2021-12-13] MEDS: lisinopriL 20 MG TAB PO SCH (07:56)
[2021-12-13] MEDS: EZETIMIBE 10 MG TAB PO SCH (07:56)
[2021-12-13] MEDS: MECLIZINE 25 MG TAB PO SCH ×2 (07:57→20:45)
[2021-12-13] MEDS: PATIENT'S OWN (Omega-3 Acid Ethyl Esters [Lovaza] 1 GM Capsule) PO SCH ×2 (08:01→20:44)
[2021-12-13] MEDS ORDERED: flUPHENAZine 2.5 MG/ML (MDV) 10 ML VIAL IM PRN (10:12)
--- NOTE | 2021-12-13 11:15 | P.PN ---
Progress Note - Text Progress Note Date: 12/13/21 Interval History: Patient was seen wandering the hallways and was directable and agreeable to speak with bond underwriter in the hallway. She could not guarantee appropriate behaviors and direction in the office. The patient expresses a strong desire for discharge today. However, she did refuse her oral clozaril yesterday and instead had to receive IM prolixin last night. The patient informed staff that she preferred the prolixin as the clozaril caused her legs to hurt. She is currently not reporting any auditory or visual hallucinations. She denies any suicidal or homicidal ideation, intention, and/or plan. She does express paranoia towards others, especially towards her . She continues to be intrusive with staff and peers on the unit. Mental Status Exam: General Appearance: Patient appears to be stated age is alert, difficult to direct, and intermittently cooperative. Behavior: Patient is constantly pacing the hallways and asking to be discharged. Speech: Patient's speech is fluent, pressured, dysarthric and difficult to understand at times. Mood/Affect: Mood is "feeling good, I can go now." Affect is expansive and intense. Labile. Suicidality/Homicidality: Patient denies having any suicidal or homicidal ideation intent or plan. Perceptions: Patient denies any visual hallucinations and denies any auditory hallucinations Though content/process: Paranoia is evident. Memory and concentration: Appears to be grossly poor. Judgment and insight: Improving mildly Vital Signs Temp 96.9 F L 12/13/21 06:54 Pulse 90 12/13/21 06:54 Resp 17 12/13/21 06:54 BP 127/84 12/13/21 06:54 Pulse Ox 98 12/13/21 06:54 Laboratory Results - Last 24 Hours 12/12/21 12/12/21 12/12/21 15:30 15:30 15:30 WBC 6.3 RBC 4.26 Hgb 13.3 Hct 41.1 MCV 96.5 MCH 31.3 MCHC 32.4 RDW 12.9 Plt Count 234 MPV 7.8 Neutrophils % 77 Lymphocytes % 15 Monocytes % 5 Eosinophils % 1 Basophils % 1 Neutrophils # 4.9 Lymphocytes # 0.9 L Monocytes # 0.3 Eosinophils # 0.0 Basophils # 0.1 Sodium 135 L Potassium 4.2 Chloride 102 Carbon Dioxide 24 Anion Gap 9 BUN 25 H Creatinine 1.08 H Est GFR (CKD-EPI)AfAm 61 Est GFR (CKD-EPI)NonAf [address] Glu mg/dL 131 Hemoglobin A1c 6.2 H Calcium 9.3 Total Bilirubin 0.3 AST 23 ALT 18 Alkaline Phosphatase 77 Total Protein 6.7 Albumin 4.0 Triglycerides 214.00 H Cholesterol 166.00 LDL Cholesterol, Calc 77.9 VLDL Cholesterol, Calc 42.80 H HDL Cholesterol 45.30 Cholesterol/HDL Ratio 3.66 TSH 1.030 Assessment Schizoaffective disorder, bipolar type Plan: -Patient continues to meet criteria for inpatient psychiatric admission for symptom stabilization and safety. Patient is currently under court order. -Medications: If patient refuses her oral clozaril, we will administer prolixin 5 mg IM as she is under court order. We will likely transition patient back to prolixin decanoate over abilify. -When necessary Ativan and Prolixin for agitation/aggression. -SW on board for discharge planning. Encouraged the patient to participate in milieu.
[2021-12-13] MEDS: LORazepam 1 MG TAB PO PRN (17:48)
[2021-12-13] MEDS: MAGNESIUM OXIDE 400 MG TAB PO SCH (20:45)
[2021-12-13] MEDS: cloZAPine 100 MG TAB PO SCH (20:45)
[2021-12-13] MEDS: MELATONIN 5 MG TABLET PO SCH (20:45)
--- NOTE | 2021-12-14 00:46 | P.MDCNMH ---
History of Present Illness H&P Date: 12/14/21 Chief Complaint: medical eval 71 year female with hypertension patient has paranoid ideation , with flight of ideas, and pressured speech, no meaningful history was obtainable at this time . 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 Past Anesthesia/Blood Transfusion Reactions: No Reported Reaction Past Psychological History: Bipolar, Schizophrenia Smoking Status: Current every day smoker Past Alcohol Use History: None Reported Past Drug Use History: None Reported - Past Family History Brother(s) Additional Family Medical History / Comment(s): Patient states she has 5 brothers with no major medical problems. Sister(s) Additional Family Medical History / Comment(s): Patient states she has 7 sisters with no major medical problems. Brother(s) Son(s) Additional Family Medical History / Comment(s): Patient has 2 sons and 1 daughter with no major medical problems. Mother Family Medical History: Cancer, Hypertension Additional Family Medical History / Comment(s): Mother at age 89 from stomach problems Father Family Medical History: CVA/TIA, Hypertension Additional Family Medical History / Comment(s): Father at age 59 from peripheral vascular disease. Medications and Allergies Home Medications Medication Instructions Recorded Confirmed Type Eszopiclone [Lunesta] 3 mg PO HS PRN 11/03/21 12/11/21 History Ezetimibe [Zetia] 10 mg PO DAILY 11/03/21 12/11/21 History Magnesium Oxide [Magox 400] 400 mg PO HS 11/03/21 12/11/21 History Meclizine HCl 25 mg PO BID 11/03/21 12/11/21 History Metoprolol Tartrate [Lopressor] 25 mg PO BID 11/03/21 12/11/21 [address] [place]-3 Acid Ethyl Esters [Lovaza] 1 gm PO BID 11/03/21 12/11/21 History lisinopriL [Prinivil] 20 mg PO DAILY 11/03/21 12/11/21 History Aspirin EC [Ecotrin Low Dose] 81 mg PO DAILY 11/05/21 12/11/21 History Cholecalciferol [Vitamin D3 (25 50 mcg PO DAILY 11/05/21 12/11/21 History Mcg = 1000 Iu)] Famotidine [Pepcid] 20 mg PO BID 11/05/21 12/11/21 History Melatonin 30 mg PO HS 11/05/21 12/11/21 History Multivitamin with Iron 1 tab PO DAILY 11/05/21 12/11/21 History [Multivitamins with Iron] Sennosides [Senna] 8.6 mg PO BID PRN 11/05/21 12/11/21 History cloZAPine [Clozaril] 100 mg PO HS #7 tab 11/26/21 12/11/21 Rx ARIPiprazole [Abilify Maintena] 400 mg IM Q28D 12/11/21 12/12/21 History ARIPiprazole [Abilify] 20 mg PO DIRECTED 12/11/21 12/11/21 History LORazepam [Ativan] 1 mg PO Q6H PRN 12/11/21 12/11/21 History Perphenazine [Trilafon] 4 mg PO HS 12/11/21 12/11/21 History cloZAPine [Clozaril] 50 mg PO DAILY@1700 12/11/21 12/11/21 History Allergies Allergy/AdvReac Type Severity Reaction Status Date / Time haloperidol [From Haldol] Allergy injection Verified 12/11/21 13:38 site reaction per [facility] quetiapine fumarate Allergy Unknown Verified 12/11/21 13:38 [From Seroquel] Sulfa (Sulfonamide Allergy Unknown Verified 12/11/21 13:38 Antibiotics) Physical Exam Vitals: Vital Signs Temp Pulse Resp BP Pulse Ox 12/13/21 17:48 101 H 176/86 12/13/21 06:54 96.9 F L 90 17 127/84 98 Constitutional: presssured speech, flight of ideast Eyes: Anicteric sclerae, moist conjunctiva, Pupils equal round reactive to light ENMT: NC/AT Oropharynx clear, no erythema, or exudates Neck: Supple, no masses, or JVD No carotid bruits No thyromegaly Lungs: Clear to auscultation Clear to percussion Normal respiratory effort, no accessory muscle use Cardiovascular: Heart regular in rate and rhythm, No murmurs, gallops, or rubs No peripheral edema Abdominal: Soft Nontender, no guarding, rebound or rigidity Abdomen moving with respiration Normoactive bowel sounds Skin: Normal temperature, tone, texture, turgor No induration No subcutaneous nodules No rash, lesions No ulcers Extremities: No digital cyanosis No clubbing Pedal pulses intact and symmetrical Radial pulses intact and symmetrical No calf tenderness Psychiatric: Alert and oriented to person, place Neuro Muscles Strength 5/5 in all 4 extremities Sensation to light touch grossly present throughout Lymphatics: no palpable cervical or supraclavicular , lymph nodes Cranial Nerve Examination - Cranial Nerves Cranial Nerve II- Optic: Intact Cranial Nerve III- Oculomotor: Intact Cranial Nerve IV- Trochlear: Intact Cranial Nerve V- Trigeminal: Intact Cranial Nerve - Abducens: Intact Cranial Nerve VII- Facial: Intact Cranial Nerve VIII- Auditory: Intact Cranial Nerve IX- Glossopharyngeal: Intact Cranial Nerve X- Vagus: Intact Cranial Nerve XI- Accessory: Intact Cranial Nerve XII- Hypoglossal: Intact Results CBC & Chem 7: 12/12/21 15:30 12/12/21 15:30 Labs: Abnormal Lab Results - Last 24 Hours (Table) 12/12/21 Range/Units 15:30 Hemoglobin A1c 6.2 H (0.0-6.0) % Assessment and Plan Assessment: paranoid ideation management per psych chronic medical hypertension , resume home BP meds , lisinopril h/o CAD resume ASA, statin follow up labs Thank you for allowing us to participate in the care of this patient. We will follow peripherally. Do not hesitate to contact us with questions. Someone can be reached from the [facility] hospitalist group at all hours of the day at [phone].
[2021-12-14] MEDS: lisinopriL 20 MG TAB PO SCH (05:33)
[2021-12-14] MEDS: METOPROLOL TARTRATE 25 MG TAB PO SCH ×2 (05:33→21:14)
[2021-12-14 07:43] LABS: Glucose,Whole Blood 147 mg/dL (75-99)
[2021-12-14] MEDS: CHOLECALCIFEROL 25 MCG (1000 IU) TABLET PO SCH (08:00)
[2021-12-14] MEDS: NICOTINE 14MG/24HR PATCH TRANSDERM SCH (08:00)
[2021-12-14] MEDS: metFORMIN 500 MG TAB PO SCH ×2 (08:00→18:03)
[2021-12-14] MEDS: ASPIRIN 81 MG PO SCH (08:00)
[2021-12-14] MEDS: EZETIMIBE 10 MG TAB PO SCH (08:01)
[2021-12-14] MEDS: FAMOTIDINE 20 MG TAB PO SCH (08:01)
[2021-12-14] MEDS: PATIENT'S OWN (Omega-3 Acid Ethyl Esters [Lovaza] 1 GM Capsule) PO SCH ×2 (08:02→21:15)
[2021-12-14] MEDS: MULTIVITAMINS, THERA 1 EACH TAB PO SCH (08:02)
[2021-12-14] MEDS: MECLIZINE 25 MG TAB PO SCH ×2 (08:02→21:14)
--- NOTE | 2021-12-14 10:28 | P.PN ---
Progress Note - Text Progress Note Date: 12/14/21 Interval History: Patient was seen wandering the hallways and was directable and agreeable to speak with public relations writer in the hallway. The patient is reporting she is feeling better with the prolixin rather than clozaril. She reports clozaril causes her legs to be painful and weak and causes her to fall. She reports she is doing well with prolixin instead. She does report she spoke with Bernard yesterday and asked this provider constantly if he knows Bernard too. She does appear to respond to internal stimuli but is currently not endorsing any auditory or visual hallucinations. She denies any suicidal or homicidal ideation, intention, and/or plan. Mental Status Exam: General Appearance: Patient appears to be stated age is alert, difficult to direct, and intermittently cooperative. Behavior: Patient is constantly pacing the hallways and is intrusive in the space of this provider. Speech: Patient's speech is fluent, pressured, dysarthric and difficult to understand at times. Mood/Affect: Mood is "I can be discharged today right?" Affect is expansive and intense. Labile. Suicidality/Homicidality: Patient denies having any suicidal or homicidal ideation intent or plan. Perceptions: Patient denies any visual hallucinations and denies any auditory hallucinations Though content/process: Religiously preoccupied today. Memory and concentration: Appears to be grossly poor. Judgment and insight: Improving mildly Vital Signs Temp 96.3 F L 12/14/21 05:29 Pulse 89 12/14/21 05:29 Resp 17 12/13/21 06:54 BP 144/88 12/14/21 06:24 Pulse Ox 98 12/13/21 06:54 Laboratory Results - Last 24 Hours 12/14/21 07:40 POC Glucose (mg/dL) 147 H POC Glu Soaker Soda Worker Samantha Carroll Assessment Schizoaffective disorder, bipolar type Plan: -Patient continues to meet criteria for inpatient psychiatric admission for symptom stabilization and safety. Patient is currently under court order. -Medications: We will start prolixin 5 mg twice daily for psychosis and mood stabilization. Patient continues to refuse clozaril and has been receiving prolixin IM instead. She appears to respond to prolixin. We will gradually titrate and transition back to prolixin decanoate. -When necessary Ativan and Prolixin for agitation/aggression. -SW on board for discharge planning. Encouraged the patient to participate in milieu.
[2021-12-14] MEDS: LORazepam 1 MG TAB PO PRN ×2 (10:50→23:20)
[2021-12-14] MEDS ORDERED: flUPHENAZine 2.5 MG/ML (MDV) 10 ML VIAL IM PRN (11:45)
[2021-12-14 12:58] LABS: Glucose,Whole Blood 86 mg/dL (75-99)
[2021-12-14 18:00] LABS: Glucose,Whole Blood 108 mg/dL (75-99)
[2021-12-14 20:11] LABS: Glucose,Whole Blood 99 mg/dL (75-99)
[2021-12-14] MEDS ORDERED: flUPHENAZine 2.5 MG/ML (MDV) 10 ML VIAL IM SCH (21:00)
[2021-12-14] MEDS: MAGNESIUM OXIDE 400 MG TAB PO SCH (21:14)
[2021-12-14] MEDS: MELATONIN 5 MG TABLET PO SCH (21:14)
[2021-12-14 23:22] VITALS: RESP 18
[2021-12-15 07:44] LABS: Glucose,Whole Blood 120 mg/dL (75-99)
[2021-12-15] MEDS: NICOTINE 14MG/24HR PATCH TRANSDERM SCH (08:36)
[2021-12-15] MEDS: CHOLECALCIFEROL 25 MCG (1000 IU) TABLET PO SCH (08:36)
[2021-12-15] MEDS: metFORMIN 500 MG TAB PO SCH ×2 (08:37→17:57)
[2021-12-15] MEDS: MECLIZINE 25 MG TAB PO SCH ×2 (08:37→21:51)
[2021-12-15] MEDS: MULTIVITAMINS, THERA 1 EACH TAB PO SCH (08:37)
[2021-12-15] MEDS: lisinopriL 20 MG TAB PO SCH (08:37)
[2021-12-15] MEDS: EZETIMIBE 10 MG TAB PO SCH (08:37)
[2021-12-15] MEDS: METOPROLOL TARTRATE 25 MG TAB PO SCH ×2 (08:37→21:51)
[2021-12-15] MEDS: ASPIRIN 81 MG PO SCH (08:38)
[2021-12-15] MEDS: FAMOTIDINE 20 MG TAB PO SCH (08:38)
[2021-12-15] MEDS: PATIENT'S OWN (Omega-3 Acid Ethyl Esters [Lovaza] 1 GM Capsule) PO SCH ×2 (08:40→21:52)
[2021-12-15 13:01] LABS: Glucose,Whole Blood 110 mg/dL (75-99)
[2021-12-15] MEDS: LORazepam 1 MG TAB PO PRN (13:53)
[2021-12-15 17:51] LABS: Glucose,Whole Blood 96 mg/dL (75-99)
[2021-12-15 20:18] LABS: Glucose,Whole Blood 130 mg/dL (75-99)
--- NOTE | 2021-12-15 21:03 | PN ---
PROGRESS NOTE DATE OF SERVICE: 12/15/2021 CHIEF COMPLAINT: The patient had intense paranoid delusions, believing the government was defrauding her. INTERVAL HISTORY: Patient has been doing fair. She had a quiet day yesterday. She was out on the unit. She did receive p.r.n. Ativan in the morning for feeling anxious. She seemed to respond fairly well to that. She will be out in the day area and will socialize some with others. She attended 3 groups yesterday and seemed to engage reasonably well in the groups. She said she slept fair last night. Today she has been up and continues doing about the same. She has made a few phone calls to home. She said that she has been in a reasonable mood. She attended about half of the groups today and seemed to gain benefit from the groups. She had complaints about the Ativan that she has received. She feels it has not been helpful, though she was vague about what issues she may have had with Ativan. She was wondering about an alternative. She did receive p.r.n. Ativan at 1400 hours today for anxiety complaints. For the most part, she seems to be in a fairly good mood. Overall she tolerates her psychotropic medications. MENTAL STATUS: Patient gave fairly good eye contact. She answered questions with brief responses. At times she would veer off and it could be difficult to follow her train of thought. Her affect was in a reasonable range. She had a quiet mood and friendly manner. She did not appear to be distressed. There was no immediate evidence for thought disorder. She voiced no thoughts of harm. Cognition was clear. ASSESSMENT: I will continue the current diagnosis and treatment plan. I will continue psychotropic medications the same. I discussed with the patient that she does seem to show a reasonable response to the Ativan and that I would review all of her medications to be sure that we are making the most to maximize medications. I encouraged the patient to discuss with Nursing if she is having any problems or concerns. We will focus on stabilization and discharge planning. LAURA / JOVANNY: [id number] /
[2021-12-15] MEDS: MAGNESIUM OXIDE 400 MG TAB PO SCH (21:51)
[2021-12-15] MEDS: MELATONIN 5 MG TABLET PO SCH (21:51)
[2021-12-16] MEDS: LORazepam 1 MG TAB PO PRN ×4 (00:35→20:51)
[2021-12-16] MEDS: CHOLECALCIFEROL 25 MCG (1000 IU) TABLET PO SCH (07:37)
[2021-12-16] MEDS: metFORMIN 500 MG TAB PO SCH ×2 (07:38→17:31)
[2021-12-16] MEDS: FAMOTIDINE 20 MG TAB PO SCH (07:38)
[2021-12-16] MEDS: NICOTINE 14MG/24HR PATCH TRANSDERM SCH (07:38)
[2021-12-16] MEDS: lisinopriL 20 MG TAB PO SCH (07:38)
[2021-12-16] MEDS: ASPIRIN 81 MG PO SCH (07:38)
[2021-12-16] MEDS: METOPROLOL TARTRATE 25 MG TAB PO SCH ×2 (07:38→20:51)
[2021-12-16] MEDS: MULTIVITAMINS, THERA 1 EACH TAB PO SCH (07:38)
[2021-12-16] MEDS: MECLIZINE 25 MG TAB PO SCH ×2 (07:39→20:51)
[2021-12-16] MEDS: EZETIMIBE 10 MG TAB PO SCH (07:39)
[2021-12-16 07:46] LABS: Glucose,Whole Blood 126 mg/dL (75-99)
[2021-12-16 12:50] LABS: Glucose,Whole Blood 88 mg/dL (75-99)
--- NOTE | 2021-12-16 13:51 | PN ---
PROGRESS NOTE DATE OF SERVICE: 12/16/2021. CHIEF COMPLAINT: The patient had intense paranoid delusions believing the government was defrauding her. INTERVAL HISTORY: The patient has been doing fairly well. She had an even day yesterday. She comes out on the unit. She wanders about. She interacts with others. She did attend most of the groups yesterday and seemed to be comfortable in the groups. She slept fair last night. Today she has been up. She did request Ativan at 7:45 am. She said she woke up and was having a lot of worries and panicky feelings about her bills. She said the Ativan helped. Overall she seems to be doing reasonably well and tolerates her psychotropic medications. MENTAL STATUS: Patient gave good eye contact. Psychomotor activity was a little slow all though she did have a restless manner also. She answered questions with brief responses. Her thoughts were clear. Her affect was a little constricted. Her mood was quiet though not clearly down or depressed. She did not appear to be distressed. There was no indication of thought disorder. She voiced no thoughts of harm. Cognition was clear. ASSESSMENT: I will continue the current diagnosis and treatment plan. I will continue psychotropic medications the same. Patient appears to be making progress. I would anticipate her being discharged early to mid week. We will focus on stabilization and discharge planning. MMENRIQUE / AKINN: [id number] /
[2021-12-16] MEDS: PATIENT'S OWN (Omega-3 Acid Ethyl Esters [Lovaza] 1 GM Capsule) PO SCH ×2 (13:52→21:00)
[2021-12-16 19:53] LABS: Glucose,Whole Blood 110 mg/dL (75-99)
[2021-12-16] MEDS: MELATONIN 5 MG TABLET PO SCH (20:51)
[2021-12-16] MEDS: MAGNESIUM OXIDE 400 MG TAB PO SCH (20:51)
[2021-12-17] MEDS: LORazepam 1 MG TAB PO PRN ×3 (04:09→20:41)
[2021-12-17 07:58] LABS: Glucose,Whole Blood 111 mg/dL (75-99)
[2021-12-17] MEDS: METOPROLOL TARTRATE 25 MG TAB PO SCH ×2 (09:37→20:38)
[2021-12-17] MEDS: NICOTINE 14MG/24HR PATCH TRANSDERM SCH (09:37)
[2021-12-17] MEDS: FAMOTIDINE 20 MG TAB PO SCH (09:37)
[2021-12-17] MEDS: lisinopriL 20 MG TAB PO SCH (09:37)
[2021-12-17] MEDS: metFORMIN 500 MG TAB PO SCH ×2 (09:38→17:07)
[2021-12-17] MEDS: PATIENT'S OWN (Omega-3 Acid Ethyl Esters [Lovaza] 1 GM Capsule) PO SCH ×2 (09:38→20:39)
[2021-12-17] MEDS: ASPIRIN 81 MG PO SCH (09:38)
[2021-12-17] MEDS: MECLIZINE 25 MG TAB PO SCH ×2 (09:38→20:38)
[2021-12-17] MEDS: EZETIMIBE 10 MG TAB PO SCH (09:38)
[2021-12-17] MEDS: MULTIVITAMINS, THERA 1 EACH TAB PO SCH (09:38)
[2021-12-17] MEDS: CHOLECALCIFEROL 25 MCG (1000 IU) TABLET PO SCH (09:41)
--- NOTE | 2021-12-17 11:08 | P.PN ---
Progress Note - Text Progress Note Date: 12/17/21 Interval History: Patient was seen wandering the hallways and was directable and agreeable to speak with senior copywriter in the office. The patient is much more calm and cooperative today. She is reporting that she is feeling well and has been adherent with her medications. She is currently not reporting any significant side effects at this time. She is fixated on discharge and is asking to be discharged before December 20 as there is a scheduled appointment for her then. She is not reporting any auditory or visual hallucinations. She is denying any suicidal or homicidal ideation, intention, and/or plan. She is not reporting any significant side effects of medications at this time. Mental Status Exam: General Appearance: Patient appears to be stated age is alert, directable and cooperative. Behavior: Patient is displaying normal psychomotor activity today. Good eye contact. Speech: Patient's speech is fluent, hyperverbal but less dysarthric and more linear today. Mood/Affect: Mood is "really good" Affect is expansive but otherwise bright. Suicidality/Homicidality: Patient denies having any suicidal or homicidal ideation intent or plan. Perceptions: Patient denies any visual hallucinations and denies any auditory hallucinations Though content/process: No delusional thought content is endorsed today. Thought process appears to be fixated on discharge. Memory and concentration: Improving Judgment and insight: Improving Vital Signs Temp 97.2 F L 12/17/21 09:36 Pulse 79 12/17/21 09:36 Resp 18 12/17/21 09:36 BP 149/64 12/17/21 09:36 Pulse Ox 98 12/17/21 09:36 Intake & Output 12/16/21 12/17/21 12/17/21 18:59 06:59 18:59 Weight 74.7 kg Laboratory Results - Last 24 Hours 12/16/21 12/16/21 12/17/21 12:45 19:51 07:56 POC Glucose (mg/dL) 88 110 H 111 H POC Glu Supervisor [employer] ID Kitty Hernandez Stephanie Harrington, Nicole Assessment Schizoaffective disorder, bipolar type Plan: -Patient continues to meet criteria for inpatient psychiatric admission for symptom stabilization and safety. Patient is currently under court order. -Medications: The patient is displaying a significant response to Prolixin. Will continue with Prolixin 5 mg by mouth twice a day for mood stabilization/psychosis. We will coordinate with [facility]. We will likely administer Prolixin Decanoate prior to discharge. -When necessary Ativan and Prolixin for agitation/aggression. -SW on board for discharge planning. Encouraged the patient to participate in milieu.
[2021-12-17 12:54] LABS: Glucose,Whole Blood 85 mg/dL (75-99)
[2021-12-17 17:18] LABS: Glucose,Whole Blood 112 mg/dL (75-99)
[2021-12-17 20:06] LABS: Glucose,Whole Blood 111 mg/dL (75-99)
[2021-12-17] MEDS: MELATONIN 5 MG TABLET PO SCH (20:38)
[2021-12-17] MEDS: MAGNESIUM OXIDE 400 MG TAB PO SCH (20:38)
[2021-12-18 07:20] VITALS: BP 130/60; PULSE 90; TEMP 97.9
[2021-12-18 07:40] LABS: Glucose,Whole Blood 142 mg/dL (75-99)
[2021-12-18] MEDS: NICOTINE 14MG/24HR PATCH TRANSDERM SCH (07:58)
[2021-12-18] MEDS: metFORMIN 500 MG TAB PO SCH (07:58)
[2021-12-18] MEDS: METOPROLOL TARTRATE 25 MG TAB PO SCH (07:59)
[2021-12-18] MEDS: MULTIVITAMINS, THERA 1 EACH TAB PO SCH (07:59)
[2021-12-18] MEDS: lisinopriL 20 MG TAB PO SCH (07:59)
[2021-12-18] MEDS: FAMOTIDINE 20 MG TAB PO SCH (07:59)
[2021-12-18] MEDS: ASPIRIN 81 MG PO SCH (07:59)
[2021-12-18] MEDS: CHOLECALCIFEROL 25 MCG (1000 IU) TABLET PO SCH (07:59)
[2021-12-18] MEDS: LORazepam 1 MG TAB PO PRN (08:03)
[2021-12-18] MEDS: MECLIZINE 25 MG TAB PO SCH (08:06)
[2021-12-18] MEDS: EZETIMIBE 10 MG TAB PO SCH (08:06)
[2021-12-18] MEDS: PATIENT'S OWN (Omega-3 Acid Ethyl Esters [Lovaza] 1 GM Capsule) PO SCH (08:08)
[2021-12-18] MEDS ORDERED: fluPHENAZine DECANOATE 25 MG/ML 5ML MDV IM ONE (10:45)
--- NOTE | 2021-12-18 11:37 | P.DS ---
Providers Date of admission: 12/11/21 17:37 Expected date of discharge: 12/18/21 Attending physician: James Nolasco MD Consults: 12/11/21 20:19 Consult Physician Routine Consulting Provider: Kennedy Garcia Consult Reason/Comments: H&P and medical Do you want consulting provider notified?: Yes Primary care physician: Physician Nonstaff Hospital Course: Admission HPI: Patient is a , retired, 71-year-old female with a significant history of schizophrenia who presented to the emergency department, referred by her outpatient mental health provider for uncontrolled psychotic symptoms. Patient presented to the hospital on 12/11/21, brought into the hospital as recommended by her outpatient provider for uncontrolled psychotic symptoms. As per EPS report, the patient endorsed significant paranoid delusions believing that there is "government fraud in my house! He took my credit card! He's getting food stamps when he shouldn't be getting them! He is with the [facility]! He doesn't believe in Bernard!" The patient was recently admitted to the psychiatric unit this past November 03 and again on November 12 both for similar presentations. The patient has a significant history of schizoaffective disorder but is inconsistent in taking her outpatient medications. The patient is currently on a significant regimen of Clozaril and Abilify however has been nonadherent with her Clozaril. The patient is presenting as grossly disorganized, paranoid, and appears to be responding to internal stimuli. She is often accusing her of being unfaithful and possibly fulling around with staff on the unit or with staff at [facility]. The patient was notably agitated last night required administration of when necessary medications in order to calm down. After administration of Clozaril, the patient eventually fell asleep. The patient is chronically mentally ill with a severe treatment resistant schizoaffective disorder. As per discussion with the patient's outpatient psychiatric provider, the patient has trialed numerous medications in the past medication issue tends to be the consistency as to which the patient is adherent with the medication. She currently resides at home with her however her is the one who manages the medication administration. Significant discussion took place of the patient's psychiatrist recommending [facility] home placement. The patient has a previous diagnosis of schizophrenia/schizoaffective disorder. She has been on numerous psychotropic medications including Haldol Decanoate, Trilafon, Klonopin, Lunesta, Prolixin, Restoril, and most recently Abilify and Clozaril. The patient was recently admitted on to the psychiatric unit last month twice. She is currently open with [facility] in [place] with their ACT team. Hospital course: Upon admission to the unit patient was initially presented as grossly disorganized, manic, difficult to direct, labile, and responding to internal stimuli. Patient was however directable and agreeable to commence treatment. Patient got along well with other patients on the unit and followed unit protocol. Patient was compliant with the medications and denied any side effects throughout hospital course. Patient was started on her home medications of clozaril and initially we were going to restart abilify maintena. Patient however was refusing her clozaril and was receiving prolixin IMs instead as she is under court order. She displayed significant improvement with prolixin and was agreeable in taking the oral medication. Her oral prolixin was titrated to 5 mg twice daily and the patient displayed significant improvement in her mood lability, reality testing, and directability. She was less forthcoming with any paranoid delusions and appeared to be future-oriented. Family visit over the weekend with her went well. On the day of discharge, the patient is not endorsing any psychotic symptoms at this time. She continues to express a desire to be on as little medication as possible but is otherwise not reporting any paranoia or other delusional thoughts or behaviors. She was agreeable to receiving prolixin decanoate today. As the patient has displayed appropriate behavior for the past few days and no significant criteria for hospitalization, she was subquently discharged. Mental status exam: General Appearance: Patient appears to be stated age is alert, pleasant, and cooperative. Patient is in no acute distress and has fair hygiene and grooming Behavior: Psychomotor activity slightly elevated however the patient is directable and is able to calm down. Speech: Patient's speech is fluent and nonpressured. Rapid in rate however is able to slow down when directed. Mood/Affect: Patient reports their mood is "feeling ready to go", affect is congruent and nervous. Suicidality/Homicidality: Patient denies having any suicidal or homicidal ideation intent or plan. Perceptions: Patient denies any auditory or visual hallucinations. Though content/process: There is no evidence of any delusional thought content and thought process is linear and goal-directed. Patient is very future oriented. Memory and concentration: Grossly intact. At baseline, concentration appears to be somewhat poor. Judgment and insight: Improved with guarded prognosis Vital Signs Temp 97.9 F 12/18/21 07:19 Pulse 90 12/18/21 07:19 Resp 18 12/18/21 07:19 BP 130/60 12/18/21 07:19 Pulse Ox 96 12/18/21 07:19 Impression: Schizoaffective Disorder, bipolar type Plan: -Continue with discharge today as patient has improved and stabilized psychiatrically and is not currently an imminent threat to herself and/or others. Patient will remain at chronically elevated risk for harm to self and/or others due to her severity of mental illness. -Continue medications: Prolixin 5 mg by mouth twice a day for 7 days Proximal decanoate 25 mg IM administered on 12/18/2021 with the next dose due in 3 weeks - 01/08/2022. -Patient was counseled on the need for medication compliance and appropriate follow-up at mental health and also primary care for medical issues. Patient verbalized understanding and agreed. -Social work to arrange for and conduct family meeting to ensure safety upon discharge and answer any questions/concerns. Social work also to arrange for [facility] follow up appointments with [facility] for psychiatric care along with follow up with primary care provider. -Patient was instructed to return to the hospital or seek immediate medical care if their psychiatric or medical symptoms do worsen or reoccur. -Encourage medication adherence. Concern that patient's guardian/ is not the most capable person to ensure medication adherence. We recommend a public guardian be put in place. -The patient has had multiple admissions to the psychiatric unit. We should consider placement in an [facility] home for medication adherence and structure to decrease recidivism. -Psychoeducation and supportive therapy provided to patient. Risks and benefits of pharmacological treatment versus the risks and benefits of nontreatment weight and discussed. Informed consent discussion held. Common side effects of psychotropics discussed such as, but not limited to headache, GI disturbance, sexual dysfunction, movement disorders, sedation, and orthostatic hypotension. Life threatening and blackbox warnings of prescribed medications also discussed. Potential risks of operating a vehicle or heavy machinery discussed with patient at length. Advised on importance of compliance and a reliable and responsible manner. Patient advised to review FDA consumer labeling of all medications prior to taking. Patient verbalized understanding of potential risks, and agrees with current treatment plan. Patient advised to medically contact physician/emergency personnel if any acute changes in condition occur. Allergies Allergy/AdvReac Type Severity Reaction Status Date / Time haloperidol [From Haldol] Allergy injection Verified 12/11/21 13:[address] [facility] quetiapine fumarate Allergy Unknown Verified 12/11/21 13:38 [From Seroquel] Sulfa (Sulfonamide Allergy Unknown Verified 12/11/21 13:38 Antibiotics) Laboratory Results WBC 6.3 k/uL (3.8-10.6) 12/12/21 15:30 RBC 4.26 m/uL (3.80-5.40) 12/12/21 15:30 Hgb 13.3 gm/dL (11.4-16.0) 12/12/21 15:30 Hct 41.1 % (34.0-46.0) 12/12/21 15:30 MCV 96.5 fL (80.0-100.0) 12/12/21 15:30 MCH 31.3 pg (25.0-35.0) 12/12/21 15:30 MCHC 32.4 g/dL (31.0-37.0) 12/12/21 15:30 RDW 12.9 % (11.5-15.5) 12/12/21 15:30 Plt Count 234 k/uL (150-450) 12/12/21 15: MPV 7.8 12/12/21 15:30 Neutrophils % 77 % 12/12/21 15:30 Lymphocytes % 15 % 12/12/21 15:30 Monocytes % 5 % 12/12/21 15:30 Eosinophils % 1 % 12/12/21 15:30 Basophils % 1 % 12/12/21 15:30 Neutrophils # 4.9 k/uL (1.3-7.7) 12/12/21 15:30 Lymphocytes # 0.9 k/uL (1.0-4.8) L 12/12/21 15:30 Monocytes # 0.3 k/uL (0-1.0) 12/12/21 15:30 Eosinophils # 0.0 k/uL (0-0.7) 12/12/21 15:30 Basophils # 0.1 k/uL (0-0.2) 12/12/21 15:30 Sodium 135 mmol/L (137-145) L 12/12/21 15:30 Potassium 4.2 mmol/L (3.5-5.1) 12/12/21 15:30 Chloride 102 mmol/L (98-107) 12/12/21 15:30 Carbon Dioxide 24 mmol/L (22-30) 12/12/21 15:30 Anion Gap 9 mmol/L 12/12/21 15:30 BUN 25 mg/dL (7-17) H 12/12/21 15:30 Creatinine 1.08 mg/dL (0.52-1.04) H 12/12/21 15:30 Est GFR (CKD-EPI)AfAm 61 (>60 ml/min/1.73 sqM) 12/12/21 15:30 Est GFR (CKD-EPI)NonAf 53 (>60 ml/min/1.73 sqM) 12/12/21 15:30 Glucose 131 mg/dL (74-99) H 12/12/21 15:30 POC Glucose (mg/dL) 142 mg/dL (75-99) H 12/18/21 07:39 POC Glu Owner/Photographer Samantha Carroll 12/18/21 07:[address] Glu mg/dL 131 12/12/21 15:30 Hemoglobin A1c 6.2 % (0.0-6.0) H 12/12/21 15:30 Calcium 9.3 mg/dL (8.4-10.2) 12/12/21 15:30 Total Bilirubin 0.3 mg/dL (0.2-1.3) 12/12/21 15:30 AST 23 U/L (14-36) 12/12/21 15:30 ALT 18 U/L (4-34) 12/12/21 15:30 Alkaline Phosphatase 77 U/L (38-126) 12/12/21 15:30 Total Protein 6.7 g/dL (6.3-8.2) 12/12/21 15:30 Albumin 4.0 g/dL (3.5-5.0) 12/12/21 15:30 Triglycerides 214.00 mg/dL (0.00-149.00) H 12/12/21 15:30 Cholesterol 166.00 mg/dL (0.00-200.00) 12/12/21 15:30 LDL Cholesterol, Calc 77.9 mg/dL (0.0-131.0) 12/12/21 15:30 VLDL Cholesterol, Calc 42.80 mg/dL (5.00-40.00) H 12/12/21 15:30 HDL Cholesterol 45.30 mg/dL (40.00-60.00) 12/12/21 15:30 Cholesterol/HDL Ratio 3.66 Ratio 12/12/21 15:30 TSH 1.030 mIU/L (0.465-4.680) 12/12/21 15:30 Urine Opiates Screen Not Detected (NotDetected) 12/11/21 16:51 Ur Oxycodone Screen Not Detected (NotDetected) 12/11/21 16:51 Urine Methadone Screen Not Detected (NotDetected) 12/11/21 16:51 Ur Propoxyphene Screen Not Detected (NotDetected) 12/11/21 16:51 Ur Barbiturates Screen Not Detected (NotDetected) 12/11/21 16:51 U Tricyclic Antidepress Not Detected (NotDetected) 12/11/21 16:51 Ur Phencyclidine Scrn Not Detected (NotDetected) 12/11/21 16:51 Ur Amphetamines Screen Not Detected (NotDetected) 12/11/21 16:51 U Methamphetamines Scrn Not Detected (NotDetected) 12/11/21 16:51 U Benzodiazepines Scrn Detected (NotDetected) H 12/11/21 16:51 Urine Cocaine Screen Not Detected (NotDetected) 12/11/21 16:51 U Marijuana (THC) Screen Not Detected (NotDetected) 12/11/21 16:51 Coronavirus (PCR) Not Detected (Not Detectd) 12/11/21 16:42 Patient Condition at Discharge: Stable Plan - Discharge Summary New Discharge Prescriptions: New metFORMIN HCL [Glucophage] 500 mg PO BID-W/MEALS 30 Days tab fluPHENAZine decanoate [Prolixin Decanoate] 25 mg IM ONCE #1 ml Aspirin 81 mg PO DAILY 30 Days tab Metoprolol Tartrate [Lopressor] 25 mg PO BID 30 Days tab Melatonin 10 mg PO HS 30 Days tablet fluPHENAZine [Prolixin] 5 mg PO BID 7 Days tab lisinopriL [Zestril] 20 mg PO DAILY 30 Days tab Ezetimibe [Zetia] 10 mg PO DAILY 30 Days tab Continue Magnesium Oxide [Magox 400] 400 mg PO HS Cholecalciferol [Vitamin D3 (25 Mcg = 1000 Iu)] 50 mcg PO DAILY Meclizine HCl 25 mg PO BID Sennosides [Senna] 8.6 mg PO BID PRN PRN Reason: Constipation Multivitamin with Iron [Multivitamins with Iron] 1 tab PO DAILY Famotidine [Pepcid] 20 mg PO BID Discontinued Eszopiclone [Lunesta] 3 mg PO HS PRN PRN Reason: Insomnia Metoprolol Tartrate [Lopressor] 25 mg PO BID [place]-3 Acid Ethyl Esters [Lovaza] 1 gm PO BID Aspirin EC [Ecotrin Low Dose] 81 mg PO DAILY cloZAPine [Clozaril] 100 mg PO HS #7 tab ARIPiprazole [Abilify] 20 mg PO DIRECTED Ezetimibe [Zetia] 10 mg PO DAILY lisinopriL [Prinivil] 20 mg PO DAILY Melatonin 30 mg PO HS cloZAPine [Clozaril] 50 mg PO DAILY@1700 Perphenazine [Trilafon] 4 mg PO HS LORazepam [Ativan] 1 mg PO Q6H PRN PRN Reason: Anxiety ARIPiprazole [Abilify Maintena] 400 mg IM Q28D Discharge Medication List Magnesium Oxide [Magox 400] 400 mg PO HS 11/03/21 [History] Meclizine HCl 25 mg PO BID 11/03/21 [History] Cholecalciferol [Vitamin D3 (25 Mcg = 1000 Iu)] 50 mcg PO DAILY 11/05/21 [History] Famotidine [Pepcid] 20 mg PO BID 11/05/21 [History] Multivitamin with Iron [Multivitamins with Iron] 1 tab PO DAILY 11/05/21 [History] Sennosides [Senna] 8.6 mg PO BID PRN 11/05/21 [History] Aspirin 81 mg PO DAILY 30 Days tab 12/18/21 [Rx] Ezetimibe [Zetia] 10 mg PO DAILY 30 Days tab 12/18/21 [Rx] Melatonin 10 mg PO HS 30 Days tablet 12/18/21 [Rx] Metoprolol Tartrate [Lopressor] 25 mg PO BID 30 Days tab 12/18/21 [Rx] fluPHENAZine [Prolixin] 5 mg PO BID 7 Days tab 12/18/21 [Rx] fluPHENAZine decanoate [Prolixin Decanoate] 25 mg IM ONCE #1 ml 12/18/21 [Rx] lisinopriL [Zestril] 20 mg PO DAILY 30 Days tab 12/18/21 [Rx] metFORMIN HCL [Glucophage] 500 mg PO BID-W/MEALS 30 Days tab 12/18/21 [Rx] Follow up Appointment(s)/Referral(s): [facility] [Outside] - 12/25/21 11:30 am (Dr. Shaikh) [facility] [NON-STAFF] - 1 Week Patient Instructions/Handouts: Bipolar Disorder (DC), Psychotic Disorder (DC) Activity/Diet/Wound Care/Special Instructions: Activity and diet as tolerated. Avoid the use of street drugs and alcohol. Take all medications as prescribed. When you are in need of refills on your med ications please contact your medical provider and/or outpatient psychiatrist to have this done. Please go to scheduled outpatient appointment for aftercare treatment. If symptoms return or become worse, call the crisis line at and/or go to the nearest emergency room for evaluation
[2021-12-18 12:38] LABS: Glucose,Whole Blood 94 mg/dL (75-99)
== END 2021-12-18 13:44 | disposition home or self-care (01) | DRG 885 ==
LOC: EC 12:04 → 3MHU 17:37
PROVIDERS: ADMIT Psychiatry & Neurology Psychiatry; ATTEND Psychiatry & Neurology Psychiatry
DX: F25.0 Schizoaffective disorder, bipolar type (principal); F17.200 Nicotine dependence, unspecified, uncomplicated; Z89.421 Acquired absence of other right toe(s); Z20.822 Contact with and (suspected) exposure to COVID-19; F41.9 Anxiety disorder, unspecified; J45.909 Unspecified asthma, uncomplicated; K21.9 Gastro-esophageal reflux disease without esophagitis; I10 Essential (primary) hypertension; R73.03 Prediabetes; Z79.82 Long term (current) use of aspirin; Z79.899 Other long term (current) drug therapy; Z88.2 Allergy status to sulfonamides; Z88.8 Allergy status to other drugs, medicaments and biological substances; Z82.49 Family history of ischemic heart disease and other diseases of the circulatory system; Z82.3 Family history of stroke; Z80.9 Family history of malignant neoplasm, unspecified; Z83.79 Family history of other diseases of the digestive system; Z91.19 Patient's noncompliance with other medical treatment and regimen
CPT/HCPCS: 80053; 80061; 80306; 82075; 83036; 84443; 85025; 87635; 99285

== ENCOUNTER 2021-12-28 17:29 | Inpatient (IN) | payer MEDICARE, MEDICAID ==
--- NOTE | 2021-12-28 17:52 | ED ---
General Adult HPI - General Chief complaint: Psychiatric Symptoms Stated complaint: Mental health Time Seen by Provider: 12/28/21 17:40 Source: patient, police, RN notes reviewed, old records reviewed Mode of arrival: wheelchair Limitations: altered mental status - History of Present Illness Initial comments: 71-year-old female presenting for mental health evaluation. Patient is under court order petitioned. She is unable to contribute at all to the history. She is brought in by [facility] department. Patient had apparently been seen at outside facility for medication noncompliance. She was either discharged with request to be transferred to this institution or transferred here for psychiatric evaluation treatment. This is unclear. She does have history of mental illness and was recently admitted to this institution for psychosis. - Related Data Home Medications Medication Instructions Recorded Confirmed Magnesium Oxide [Magox 400] 400 mg PO HS 11/03/21 12/28/21 Meclizine HCl 25 mg PO BID 11/03/21 12/28/21 Cholecalciferol [Vitamin D3 (25 50 mcg PO DAILY 11/05/21 12/28/21 Mcg = 1000 Iu)] Famotidine [Pepcid] 20 mg PO BID 11/05/21 12/28/21 Multivitamin with Iron 1 tab PO DAILY 11/05/21 12/28/21 [Multivitamins with Iron] Sennosides [Senna] 8.6 mg PO BID PRN 11/05/21 12/28/21 Previous Rx's Medication Instructions Recorded Aspirin 81 mg PO DAILY 30 Days tab 12/18/21 Ezetimibe [Zetia] 10 mg PO DAILY 30 Days tab 12/18/21 Melatonin 10 mg PO HS 30 Days tablet 12/18/21 Metoprolol Tartrate [Lopressor] 25 mg PO BID 30 Days tab 12/18/21 fluPHENAZine [Prolixin] 5 mg PO BID 7 Days tab 12/18/21 fluPHENAZine decanoate [Prolixin 25 mg IM ONCE #1 ml 12/18/21 Decanoate] lisinopriL [Zestril] 20 mg PO DAILY 30 Days tab 12/18/21 metFORMIN HCL [Glucophage] 500 mg PO BID-W/MEALS 30 Days tab 12/18/21 Allergies Allergy/AdvReac Type Severity Reaction Status Date / Time haloperidol [From Haldol] Allergy injection Verified 12/28/21 18:18 site reaction per [facility] quetiapine fumarate Allergy Unknown Verified 12/28/21 18:18 [From Seroquel] Sulfa (Sulfonamide Allergy Unknown Verified 12/28/21 18:18 Antibiotics) Review of Systems ROS Statement: Those systems with pertinent positive or pertinent negative responses have been documented in the HPI. ROS Other: All systems not noted in ROS Statement are negative. 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 Past Anesthesia/Blood Transfusion Reactions: No Reported Reaction Past Psychological History: Bipolar, Schizophrenia Smoking Status: Current every day smoker Past Alcohol Use History: None Reported Past Drug Use History: None Reported - Past Family History Brother(s) Additional Family Medical History / Comment(s): Patient states she has 5 brothers with no major medical problems. Sister(s) Additional Family Medical History / Comment(s): Patient states she has 7 sisters with no major medical problems. Brother(s) Son(s) Additional Family Medical History / Comment(s): Patient has 2 sons and 1 daughter with no major medical problems. Mother Family Medical History: Cancer, Hypertension Additional Family Medical History / Comment(s): Mother at age 89 from stomach problems Father Family Medical History: CVA/TIA, Hypertension Additional Family Medical History / Comment(s): Father at age 59 from peripheral vascular disease. General Exam Limitations: altered mental status General appearance: alert, in no apparent distress Head exam: Present: atraumatic, normocephalic Eye exam: Present: normal appearance, PERRL ENT exam: Present: normal exam Neck exam: Present: normal inspection. Absent: tenderness Respiratory exam: Present: normal lung sounds bilaterally. Absent: respiratory distress, wheezes Cardiovascular Exam: Present: regular rate, normal rhythm GI/Abdominal exam: Present: soft. Absent: distended, tenderness Neurological exam: Present: alert. Absent: oriented X3, motor sensory deficit Psychiatric exam: Present: flat affect Skin exam: Present: warm, dry, intact Course Vital Signs 12/28/21 17:32 Temperature 97.9 F Pulse Rate 91 Respiratory 22 Rate Blood Pressure 144/84 O2 Sat by Pulse 98 Oximetry Medical Decision Making - Medical Decision Making 71 yo female presented for psychiatric evaluation. Patient was seen by EPS and will be admitted to this institution. - Lab Data Result diagrams: 12/28/21 21:18 12/28/21 21:19 Lab Results 12/28/21 12/28/21 12/28/21 Range/Units 17:46 18:28 21:18 WBC 6.4 (3.8-10.6) k/uL RBC 4.11 (3.80-5.40) m/uL Hgb 13.0 (11.4-16.0) gm/dL Hct 39.2 (34.0-46.0) % MCV 95.3 (80.0-100.0) fL MCH 31.5 (25.0-35.0) pg MCHC 33.1 (31.0-37.0) g/dL RDW 12.9 (11.5-15.5) % Plt Count 240 (150-450) k/uL MPV 7.7 Neutrophils % 60 % Lymphocytes % 32 % Monocytes % 5 % Eosinophils % 1 % Basophils % 1 % Neutrophils # 3.9 (1.3-7.7) k/uL Lymphocytes # 2.1 (1.0-4.8) k/uL Monocytes # 0.3 (0-1.0) k/uL Eosinophils # 0.1 (0-0.7) k/uL Basophils # 0.1 (0-0.2) k/uL Sodium (137-145) mmol/L Potassium (3.5-5.1) mmol/L Chloride (98-107) mmol/L Carbon Dioxide (22-30) mmol/L Anion Gap mmol/L BUN (7-17) mg/dL Creatinine (0.52-1.04) mg/dL Est GFR (CKD-EPI)AfAm (>60 ml/min/1.73 sqM) Est GFR (CKD-EPI)NonAf (>60 ml/min/1.73 sqM) Glucose (74-99) mg/dL Calcium (8.4-10.2) mg/dL Total Bilirubin (0.2-1.3) mg/dL AST (14-36) U/L ALT (4-34) U/L Alkaline Phosphatase (38-126) U/L Total Protein (6.3-8.2) g/dL Albumin (3.5-5.0) g/dL Urine Color Urine Appearance (Clear) Urine pH (5.0-8.0) Ur Specific [place] (1.001-1.035) Urine Protein (Negative) Urine Glucose (UA) (Negative) Urine Ketones (Negative) Urine Blood (Negative) Urine Nitrite (Negative) Urine Bilirubin (Negative) Urine Urobilinogen (<2.0) mg/dL Ur Leukocyte Esterase (Negative) Urine Opiates Screen Not Detected (NotDetected) Ur Oxycodone Screen Not Detected (NotDetected) Urine Methadone Screen Not Detected (NotDetected) Ur Propoxyphene Screen Not Detected (NotDetected) Ur Barbiturates Screen Not Detected (NotDetected) U Tricyclic Antidepress Not Detected (NotDetected) Ur Phencyclidine Scrn Not Detected (NotDetected) Ur Amphetamines Screen Not Detected (NotDetected) U Methamphetamines Scrn Not Detected (NotDetected) U Benzodiazepines Scrn Detected H (NotDetected) Urine Cocaine Screen Not Detected (NotDetected) U Marijuana (THC) Screen Not Detected (NotDetected) Serum Alcohol mg/dL Coronavirus (PCR) Not Detected (Not Detectd) 12/28/21 12/28/21 Range/Units 21:19 21:19 WBC (3.8-10.6) k/uL RBC (3.80-5.40) m/uL Hgb (11.4-16.0) gm/dL Hct (34.0-46.0) % MCV (80.0-100.0) fL MCH (25.0-35.0) pg MCHC (31.0-37.0) g/dL RDW (11.5-15.5) % Plt Count (150-450) k/uL MPV Neutrophils % % Lymphocytes % % Monocytes % % Eosinophils % % Basophils % % Neutrophils # (1.3-7.7) k/uL Lymphocytes # (1.0-4.8) k/uL Monocytes # (0-1.0) k/uL Eosinophils # (0-0.7) k/uL Basophils # (0-0.2) k/uL Sodium 137 (137-145) mmol/L Potassium 4.4 (3.5-5.1) mmol/L Chloride 107 (98-107) mmol/L Carbon Dioxide 25 (22-30) mmol/L Anion Gap 5 mmol/L BUN 16 (7-17) mg/dL Creatinine 0.64 (0.52-1.04) mg/dL Est GFR (CKD-EPI)AfAm >90 (>60 ml/min/1.73 sqM) Est GFR (CKD-EPI)NonAf >90 (>60 ml/min/1.73 sqM) Glucose 80 (74-99) mg/dL Calcium 9.2 (8.4-10.2) mg/dL Total Bilirubin 0.4 (0.2-1.3) mg/dL AST 30 (14-36) U/L ALT 23 (4-34) U/L Alkaline Phosphatase 65 (38-126) U/L Total Protein 6.3 (6.3-8.2) g/dL Albumin 3.7 (3.5-5.0) g/dL Urine Color Yellow Urine Appearance Clear (Clear) Urine pH 6.0 (5.0-8.0) Ur Specific [place] 1.012 (1.001-1.035) Urine Protein Negative (Negative) Urine Glucose (UA) Negative (Negative) Urine Ketones Negative (Negative) Urine Blood Negative (Negative) Urine Nitrite Negative (Negative) Urine Bilirubin Negative (Negative) Urine Urobilinogen <2.0 (<2.0) mg/dL Ur Leukocyte Esterase Negative (Negative) Urine Opiates Screen (NotDetected) Ur Oxycodone Screen (NotDetected) Urine Methadone Screen (NotDetected) Ur Propoxyphene Screen (NotDetected) Ur Barbiturates Screen (NotDetected) U Tricyclic Antidepress (NotDetected) Ur Phencyclidine Scrn (NotDetected) Ur Amphetamines Screen (NotDetected) U Methamphetamines Scrn (NotDetected) U Benzodiazepines Scrn (NotDetected) Urine Cocaine Screen (NotDetected) U Marijuana (THC) Screen (NotDetected) Serum Alcohol <10 mg/dL Coronavirus (PCR) (Not Detectd) Disposition Clinical Impression: Psychosis, Schizoaffective disorder, bipolar type Disposition: ADMITTED IP TO THIS [facility] Condition: Stable Is patient prescribed a controlled substance at d/c from ED?: No Referrals: Nonstaff,Physician [REFERRING] - 1-2 days Decision to Admit Reason: Admit from EC Decision Date: 12/28/21 Decision Time: 22:54
[2021-12-28 21:49] LABS: Basophils # (A) 0.1 k/uL (0-0.2); Basophils % (A) 1 %; Eosinophils # (A) 0.1 k/uL (0-0.7); Eosinophils % (A) 1 %; HCT 39.2 % (34.0-46.0); Lymphocytes # (A) 2.1 k/uL (1.0-4.8); Lymphocytes % (A) 32 %; MCH 31.5 pg (25.0-35.0); MCHC 33.1 g/dL (31.0-37.0); MCV 95.3 fL (80.0-100.0); Mean Platelet Volume 7.7; Monocytes # (A) 0.3 k/uL (0-1.0); Monocytes % (A) 5 %; Neutrophils # (A) 3.9 k/uL (1.3-7.7); Neutrophils % (A) 60 %; Platelet Count 240 k/uL (150-450); RBC 4.11 m/uL (3.80-5.40); RDW 12.9 % (11.5-15.5); WBC 6.4 k/uL (3.8-10.6)
[2021-12-28 21:59] LABS: ALT 23 U/L (4-34); AST 30 U/L (14-36); African American GFR (CKD) >90 (>60 ml/min/1.73 sqM); Albumin 3.7 g/dL (3.5-5.0); Alcohol <10 mg/dL; Alkaline Phosphatase 65 U/L (38-126); Anion Gap 5 mmol/L; Blood Urea Nitrogen 16 mg/dL (7-17); Calcium 9.2 mg/dL (8.4-10.2); Carbon Dioxide 25 mmol/L (22-30); Chloride 107 mmol/L (98-107); Glucose 80 mg/dL (74-99); Non-African American GFR(CKD) >90 (>60 ml/min/1.73 sqM); Potassium 4.4 mmol/L (3.5-5.1); Sodium 137 mmol/L (137-145); Total Bilirubin 0.4 mg/dL (0.2-1.3); Total Protein 6.3 g/dL (6.3-8.2)
[2021-12-28 22:16] LABS: Appearance,Urine Clear (Clear); Bilirubin,Urine Negative (Negative); Blood,Urine Negative (Negative); Color,Urine Yellow; Glucose,Urine (UA) Negative (Negative); Ketones,Urine Negative (Negative); Leukocyte Esterase,Urine Negative (Negative); Nitrite,Urine Negative (Negative); Protein,Urine Negative (Negative); Specific Gravity,Urine 1.012 (1.001-1.035); Urobilinogen,Urine <2.0 mg/dL (<2.0)
[2021-12-28 22:38] LABS: Amphetamine Screen,Urine Not Detected (NotDetected); Barbiturate Screen,Urine Not Detected (NotDetected); Benzodiazepines Screen,Urine Detected (NotDetected); Cocaine Screen,Urine Not Detected (NotDetected); Methadone Screen, Urine Not Detected (NotDetected); Opiate Screen,Urine Not Detected (NotDetected); Oxycodone Screen, Urine Not Detected (NotDetected); Phencyclidine Screen,Urine Not Detected (NotDetected); Tricyclic Antidepressant,Urine Not Detected (NotDetected); Urn Cannabinoid Scrn Not Detected (NotDetected)
[2021-12-28] MEDS ORDERED: LORazepam 2 MG/ML INJ IM STA (23:38)
[2021-12-29] MEDS ORDERED: ACETAMINOPHEN TAB 325 MG TAB PO PRN (00:31)
[2021-12-29] MEDS ORDERED: MAGNESIUM HYDROXIDE 2,400 MG/10 ML CUP PO PRN (00:31)
[2021-12-29] MEDS ORDERED: SENNOSIDES 8.6 MG TAB PO PRN (00:39)
[2021-12-29] MEDS: MELATONIN 5 MG TABLET PO SCH ×3 (01:35→22:20)
[2021-12-29] MEDS ORDERED: TEMAZEPAM 30 MG CAP PO PRN ×2 (03:06→12:36)
[2021-12-29] MEDS ORDERED: TEMAZEPAM 15 MG CAP PO ONE (03:15)
[2021-12-29] MEDS ORDERED: TEMAZEPAM 30 MG CAP PO ONE (03:30)
--- NOTE | 2021-12-29 03:58 | P.PN ---
Progress Note - Text Progress Note Date: 12/29/21 Patient sedated and not appropriate for evaluation
[2021-12-29] MEDS: LORazepam 2 MG/ML INJ IM PRN (06:16)
[2021-12-29] MEDS: flUPHENAZine 2.5 MG/ML (MDV) 10 ML VIAL IM PRN ×2 (06:41→14:40)
[2021-12-29] MEDS: METOPROLOL TARTRATE 25 MG TAB PO SCH ×2 (08:19→21:00)
[2021-12-29] MEDS: lisinopriL 20 MG TAB PO SCH (08:19)
[2021-12-29] MEDS: MECLIZINE 25 MG TAB PO SCH ×3 (08:20→22:19)
[2021-12-29] MEDS: FAMOTIDINE 20 MG TAB PO SCH ×2 (08:20→21:00)
[2021-12-29] MEDS: metFORMIN 500 MG TAB PO SCH ×2 (08:20→20:32)
[2021-12-29] MEDS: MULTIVITAMINS, THERA 1 EACH TAB PO SCH (08:20)
[2021-12-29] MEDS: ASPIRIN 81 MG PO SCH (08:20)
[2021-12-29] MEDS: EZETIMIBE 10 MG TAB PO SCH (08:20)
[2021-12-29] MEDS: CHOLECALCIFEROL 25 MCG (1000 IU) TABLET PO SCH (08:20)
--- NOTE | 2021-12-29 12:29 | P.HP ---
Psychiatric H&P - . H&P Date: 12/29/21 History & Physical: Allergies Allergy/AdvReac Type Severity Reaction Status Date / Time haloperidol [From Haldol] Allergy injection Verified 12/29/21 01:21 site reaction per [facility] quetiapine fumarate Allergy Unknown Verified 12/29/21 01:21 [From Seroquel] Sulfa (Sulfonamide Allergy Unknown Verified 12/29/21 01:21 Antibiotics) Vital Signs Temp 97.9 F 12/29/21 08:00 Pulse 91 12/28/21 17:32 Resp 20 12/29/21 08:00 BP 183/101 12/29/21 08:00 Pulse Ox 99 12/29/21 08:00 Intake & Output 12/28/21 12/29/21 12/29/21 18:59 06:59 18:59 Weight 77.111 kg 74.5 kg Laboratory Last Values WBC 6.4 k/uL (3.8-10.6) 12/28/21 21:18 RBC 4.11 m/uL (3.80-5.40) 12/28/21 21:18 Hgb 13.0 gm/dL (11.4-16.0) 12/28/21 21:18 Hct 39.2 % (34.0-46.0) 12/28/21 21:18 MCV 95.3 fL (80.0-100.0) 12/28/21 21:18 MCH 31.5 pg (25.0-35.0) 12/28/21 21:18 MCHC 33.1 g/dL (31.0-37.0) 12/28/21 21:18 RDW 12.9 % (11.5-15.5) 12/28/21 21:18 Plt Count 240 k/uL (150-450) 12/28/21 21:18 MPV 7.7 12/28/21 21:18 Neutrophils % 60 % 12/28/21 21:18 Lymphocytes % 32 % 12/28/21 21:18 Monocytes % 5 % 12/28/21 21:18 Eosinophils % 1 % 12/28/21 21:18 Basophils % 1 % 12/28/21 21:18 Neutrophils # 3.9 k/uL (1.3-7.7) 12/28/21 21:18 Lymphocytes # 2.1 k/uL (1.0-4.8) 12/28/21 21:18 Monocytes # 0.3 k/uL (0-1.0) 12/28/21 21:18 Eosinophils # 0.1 k/uL (0-0.7) 12/28/21 21:18 Basophils # 0.1 k/uL (0-0.2) 12/28/21 21:18 Sodium 137 mmol/L (137-145) 12/28/21 21:19 Potassium 4.4 mmol/L (3.5-5.1) 12/28/21 21:19 Chloride 107 mmol/L (98-107) 12/28/21 21:19 Carbon Dioxide 25 mmol/L (22-30) 12/28/21 21:19 Anion Gap 5 mmol/L 12/28/21 21:19 BUN 16 mg/dL (7-17) 12/28/21 21:19 Creatinine 0.64 mg/dL (0.52-1.04) 12/28/21 21:19 Est GFR (CKD-EPI)AfAm >90 (>60 ml/min/1.73 sqM) 12/28/21 21:19 Est GFR (CKD-EPI)NonAf >90 (>60 ml/min/1.73 sqM) 12/28/21 21:19 Glucose 80 mg/dL (74-99) 12/28/21 21:19 Calcium 9.2 mg/dL (8.4-10.2) 12/28/21 21:19 Total Bilirubin 0.4 mg/dL (0.2-1.3) 12/28/21 21:19 AST 30 U/L (14-36) 12/28/21 21:19 ALT 23 U/L (4-34) 12/28/21 21:19 Alkaline Phosphatase 65 U/L (38-126) 12/28/21 21:19 Total Protein 6.3 g/dL (6.3-8.2) 12/28/21 21:19 Albumin 3.7 g/dL (3.5-5.0) 12/28/21 21:19 Urine Color Yellow 12/28/21 21:19 Urine Appearance Clear (Clear) 12/28/21 21:19 Urine pH 6.0 (5.0-8.0) 12/28/21 21:19 Ur Specific [place] 1.012 (1.001-1.035) 12/28/21 21:19 Urine Protein Negative (Negative) 12/28/21 21:19 Urine Glucose (UA) Negative (Negative) 12/28/21 21:19 Urine Ketones Negative (Negative) 12/28/21 21:19 Urine Blood Negative (Negative) 12/28/21 21:19 Urine Nitrite Negative (Negative) 12/28/21 21:19 Urine Bilirubin Negative (Negative) 12/28/21 21:19 Urine Urobilinogen <2.0 mg/dL (<2.0) 12/28/21 21:19 Ur Leukocyte Esterase Negative (Negative) 12/28/21 21:19 Urine Opiates Screen Not Detected (NotDetected) 12/28/21 17:46 Ur Oxycodone Screen Not Detected (NotDetected) 12/28/21 17:46 Urine Methadone Screen Not Detected (NotDetected) 12/28/21 17:46 Ur Propoxyphene Screen Not Detected (NotDetected) 12/28/21 17:46 Ur Barbiturates Screen Not Detected (NotDetected) 12/28/21 17:46 U Tricyclic Antidepress Not Detected (NotDetected) 12/28/21 17:46 Ur Phencyclidine Scrn Not Detected (NotDetected) 12/28/21 17:46 Ur Amphetamines Screen Not Detected (NotDetected) 12/28/21 17:46 U Methamphetamines Scrn Not Detected (NotDetected) 12/28/21 17:46 U Benzodiazepines Scrn Detected (NotDetected) H 12/28/21 17:46 Urine Cocaine Screen Not Detected (NotDetected) 12/28/21 17:46 U Marijuana (THC) Screen Not Detected (NotDetected) 12/28/21 17:46 Serum Alcohol <10 mg/dL 12/28/21 21:19 Coronavirus (PCR) Not Detected (Not Detectd) 12/28/21 18:28 12/29/21 12:20 Chief complaint: This patient has a history of psychosis and was brought to hospital by Plastics Worker. She was noncompliant with the medication. History of present illness: 71-year-old female presenting for mental health evaluation. Patient is under court order petitioned. She is unable to contribute at all to the history. She is brought in by [facility] department. Patient had apparently been seen at outside facility for medication noncompliance. She was either discharged with request to be transferred to this institution or transferred here for psychiatric evaluation treatment. This is unclear. She does have history of mental illness and was recently admitted to this institution for psychosis. Patient is so psychotic that she is not able to provide any psychiatric history. Past psychiatric history: This patient did admit that she was here on the mental health unit but then she went on her tangentiality and I could not get any information from her. Substance abuse history. Patient is unable to provide any history of substance abuse. She is very psychotic and is in wheelchair and is continuously talking to herself. Medical history: Patient is not able to provide any medical history and will need to have a complete physical checkup. She is not in acute physical distress at this time. Family history: This patient stated that there is autism in her family. However the history provided by her is very unreliable. Social history: This patient is not able to provide any history of growing up or later on. History of abuse: Patient is not able to provide any history of physical or sexual abuse. Mental status: This patient was seen in the wheelchair. She is alert and confused. She is talking to herself and does not make any sense out of her conversation. She is talking in a nonsensical manner. She is dressed in a hospital gown and is unable to cooperate. She described her mood as fine. Her affect is labile. She has a loose association, she has a posterior of ideas and is unable to be understood. There are times when she starts crying and talking to herself. It appears that she is responding to some unknown internal stimuli. I could not assess any delusional thought content. She is not able to concentrate on task. Her memory cannot be tested at this time. Her attention span is extremely poor. She has absolutely no insight into her problems and her judgment is impaired. She is grossly psychotic and out of touch with reality. Diagnostic impression: Schizophrenia chronic undifferentiated type Psychotic disorder NOS Treatment plan: She will be started on antipsychotic medication. She will be encouraged to participate in the milieu and other therapeutic activities available to her in the program. Prognosis: Guarded to poor
[2021-12-29] MEDS ORDERED: MELATONIN 5 MG TABLET PO SCH ×2 (21:00)
--- NOTE | 2021-12-30 02:12 | P.CONS ---
History of Present Illness - Reason for Consult Consult date: 12/30/21 - History of Present Illness The patient is a 71-year-old female with an extensive psychiatric history, hypertension, and hyperlipidemia who was brought into the emergency room due to disorganized thought process and agitation. The patient was admitted to the mental health unit where she was seen and evaluated. The patient continued to have tangential thought process and was difficult to reorient. When asked if she had any complaints, the patient nodded her head no. Laboratory evaluation was reviewed and was unremarkable. She denied chest is covered, shortness of fever, chills, cough, nausea, vomiting, abdominal pain, diarrhea. Review of systems: Pertinent positives and negatives as discussed in HPI, a complete review of systems was performed and all other systems are negative. Physical examination: General: non toxic, no distress, appears at stated age, normal weight Derm: no unusual rashes/lesions no unusual ecchymoses, warm, dry Head: atraumatic, normocephalic, symmetric Eyes: EOMI, no lid lag, anicteric sclera, pupils equal round reactive to light ENT: Nose and ears atraumatic, no thrush, no pharyngeal erythema Neck: No thyromegaly, no cervical lymphadenopathy, trachea midline, supple Mouth: no lip lesion, mucus membranes moist Cardiovascular: S1S2 reg, no murmur, positive posterior tibial pulse bilateral, no edema, capillary refill less than 2 seconds Lungs: CTA bilateral, no rhonchi, no rales , no accessory muscle use Abdominal: soft, nontender to palpation, no guarding, no appreciable organomegaly, normal bowel sounds Ext: no gross muscle atrophy, muscle strength 5 out of 5 in all 4 extremities grossly, no contractures, Neuro: CN II-XI grossly intact, light touch intact all 4 extremities, finger to nose within normal limits, Psych: Tangential and disorganized thought process Assessment/plan Chronic conditions: Hypertension, hyperlipidemia -Continue with home meds Psychosis -As per psychiatry Thank you for allowing us to participate in the care of this patient. We will follow peripherally. Do not hesitate to contact us with questions. Someone can be reached from the [facility] hospitalist group at all hours of the day at [phone]. 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 Past Anesthesia/Blood Transfusion Reactions: No Reported Reaction Smoking Status: Former smoker - Past Family History Brother(s) Additional Family Medical History / Comment(s): Patient states she has 5 brothers with no major medical problems. Sister(s) Additional Family Medical History / Comment(s): Patient states she has 7 sisters with no major medical problems. Brother(s) Son(s) Additional Family Medical History / Comment(s): Patient has 2 sons and 1 daught er with no major medical problems. Mother Family Medical History: Cancer, Hypertension Additional Family Medical History / Comment(s): Mother at age 89 from stomach problems Father Family Medical History: CVA/TIA, Hypertension Additional Family Medical History / Comment(s): Father at age 59 from peripheral vascular disease. Medications and Allergies Home Medications Medication Instructions Recorded Confirmed Type Magnesium Oxide [Magox 400] 400 mg PO HS 11/03/21 12/28/21 History Meclizine HCl 25 mg PO BID 11/03/21 12/28/21 History Cholecalciferol [Vitamin D3 (25 50 mcg PO DAILY 11/05/21 12/28/21 History Mcg = 1000 Iu)] Famotidine [Pepcid] 20 mg PO BID 11/05/21 12/28/21 History Multivitamin with Iron 1 tab PO DAILY 11/05/21 12/28/21 History [Multivitamins with Iron] Sennosides [Senna] 8.6 mg PO BID PRN 11/05/21 12/28/21 History Aspirin 81 mg PO DAILY 30 Days tab 12/18/21 12/28/21 Rx Ezetimibe [Zetia] 10 mg PO DAILY 30 Days tab 12/18/21 12/28/21 Rx Melatonin 10 mg PO HS 30 Days tablet 12/18/21 12/28/21 Rx Metoprolol Tartrate [Lopressor] 25 mg PO BID 30 Days tab 12/18/21 12/28/21 Rx fluPHENAZine [Prolixin] 5 mg PO BID 7 Days tab 12/18/21 12/28/21 Rx fluPHENAZine decanoate [Prolixin 25 mg IM ONCE #1 ml 12/18/21 12/28/21 Rx Decanoate] lisinopriL [Zestril] 20 mg PO DAILY 30 Days tab 12/18/21 12/28/21 Rx metFORMIN HCL [Glucophage] 500 mg PO BID-W/MEALS 30 Days tab 12/18/21 12/28/21 Rx Allergies Allergy/AdvReac Type Severity Reaction Status Date / Time haloperidol [From Haldol] Allergy injection Verified 12/29/21 01:21 site reaction per [facility] quetiapine fumarate Allergy Unknown Verified 12/29/21 01:21 [From Seroquel] Sulfa (Sulfonamide Allergy Unknown Verified 12/29/21 01:21 Antibiotics) Physical Exam Vitals: Vital Signs Temp Pulse Resp BP Pulse Ox 12/29/21 22:50 102 H 18 166/67 12/29/21 08:00 97.9 F 20 183/101 99 Results CBC & Chem 7: 12/28/21 21:18 12/28/21 21:19
[2021-12-30] MEDS: flUPHENAZine 2.5 MG/ML (MDV) 10 ML VIAL IM PRN ×2 (06:12→13:25)
[2021-12-30] MEDS: LORazepam 2 MG/ML INJ IM PRN (06:32)
[2021-12-30] MEDS ORDERED: diphenhydrAMINE 50 MG/ML 1 ML VIAL IM STA (07:11)
[2021-12-30] MEDS ORDERED: flUPHENAZine 2.5 MG/ML (MDV) 10 ML VIAL IM STA (07:18)
[2021-12-30] MEDS: metFORMIN 500 MG TAB PO SCH ×2 (08:33→17:45)
[2021-12-30] MEDS: CHOLECALCIFEROL 25 MCG (1000 IU) TABLET PO SCH (08:33)
[2021-12-30] MEDS: FAMOTIDINE 20 MG TAB PO SCH ×2 (08:33→20:44)
[2021-12-30] MEDS: MULTIVITAMINS, THERA 1 EACH TAB PO SCH (08:33)
[2021-12-30] MEDS: lisinopriL 20 MG TAB PO SCH (08:33)
[2021-12-30] MEDS: EZETIMIBE 10 MG TAB PO SCH (08:33)
[2021-12-30] MEDS: MECLIZINE 25 MG TAB PO SCH ×2 (08:33→20:45)
[2021-12-30] MEDS: ASPIRIN 81 MG PO SCH (08:33)
[2021-12-30] MEDS: METOPROLOL TARTRATE 25 MG TAB PO SCH ×2 (08:33→20:45)
[2021-12-30] MEDS ORDERED: flUPHENAZine 2.5 MG/ML (MDV) 10 ML VIAL IM PRN (08:55)
[2021-12-30] MEDS ORDERED: TEMAZEPAM 30 MG CAP PO PRN (10:08)
--- NOTE | 2021-12-30 12:38 | P.PN ---
Progress Note - Text Progress Note Date: 12/30/21 Interval History: Patient was seen in the dayroom and was not directable or agreeable to speak with parts data writer. She is talking to herself and does not make any eye contact. This patient continues to show severe symptoms of psychosis and breakdown with reality. She appears to be responding to some unknown internal stimuli Patient denies any side effects from the medications and has been compliant with meds. Mental Status Exam: General Appearance: Patient appears to be stated age is alert but not directable or cooperative. Behavior: Patient has periods of agitation. Speech: Patient's speech is non fluent and pressured and unable to be understood. Mood/Affect: Mood is not improving , affect is congruent and constricted. Suicidality/Homicidality: Patient denies having any suicidal or homicidal ideation intent or plan. Perceptions: Patient appears to be responding to stimuli that are not there. Though content/process: This patient is delusional and psychotic Memory and concentration: I could not assess her memory functions and her concentration is poor Judgment and insight: Judgment and insight are impaired Assessment This patient continues to experience severe symptoms of psychosis and breakdown from reality Plan: -Patient continues to meet criteria for inpatient psychiatric admission for symptom stabilization and safety. -Medications: Continue medication as before -When necessary Ativan and Haldol for agitation/aggression. -SW on board for discharge planning. Encouraged the patient to participate in milieu.
[2021-12-30] MEDS: LORazepam 1 MG TAB PO PRN (13:26)
[2021-12-30] MEDS: LUNESTA 3 MG PO SCH ×3 (14:27→20:44)
[2021-12-30] MEDS: MELATONIN 5 MG TABLET PO SCH (20:44)
[2021-12-30] MEDS: MAGNESIUM OXIDE 400 MG TAB PO SCH (20:45)
[2021-12-31] MEDS: flUPHENAZine 2.5 MG/ML (MDV) 10 ML VIAL IM PRN (06:46)
[2021-12-31] MEDS: METOPROLOL TARTRATE 25 MG TAB PO SCH ×2 (08:00→20:56)
[2021-12-31] MEDS: MECLIZINE 25 MG TAB PO SCH ×2 (08:00→20:56)
[2021-12-31] MEDS: CHOLECALCIFEROL 25 MCG (1000 IU) TABLET PO SCH (08:00)
[2021-12-31] MEDS: EZETIMIBE 10 MG TAB PO SCH (08:00)
[2021-12-31] MEDS: MULTIVITAMINS, THERA 1 EACH TAB PO SCH (08:00)
[2021-12-31] MEDS: metFORMIN 500 MG TAB PO SCH ×2 (08:00→17:31)
[2021-12-31] MEDS: ASPIRIN 81 MG PO SCH (08:00)
[2021-12-31] MEDS: lisinopriL 20 MG TAB PO SCH (08:00)
[2021-12-31] MEDS: FAMOTIDINE 20 MG TAB PO SCH ×2 (08:00→20:56)
[2021-12-31] MEDS: MAG HYDROX/AL HYDROX/SIMETH 30 ML CUP PO PRN (08:37)
[2021-12-31] MEDS: LORazepam 1 MG TAB PO PRN (12:08)
--- NOTE | 2021-12-31 15:54 | P.PN ---
Progress Note - Text Progress Note Date: 12/31/21 progress note She was seen today in wheelchair fully alert with no acute physical distress. I reviewed the admission note: she was going through the probabte court for petition. Neurocogitive impaiment was in the priority for her not to follow throrugh with medication adherence. She was "protected by her as her guardianship. shelter assisted living was mentioned by the team at the round today. We did not have updated information whether she relapsed due to her non- compliance or whether she was unaware of her need to have medication due to her functional decline. No collateral information was gathered. The was involved for her to be admitted to [facility]. Full assessment was hampered somewhat by her continual mumbling to herself in non-sense syllable. She was engaging in ritualist behavior of exending her arms forward with her eyes gazing towards the surroundings aimlessly. She acknowledged the nursing staff and my presence with no agitation . She did not mention her name and was passive. She was responding to internal stimuli with disorganized thought. activley hallucinating: visual and auditory. but not olfactory as she did not complain of COVID19 symptoms of loss of taste or smell. No gestures of harm or harm to others. Cognition uanble to assess, but oriented to people. time cannot be assessed Diagnosis; schizophrenia: history of onset important query late onset schizoprhenia and prodromal Alzheimer dementia. but further family data and formal COG lesting : 3 min. Cog will be necessary Medication: probate court proceeding will have to be finalized. She may benefit from considering switching from Prolixin to atypical like Zephris, Latuda given her history of diabetes. Compliance with Metformin 500 mg po bid and lopressor for her hypertension. Nutritional intake will be monitored closely Complete the probate acute psychosis relapse. inpatient stay required discharge planning : consider assisted living home care monitoring
[2021-12-31] MEDS: MAGNESIUM OXIDE 400 MG TAB PO SCH (20:56)
[2021-12-31] MEDS: MELATONIN 5 MG TABLET PO SCH (20:56)
[2021-12-31] MEDS: LUNESTA 3 MG PO SCH (21:49)
[2022-01-01] MEDS: chlorproMAZINE 25 MG/ML 2 ML AMP IM STA ×2 (01:51→09:29)
[2022-01-01] MEDS: CHOLECALCIFEROL 25 MCG (1000 IU) TABLET PO SCH (08:33)
[2022-01-01] MEDS: ASPIRIN 81 MG PO SCH (08:33)
[2022-01-01] MEDS: metFORMIN 500 MG TAB PO SCH ×2 (08:33→19:34)
[2022-01-01] MEDS: lisinopriL 20 MG TAB PO SCH (08:33)
[2022-01-01] MEDS: MECLIZINE 25 MG TAB PO SCH ×2 (08:34→20:39)
[2022-01-01] MEDS: EZETIMIBE 10 MG TAB PO SCH (08:34)
[2022-01-01] MEDS: METOPROLOL TARTRATE 25 MG TAB PO SCH ×2 (08:34→20:32)
[2022-01-01] MEDS: MULTIVITAMINS, THERA 1 EACH TAB PO SCH (08:34)
[2022-01-01] MEDS: FAMOTIDINE 20 MG TAB PO SCH ×2 (08:34→20:32)
[2022-01-01] MEDS ORDERED: TEMAZEPAM 15 MG CAP PO PRN (10:08)
--- NOTE | 2022-01-01 10:13 | P.PN ---
Progress Note - Text Progress Note Date: 01/01/22 Interval History: Patient was seen wandering the hallways and was directable and agreeable to speak with press writer in her room. Currently, the patient expresses a strong desire for discharge. She is requesting this provider called her to let her know that she is ready to go. She does not believe that she needs any further inpatient psychiatric treatment. The patient is not endorsing any suicidal or homicidal ideation, intention, and/or plan. She is not reporting any auditory or visual hallucinations. The patient is accompanied by one-to-one supervision due to fall risk. She has been adherent with her medications and is not reporting any significant side effects at this time. Mental Status Exam: General Appearance: Patient appears to be stated age is alert, directable and cooperative. Behavior: Patient is displaying normal psychomotor activity today. Good eye contact. Speech: Patient's speech is fluent, hyperverbal and slightly dysarthric and more linear today. Mood/Affect: Mood is "really good" Affect is expansive but otherwise bright. Suicidality/Homicidality: Patient denies having any suicidal or homicidal ideation intent or plan. Perceptions: Patient denies any visual hallucinations and denies any auditory hallucinations Though content/process: No delusional thought content is endorsed today. Thought process appears to be fixated on discharge. Memory and concentration: Improving Judgment and insight: Improving Vital Signs Temp 97.8 F 01/01/22 01:43 Pulse 78 01/01/22 01:43 Resp 17 12/31/21 20:56 BP 150/70 01/01/22 01:43 Pulse Ox 98 12/30/21 08:13 Intake & Output 12/31/21 01/01/22 01/01/22 18:59 06:59 18:59 Intake Total 266 Balance 266 Intake: Oral 266 Laboratory Results WBC 6.4 k/uL (3.8-10.6) 12/28/21 21:18 RBC 4.11 m/uL (3.80-5.40) 12/28/21 21:18 Hgb 13.0 gm/dL (11.4-16.0) 12/28/21 21:18 Hct 39.2 % (34.0-46.0) 12/28/21 21:18 MCV 95.3 fL (80.0-100.0) 12/28/21 21:18 MCH 31.5 pg (25.0-35.0) 12/28/21 21:18 MCHC 33.1 g/dL (31.0-37.0) 12/28/21 21:18 RDW 12.9 % (11.5-15.5) 12/28/21 21:18 Plt Count 240 k/uL (150-450) 12/28/21 21:18 MPV 7.7 12/28/21 21:18 Neutrophils % 60 % 12/28/21 21:18 Lymphocytes % 32 % 12/28/21 21:18 Monocytes % 5 % 12/28/21 21:18 Eosinophils % 1 % 12/28/21 21:18 Basophils % 1 % 12/28/21 21:18 Neutrophils # 3.9 k/uL (1.3-7.7) 12/28/21 21:18 Lymphocytes # 2.1 k/uL (1.0-4.8) 12/28/21 21:18 Monocytes # 0.3 k/uL (0-1.0) 12/28/21 21:18 Eosinophils # 0.1 k/uL (0-0.7) 12/28/21 21:18 Basophils # 0.1 k/uL (0-0.2) 12/28/21 21:18 Sodium 137 mmol/L (137-145) 12/28/21 21:19 Potassium 4.4 mmol/L (3.5-5.1) 12/28/21 21:19 Chloride 107 mmol/L (98-107) 12/28/21 21:19 Carbon Dioxide 25 mmol/L (22-30) 12/28/21 21:19 Anion Gap 5 mmol/L 12/28/21 21:19 BUN 16 mg/dL (7-17) 12/28/21 21:19 Creatinine 0.64 mg/dL (0.52-1.04) 12/28/21 21:19 Est GFR (CKD-EPI)AfAm >90 (>60 ml/min/1.73 sqM) 12/28/21 21:19 Est GFR (CKD-EPI)NonAf >90 (>60 ml/min/1.73 sqM) 12/28/21 21:19 Glucose 80 mg/dL (74-99) 12/28/21 21:19 Calcium 9.2 mg/dL (8.4-10.2) 12/28/21 21:19 Total Bilirubin 0.4 mg/dL (0.2-1.3) 12/28/21 21:19 AST 30 U/L (14-36) 12/28/21 21:19 ALT 23 U/L (4-34) 12/28/21 21:19 Alkaline Phosphatase 65 U/L (38-126) 12/28/21 21:19 Total Protein 6.3 g/dL (6.3-8.2) 12/28/21 21:19 Albumin 3.7 g/dL (3.5-5.0) 12/28/21 21:19 Urine Color Yellow 12/28/21 21:19 Urine Appearance Clear (Clear) 12/28/21 21:19 Urine pH 6.0 (5.0-8.0) 12/28/21 21:19 Ur Specific [place] 1.012 (1.001-1.035) 12/28/21 21:19 Urine Protein Negative (Negative) 12/28/21 21:19 Urine Glucose (UA) Negative (Negative) 12/28/21 21:19 Urine Ketones Negative (Negative) 12/28/21 21:19 Urine Blood Negative (Negative) 12/28/21 21:19 Urine Nitrite Negative (Negative) 12/28/21 21:19 Urine Bilirubin Negative (Negative) 12/28/21 21:19 Urine Urobilinogen <2.0 mg/dL (<2.0) 12/28/21 21:19 Ur Leukocyte Esterase Negative (Negative) 12/28/21 21:19 Urine Opiates Screen Not Detected (NotDetected) 12/28/21 17:46 Ur Oxycodone Screen Not Detected (NotDetected) 12/28/21 17:46 Urine Methadone Screen Not Detected (NotDetected) 12/28/21 17:46 Ur Propoxyphene Screen Not Detected (NotDetected) 12/28/21 17:46 Ur Barbiturates Screen Not Detected (NotDetected) 12/28/21 17:46 U Tricyclic Antidepress Not Detected (NotDetected) 12/28/21 17:46 Ur Phencyclidine Scrn Not Detected (NotDetected) 12/28/21 17:46 Ur Amphetamines Screen Not Detected (NotDetected) 12/28/21 17:46 U Methamphetamines Scrn Not Detected (NotDetected) 12/28/21 17:46 U Benzodiazepines Scrn Detected (NotDetected) H 12/28/21 17:46 Urine Cocaine Screen Not Detected (NotDetected) 12/28/21 17:46 U Marijuana (THC) Screen Not Detected (NotDetected) 12/28/21 17:46 Serum Alcohol <10 mg/dL 12/28/21 21:19 Coronavirus (PCR) Not Detected (Not Detectd) 12/28/21 18:28 Assessment Schizoaffective disorder, bipolar type Plan: -Patient continues to meet criteria for inpatient psychiatric admission for symptom stabilization and safety. Patient is currently under court order. -Medications: Decrease Restoril to 15 mg by mouth at bedtime when necessary due to concern for falls Continue metformin 500 mg by mouth twice a day with meals for weight control Continue Prolixin 5 mg by mouth twice a day for mood stabilization/psychosis Prolixin decanoate 25 mg IM is due on 01/08/2022. We will likely administer 50 mg IM before she is discharged. -When necessary Ativan and Prolixin for agitation/aggression. -SW on board for discharge planning. Encouraged the patient to participate in milieu.
[2022-01-01] MEDS: MAGNESIUM OXIDE 400 MG TAB PO SCH (20:32)
[2022-01-01] MEDS: MELATONIN 5 MG TABLET PO SCH (20:33)
[2022-01-01] MEDS: LUNESTA 3 MG PO SCH (21:39)
[2022-01-02] MEDS ORDERED: TEMAZEPAM 7.5 MG CAP PO PRN (01:14)
[2022-01-02 07:55] LABS: Glucose,Whole Blood 133 mg/dL (75-99)
[2022-01-02] MEDS: EZETIMIBE 10 MG TAB PO SCH (08:14)
[2022-01-02] MEDS: FAMOTIDINE 20 MG TAB PO SCH ×2 (08:15→22:47)
[2022-01-02] MEDS: ASPIRIN 81 MG PO SCH (08:15)
[2022-01-02] MEDS: lisinopriL 20 MG TAB PO SCH (08:15)
[2022-01-02] MEDS: MULTIVITAMINS, THERA 1 EACH TAB PO SCH (08:15)
[2022-01-02] MEDS: MECLIZINE 25 MG TAB PO SCH ×2 (08:15→22:48)
[2022-01-02] MEDS: CHOLECALCIFEROL 25 MCG (1000 IU) TABLET PO SCH (08:15)
[2022-01-02] MEDS: metFORMIN 500 MG TAB PO SCH ×2 (08:16→16:49)
[2022-01-02] MEDS: METOPROLOL TARTRATE 25 MG TAB PO SCH ×2 (08:16→22:47)
--- NOTE | 2022-01-02 10:59 | P.PN ---
Progress Note - Text Progress Note Date: 01/02/22 Interval History: Patient was seen wandering the hallways and was directable and agreeable to speak with technical writer in her room. The patient refused her Prolixin last night and states that she does not want to take the medication. She was informed that she is under court order. We will administer Prolixin IM if she refuses the oral medication. The patient is unable to provide any clear history to this provider at this time. She is disorganized and dysarthric. She is otherwise not reporting any suicidal or homicidal ideation, intention, and/or plan. However, the patient does appear to be responding to internal stimuli despite not endorsing any auditory or visual hallucinations. She has been noted by staff to be impulsive and unsteady on her feet. She remains on one-to-one supervision. Mental Status Exam: General Appearance: Patient appears to be stated age is alert, directable and attempts to cooperate. Behavior: Patient is displaying normal psychomotor activity today. Good eye contact. Speech: Patient's speech is fluent, hyperverbal and dysarthric. Mood/Affect: Mood is "not good" Affect is expansive and intense. Suicidality/Homicidality: Patient denies having any suicidal or homicidal ideation intent or plan. Perceptions: Patient denies any visual hallucinations and denies any auditory hallucinations Though content/process: Grossly disorganized. Memory and concentration: Poor Judgment and insight: Poor Vital Signs Temp 97.6 F 01/02/22 08:36 Pulse 116 H 01/02/22 08:36 Resp 16 01/02/22 08:36 BP 159/88 01/02/22 08:36 Pulse Ox 97 01/02/22 08:36 Laboratory Results - Last 24 Hours 01/02/22 07:51 POC Glucose (mg/dL) 133 H POC Glu [employer] ID Danita Thomasheal Assessment Schizoaffective disorder, bipolar type Plan: -Patient continues to meet criteria for inpatient psychiatric admission for symptom stabilization and safety. Patient is currently under court order. -Medications: Continue Restoril 15 mg by mouth at bedtime when necessary due to concern for falls Continue metformin 500 mg by mouth twice a day with meals for weight control Increase Prolixin to 7.5 mg by mouth twice a day for mood stabilization/psychosis. If patient refuses Prolixin, we will administer IM Prolixin 5 mg as she is under court order. Prolixin decanoate 25 mg IM is due on 01/08/2022. We will likely administer 50 mg IM before she is discharged. -Discussion with the patient's outpatient psychiatrist Dr. Shaikh took place. The patient's outpatient psychiatric provider is recommending state hospitalization due to the patient's continued presentation. We will attempt to start the process to have her transferred to a state hospital. -When necessary Ativan and Prolixin for agitation/aggression. -SW on board for discharge planning. Encouraged the patient to participate in milieu.
[2022-01-02] MEDS: LORazepam 1 MG TAB PO PRN (16:14)
[2022-01-02] MEDS: flUPHENAZine 2.5 MG/ML (MDV) 10 ML VIAL IM PRN ×2 (16:47→17:27)
[2022-01-02] MEDS ORDERED: clonazePAM 1 MG TAB PO PRN (17:21)
[2022-01-02] MEDS: MELATONIN 5 MG TABLET PO SCH (22:48)
[2022-01-02] MEDS: MAGNESIUM OXIDE 400 MG TAB PO SCH (22:49)
[2022-01-03] MEDS: LUNESTA 3 MG PO SCH ×2 (00:35→22:12)
[2022-01-03] MEDS: MECLIZINE 25 MG TAB PO SCH ×2 (08:18→21:01)
[2022-01-03] MEDS: FAMOTIDINE 20 MG TAB PO SCH ×2 (08:18→21:00)
[2022-01-03] MEDS: CHOLECALCIFEROL 25 MCG (1000 IU) TABLET PO SCH (08:18)
[2022-01-03] MEDS: lisinopriL 20 MG TAB PO SCH (08:19)
[2022-01-03] MEDS: EZETIMIBE 10 MG TAB PO SCH (08:19)
[2022-01-03] MEDS: metFORMIN 500 MG TAB PO SCH ×2 (08:19→21:00)
[2022-01-03] MEDS: METOPROLOL TARTRATE 25 MG TAB PO SCH ×2 (08:19→21:00)
--- NOTE | 2022-01-03 11:48 | P.PN ---
Progress Note - Text Progress Note Date: 01/03/22 Interval History: Patient was seen wandering the hallways and was directable and agreeable to speak with ghost writer in the office. The patient is more linear and logical in conversation today although will occasionally go on tangents and become difficult to understand. She continues to express a strong desire for discharge. She reports that she does not want to take any medications however was encouraged to continue taking her own medications in order to avoid receiving injectables. The patient is currently denying any suicidal or homicidal ideation, intention, and/or plan. She is not reporting any auditory or visual hallucinations however continues to appear to respond to internal stimuli. She continues to endorse significant paranoia towards others. The patient has not been in adherent with her medications and has been requiring IM Prolixin to be administered. The patient has been noted to be sleeping well last night and much more cooperative this morning. She appears to be steady on her feet. Mental Status Exam: General Appearance: Patient appears to be stated age is alert, directable and attempts to cooperate. Behavior: Patient is displaying normal psychomotor activity today. Good eye contact. Speech: Patient's speech is fluent, hyperverbal and dysarthric. Mood/Affect: Mood is "I don't want meds." Affect is within normal range however at times intense. Suicidality/Homicidality: Patient denies having any suicidal or homicidal ideation intent or plan. Perceptions: Patient denies any visual hallucinations and denies any auditory hallucinations Though content/process: More linear and logical however continues to go on tangents. Memory and concentration: Poor Judgment and insight: Poor In regards to memory testing the patient will be adminsitered a MOCA tomorrow. However, today the patient displayed good language, abstraction, orientation. S he did struggle with attention. She did successfully do a 3 word recall. Vital Signs Temp 97.1 F L 01/03/22 08:00 Pulse 56 L 01/03/22 08:00 Resp 16 01/03/22 08:00 BP 159/88 01/02/22 08:36 Pulse Ox 96 01/03/22 08:00 Assessment Schizoaffective disorder, bipolar type Plan: -Patient continues to meet criteria for inpatient psychiatric admission for symptom stabilization and safety. Patient is currently under court order. -Medications: Continue Restoril 15 mg by mouth at bedtime when necessary due to concern for falls Continue metformin 500 mg by mouth twice a day with meals for weight control Increase Prolixin to 10 mg by mouth twice a day for mood stabilization/psychosis. If patient refuses Prolixin, we will administer IM Prolixin 5 mg as she is under court order. Prolixin decanoate 25 mg IM is due on 01/08/2022. We will likely administer 50 mg IM before she is discharged. -Discussion with the patient's outpatient psychiatrist Dr. Shaikh took place. The patient's outpatient psychiatric provider is recommending state hospitalization due to the patient's continued presentation. We will attempt to start the process to have her transferred to a state hospital. -When necessary Ativan and Prolixin for agitation/aggression. -SW on board for discharge planning. Encouraged the patient to participate in milieu.
[2022-01-03] MEDS: MELATONIN 5 MG TABLET PO SCH (21:00)
[2022-01-03] MEDS: MAGNESIUM OXIDE 400 MG TAB PO SCH (21:01)
[2022-01-03] MEDS: flUPHENAZine 2.5 MG/ML (MDV) 10 ML VIAL IM PRN (21:17)
[2022-01-03] MEDS ORDERED: clonazePAM 1 MG TAB PO STA (21:35)
[2022-01-04] MEDS: flUPHENAZine 2.5 MG/ML (MDV) 10 ML VIAL IM PRN (01:43)
[2022-01-04] MEDS: LORazepam 2 MG/ML INJ IM PRN (01:46)
[2022-01-04] MEDS: LUNESTA 3 MG PO SCH (06:16)
[2022-01-04] MEDS: MECLIZINE 25 MG TAB PO SCH ×2 (07:49→22:13)
[2022-01-04] MEDS: EZETIMIBE 10 MG TAB PO SCH (07:49)
[2022-01-04] MEDS: lisinopriL 20 MG TAB PO SCH (07:50)
[2022-01-04] MEDS: CHOLECALCIFEROL 25 MCG (1000 IU) TABLET PO SCH (07:50)
[2022-01-04] MEDS: ASPIRIN 81 MG PO SCH (07:50)
[2022-01-04] MEDS: FAMOTIDINE 20 MG TAB PO SCH ×2 (07:50→22:14)
[2022-01-04] MEDS: METOPROLOL TARTRATE 25 MG TAB PO SCH ×2 (07:50→22:13)
[2022-01-04] MEDS: metFORMIN 500 MG TAB PO SCH ×2 (07:50→17:39)
[2022-01-04] MEDS: MULTIVITAMINS, THERA 1 EACH TAB PO SCH (07:50)
[2022-01-04] MEDS: LORazepam 1 MG TAB PO PRN (08:13)
--- NOTE | 2022-01-04 12:10 | P.PN ---
Progress Note - Text Progress Note Date: 01/04/22 Interval History: Patient was seen wandering the hallways and was directable and agreeable to speak with movie writer in the office. Patient expresses a strong desire for discharge. She has been noted by staff to be quite agitated and elevated last night and early this morning. She did require administration of when necessary medications in order to calm down. She continues to be fixated on discharge and states that she is scheduled to have an eye appointment today for her glasses. Mental Status Exam: General Appearance: Patient appears to be stated age is alert, directable and attempts to cooperate. Behavior: Patient is displaying normal psychomotor activity today. Good eye contact. Speech: Patient's speech is fluent, hyperverbal and dysarthric. Mood/Affect: Mood is "I need to go today." Affect is within normal range however at times intense. Suicidality/Homicidality: Patient denies having any suicidal or homicidal ideation intent or plan. Perceptions: Patient denies any visual hallucinations and denies any auditory hallucinations Though content/process: More linear and logical however continues to go on tangents. Memory and concentration: Poor Judgment and insight: Poor Vital Signs Temp 97.0 F L 01/04/22 07:44 Pulse 93 01/04/22 07:44 Resp 18 01/04/22 07:44 BP 126/58 01/04/22 07:44 Pulse Ox 97 01/04/22 07:44 MOCA: Visuospatial/Executive: 3/5 Namin/3 Attention: 26 Language: 3/3 Abstraction: 2/2 Delayed Recall: 15 Orientation: 66 Total Score: 20/30 Assessment Schizoaffective disorder, bipolar type Rule out neurocognitive disorder Plan: -Patient continues to meet criteria for inpatient psychiatric admission for symptom stabilization and safety. Patient is currently under court order. -Patient scored 20/30 on MOCA. Patient has attended some college as her highest level of education. -Medications: Continue Restoril 15 mg by mouth at bedtime when necessary Continue metformin 500 mg by mouth twice a day with meals for weight control Continue Prolixin 10 mg by mouth twice a day for mood stabilization/psychosis. If patient refuses Prolixin, we will administer IM Prolixin 5 mg as she is under court order. Prolixin decanoate 25 mg IM is due on 01/08/2022. We will administer 50 mg IM next week with plans to schedule the medication [id number]. -Discussion with the patient's outpatient psychiatrist Dr. Shaikh took place. The patient's outpatient psychiatric provider is recommending state hospitalization due to the patient's continued presentation. -When necessary Ativan and Prolixin for agitation/aggression. -SW on board for discharge planning. Encouraged the patient to participate in milieu.
[2022-01-04] MEDS: MELATONIN 5 MG TABLET PO SCH (22:14)
[2022-01-04] MEDS: MAGNESIUM OXIDE 400 MG TAB PO SCH (22:14)
[2022-01-05] MEDS: LUNESTA 3 MG PO SCH ×2 (02:11→21:03)
[2022-01-05] MEDS: metFORMIN 500 MG TAB PO SCH ×2 (08:35→17:25)
[2022-01-05] MEDS: lisinopriL 20 MG TAB PO SCH (08:35)
[2022-01-05] MEDS: ASPIRIN 81 MG PO SCH (08:35)
[2022-01-05] MEDS: CHOLECALCIFEROL 25 MCG (1000 IU) TABLET PO SCH (08:35)
[2022-01-05] MEDS: METOPROLOL TARTRATE 25 MG TAB PO SCH ×2 (08:35→21:00)
[2022-01-05] MEDS: EZETIMIBE 10 MG TAB PO SCH (08:35)
[2022-01-05] MEDS: FAMOTIDINE 20 MG TAB PO SCH ×2 (08:36→21:00)
[2022-01-05] MEDS: MECLIZINE 25 MG TAB PO SCH ×2 (08:36→21:00)
[2022-01-05] MEDS: LORazepam 1 MG TAB PO PRN ×3 (08:36→21:03)
[2022-01-05] MEDS: MULTIVITAMINS, THERA 1 EACH TAB PO SCH (08:46)
--- NOTE | 2022-01-05 17:16 | P.PN ---
Progress Note - Text Progress Note Date: 01/05/22 CHIEF COMPLAINT Patient was admitted for medication noncompliance INTERVAL HISTORY Patient has been doing fair. She continues to struggle with thought disorder. Her thoughts frequently are disorganized. She shows limited purposeful behavior. She had a quiet day yesterday. She did attend 1 group yesterday. She will come out on the unit and wonder about some. Mostly she stays in her room. Some of the time she may communicate some appropriate thoughts so much of the time her thoughts are disorganized. She sleeps well at night. Today she's been up and doing the same. She has not attended groups today. When I am made efforts to talk to her at a few different times during the day she was not able to communicate anything that was meaningful or that I could comprehend. At one point she came into the office and sat down and then made some vague comments about needing a car. For the most part she has been cooperative with care. She tolerates his psychotropic medications though may be showing some indications of EPS. MENTAL STATUS EXAM Patient gave fair eye contact at best. She is restless. She would respond to a few questions though her responses typically were tangential and disorganized. Her affect was constricted. She had a quiet manner. Her mood was reserved. She didn't appear to be significantly distressed. Her thoughts continue to be out of touch with reality. She made no indication of thoughts of harm. She is oriented to her immediate situation. ASSESSMENT/PLAN I will continue the current diagnosis and treatment plan. We will continue to make efforts to engage the patient in individual and group therapeutic activities. Psychotropic medications will continue the same. Patient was not able to engage in productive conversations regarding her medications or other treatment issues. We will focus on stabilization and discharge planning.
[2022-01-05] MEDS: MAGNESIUM OXIDE 400 MG TAB PO SCH (21:00)
[2022-01-05] MEDS: MELATONIN 5 MG TABLET PO SCH (21:00)
[2022-01-06] MEDS: ASPIRIN 81 MG PO SCH (08:33)
[2022-01-06] MEDS: CHOLECALCIFEROL 25 MCG (1000 IU) TABLET PO SCH (08:34)
[2022-01-06] MEDS: lisinopriL 20 MG TAB PO SCH (08:34)
[2022-01-06] MEDS: METOPROLOL TARTRATE 25 MG TAB PO SCH ×2 (08:34→21:30)
[2022-01-06] MEDS: EZETIMIBE 10 MG TAB PO SCH (08:34)
[2022-01-06] MEDS: MECLIZINE 25 MG TAB PO SCH ×2 (08:34→21:30)
[2022-01-06] MEDS: metFORMIN 500 MG TAB PO SCH ×2 (08:34→17:28)
[2022-01-06] MEDS: MULTIVITAMINS, THERA 1 EACH TAB PO SCH (08:35)
[2022-01-06] MEDS: FAMOTIDINE 20 MG TAB PO SCH ×2 (08:35→21:30)
[2022-01-06] MEDS: LORazepam 1 MG TAB PO PRN (12:23)
--- NOTE | 2022-01-06 12:43 | P.PN ---
Progress Note - Text Progress Note Date: 01/06/22 CHIEF COMPLAINT Patient was admitted for medication noncompliance INTERVAL HISTORY Patient has been pretty much at her baseline. Yesterday she comes out on the unit and wonders about. She will approach staff and converse about one thing or another. Sometimes her thoughts are clear and sometimes is difficult to understand what she is trying to communicate. She had no specific complaints or concerns yesterday. In the evening time she was anxious about the idea of going home and whether or not she would sleep. Ativan was given at 9 PM. Staff noted she was up a few different times during the night though was able to go back to bed and get back to sleep. Today she's been out. When I saw her in the morning she had a smile on her face. She had attended to her grooming. She seemed to be in quite a good mood. Thought 12:30 she was given Ativan 2 mg for agitation crying, and feeling anxious. She seemed to respond well to the medication. She tolerates her medications. MENTAL STATUS EXAM I saw her at a few different times during the morning and early afternoon. She appeared to be in a good mood. She smiled. She made a few organized comments. She responded to a few questions appropriately. Her mood was even. She didn't appear to be distressed or anxious when I saw her. She was oriented to circumstances and surroundings. ASSESSMENT/PLAN I will continue the current diagnosis and treatment plan. We will continue to make efforts to engage the patient in individual and group therapeutic activities. Psychotropic medications will continue the same. Treatment issues and discharge planning remain the same. We will focus on stabilization and discharge planning.
[2022-01-06] MEDS: LUNESTA 3 MG PO SCH (21:29)
[2022-01-06] MEDS: MELATONIN 5 MG TABLET PO SCH (21:30)
[2022-01-06] MEDS: MAGNESIUM OXIDE 400 MG TAB PO SCH (21:30)
[2022-01-06] MEDS: flUPHENAZine 2.5 MG/ML (MDV) 10 ML VIAL IM PRN (22:53)
[2022-01-07] MEDS: LUNESTA 3 MG PO SCH ×2 (00:48→22:04)
[2022-01-07] MEDS: MULTIVITAMINS, THERA 1 EACH TAB PO SCH (08:40)
[2022-01-07] MEDS: metFORMIN 500 MG TAB PO SCH ×2 (08:40→18:03)
[2022-01-07] MEDS: CHOLECALCIFEROL 25 MCG (1000 IU) TABLET PO SCH (08:40)
[2022-01-07] MEDS: METOPROLOL TARTRATE 25 MG TAB PO SCH ×2 (08:41→20:58)
[2022-01-07] MEDS: FAMOTIDINE 20 MG TAB PO SCH ×2 (08:41→20:58)
[2022-01-07] MEDS: EZETIMIBE 10 MG TAB PO SCH (08:41)
[2022-01-07] MEDS: MECLIZINE 25 MG TAB PO SCH ×2 (08:41→20:58)
[2022-01-07] MEDS: lisinopriL 20 MG TAB PO SCH (08:41)
[2022-01-07] MEDS: ASPIRIN 81 MG PO SCH (08:41)
--- NOTE | 2022-01-07 11:41 | P.PN ---
Progress Note - Text Progress Note Date: 01/07/22 Interval History: Patient was seen wandering the hallways and was directable and agreeable to speak with rfp writer in the office. Patient is currently mostly nonsensical in her speech. She does admit that she threw water on staff yesterday however expresses no remorse. She continues to request discharge. She is also requesting that she has a change in her guardianship. The patient has been intermittently adherent with medications. She is scheduled to receive Prolixin Decanoate tomorrow. Mental Status Exam: General Appearance: Patient appears to be stated age is alert, directable and attempts to cooperate. Behavior: Patient is displaying normal psychomotor activity today. Good eye contact. Speech: Patient's speech is nonsensical, hyperverbal, and dysarthric. Mood/Affect: Mood is "I need to go today." Affect is within normal range however at times intense. Suicidality/Homicidality: Unable to assess. Perceptions: Unable to assess. Though content/process: Currently nonsensical. Difficult to follow. Memory and concentration: Poor Judgment and insight: Poor Vital Signs Temp 96.8 F L 01/06/22 08:00 Pulse 72 01/07/22 08:53 Resp 18 01/06/22 08:00 BP 114/57 01/07/22 08:53 Pulse Ox 96 01/06/22 08:00 Intake & Output 01/06/22 01/07/22 01/07/22 18:59 06:59 18:59 Weight 74.9 kg MOCA from 01/04/2022: Visuospatial/Executive: 3/5 Namin/3 Attention: 2/6 Language: 3/3 Abstraction: 2/2 Delayed Recall: 5 Orientation: 6 Total Score: 20/30 Assessment Schizoaffective disorder, bipolar type Rule out neurocognitive disorder Plan: -Patient continues to meet criteria for inpatient psychiatric admission for symptom stabilization and safety. Patient is currently under court order. -Patient scored 20/30 on MOCA. Patient has attended some college as her highest level of education. -Medications: Continue Restoril 15 mg by mouth at bedtime when necessary Continue metformin 500 mg by mouth twice a day with meals for weight control Continue Prolixin 10 mg by mouth twice a day for mood stabilization/psychosis. If patient refuses Prolixin, we will administer IM Prolixin 5 mg as she is under court order. Tomorrow we will administer 50 mg IM next week with plans to schedule the medication [id number]. -Discussion with the patient's outpatient psychiatrist Dr. Shaikh took place. The patient's outpatient psychiatric provider is recommending state hospitalization due to the patient's continued presentation. -When necessary Ativan and Prolixin for agitation/aggression. -SW on board for discharge planning. Encouraged the patient to participate in milieu.
[2022-01-07] MEDS: LORazepam 1 MG TAB PO PRN (12:42)
[2022-01-07] MEDS: MELATONIN 5 MG TABLET PO SCH (20:58)
[2022-01-07] MEDS: MAGNESIUM OXIDE 400 MG TAB PO SCH (20:58)
[2022-01-08] MEDS: MECLIZINE 25 MG TAB PO SCH ×2 (08:27→20:30)
[2022-01-08] MEDS: ASPIRIN 81 MG PO SCH (08:28)
[2022-01-08] MEDS: metFORMIN 500 MG TAB PO SCH ×2 (08:28→18:12)
[2022-01-08] MEDS: METOPROLOL TARTRATE 25 MG TAB PO SCH ×2 (08:28→20:30)
[2022-01-08] MEDS: lisinopriL 20 MG TAB PO SCH (08:28)
[2022-01-08] MEDS: CHOLECALCIFEROL 25 MCG (1000 IU) TABLET PO SCH (08:29)
[2022-01-08] MEDS: FAMOTIDINE 20 MG TAB PO SCH ×2 (08:29→20:30)
[2022-01-08] MEDS: EZETIMIBE 10 MG TAB PO SCH (08:29)
[2022-01-08] MEDS: MULTIVITAMINS, THERA 1 EACH TAB PO SCH (08:30)
--- NOTE | 2022-01-08 11:53 | P.PN ---
Progress Note - Text Progress Note Date: 01/08/22 Interval History: Patient was seen wandering the hallways and was directable and agreeable to speak with bond writer in the office. Patient expresses that she is feeling good today and is wishing to be discharged. She is much more linear and logical conversation today. She was informed that she'll be receiving Prolixin Decanoate today. The patient is initially oppositional but states that "if I go wild it is on you." She is otherwise not reporting any significant side effects from medications. She is not reporting any suicidal or homicidal ideation, intention, and/or plan. She is not reporting any auditory or visual hallucinations. She does not make any paranoid statements today. Mental Status Exam: General Appearance: Patient appears to be stated age is alert, directable and attempts to cooperate. Behavior: Patient is displaying normal psychomotor activity today. Good eye contact. Speech: Patient's speech is much more coherent today. Slightly dysarthric. Mood/Affect: Mood is "I want to be discharged today." Affect is within normal range. Suicidality/Homicidality: Patient denies any suicidal or homicidal ideation. Perceptions: Patient denies any auditory or visual hallucinations. Though content/process: Linear and logical in short conversation. Memory and concentration: Mildly improving Judgment and insight: Mildly improving Vital Signs Temp 97.1 F L 01/08/22 07:01 Pulse 120 H 01/08/22 07:01 Resp 18 01/06/22 08:00 BP 107/60 01/08/22 07:01 Pulse Ox 96 01/08/22 07:01 MOCA from 01/04/2022: Visuospatial/Executive: 3/5 Namin3 Attention: 6 Language: 3/3 Abstraction: 2/2 Delayed Recall: 12/05 Orientation: 05/06 Total Score: 20/30 Assessment Schizoaffective disorder, bipolar type Rule out neurocognitive disorder Plan: -Patient continues to meet criteria for inpatient psychiatric admission for symp meghan stabilization and safety. Patient is currently under court order. -Patient scored 20/30 on MOCA. Patient has attended some college as her highest level of education. -Medications: Continue Restoril 15 mg by mouth at bedtime when necessary Continue metformin 500 mg by mouth twice a day with meals for weight control We will discontinue oral Prolixin at this time and transition her to Prolixin Decanoate 50 mg IM. EKG revealed a QTc of 419 ms and Bela Sinus rhythm. -When necessary Ativan and Prolixin for agitation/aggression. -SW on board for discharge planning. Encouraged the patient to participate in milieu.
[2022-01-08] MEDS: LORazepam 1 MG TAB PO PRN (13:53)
[2022-01-08] MEDS: fluPHENAZine DECANOATE 25 MG/ML 5ML MDV IM ONE ×2 (13:53→14:05)
[2022-01-08] MEDS: MELATONIN 5 MG TABLET PO SCH (20:30)
[2022-01-08] MEDS: MAGNESIUM OXIDE 400 MG TAB PO SCH (20:30)
[2022-01-08] MEDS: LUNESTA 3 MG PO SCH (21:23)
[2022-01-09] MEDS: MULTIVITAMINS, THERA 1 EACH TAB PO SCH (07:57)
[2022-01-09] MEDS: METOPROLOL TARTRATE 25 MG TAB PO SCH ×2 (07:57→21:46)
[2022-01-09] MEDS: CHOLECALCIFEROL 25 MCG (1000 IU) TABLET PO SCH (07:57)
[2022-01-09] MEDS: EZETIMIBE 10 MG TAB PO SCH (07:57)
[2022-01-09] MEDS: metFORMIN 500 MG TAB PO SCH ×2 (07:57→18:12)
[2022-01-09] MEDS: FAMOTIDINE 20 MG TAB PO SCH ×2 (07:57→21:46)
[2022-01-09] MEDS: ASPIRIN 81 MG PO SCH (07:57)
[2022-01-09] MEDS: MECLIZINE 25 MG TAB PO SCH ×2 (07:57→21:46)
[2022-01-09] MEDS: lisinopriL 20 MG TAB PO SCH (07:58)
--- NOTE | 2022-01-09 11:54 | P.PN ---
Progress Note - Text Progress Note Date: 01/09/22 Interval History: Patient was seen wandering the hallways and was directable and agreeable to speak with medical writer in the office. Patient reports that she is doing well. She is currently not reporting any suicidal or homicidal ideation, intention, and/or plan. She is not reporting any auditory or visual hallucinations. She denies any paranoia or other delusions. The patient did receive her long-acting injectable Prolixin Decanoate 50 she is not reporting any significant side ef fects at this time. She continues to request that she is not placed on any oral antipsychotic medications. At this time, we're awaiting placement to either [facility] for state psychiatric hospitalization or placement to another facility that would monitor medication administration. Currently there is a hold due to guardianship issues. Mental Status Exam: General Appearance: Patient appears to be stated age is alert, directable and attempts to cooperate. Behavior: Patient is displaying normal psychomotor activity today. Good eye contact. Speech: Patient's speech is mostly coherent today with the occasional tangents and dysarthria that the patient normally exhibits. Mood/Affect: Mood is "I feel good." Affect is within normal range, at times a little labile. Suicidality/Homicidality: Patient denies any suicidal or homicidal ideation. Perceptions: Patient denies any auditory or visual hallucinations. Though content/process: Linear and logical in short conversation. Memory and concentration: Mildly improving Judgment and insight: Mildly improving Vital Signs Temp 96.8 F L 01/09/22 06:09 Pulse 79 01/09/22 07:57 Resp 18 01/06/22 08:00 BP 171/74 01/09/22 07:57 Pulse Ox 96 01/09/22 06:09 MOCA from 01/04/2022: Visuospatial/Executive: 02/02 Namin/3 Attention: 01/06 Language: 01/31 Abstraction: 01/02 Delayed Recall: 12/05 Orientation: 05/06 Total Score: 20/30 Assessment Schizoaffective disorder, bipolar type Rule out neurocognitive disorder Plan: -Patient continues to meet criteria for inpatient psychiatric admission for symptom stabilization and safety. Patient is currently under court order. -Patient scored 20/30 on MOCA. Patient has attended some college as her highest level of education. -Medications: Continue Restoril 15 mg by mouth at bedtime when necessary Continue metformin 500 mg by mouth twice a day with meals for weight control Prolixin decanoate 50 mg IM was administered on 01/08/2022. Medication to be administered [id number]. -When necessary Ativan and Prolixin for agitation/aggression. -SW on board for discharge planning. Encouraged the patient to participate in milieu.
[2022-01-09] MEDS: LORazepam 1 MG TAB PO PRN (14:45)
[2022-01-09] MEDS: LUNESTA 3 MG PO SCH (21:45)
[2022-01-09] MEDS: MELATONIN 5 MG TABLET PO SCH (21:45)
[2022-01-09] MEDS: MAGNESIUM OXIDE 400 MG TAB PO SCH (21:46)
[2022-01-10] MEDS: CHOLECALCIFEROL 25 MCG (1000 IU) TABLET PO SCH (09:58)
[2022-01-10] MEDS: FAMOTIDINE 20 MG TAB PO SCH ×2 (09:58→20:47)
[2022-01-10] MEDS: lisinopriL 20 MG TAB PO SCH (09:58)
[2022-01-10] MEDS: MULTIVITAMINS, THERA 1 EACH TAB PO SCH (09:58)
[2022-01-10] MEDS: ASPIRIN 81 MG PO SCH (09:58)
[2022-01-10] MEDS: METOPROLOL TARTRATE 25 MG TAB PO SCH ×2 (09:58→20:47)
[2022-01-10] MEDS: metFORMIN 500 MG TAB PO SCH ×2 (09:58→18:38)
[2022-01-10] MEDS: MECLIZINE 25 MG TAB PO SCH ×2 (09:58→20:47)
[2022-01-10] MEDS: EZETIMIBE 10 MG TAB PO SCH (10:01)
--- NOTE | 2022-01-10 11:14 | P.PN ---
Progress Note - Text Progress Note Date: 01/10/22 Interval History: Patient was seen wandering the hallways and was directable and agreeable to speak with feature writer in the office. The patient continues to express a desire to go home. She is otherwise presenting is bright and friendly with staff and peers. She is currently denying any suicidal or homicidal ideation, intention, and/or plan. She denies any auditory or visual hallucinations. She continues to be fixated on discharge. 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 She did receive her long-acting injectable of Prolixin decanoate 50 mg IM yesterday and is tolerating the medication well. She is not reporting any significant side effects at this time. The patient had no issues regarding her sleep or appetite. She is also ambulating steady. Mental Status Exam: General Appearance: Patient appears to be stated age is alert, directable and attempts to cooperate. Behavior: Patient is displaying normal psychomotor activity today. Good eye contact. Speech: Patient's speech is mostly coherent today with the occasional tangents and dysarthria that the patient normally exhibits. Mood/Affect: Mood is "I feel happy." Affect is within normal range and bright Suicidality/Homicidality: Patient denies any suicidal or homicidal ideation. Perceptions: Patient denies any auditory or visual hallucinations. Though content/process: Linear and logical in short conversation. Memory and concentration: Mildly improving Judgment and insight: Mildly improving Vital Signs Temp 97.0 F L 01/10/22 09:56 Pulse 86 01/10/22 09:56 Resp 18 01/10/22 09:56 BP 124/61 01/10/22 09:56 Pulse Ox 96 01/10/22 09:56 MOCA from 01/04/2022: Visuospatial/Executive: 02/02 Namin/3 Attention: 01/06 Language: 01/31 Abstraction: 01/02 Delayed Recall: 12/05 Orientation: 05/06 Total Score: 20/30 Assessment Schizoaffective disorder, bipolar type Rule out neurocognitive disorder Plan: -Patient continues to meet criteria for inpatient psychiatric admission for symptom stabilization and safety. Patient is currently under court order. -Patient scored 20/30 on MOCA. Patient has attended some college as her highest level of education. -Medications: Continue Restoril 15 mg by mouth at bedtime when necessary Continue metformin 500 mg by mouth twice a day with meals for weight control Prolixin decanoate 50 mg IM was administered on 01/08/2022. Medication to be administered [id number]. -When necessary Ativan and Prolixin for agitation/aggression. -SW on board for discharge planning. Encouraged the patient to participate in milieu.
[2022-01-10 13:56] VITALS: BMI 30.2
[2022-01-10] MEDS: MAGNESIUM OXIDE 400 MG TAB PO SCH (20:47)
[2022-01-10] MEDS: MELATONIN 5 MG TABLET PO SCH (22:28)
[2022-01-10] MEDS: LUNESTA 3 MG PO SCH (22:28)
[2022-01-11] MEDS: ASPIRIN 81 MG PO SCH (09:34)
[2022-01-11] MEDS: FAMOTIDINE 20 MG TAB PO SCH ×2 (09:34→20:38)
[2022-01-11] MEDS: MULTIVITAMINS, THERA 1 EACH TAB PO SCH (09:34)
[2022-01-11] MEDS: METOPROLOL TARTRATE 25 MG TAB PO SCH ×2 (09:34→20:38)
[2022-01-11] MEDS: metFORMIN 500 MG TAB PO SCH ×2 (09:35→17:58)
[2022-01-11] MEDS: MECLIZINE 25 MG TAB PO SCH ×2 (09:35→21:29)
[2022-01-11] MEDS: CHOLECALCIFEROL 25 MCG (1000 IU) TABLET PO SCH (09:35)
[2022-01-11] MEDS: lisinopriL 20 MG TAB PO SCH (09:35)
[2022-01-11] MEDS: EZETIMIBE 10 MG TAB PO SCH (09:35)
--- NOTE | 2022-01-11 13:35 | P.PN ---
Progress Note - Text Progress Note Date: 01/11/22 Interval History: Patient was seen wandering the hallways and was directable and agreeable to speak with mortgage loan underwriter in the office. The patient is currently presenting well. She is currently not endorsing any suicidal or homicidal ideation, intention, and/or plan. Her primary concern at this time is her . She reports that she has been trying to reach her this afternoon but has been unable to. She expresses concern for his safety as the roads appeared to be difficult due to the inclement weather. She is otherwise not reporting any auditory or visual hallucinations. She reports no paranoia or other delusions. She appears to be tolerating medications well. She reports that she was able to have a sponge bath and feels better. Mental Status Exam: General Appearance: Patient appears to be stated age is alert, directable and attempts to cooperate. Behavior: Patient is displaying normal psychomotor activity today. Good eye contact. Speech: Patient's speech is mostly coherent today with the occasional tangents and dysarthria that the patient normally exhibits. Mood/Affect: Mood is "I feel better than yesterday." Affect is within normal range Suicidality/Homicidality: Patient denies any suicidal or homicidal ideation. Perceptions: Patient denies any auditory or visual hallucinations. Though content/process: Linear and logical in short conversation. Memory and concentration: Mildly improving Judgment and insight: Mildly improving Vital Signs Temp 97.1 F L 01/11/22 06:43 Pulse 58 L 01/11/22 06:43 Resp 18 01/10/22 20:50 BP 110/55 01/11/22 06:43 Pulse Ox 94 L 01/11/22 06:43 Intake & Output 01/10/22 01/11/22 01/11/22 18:59 06:59 18:59 Weight 74.9 kg MOCA from 01/04/2022: Visuospatial/Executive: 02/02 Namin/3 Attention: 01/06 Language: 01/31 Abstraction: 01/02 Delayed Recall: 12/05 Orientation: 05/06 Total Score: 20/30 Assessment Schizoaffective disorder, bipolar type Rule out neurocognitive disorder Plan: -Patient continues to meet criteria for inpatient psychiatric admission for symptom stabilization and safety. Patient is currently under court order. -Patient scored 20/30 on MOCA. Patient has attended some college as her highest level of education. -Medications: Continue Restoril 15 mg by mouth at bedtime when necessary Continue metformin 500 mg by mouth twice a day with meals for weight control Prolixin decanoate 50 mg IM was administered on 01/08/2022. Medication to be administered on 01/22/2022. -When necessary Ativan and Prolixin for agitation/aggression. -SW on board for discharge planning. Encouraged the patient to participate in milieu.
[2022-01-11] MEDS: LORazepam 1 MG TAB PO PRN (18:23)
[2022-01-11] MEDS: MELATONIN 5 MG TABLET PO SCH (20:38)
[2022-01-11] MEDS: LUNESTA 3 MG PO SCH (21:29)
[2022-01-11] MEDS: MAGNESIUM OXIDE 400 MG TAB PO SCH (21:29)
[2022-01-12] MEDS: LORazepam 1 MG TAB PO PRN ×3 (01:02→23:19)
[2022-01-12] MEDS: metFORMIN 500 MG TAB PO SCH ×2 (08:34→17:36)
[2022-01-12] MEDS: METOPROLOL TARTRATE 25 MG TAB PO SCH ×2 (08:45→22:16)
[2022-01-12] MEDS: ASPIRIN 81 MG PO SCH (08:45)
[2022-01-12] MEDS: MULTIVITAMINS, THERA 1 EACH TAB PO SCH (08:45)
[2022-01-12] MEDS: EZETIMIBE 10 MG TAB PO SCH (08:45)
[2022-01-12] MEDS: MECLIZINE 25 MG TAB PO SCH ×2 (08:45→22:17)
[2022-01-12] MEDS: CHOLECALCIFEROL 25 MCG (1000 IU) TABLET PO SCH (08:45)
[2022-01-12] MEDS: FAMOTIDINE 20 MG TAB PO SCH ×2 (08:45→22:16)
[2022-01-12] MEDS: lisinopriL 20 MG TAB PO SCH (08:45)
--- NOTE | 2022-01-12 14:15 | P.PN ---
Subjective Progress Note Date: 01/12/22 Principal diagnosis: Diagnostic impression: Schizoaffective disorder bipolar type Rule out neurocognitive disorder Relationship problems Subjective/subjective data: I'm going home on Friday Everything is fine No, I'm not hearing any voices or seeing things I'm not having any depression or anxiety Patient was seen in her room where she was sleeping soundly patient remains superficial and give limited information No significant assessment and remained from the previous encounter Patient went back to sleep and is not interested in further discussion Plan: Continue current care and support Continue current medications as prescribed Encourage participation on the arcos activities No side effects from her current medications reported or noted Milan Donald M.D. 01/12/2022 Objective - Vital Signs Vital signs: Vital Signs Temp 97.9 F 01/12/22 07:23 Pulse 66 01/12/22 07:23 Resp 18 01/12/22 01:03 BP 115/68 01/12/22 07:23 Pulse Ox 97 01/12/22 07:23 - Labs CBC & Chem 7: 12/28/21 21:18 12/28/21 21:19
[2022-01-12] MEDS: MELATONIN 5 MG TABLET PO SCH (22:16)
[2022-01-12] MEDS: MAGNESIUM OXIDE 400 MG TAB PO SCH (22:17)
[2022-01-12] MEDS: LUNESTA 3 MG PO SCH (22:22)
[2022-01-13] MEDS: lisinopriL 20 MG TAB PO SCH (08:49)
[2022-01-13] MEDS: ASPIRIN 81 MG PO SCH (08:49)
[2022-01-13] MEDS: FAMOTIDINE 20 MG TAB PO SCH ×2 (08:49→20:56)
[2022-01-13] MEDS: metFORMIN 500 MG TAB PO SCH ×2 (08:49→17:55)
[2022-01-13] MEDS: CHOLECALCIFEROL 25 MCG (1000 IU) TABLET PO SCH (08:49)
[2022-01-13] MEDS: EZETIMIBE 10 MG TAB PO SCH (08:49)
[2022-01-13] MEDS: MECLIZINE 25 MG TAB PO SCH ×2 (08:50→20:57)
[2022-01-13] MEDS: METOPROLOL TARTRATE 25 MG TAB PO SCH ×2 (08:50→20:57)
[2022-01-13] MEDS: MULTIVITAMINS, THERA 1 EACH TAB PO SCH (09:10)
[2022-01-13] MEDS: LORazepam 1 MG TAB PO PRN ×2 (10:20→23:48)
--- NOTE | 2022-01-13 11:43 | P.PN ---
Subjective Progress Note Date: 01/13/22 Principal diagnosis: Diagnostic impression: Schizoaffective disorder bipolar type Rule out neurocognitive disorder Relationship problems Subjective/subjective data: I'm going home on Friday Everything is fine No, I'm not hearing any voices or seeing things I'm not having any depression or anxiety Patient was seen in her room where she was sleeping soundly patient remains superficial and give limited information No significant change noted from previous encounter Patient went back to sleep and is not interested in further discussion Plan: Continue current care and support Continue current medications as prescribed Encourage participation on the arcos activities No side effects from her current medications reported or noted Milan Odilon Gunn 01/13/2022 Objective - Vital Signs Vital signs: Vital Signs Temp 97.9 F 01/12/22 07:23 Pulse 66 01/12/22 07:23 Resp 18 01/12/22 01:03 BP 135/76 01/12/22 23:17 Pulse Ox 97 01/12/22 07:23 Intake & Output 01/12/22 01/13/22 01/13/22 18:59 06:59 18:59 Weight 74.5 kg - Labs CBC & Chem 7: 12/28/21 21:18 12/28/21 21:19
[2022-01-13] MEDS: MAGNESIUM OXIDE 400 MG TAB PO SCH (20:56)
[2022-01-13] MEDS: MELATONIN 5 MG TABLET PO SCH (20:57)
[2022-01-13] MEDS: LUNESTA 3 MG PO SCH (20:57)
[2022-01-14] MEDS: FAMOTIDINE 20 MG TAB PO SCH ×2 (08:06→21:32)
[2022-01-14] MEDS: METOPROLOL TARTRATE 25 MG TAB PO SCH ×2 (08:06→21:32)
[2022-01-14] MEDS: MULTIVITAMINS, THERA 1 EACH TAB PO SCH (08:06)
[2022-01-14] MEDS: EZETIMIBE 10 MG TAB PO SCH (08:06)
[2022-01-14] MEDS: metFORMIN 500 MG TAB PO SCH ×2 (08:06→18:07)
[2022-01-14] MEDS: CHOLECALCIFEROL 25 MCG (1000 IU) TABLET PO SCH (08:06)
[2022-01-14] MEDS: lisinopriL 20 MG TAB PO SCH (08:06)
[2022-01-14] MEDS: MECLIZINE 25 MG TAB PO SCH ×2 (08:06→21:32)
[2022-01-14] MEDS: ASPIRIN 81 MG PO SCH (08:06)
[2022-01-14] MEDS: MAG HYDROX/AL HYDROX/SIMETH 30 ML CUP PO PRN (12:21)
[2022-01-14] MEDS: LORazepam 1 MG TAB PO PRN (12:21)
[2022-01-14 13:31] LABS: Basophils # (A) 0.1 k/uL (0-0.2); Basophils % (A) 1 %; Eosinophils % (A) 1 %; HCT 42.2 % (34.0-46.0); HGB 13.7 gm/dL (11.4-16.0); Lymphocytes # (A) 1.9 k/uL (1.0-4.8); Lymphocytes % (A) 25 %; MCH 31.2 pg (25.0-35.0); MCHC 32.5 g/dL (31.0-37.0); MCV 95.9 fL (80.0-100.0); Mean Platelet Volume 7.7; Monocytes # (A) 0.3 k/uL (0-1.0); Monocytes % (A) 4 %; Neutrophils # (A) 5.2 k/uL (1.3-7.7); Neutrophils % (A) 67 %; Platelet Count 278 k/uL (150-450); RDW 12.8 % (11.5-15.5); WBC 7.7 k/uL (3.8-10.6)
--- NOTE | 2022-01-14 13:46 | P.PN ---
Progress Note - Text Progress Note Date: 01/14/22 Clinical Problems: Schizoaffective disorder bipolar type, rule out neurocognitive disorder Interim history: I reviewed the medical record, interviewed the patient and discuss his treatment and treatment plan during team meeting. She was obsessing over discharge this morning. She was under the impression that she would be discharged this morning and repeatedly sought a promise that I would discharge her today. She had difficulty understanding that I was a substitute for her attending psychiatrist. I reviewed her history and discharge plan with nursing staff and psychotherapist social worker. Apparently, her psychiatrist at [facility] is requesting a transfer to [facility] for long-term inpatient treatment. After I explained this recommendation she she appeared to become less preoccupied with discharge but gradually became more agitated and restless throughout the morning into the afternoon. She received 2 mg of Ativan by mouth at 1221 afternoon for her agitation and restlessness. Mental status exam: She presented as a casually groomed 71-year-old female was mostly pleasant on approach. She made eye contact and appeared to attend to the interview. She had no distinguishing features or prominent physical abnormalities. She had a distressed and labile facial expression. She was alert and oriented to person and place. She was restless and became progressively agitated throughout the day. Her speech was spontaneous and consistent with her mood. Affect was irritable but appropriate. She did not express suicidal ideation, wishes or homicidal ideation. She ruminated about discharge and obsessed about discharge. She did not express clear ideas reference, paranoid ideation or delusions. Her thinking was concrete and at times not fully logical coherent. She did not appear to be responding to inter nal stimuli. Assessment: Patient continues to meet the criteria for inpatient psychiatric admission for symptom stabilization and safety Plan: Continue inpatient treatment. Safety precautions. Continue current psychotropic medications-Klonopin 1 mg daily, Prolixin Decanoate 50 mg IM biweekly, Ativan and or Prolixin IM or by mouth when necessary for agitation and aggression of acute psychosis. The straw 50 mg at at bedtime when necessary for sleep. stove bottom worker to coordinate discharge and aftercare with [facility]. Evaluate clinical status response to treatment daily basis.
[2022-01-14 13:48] LABS: Calcium 9.9 mg/dL (8.4-10.2); Potassium 4.7 mmol/L (3.5-5.1)
--- NOTE | 2022-01-14 17:49 | P.PN ---
<Ruslan Santos - Last Filed: 01/14/22 17:47> Progress Note - Text Progress Note Date: 01/14/22 Late charting: Evaluated patient at bedside at 12:50 PM. Received a call with reports that patient was hypertensive and complaining of chest pain to midsternal chest. Upon arrival to bedside, patient reports she was upset as she was recently informed that she will need to go to [facility]. Patient states pain to midsternal chest accompanied by anxiety lasting only a few moments and has completely resolved. Patient denies currently feeling any headache, lightheadedness, dizziness, chest pain, palpitations, shortness of breath, dyspnea with exertion, or any other complaints. Patient's blood pressure was reportedly 192/87 and upon reevaluation significantly decreased to 133/60 without intervention. EKG revealed sinus bradycardia at 58 bpm with no noted T wave or ST abnormality showing no signs of acute ischemia. When compared to previous EKG obtained on 01/07/22 unchanged with the exception of rate from 63 bpm down to 58. CBC, BMP evaluated and unremarkable. Troponin negative at less than 0.012. No further testing to be completed at this time as all symptoms have resolved. RN to notify provider of any further needs for patient's complaints. Patient appears comfortable with no signs of acute distress. General: non toxic, no distress, appears at stated age Derm: warm, dry Head: atraumatic, normocephalic, symmetric Eyes: EOMI, no lid lag, anicteric sclera Mouth: no lip lesion, mucus membranes moist Cardiovascular: S1S2 reg, no murmur, positive posterior tibial pulse bilateral, Lungs: CTA bilateral, no rhonchi, no rales , no accessory muscle use Abdominal: soft, nontender to palpation, no guarding, no appreciable organomegaly Ext: no gross muscle atrophy, no edema, no contractures Neuro: CN II-XI grossly intact, no focal neuro deficits Psych: Alert, oriented, appropriate affect <Neelima Smith - Last Filed: 01/14/22 18:41> Progress Note - Text Ruslan Santos NP rendered care for this patient independently, reviewed the findings and plan as documented in the note above. I did not physically speak with or examine the patient on this date.
[2022-01-14] MEDS: MELATONIN 5 MG TABLET PO SCH (21:32)
[2022-01-14] MEDS: MAGNESIUM OXIDE 400 MG TAB PO SCH (21:32)
[2022-01-15] MEDS: LUNESTA 3 MG PO SCH ×2 (01:51→21:46)
[2022-01-15] MEDS: LORazepam 1 MG TAB PO PRN ×3 (03:00→21:05)
[2022-01-15] MEDS: ASPIRIN 81 MG PO SCH (08:43)
[2022-01-15] MEDS: metFORMIN 500 MG TAB PO SCH ×2 (08:43→17:37)
[2022-01-15] MEDS: METOPROLOL TARTRATE 25 MG TAB PO SCH ×2 (08:43→21:01)
[2022-01-15] MEDS: lisinopriL 20 MG TAB PO SCH (08:43)
[2022-01-15] MEDS: EZETIMIBE 10 MG TAB PO SCH (08:43)
[2022-01-15] MEDS: CHOLECALCIFEROL 25 MCG (1000 IU) TABLET PO SCH (08:43)
[2022-01-15] MEDS: MECLIZINE 25 MG TAB PO SCH ×2 (08:43→21:01)
[2022-01-15] MEDS: FAMOTIDINE 20 MG TAB PO SCH ×2 (08:43→21:01)
[2022-01-15] MEDS: MULTIVITAMINS, THERA 1 EACH TAB PO SCH (08:44)
--- NOTE | 2022-01-15 12:20 | P.PN ---
Progress Note - Text Progress Note Date: 01/15/22 Interval History: Patient was seen wandering the hallways and was directable and agreeable to speak with commercial underwriter in the office. The patient continues to demand for discharge. She reports no SI or HI. She reports no AH or VH. She continues to occasionally go on tangents but is redirectable back to the conversation at hand. She reports no issues with sleep or appetite. She expresses she is being unfairly judged by the ACT Team because she reports the oral prolixin caused her to be angry and was under the influence of the anger when she spoke with them. She was informed that the prolixin appeared to have helped her reconstitute back to a more cooperative and less labile state. This provider contacted the ACT team again. They report that she continue to send threats and angry calls from this M[facility] and continue to recommend State Hospitalization. They do not believe her presentation over the phone represents an appropriate presentation for discharge. They inform this provider that she has been accepted by [facility] but our treatment team is still awaiting any paperwork or confirmation from [place] reporting this. We do not have a date or time for transfer either. Mental Status Exam: General Appearance: Patient appears to be stated age is alert, directable and attempts to cooperate. Behavior: Patient is displaying normal psychomotor activity today. Good eye contact. Speech: Patient's speech is mostly coherent today with the occasional tangents and dysarthria that the patient normally exhibits. Mood/Affect: Mood is "I really want to go now." Affect is slightly irritable and elevated today. Suicidality/Homicidality: Patient denies any suicidal or homicidal ideation. Perceptions: Patient denies any auditory or visual hallucinations. Though content/process: Linear and logical in short conversation. Memory and concentration: Mildly improving Judgment and insight: Mildly improving Vital Signs Temp 98.1 F 01/15/22 07:16 Pulse 73 01/15/22 07:16 Resp 16 01/15/22 02:59 BP 137/60 01/15/22 07:16 Pulse Ox 97 01/15/22 07:16 Laboratory Results - Last 24 Hours 01/14/22 01/14/22 01/14/22 13:17 13:17 13:17 WBC 7.7 RBC 4.40 Hgb 13.7 Hct 42.2 MCV 95.9 MCH 31.2 MCHC 32.5 RDW 12.8 Plt Count 278 MPV 7.7 Neutrophils % 67 Lymphocytes % 25 Monocytes % 4 Eosinophils % 1 Basophils % 1 Neutrophils # 5.2 Lymphocytes # 1.9 Monocytes # 0.3 Eosinophils # 0.0 Basophils # 0.1 Sodium 135 L Potassium 4.7 Chloride 99 Carbon Dioxide 27 Anion Gap 9 BUN 19 H Creatinine 0.84 Est GFR (CKD-EPI)AfAm 82 Est GFR (CKD-EPI)NonAf 71 Glucose 93 Calcium 9.9 Troponin I <0.012 MOCA from 01/04/2022: Visuospatial/Executive: 02/02 Namin/3 Attention: 01/06 Language: 01/31 Abstraction: 01/02 Delayed Recall: 12/05 Orientation: 05/06 Total Score: 20/30 Assessment Schizoaffective disorder, bipolar type Rule out neurocognitive disorder Plan: -Patient continues to meet criteria for inpatient psychiatric admission for symptom stabilization and safety. Patient is currently under court order. -Awaiting confirmation of acceptance to [facility]. Discussed at length with the ACT Team to visit [facility] the [facility] to confirm her presentation and to reassess need for state hospitalization. -Patient scored 20/30 on MOCA. Patient has attended some college as her highest level of education. -Medications: Continue Restoril 15 mg by mouth at bedtime when necessary Continue metformin 500 mg by mouth twice a day with meals for weight control Prolixin decanoate 50 mg IM was administered on 01/08/2022. Medication to be administered on 01/22/2022. -When necessary Ativan and Prolixin for agitation/aggression. -SW on board for discharge planning. Encouraged the patient to participate in milieu.
[2022-01-15] MEDS: MELATONIN 5 MG TABLET PO SCH (21:01)
[2022-01-15] MEDS: MAGNESIUM OXIDE 400 MG TAB PO SCH (21:01)
[2022-01-16] MEDS: LORazepam 1 MG TAB PO PRN ×3 (04:26→21:29)
[2022-01-16] MEDS: CHOLECALCIFEROL 25 MCG (1000 IU) TABLET PO SCH (08:47)
[2022-01-16] MEDS: metFORMIN 500 MG TAB PO SCH ×2 (08:47→17:53)
[2022-01-16] MEDS: MECLIZINE 25 MG TAB PO SCH ×2 (08:47→21:27)
[2022-01-16] MEDS: FAMOTIDINE 20 MG TAB PO SCH ×2 (08:47→21:27)
[2022-01-16] MEDS: lisinopriL 20 MG TAB PO SCH (08:47)
[2022-01-16] MEDS: ASPIRIN 81 MG PO SCH (08:47)
[2022-01-16] MEDS: METOPROLOL TARTRATE 25 MG TAB PO SCH ×2 (08:47→21:27)
[2022-01-16] MEDS: MULTIVITAMINS, THERA 1 EACH TAB PO SCH (08:47)
[2022-01-16] MEDS: EZETIMIBE 10 MG TAB PO SCH (08:47)
--- NOTE | 2022-01-16 12:23 | P.PN ---
Progress Note - Text Progress Note Date: 01/16/22 Interval History: Patient was seen wandering the hallways and was directable and agreeable to speak with continuity writer in the office. The patient was informed that she will be going to [facility] for further psychiatric treatment and evaluation. The patient expresses she is very upset about this decision. She reports she feels that she is wrongly being accused of verbally threatening others and maintains that the oral prolixin was the cause for her presentation of anger and that she feels better with the prolixin injection. She terminates the interview due to being upset. Mental Status Exam: General Appearance: Patient appears to be stated age is alert and tearful. Terminates the interview. Behavior: Patient is displaying elevated psychomotor activity today. Good eye contact. Speech: Patient's speech is mostly coherent today with the occasional tangents. Mood/Affect: Mood is "I don't need to go to [place]!" Affect is tearful and upset. Suicidality/Homicidality: Unable to assess. Perceptions: Unable to assess. Though content/process: Flight of ideas. Believes antipsychotic medication were the cause for her anger. Memory and concentration: Unable to assess. Judgment and insight: Poor. Vital Signs Temp 98 F 01/16/22 08:00 Pulse 82 01/16/22 08:00 Resp 16 01/16/22 08:00 BP 149/70 01/16/22 08:00 Pulse Ox 95 01/16/22 08:00 MOCA from 01/04/2022: Visuospatial/Executive: 3/5 Namin/3 Attention: 2/6 Language: 3/3 Abstraction: 2/2 Delayed Recall: 1/5 Orientation: 6/6 Total Score: 20/30 Assessment Schizoaffective disorder, bipolar type Rule out neurocognitive disorder Plan: -Patient continues to meet criteria for inpatient psychiatric admission for symptom stabilization and safety. Patient is currently under court order. -Patient is scheduled for transfer to [facility] tomorrow. -Patient scored 20/30 on MOCA. Patient has attended some college as her highest level of education. -Medications: Continue Restoril 15 mg by mouth at bedtime when necessary Continue metformin 500 mg by mouth twice a day with meals for weight control Prolixin decanoate 50 mg IM was administered on 01/08/2022. Medication to be administered on 01/22/2022. -When necessary Ativan and Prolixin for agitation/aggression. -SW on board for discharge planning. Encouraged the patient to participate in milieu.
[2022-01-16] MEDS: MAGNESIUM OXIDE 400 MG TAB PO SCH (21:27)
[2022-01-16] MEDS: MELATONIN 5 MG TABLET PO SCH (21:27)
[2022-01-16] MEDS: LUNESTA 3 MG PO SCH (22:07)
[2022-01-17 05:48] VITALS: RESP 14; TEMP 96.4
[2022-01-17] MEDS: metFORMIN 500 MG TAB PO SCH (08:39)
[2022-01-17] MEDS: FAMOTIDINE 20 MG TAB PO SCH (08:39)
[2022-01-17] MEDS: lisinopriL 20 MG TAB PO SCH (08:39)
[2022-01-17] MEDS: ASPIRIN 81 MG PO SCH (08:39)
[2022-01-17] MEDS: METOPROLOL TARTRATE 25 MG TAB PO SCH (08:39)
[2022-01-17] MEDS: MECLIZINE 25 MG TAB PO SCH (08:39)
[2022-01-17] MEDS: MULTIVITAMINS, THERA 1 EACH TAB PO SCH (08:39)
[2022-01-17] MEDS: EZETIMIBE 10 MG TAB PO SCH (08:39)
[2022-01-17] MEDS: CHOLECALCIFEROL 25 MCG (1000 IU) TABLET PO SCH (08:39)
[2022-01-17 08:42] VITALS: BP 138/65; PULSE 75
[2022-01-17] MEDS: LORazepam 1 MG TAB PO PRN (09:52)
--- NOTE | 2022-01-17 11:42 | P.DS ---
Providers Date of admission: 12/29/21 00:25 Expected date of discharge: 01/17/22 Attending physician: Darius Miranda MD Consults: 12/29/21 00:31 Consult Physician Routine Consulting Provider: Kennedy Physician Consult Reason/Comments: H & P w/medical management Do you want consulting provider notified?: Yes, Notify in am Primary care physician: John Camara - Discharge Diagnosis(es) (1) Schizoaffective disorder, bipolar type Current Visit: Yes Status: Acute Priority: High Hospital Course: Admission HPI: Initial Psychiatric evaluation was completed by Dr Randhawa on 12/29/2021 who wrote: "This patient has a history of psychosis and was brought to hospital by [facility]. She was noncompliant with the medication. History of present illness: 71-year-old female presenting for mental health evaluation. Patient is under court order petitioned. She is unable to contribute at all to the history. She is brought in by [facility] department. Patient had apparently been seen at outside facility for medication noncompliance. She was either discharged with request to be transferred to this institution or transferred here for psychiatric evaluation treatment. This is unclear. She does have history of mental illness and was recently admitted to this institution for psychosis. Patient is so psychotic that she is not able to provide any psychiatric history. Past psychiatric history: This patient did admit that she was here on the mental health unit but then she went on her tangentiality and I could not get any information from her. Substance abuse history. Patient is unable to provide any history of substance abuse. She is very psychotic and is in wheelchair and is continuously talking to herself. Medical history: Patient is not able to provide any medical history and will need to have a complete physical checkup. She is not in acute physical distress at this time. Family history: This patient stated that there is autism in her family. However the history provided by her is very unreliable. Social history: This patient is not able to provide any history of growing up or later on. History of abuse: Patient is not able to provide any history of physical or sexual abuse. This patient was seen in the wheelchair. She is alert and confused. She is talking to herself and does not make any sense out of her conversation. She is talking in a nonsensical manner. She is dressed in a hospital gown and is unable to cooperate. She described her mood as fine. Her affect is labile. She has a loose association, she has a posterior of ideas and is unable to be understood. There are times when she starts crying and talking to herself. It appears that she is responding to some unknown internal stimuli. I could not assess any delusional thought content. She is not able to concentrate on task. Her memory cannot be tested at this time. Her attention span is extremely poor. She has absolutely no insight into her problems and her judgment is impaired. She is grossly psychotic and out of touch with reality." Hospital course: Upon admission to the unit patient was initially disorganized in speech, labile in mood, and nonadherent with treatment. Eventually, the patient was agreeable to start taking her medications again. The patient was restarted on her regimen of Prolixin, metformin, and Restoril at bedtime when necessary. Over the course of the hospitalization, the patient's Prolixin was gradually titrated to 10 mg twice a day. She was eventually transition to Prolixin decanoate 50 mg IM that was last administered on 01/08/2022. The patient did really well on this regimen of Prolixin decanoate and oral Prolixin was discontinued. She despite significant improvement in regards to her interactions with staff and peers and was much more linear and logical and conversation. She continued to speak in occasional tangents and exhibited occasional labile episodes however she was always directable. Initially there was a discussion to discharge the patient home however the patient's ACT team expressed significant concern about her discharge. They reported that the patient has been leaving them threatening messages and exhibiting pressured and disorganized speech over the phone to them. This provider asked for documentation which was not provided to him in regards to these claims. The patient's ACT team reported that she last exhibited these kinds of behaviors on 01/08/2022. They continued to express concerns for the patient's return home due to her constant readmissions and nonadherent to treatment. They recommended state psychiatric hospitalization. The patient was upset to learn that she was to be transferred to a state hospital but was eventually agreeable to do so. She is under a court order. On the day of discharge, the patient is not reporting any suicidal or homicidal ideation, intention, and/or plan. She is not reporting any auditory or visual hallucinations. She does endorse mild delusional belief that oral Prolixin is the one that causes her to be increasingly angry and labile however she appears to be happy with the Prolixin decanoate injection. She does express concern that this medication will be increased while she is at [facility]. Due to the concerns for recidivism as well as concerns by her outpatient providers for threatening messages and uncontrolled symptoms endorsed by the ACT team the patient was subsequently transferred to [facility] for further evaluation and treatment. Mental status exam: General Appearance: Patient appears to be stated age is alert, pleasant, and cooperative. Patient is in no acute distress and has fair hygiene and grooming Behavior: Patient is calmly seated without any agitated behavior. Speech: Patient's speech is fluent and nonpressured. Mood/Affect: Patient reports their mood is "I don't want to go to [place]", affect is congruent and upset but otherwise calm and euthymic. Suicidality/Homicidality: Patient denies having any suicidal or homicidal i deation intent or plan. Perceptions: Patient denies any auditory or visual hallucinations. Though content/process: The patient has a mild delusional belief that oral medications have caused her increased anger and uncontrolled psychiatric symptoms. She is otherwise linear and logical in short conversation. Memory and concentration: AOX3, grossly intact for the purposes of this session. Can spell "WORLD" backwards correctly. Judgment and insight: Improved with guarded prognosis Impression: Schizoaffective disorder, bipolar type Plan: -Continue with discharge today as patient has improved and stabilized psychiatrically and is not currently an imminent threat to herself and/or others. Patient will remain at chronically elevated risk for harm to self and/or others due to her severity of mental illness. -Continue medications: Prolixin Decanoate 50 mg IM administered on 01/08/2022. Next dose to be administered on 01/22/2022. Metformin 500 mg by mouth twice a day with meals for weight control -Patient was counseled on the need for medication compliance and appropriate follow-up at mental health and also primary care for medical issues. Patient verbalized understanding and agreed. -Patient is to be transferred to [facility]. -Patient counseled on abstaining from recreational drugs and marijuana and alcohol. Was informed/educated on the adverse effects on their physical and mental health. Patient verbally agreed and understood. -Patient was instructed to return to the hospital or seek immediate medical care if their psychiatric or medical symptoms do worsen or reoccur. -Psychoeducation and supportive therapy provided to patient. Risks and benefits of pharmacological treatment versus the risks and benefits of nontreatment weight and discussed. Informed consent discussion held. Common side effects of psychotropics discussed such as, but not limited to headache, GI disturbance, sexual dysfunction, movement disorders, sedation, and orthostatic hypotension. Life threatening and blackbox warnings of prescribed medications also discussed. Potential risks of operating a vehicle or heavy machinery discussed with patient at length. Advised on importance of compliance and a reliable and responsible manner. Patient advised to review FDA consumer labeling of all medications prior to taking. Vital Signs Temp 96.4 F L 01/17/22 05:47 Pulse 75 01/17/22 08:41 Resp 14 01/17/22 05:47 BP 138/65 01/17/22 08:41 Pulse Ox 95 01/16/22 08:00 Laboratory Results WBC 7.7 k/uL (3.8-10.6) 01/14/22 13:17 RBC 4.40 m/uL (3.80-5.40) 01/14/22 13:17 Hgb 13.7 gm/dL (11.4-16.0) 01/14/22 13:17 Hct 42.2 % (34.0-46.0) 01/14/22 13:17 MCV 95.9 fL (80.0-100.0) 01/14/22 13:17 MCH 31.2 pg (25.0-35.0) 01/14/22 13:17 MCHC 32.5 g/dL (31.0-37.0) 01/14/22 13:17 RDW 12.8 % (11.5-15.5) 01/14/22 13:17 Plt Count 278 k/uL (150-450) 01/14/22 13:17 MPV 7.7 01/14/22 13:17 Neutrophils % 67 % 01/14/22 13:17 Lymphocytes % 25 % 01/14/22 13:17 Monocytes % 4 % 01/14/22 13:17 Eosinophils % 1 % 01/14/22 13:17 Basophils % 1 % 01/14/22 13:17 Neutrophils # 5.2 k/uL (1.3-7.7) 01/14/22 13:17 Lymphocytes # 1.9 k/uL (1.0-4.8) 01/14/22 13:17 Monocytes # 0.3 k/uL (0-1.0) 01/14/22 13:17 Eosinophils # 0.0 k/uL (0-0.7) 01/14/22 13:17 Basophils # 0.1 k/uL (0-0.2) 01/14/22 13:17 Sodium 135 mmol/L (137-145) L 01/14/22 13:17 Potassium 4.7 mmol/L (3.5-5.1) 01/14/22 13:17 Chloride 99 mmol/L (98-107) 01/14/22 13:17 Carbon Dioxide 27 mmol/L (22-30) 01/14/22 13:17 Anion Gap 9 mmol/L 01/14/22 13:17 BUN 19 mg/dL (7-17) H 01/14/22 13:17 Creatinine 0.84 mg/dL (0.52-1.04) 01/14/22 13:17 Est GFR (CKD-EPI)AfAm 82 (>60 ml/min/1.73 sqM) 01/14/22 13:17 Est GFR (CKD-EPI)NonAf 71 (>60 ml/min/1.73 sqM) 01/14/22 13:17 Glucose 93 mg/dL (74-99) 01/14/22 13:17 POC Glucose (mg/dL) 133 mg/dL (75-99) H 01/02/22 07:51 POC Glu Underwater Welder ID Annetta Thomas 01/02/22 07:51 Calcium 9.9 mg/dL (8.4-10.2) 01/14/22 13:17 Total Bilirubin 0.4 mg/dL (0.2-1.3) 12/28/21 21:19 AST 30 U/L (14-36) 12/28/21 21:19 ALT 23 U/L (4-34) 12/28/21 21:19 Alkaline Phosphatase 65 U/L (38-126) 12/28/21 21:19 Troponin I <0.012 ng/mL (0.000-0.034) 01/14/22 13:17 Total Protein 6.3 g/dL (6.3-8.2) 12/28/21 21:19 Albumin 3.7 g/dL (3.5-5.0) 12/28/21 21:19 Urine Color Yellow 12/28/21 21:19 Urine Appearance Clear (Clear) 12/28/21 21:19 Urine pH 6.0 (5.0-8.0) 12/28/21 21:19 Ur Specific Wilbur 1.012 (1.001-1.035) 12/28/21 21:19 Urine Protein Negative (Negative) 12/28/21 21:19 Urine Glucose (UA) Negative (Negative) 12/28/21 21:19 Urine Ketones Negative (Negative) 12/28/21 21:19 Urine Blood Negative (Negative) 12/28/21 21:19 Urine Nitrite Negative (Negative) 12/28/21 21:19 Urine Bilirubin Negative (Negative) 12/28/21 21:19 Urine Urobilinogen <2.0 mg/dL (<2.0) 12/28/21 21:19 Ur Leukocyte Esterase Negative (Negative) 12/28/21 21:19 Urine Opiates Screen Not Detected (NotDetected) 12/28/21 17:46 Ur Oxycodone Screen Not Detected (NotDetected) 12/28/21 17:46 Urine Methadone Screen Not Detected (NotDetected) 12/28/21 17:46 Ur Propoxyphene Screen Not Detected (NotDetected) 12/28/21 17:46 Ur Barbiturates Screen Not Detected (NotDetected) 12/28/21 17:46 U Tricyclic Antidepress Not Detected (NotDetected) 12/28/21 17:46 Ur Phencyclidine Scrn Not Detected (NotDetected) 12/28/21 17:46 Ur Amphetamines Screen Not Detected (NotDetected) 12/28/21 17:46 U Methamphetamines Scrn Not Detected (NotDetected) 12/28/21 17:46 U Benzodiazepines Scrn Detected (NotDetected) H 12/28/21 17:46 Urine Cocaine Screen Not Detected (NotDetected) 12/28/21 17:46 U Marijuana (THC) Screen Not Detected (NotDetected) 12/28/21 17:46 Serum Alcohol <10 mg/dL 12/28/21 21:19 Coronavirus (PCR) Not Detected (Not Detectd) 12/28/21 18:28 Allergies Allergy/AdvReac Type Severity Reaction Status Date / Time haloperidol [From Haldol] Allergy injection Verified 12/29/21 01:21 site reaction per [facility] quetiapine fumarate Allergy Unknown Verified 12/29/21 01:21 [From Seroquel] Sulfa (Sulfonamide Allergy Unknown Verified 12/29/21 01:21 Antibiotics) Patient Condition at Discharge: Stable Plan - Discharge Summary Discharge Rx Participant: No New Discharge Prescriptions: New Metoprolol Tartrate [Lopressor] 25 mg PO BID 30 Days tab Multivitamins, Thera [Multivitamin (formulary)] 1 each PO DAILY 30 Days tab Meclizine [Antivert] 25 mg PO BID 30 Days tab Aspirin 81 mg PO DAILY 30 Days metFORMIN HCL [Glucophage] 500 mg PO BID-W/MEALS 30 Days tab Magnesium Oxide [Mag-Ox] 400 mg PO HS 30 Days tab Melatonin 10 mg PO HS 30 Days tablet Famotidine [Pepcid] 20 mg PO BID 30 Days tab Cholecalciferol [Vitamin D3 (25 Mcg = 1000 Iu)] 50 mcg PO DAILY 30 Days tablet lisinopriL [Zestril] 20 mg PO DAILY 30 Days tab Ezetimibe [Zetia] 10 mg PO DAILY 30 Days tab fluPHENAZine decanoate [Prolixin Decanoate] 50 mg IM [id number] #1 each Discontinued Magnesium Oxide [Magox 400] 400 mg PO HS Cholecalciferol [Vitamin D3 (25 Mcg = 1000 Iu)] 50 mcg PO DAILY metFORMIN HCL [Glucophage] 500 mg PO BID-W/MEALS 30 Days tab fluPHENAZine decanoate [Prolixin Decanoate] 25 mg IM ONCE #1 ml Meclizine HCl 25 mg PO BID Sennosides [Senna] 8.6 mg PO BID PRN PRN Reason: Constipation Multivitamin with Iron [Multivitamins with Iron] 1 tab PO DAILY Famotidine [Pepcid] 20 mg PO BID Aspirin 81 mg PO DAILY 30 Days tab Metoprolol Tartrate [Lopressor] 25 mg PO BID 30 Days tab Melatonin 10 mg PO HS 30 Days tablet fluPHENAZine [Prolixin] 5 mg PO BID 7 Days tab lisinopriL [Zestril] 20 mg PO DAILY 30 Days tab Ezetimibe [Zetia] 10 mg PO DAILY 30 Days tab Discharge Medication List Aspirin 81 mg PO DAILY 30 Days 01/17/22 [Rx] Cholecalciferol [Vitamin D3 (25 Mcg = 1000 Iu)] 50 mcg PO DAILY 30 Days tablet 01/17/22 [Rx] Ezetimibe [Zetia] 10 mg PO DAILY 30 Days tab 01/17/22 [Rx] Famotidine [Pepcid] 20 mg PO BID 30 Days tab 01/17/22 [Rx] Magnesium Oxide [Mag-Ox] 400 mg PO HS 30 Days tab 01/17/22 [Rx] Meclizine [Antivert] 25 mg PO BID 30 Days tab 01/17/22 [Rx] Melatonin 10 mg PO HS 30 Days tablet 01/17/22 [Rx] Metoprolol Tartrate [Lopressor] 25 mg PO BID 30 Days tab 01/17/22 [Rx] Multivitamins, Thera [Multivitamin (formulary)] 1 each PO DAILY 30 Days tab 01/17/22 [Rx] fluPHENAZine decanoate [Prolixin Decanoate] 50 mg IM [id number] #1 each 01/17/22 [Rx] lisinopriL [Zestril] 20 mg PO DAILY 30 Days tab 01/17/22 [Rx] metFORMIN HCL [Glucophage] 500 mg PO BID-W/MEALS 30 Days tab 01/17/22 [Rx] Follow up Appointment(s)/Referral(s): [facility] [Other] - 01/17/22 Nonstaff,Physician [REFERRING] - 1-2 days Patient Instructions/Handouts: Schizoaffective Disorder (DC) Activity/Diet/Wound Care/Special Instructions: Activity and diet as tolerated. Avoid the use of street drugs and alcohol. Take all medications as prescribed. When you are in need of refills on your medications please contact your medical provider and/or outpatient psychiatrist to have this done. Please go to scheduled outpatient appointment for aftercare treatment. If symptoms return or become worse, call the crisis line at and/or go to the nearest emergency room for evaluation Discharge Disposition: TRANSFER TO PSYCH HOSP/UNIT
== END 2022-01-17 11:35 | DRG 885 ==
LOC: EC 17:29 → 3MHU 12-29 00:25
PROVIDERS: ADMIT Psychiatry & Neurology Psychiatry; ATTEND Psychiatry & Neurology Psychiatry
DX: F25.0 Schizoaffective disorder, bipolar type (principal); E78.5 Hyperlipidemia, unspecified; E11.9 Type 2 diabetes mellitus without complications; Z87.891 Personal history of nicotine dependence; F41.0 Panic disorder [episodic paroxysmal anxiety]; I10 Essential (primary) hypertension; I16.0 Hypertensive urgency; K21.9 Gastro-esophageal reflux disease without esophagitis; J45.909 Unspecified asthma, uncomplicated; Z79.82 Long term (current) use of aspirin; Z79.84 Long term (current) use of oral hypoglycemic drugs; Z79.899 Other long term (current) drug therapy; Z82.3 Family history of stroke; Z82.49 Family history of ischemic heart disease and other diseases of the circulatory system; Z91.81 History of falling; Z91.14 Patient's other noncompliance with medication regimen; Z20.822 Contact with and (suspected) exposure to COVID-19; Z83.79 Family history of other diseases of the digestive system; Z98.890 Other specified postprocedural states; Z89.421 Acquired absence of other right toe(s); Z80.9 Family history of malignant neoplasm, unspecified; Z71.89 Other specified counseling; Z88.2 Allergy status to sulfonamides; Z88.8 Allergy status to other drugs, medicaments and biological substances
CPT/HCPCS: 36415; 80048; 80053; 80306; 80320; 81003; 82075; 84484; 85025; 87635; 93005; 99285